=== PATIENT | female | born 1955 | race Caucasian/White ===

== ENCOUNTER 2023-01-17 09:22 | Outpatient (OUT) | payer MEDICARE, SELFPAY ==
[2023-01-17 10:07] LABS: Estimated Average Glucose 111 mg/dL; Glycohemoglobin A1C 5.5 % (4.5-6.2)
[2023-01-17 10:32] LABS: Free T3 2.73 pg/mL (2.18-3.98); Thyroid Stimulating Hormone 2.312 uIU/mL (0.358-3.740)
== END 2023-01-17 09:23 ==
PROVIDERS: PCP Family Medicine; Visit Provider Family Medicine
DX: R53.83 Other fatigue (principal); R63.5 Abnormal weight gain
CPT/HCPCS: 36415; 83036; 84436; 84443; 84481

== ENCOUNTER 2023-04-03 08:40 | Outpatient (OUT) | payer MEDICARE, SELFPAY ==
[2023-04-03 09:24] LABS: Basophils Absolute Auto 0.1 10^3/uL (0.0-0.1); Basophils Percent Auto 1.1 % (0.2-2.0); Eosinophils Absolute Auto 0.3 10^3/uL (0.0-0.7); Eosinophils Percent Auto 4.5 % (0.9-7.0); Hematocrit 38.1 % (36.0-48.0); Hemoglobin 12.5 g/dL (12.0-16.0); Immature Granulocytes Abs Auto 0.02 10^3/uL (0.00-0.03); Immature Granulocytes Pct Auto 0.4 % (0.0-0.5); Lymphocytes Absolute Auto 1.8 10^3/uL (1.2-3.8); Lymphocytes Percent Auto 31.3 % (20.5-60.0); Mean Corpuscular HGB Conc 32.8 g/dL (29.9-35.2); Mean Corpuscular Hemoglobin 29.3 pg (26.7-34.0); Mean Corpuscular Volume 89.4 fL (81.0-99.0); Mean Platelet Volume 8.8 fL (9.5-13.5); Monocytes Absolute Auto 0.6 10^3/uL (0.3-0.8); Monocytes Percent Auto 10.4 % (1.7-12.0); Neutrophils Absolute Auto 2.9 10^3/uL (1.4-6.5); Neutrophils Percent Auto 52.3 % (43.0-75.0); Platelet Count 418 10^3/uL (150-450); Red Blood Count 4.26 10^6/uL (4.20-5.40); Red Cell Distribution Width 13.5 % (11.0-15.0); White Blood Count 5.6 10^3/uL (4.0-11.0)
[2023-04-03 09:43] LABS: Alanine Aminotransferase 27 U/L (14-59); Anion Gap 10.1; Aspartate Amino Transferase 17 U/L (15-37); BUN Creatinine Ratio 22.7; Carbon Dioxide 31.1 mmol/L (21.0-32.0); Chloride 103 mmol/L (98-107); Chol HDL Ratio 1.8; Cholesterol 104 mg/dL (<=200); Estimated GFR (African America >60 (>=60); Estimated GFR (Non-African Ame 57 (>=60); Glucose 105 mg/dL (74-106); HDL Cholesterol 58 mg/dL (40-60); Potassium 4.2 mmol/L (3.5-5.1); Sodium 140 mmol/L (136-145); Triglycerides 105 mg/dL (<=150)
== END 2023-04-03 08:41 | disposition home or self-care (01) ==
PROVIDERS: PCP Family Medicine; Visit Provider Internal Medicine Cardiovascular Disease
DX: E78.5 Hyperlipidemia, unspecified (principal); I25.10 Atherosclerotic heart disease of native coronary artery without angina pectoris; Z98.61 Coronary angioplasty status; I10 Essential (primary) hypertension
CPT/HCPCS: 36415; 80048; 80061; 84450; 84460; 85025

== ENCOUNTER 2023-06-27 09:12 | Outpatient (OUT) | payer MEDICARE, SELFPAY ==
[2023-06-27 09:56] LABS: Basophils Absolute Auto 0.1 10^3/uL (0.0-0.1); Basophils Percent Auto 1.2 % (0.2-2.0); Eosinophils Absolute Auto 0.3 10^3/uL (0.0-0.7); Eosinophils Percent Auto 4.7 % (0.9-7.0); Hematocrit 40.9 % (36.0-48.0); Immature Granulocytes Abs Auto 0.02 10^3/uL (0.00-0.03); Immature Granulocytes Pct Auto 0.3 % (0.0-0.5); Lymphocytes Absolute Auto 1.5 10^3/uL (1.2-3.8); Lymphocytes Percent Auto 22.9 % (20.5-60.0); Mean Corpuscular HGB Conc 31.8 g/dL (29.9-35.2); Mean Corpuscular Hemoglobin 29.1 pg (26.7-34.0); Mean Corpuscular Volume 91.7 fL (81.0-99.0); Mean Platelet Volume 8.8 fL (9.5-13.5); Monocytes Absolute Auto 0.6 10^3/uL (0.3-0.8); Monocytes Percent Auto 9.5 % (1.7-12.0); Neutrophils Absolute Auto 3.9 10^3/uL (1.4-6.5); Neutrophils Percent Auto 61.4 % (43.0-75.0); Platelet Count 464 10^3/uL (150-450); Red Blood Count 4.46 10^6/uL (4.20-5.40); Red Cell Distribution Width 13.2 % (11.0-15.0); White Blood Count 6.4 10^3/uL (4.0-11.0)
[2023-06-27 10:41] LABS: Estimated Average Glucose 126 mg/dL
[2023-06-27 10:54] LABS: Alanine Aminotransferase 40 U/L (14-59); Albumin Globulin Ratio 0.8; Albumin Level 3.6 g/dL (3.4-5.0); Alkaline Phosphatase 114 U/L (46-116); Anion Gap 12.6; Aspartate Amino Transferase 22 U/L (15-37); BUN Creatinine Ratio 19.3; Bilirubin Total 0.4 mg/dL (0.2-1.0); Calcium 9.2 mg/dL (8.5-10.1); Carbon Dioxide 31.5 mmol/L (21.0-32.0); Chloride 101 mmol/L (98-107); Chol HDL Ratio 1.8; Cholesterol 107 mg/dL (<=200); Estimated GFR (African America 55 (>=60); Estimated GFR (Non-African Ame 45 (>=60); Free T3 2.84 pg/mL (2.18-3.98); Globulin 4.4 g/dL; Glucose 101 mg/dL (74-106); HDL Cholesterol 61 mg/dL (40-60); Potassium 4.1 mmol/L (3.5-5.1); Sodium 141 mmol/L (136-145); Triglycerides 120 mg/dL (<=150)
[2023-06-28 11:09] LABS: Insulin 15.9 uIU/mL (2.6-24.9)
== END 2023-06-27 09:13 | disposition home or self-care (01) ==
PROVIDERS: PCP Family Medicine; Visit Provider Family Medicine
DX: Z00.00 Encounter for general adult medical examination without abnormal findings (principal); I25.10 Atherosclerotic heart disease of native coronary artery without angina pectoris; E78.00 Pure hypercholesterolemia, unspecified; E78.5 Hyperlipidemia, unspecified; R73.09 Other abnormal glucose; Z12.12 Encounter for screening for malignant neoplasm of rectum; D64.9 Anemia, unspecified; E55.9 Vitamin D deficiency, unspecified
CPT/HCPCS: 36415; 80053; 80061; 82306; 83036; 83525; 83540; 84436; 84443; 84481; 85025

== ENCOUNTER 2023-07-17 15:04 | Outpatient (REF) | payer MEDICARE, SELFPAY ==
[2023-07-17 15:38] LABS: Occult Blood Positive
== END 2023-07-17 15:05 | disposition home or self-care (01) ==
LOC: LAB 15:04
PROVIDERS: PCP Family Medicine; Visit Provider Family Medicine
DX: Z00.00 Encounter for general adult medical examination without abnormal findings (principal); I25.10 Atherosclerotic heart disease of native coronary artery without angina pectoris; E78.00 Pure hypercholesterolemia, unspecified; R73.09 Other abnormal glucose; Z12.12 Encounter for screening for malignant neoplasm of rectum; D64.9 Anemia, unspecified; E55.9 Vitamin D deficiency, unspecified
CPT/HCPCS: G0328

== ENCOUNTER 2023-08-11 14:18 | Outpatient (OUT) | payer MEDICARE, SELFPAY ==
--- OUTSIDE RECORDS SUMMARY | 2023-08-11 14:23 | XMS_ITS | CCD ---
Author Name Unknown Address [address] [place] [address] Organization [facility] Care Team Providers Care Pit Clerk Name Role Phone ROSEANNE HALL Unavailable Unavailable RON HERNANDEZ Unavailable Unavailable Ron Hernandez Unavailable Unavailable Unavailable MD Ron Hernandez Primary Care Provider [phone] BASILIA White Attending Provider MD Ron Hernandez Referring Provider Self, Referral Attending Provider Unavailable MARY, DR VELASQUEZ Primary Care Unavailable HALL, DR ROSEANNE Casey Admitting Unavailable HALL, DR ROSEANNE Casey Attending Unavailable HALL, DR ROSEANNE Casey Consulting Unavailable MARY, DR VELASQUEZ Admitting Unavailable MARY, DR VELASQUEZ Attending Unavailable MARY, DR VELASQUEZ Consulting Unavailable MARY, DR VELASQUEZ Primary Care Unavailable CELESTE, DR JO Palma Consulting Unavailable HALL, DR ROSEANNE Casey Consulting Unavailable HALL, DR ROSEANNE Casey Consulting Unavailable HALL, DR ROSEANNE Casey Admitting Unavailable HALL, DR ROSEANNE Casey Attending Unavailable MARY, DR VELASQUEZ Primary Care Unavailable CELINA COATES Admitting Unavailable CELESTE, DR JO Palma Consulting Unavailable MARY, DR VELASQUEZ Primary Care Unavailable CELINA COATES Attending Unavailable AMINATA, CELINA Consulting Unavailable Hall, Dr. Roseanne Rodriguez Referring Megan vailable Mary, Dr. Ron Harden Primary Care Unavail able Hall, Dr. Roseanne Rodriguez Attending Megan vailable Hall, Dr. Roseanne Rodriguez Referring Megan vailable Mary, Dr. Ron Harden Primary Care Unavail able Hall, Dr. Roseanne Rodriguez Attending Megan vailable MD Ron Hernandez Primary Care Provider [phone] Self, Referral Attending Provider Unavailable Ron Hernandez Primary Care Unavailable Self, Referral Attending Unavailable Self, Referral Admitting Unavailable WOLFGANG MALLORY Attending Unavailable WOLFGANG MALLORY Referring Unavailable Ron Hernandez Primary Care Physician [phone] Dereck URENA Attending Unavailable Allergies Allergy Classification Reported Allergen(s) Allergy Type Date of Onset Reaction(s) Facility (1 source) No Known Medication Allergies; Translations: [No Known Medication Allergies] Propensity to adverse reactions (disorder) [facility] Repository Medications Current Medications Medication Drug Class(es) Dates Sig (Normalized) Sig (Original) 0.25 MG, 0.5 MG Dose 3 ML semaglutide 0.68 MG/ML Pen Injector [Ozempic] (1 source) Start: 08-02-2023 Ozempic 2 mg/3 mL (0.25 mg or 0.5 mg dose) subcutaneous solution 0.25 mg, SubCutaneous, qWeek, Refills(s) 0 Start Date: 08/02/23 Status: Ordered aspirin 81 mg delayed release oral tablet (15 sources) Platelet Aggregation Inhibitor, Nonsteroidal Anti-inflammatory Drug Start: 08-02-2023 take 1 tablet by mouth once daily aspirin 81 mg Oral EC Tab 81 mg = 1 tab(s), Oral, Daily, Refills(s) 0 Start Date: 08/02/23 Status: Ordered Start: 10-25-2021 take 1 tablet by sukumar th once daily Aspirin 81 MG Oral Tablet Delayed Release TAKE 1 TABLET DAILY. Quantity: 90 Refills: 3 Ordered: 26-Oct-2022 Roseanne Hall MD Start : 25-Oct-2021 Active Fill at patients request 1 ml evolocumab 140 mg/ml prefilled syringe (19 sources) PCSK9 Inhibitor Start: 07-24-2023 Repatha 140 mg /mL subcutaneous solution Refills(s) 0 Start Date: 07/24/23 Status: Ordered inject 1 mL by subcu taneous injection every other week Repatha SureClick 140 MG/ML Subcutaneous Solution Auto-injector Inject one ml every two weeks Quantity: 3 Refills: 3 Ordered: 23-Sep-2022 Roseanne Hall MD Active omeprazole 40 mg delayed release oral capsule (17 sources) Proton Pump Inhibitor Start: 07-24-2023 take 1 capsule by mouth once daily omeprazole 40 mg Cap-DR 40 mg = 1 cap(s), Oral, Daily, Refills(s) 0 Start Date: 07/24/23 Status: Ordered Start: 01-13-2021 take 1 capsule by [facility] once daily Omeprazole 40 MG Oral Capsule Delayed Release TAKE 1 CAPSULE BY MOUTH EVERY DAY Quantity: 90 Refills: 0 Ordered: 13-Jan-2021 DO Start : 13-Jan-2021 Active venlafaxine 37.5 mg oral tablet (17 sources) Serotonin and Norepinephrine Reuptake Inhibitor Start: 07-24-2023 take 1 tablet by mouth once daily venlafaxine 37.5 mg Tab 37.5 mg = 1 tab(s), Oral, Daily, Refills(s) 0 Start Date: 07/24/23 Status: Ordered Start: 12-29-2021 take 1 capsule by [facility] every twenty-four hours Venlafaxine HCl ER 37.5 MG Oral Capsule Extended Release 24 Hour Quantity: 90 Refills: 0 Ordered: 29-Dec-2021 DO Start : 29-Dec-2021 Active take 1 tablet by mouth once jose alejandro y Venlafaxine HCl - 37.5 MG Oral Tablet TAKE 1 TABLET DAILY. Quantity: 0 Refills: 0 Ordered: 15-Sep-2021 DO Active Completed/Discontinued Medications Medication Drug Class(es) Dates Sig (Normalized) Sig (Original) cholecalciferol 0.05 mg oral tablet (7 sources) Vitamin D take 1 tablet by mouth once daily Vitamin D3 50 MCG (1999) Oral Tablet Take 1 tablet daily Quantity: 0 Refills: 0 Ordered: 22-Sep-2022 DO Active clopidogrel 75 mg oral tablet (16 sources) P2Y12 Platelet Inhibitor Start: 07-24-2023 take 1 tablet by mouth once daily Start: 03-24-2023 take 1 tablet by sukumar th once daily Clopidogrel Bisulfate 75 MG Oral Tablet TAKE 1 TABLET BY MOUTH DAILY Quantity: 100 Refills: 2 Ordered: 26-Mar-2023 Roseanne Hall MD Start : 24-Mar-2023 Active take 1 tablet by sukumar th once daily Clopidogrel Bisulfate 75 MG Oral Tablet TAKE 1 TABLET DAILY. Quantity: 90 Refills: 2 Ordered: 24-Oct-2022 Roseanne Hall MD Active etodolac 500 mg oral tablet (10 sources) Nonsteroidal Anti-inflammatory Drug Lodine 500 MG TABS T SILVANO 1 TABLET DAILY. Quantity: 0 Refills: 0 Ordered: 22-Sep-2022 DO Active take 1 tablet by mouth twice felix ly Etodolac 500 MG Oral Tablet TAKE 1 TABLET TWICE DAILY. Quantity: 0 Refills: 0 Ordered: 15-Sep-2021 DO Active ezetimibe 10 mg oral tablet (17 sources) Dietary Cholesterol Absorption Inhibitor Start: 05-30-2022 take 1 tablet by mouth at bedtime Ezetimibe 10 MG Oral Tablet TAKE 1 TABLET BY MOUTH AT BEDTIME Quantity: 90 Refills: 3 Ordered: 13-Mar-2023 Roseanne Hall MD Start : 30-May-2022 Active take 1 tablet by mouth once jose alejandro y Ezetimibe 10 MG Oral Tablet Take 1 tablet daily Quantity: 90 Refills: 3 Ordered: 27-Jul-2021 Roseanne Hall MD Active hydroCHLOROthiazide 12.5 mg oral capsule (15 sources) Thiazide Diuretic Start: 09-15-2021 take 1 capsule by mouth once daily hydroCHLOROthiazide 12.5 MG Oral Capsule TAKE 1 CAPSULE BY MOUTH DAILY Quantity: 100 Refills: 2 Ordered: 26-Mar-2023 Roseanne Hall MD Start : 15-Sep-2021 Active lisinopril 10 mg oral tablet (19 sources) Angiotensin Converting Enzyme Inhibitor Start: 07-24-2023 take 1 tablet by mouth once daily Start: 07-19-2021 take 1 tablet by sukumar th once daily Lisinopril 10 MG Oral Tablet TAKE 1 TABLET BY MOUTH DAILY Quantity: 100 Refills: 2 Ordered: 26-Mar-2023 Roseanne Hall MD Start : 19-Jul-2021 Active meloxicam 7.5 mg oral tablet (5 sources) Nonsteroidal Anti-inflammatory Drug Start: 02-17-2022 Meloxicam 7.5 MG Oral Tablet TAKE TABLET PRN Quantity: 0 Refills: 0 Ordered: 17-Feb-2022 DO Start : 17-Feb-2022 Active 24 hr metoprolol succinate 50 mg extended release oral tablet (18 sources) beta-Adrenergic Hebert Start: 07-24-2023 take 1 tablet by mouth once daily Start: 05-30-2022 take 1 tablet by sukumar th once daily Metoprolol Succinate ER 50 MG Oral Tablet Extended Release 24 Hour TAKE 1 TABLET BY MOUTH DAILY Quantity: 100 Refills: 2 Ordered: 26-Mar-2023 Roseanne aHll MD Start : 30-May-2022 Active take 1 tablet by sukumar th once daily Metoprolol Succinate ER 50 MG Oral Tablet Extended Release 24 Hour take 1 tablet by mouth once daily Quantity: 90 Refills: 3 Ordered: 22-Jul-2021 Roseanne Hall MD Active Move Free Joint Health Advance Oral Tablet (6 sources) take 1 tablet by mouth once daily Move Free Joint Health Advance Oral Tablet Take 1 tablet daily Quantity: 0 Refills: 0 Ordered: 22-Sep-2022 DO Active 24 hr niacin 500 mg extended release oral tablet (4 sources) Nicotinic Acid take 1 tablet by mouth once daily Niaspan 500 MG Oral Tablet Extended Release TAKE 1 TABLET DAILY. Quantity: 0 Refills: 0 Ordered: 15-Sep-2021 DO Active pravastatin sodium 20 mg oral tablet (16 sources) HMG-CoA Reductase Inhibitor Start: 07-24-2023 Start: 03-24-2023 take 1 tablet by sukumar th every week Pravastatin Sodium 20 MG Oral Tablet TAKE 1 TABLET BY MOUTH WEEKLY Quantity: 15 Refills: 2 Ordered: 26-Mar-2023 Roseanne Hall MD Start : 24-Mar-2023 Active take 1 tablet by sukumar th every week Pravastatin Sodium 20 MG Oral Tablet TAKE 1 TABLET Weekly Quantity: 13 Refills: 2 Ordered: 24-Oct-2022 Roseanne Hall MD Active ubidecarenone 10 mg oral cap jaylin (16 sources) CoQ-10 10 MG CAP S TAKE 1 CAPSULE Daily Quantity: 0 Refills: 0 Ordered: 15-Sep-2021 DO Active vitamin b12 1 mg oral tablet (4 sources) Vitamin B12 Cyanocobalamin 1 000 MCG TABS TAKE 1 TABLET DAILY DIRECTED. Quantity: 0 Refills: 0 Ordered: 15-Sep-2021 DO Active Problems Active Problems Problem Classification Problem Date Documented Da te Episodic/Chronic Acute cerebrovascular disease (17 sources) Cerebrovascular accident; Translations: [Stroke syndrome] 07-24-2023 Chronic Coronary atherosclerosis and other heart disease (20 sources) Atherosclerotic heart disease of [place] coronary artery without angina pectoris; Translations: [Coronary atherosclerosis] Onset: 05-18-2017 Chronic Coronary atherosclerosis and other heart disease (16 sources) Patient post percutaneous transluminal coronary angioplasty; Translations: [Percutaneous transluminal coronary angioplasty status] Episodic Comment on above: RCA/left circumflex 2017; Coronary atherosclerosis and other heart disease (1 source) Coronary atherosclerosis and other heart disease Onset: 05-18-2017 Disorders of lipid metabolism (20 sources) Hyperlipidemia; Translations: [Other and unspecified hyperlipidemia] Onset: 09-13-2022 Chronic Essential hypertension (20 sources) Hypertensive disorder; Translations: [Unspecified essential hypertension] Onset: 10-07-2021 07-24-2023 Chronic Essential hypertension (1 source) Essential hypertension Onset: 05-18-2017 Mood disorders (1 source) Depressive disorder 07-24-2023 Chronic Nonmalignant breast conditions (1 source) Fibrocystic disease of breast 07-24-2023 Chronic Occlusion or stenosis of precerebral arteries (5 sources) Occlusion and stenosis of bilateral carotid arteries; Translations: [Bilateral stenosis of carotid arteries] Onset: 05-25-2020 Chronic Other gastrointestinal disorders (1 source) Abnormal feces; Translations: [Other fecal abnormalities] Onset: 08-02-2023 Episodic Other gastrointestinal disorders (1 source) Occult blood in stools 08-02-2023 Episodic Other nutritional; endocrine; and metabolic disorders (17 sources) Obesity; Translations: [Obesity, unspecified] 07-24-2023 Chronic Other nutritional; endocrine; and metabolic disorders (1 source) Body mass index 30+ - obesity 08-02-2023 Chronic Transient cerebral ischemia (1 source) Transient cerebral ischemia Onset: 05-25-2020 07-24-2023 Chronic Unclassified (2 sources) Athscl heart disease of [place] coronary artery w/o ang pctrs / I25.10(ICD-9) Onset: 05-18-2017 Unclassified (1 source) Encounter for screening mammogram for malignant neoplasm of breast; Translations: [Encounter for screening mammogram for malignant neoplasm of breast] Onset: 04-18-2023 Past or Other Problems Problem Classification Problem Date Documented Da te Episodic/Chronic Other circulatory disease (16 sources) H/O: hypertension; Translations: [Personal history of other diseases of circulatory system] Resolved: 09-15-2021 Episodic Unclassified (16 sources) Never smoked tobacco; Translations: [Never a smoker] Results Test Name Value Interpretation Reference Range Facility Consent for Procedure/Surger yon 08-03-2023 Consent for Procedure/Surgery [id number] IFF [facility] Facesheeton 08-03-2023 Facesheet [id number] TIFF Normal [facility] Ambulatory Visit Summaryon 1 10-03-2022 Ambulatory Visit Summary ASHLEY VALENCIA :1955 Visit Date:08/02/2023 Ambulatory Visit Instructions Your Care Team Attending Physician - ROMEL MOORE, Dereck Streeter Primary Care Physician - Mary MOORE, Ron This Is Your Medications List Contact prescribing physician if questions or concerns aspirin (aspirin 81 mg Oral EC Tab) clopidogrel (clopidogrel 75 mg Tab) evolocumab (Repatha 140 mg/mL subcutaneous solution) lisinopril (lisinopril 10 mg Tab) metoprolol (metoprolol 50 mg ER Tab) omeprazole (omeprazole 40 mg Cap-DR) pravastatin (pravastatin 20 mg Tab) semaglutide (Ozempic 2 mg/3 mL (0.25 mg or 0.5 mg dose) subcutaneous solution) venlafaxine (venlafaxine 37.5 mg Tab) Procedures Performed Placement of stent in coronary artery (2018), Angioplasty, section, Colonoscopy, Repair of tendon. Discharge Vitals Heart Rate (Peripheral) 72 Respiratory Rate 16 Blood Pressure 122/80 Height 162.5 cm Height 64 in Weight 89.8 kg Weight 197.56 lb BMI 34.01 Medications What How Much When Instructions Unchanged aspirin (aspirin 81 mg Oral EC Tab) 1 Tablets By Mouth Every day Contact prescribing physician if questions or concerns Unchanged clopidogrel (clopidogrel 75 mg Tab) 1 Tablets By Mouth Every day 1 Unknown, 0 Refill(s) Contact prescribing physician if questions or concerns Unchanged evolocumab (Repatha 140 mg/ mL subcutaneous solution) Contact prescribing physician if questions or concerns Unchanged lisinopril (lisinopril 10 mg Tab) 1 Tablets By Mouth Every day 1 Unknown, 0 Refill(s) Contact prescribing physician if questions or concerns Unchanged metoprolol (metoprolol 50 mg ER Tab) 1 Tablets By Mouth Every day 1 Unknown, 0 Refill(s) Contact prescribing physician if questions or concerns Unchanged omeprazole (omeprazole 40 mg Cap-DR) 1 Capsules By Mouth Every day Contact prescribing physician if questions or concerns Unchanged pravastatin (pravastatin 20 mg Tab) 1 Tablets By Mouth Monday 1 Unknown, 0 Refill(s) Contact prescribing physician if questions or concerns Unchanged semaglutide (Ozempic 2 mg/ 3 mL (0.25 mg or 0.5 mg dose) subcutaneous solution) 0.25 Milligram Subcutaneous Every week Contact prescribing physician if questions or concerns Unchanged venlafaxine (venlafaxine 37.5 mg Tab) 1 Tablets By Mouth Every day Contact prescribing physician if questions or concerns Allergies No Known Allergies No Known Medication Allergies Problems Ongoing - Any problem that you are currently receiving treatment for. Bilateral stenosis of carotid arteries BMI 34.0-34.9,adult Cerebral infarction Coronary atherosclerosis Depression Dyslipidemia Fibrocystic disease of breast Hyperlipidemia Hypertensive disorder Obesity Pure hypercholesterolemia Transient cerebral ischemia Patient Survey You may receive a survey via text or e-mail asking about your office visit. Please share your experience with us by completing your survey. We appreciate your feedback and thank you for choosing us for your care. [facility] Physician Referralon 023 Physician Referral [id number] IFF [facility] MM screening mammo BI w/CADo n 04-18-2023 MM screening mammo BI w/CAD [facility] [place] [address] Mammography Report Signed Patient: Ashley Valencia MR#: [id number] : 1955 Acct:[id number] Age/Sex: 68 / F ADM Date: 04/18/23 Loc: [place] Room: Type: [facility] Attending Dr: Referral Self Copies to: Ron Hernandez MD SELF,REFERRAL Ordering Provider: SELF,REFERRAL Date of Service: 04/18/23 MM/MM screening mammo BI w/CAD: SCREENING BILATERAL Screening Full Field digital mammogram with 3-D imaging. Full field digital CC and MLO imaging performed. CAD utilized. COMPARISON: 04/15/2022 HISTORY: Annual screening BREAST COMPOSITION: Scattered fibroglandular densities of the breast parenchyma identified BENIGN BREAST CALCIFICATIONS: Present VASCULAR CALCIFICATIONS: None DEVELOPING ARCHITECTURAL DISTORTION: None DEVELOPING BREAST NODULE: No developing breast nodule. Stable breast nodularity. DEVELOPING MALIGNANT CALCIFICATIONS: None AXILLARY LYMPH NODES: Normal POSTSURGICAL CHANGES: None MM/MM screening mammo BI w/CAD IMPRESSION: No mammographic evidence of malignancy. Routine follow-up recommended in one year. RESULT CODE: 2 Benign Findings(s) DENSITY CODE: 2 (approximately 25-50% glandular) FOLLOW UP: 1YR THE FALSE-NEGATIVE RATE OF MAMMOGRAPHY IS APPROXIMATELY 10%. IMAGING OF A PALPABLE ABNORMALITY MUST BE BASED ON CLINICAL GROUNDS. PATIENT WAS ENTERED INTO A REMINDER SYSTEM WITH A TARGET DUE DATE FOR THE NEXT MAMMOGRAM. Impression dictated by: Juarez Parish M.D.04/18/2023 11:10 AM Dictation Location: [facility] Transcribed By: [facility] 04/18/23 1110 Dictated By: Juarez Parish DO 04/18/23 1050 Signed By: 04/18/23 1110 [facility] Office Visit (Cardiology)on 04-04-2023 Follow-up visit Diagnoses/Problems Assessed Atherosclerosis of [place] coronary artery of [place] heart without angina pectoris (414.01) (I25.10) Essential hypertension (401.9) (I10) Hyperlipidemia (272.4) (E78.5) S/P PTCA (percutaneous transluminal coronary angioplasty) (V45.82) (Z98.61) RCA/left circumflex 2017 Never a smoker Class 1 obesity with body mass index (BMI) of 34.0 to 34.9 in adult (278.00,V85.34) (E66.9,Z68.34) Stroke syndrome Orders SocHx: Never a smoker Tobacco Use Screening; Status:Complete; Done: [id number] Patient Instructions Please bring all medicines, vitamins, and herbal supplements with you when you come to the office. Prescriptions will not be filled unless you are compliant with your follow up appointments or have a follow up appointment scheduled as per instruction of your physician. Refills should be requested at the time of your visit. Labs requested from [facility] Follow up in [6 ] months Chief Complaint ASHLEY VALENCIA is being seen for a 6 month follow-up of. Patient is in the office for follow-up for the problems noted below. She has had no events since her last visit 6 months ago. Her weight remains above target. She is trying to lose weight. She had blood work yesterday at [facility] which we requested. She is tolerating medication without any problem denies any symptoms suggestive of recurrent angina pectoris, cardiac arrhythmias or any dyspnea on exertion. Apart from class I obesity physical examination was normal. ASSESSMENT AND PLAN: 1. Coronary artery disease, status post angioplasty in 2017. This involved the left circumflex and the right coronary artery. Presently stable with no changes needed and no cardiac investigations are necessary. 2. Hypertension, currently under control. Renal function is normal 3. Class I obesity. Patient is making the effort to lose weight. 4. Hyperlipidemia, currently on a combination of Repatha, Zetia and pravastatin [once weekly]. All of which have been well-tolerated. Lipid profile was done yesterday and we requested the results from the hospital 5. History of stroke back in August 2019 mostly in the form of slurred speech which resolved. Continue dual antiplatelet therapy which has been well-tolerated. Roseanne Hall MD, [facility] Surgical History Problems History of Achilles tendon surgery History of Blepharoplasty History of section History of Complete colonoscopy History of Percutaneous transluminal coronary angioplasty Past Medical History Problems History of hypertension (V12.59) (Z86.79) Resolved Date: 15 Sep 2021 Current Meds Medication NameInstruction Aspirin 81 MG Oral Tablet Delayed ReleaseTAKE 1 TABLET DAILY. Clopidogrel Bisulfate 75 MG Oral TabletTAKE 1 TABLET BY MOUTH DAILY CoQ-10 10 MG CAPSTAKE 1 CAPSULE Daily Ezetimibe 10 MG Oral TabletTAKE 1 TABLET BY MOUTH AT BEDTIME hydroCHLOROthiazide 12.5 MG Oral CapsuleTAKE 1 CAPSULE BY MOUTH DAILY Lisinopril 10 MG Oral TabletTAKE 1 TABLET BY MOUTH DAILY Metoprolol Succinate ER 50 MG Oral Tablet Extended Release 24 HourTAKE 1 TABLET BY MOUTH DAILY Omeprazole 40 MG Oral Capsule Delayed ReleaseTAKE 1 CAPSULE BY MOUTH EVERY DAY Pravastatin Sodium 20 MG Oral TabletTAKE 1 TABLET BY MOUTH WEEKLY Repatha SureClick 140 MG/ML Subcutaneous Solution Auto-injectorInject one ml every two weeks Venlafaxine HCl ER 37.5 MG Oral Capsule Extended Release 24 Hour Vitamin D3 50 MCG (1999 [place]) Oral TabletTake 1 tablet daily Allergies Medication No Known Drug Allergies Recorded By: Gema Ren; 07/22/2021 11:33:05 AM Social History Problems Alcohol use (V49.89) (Z78.9) Caffeine use (V49.89) (Z78.9) Never a smoker No illicit drug use Review of Systems Constitutional: not feeling tired. Cardiovascular: no intermittent leg claudication and as noted in HPI. Respiratory: no cough and no shortness of breath. Gastrointestinal: no change in bowel habits and no blood in stools. Integumentary: no skin rashes. Neurological: no seizures and no frequent falls. All other systems have been reviewed and are negative for complaint. Vitals Vital Signs Recorded: [id number] 09:35AM Heart Rate66, R Radial [id number], LLE, Sitting [id number], LLE, Sitting Height5 ft 4 in [id number] lb 12.8 oz BMI Onkrvubixz01.12 kg/m2 BSA Calculated1.95 Tobacco Useb) No Falls Screening (Age 18+)a) No falls within the last year Physical Exam Constitutional: alert and in no acute distress. Neck: neck is supple, symmetric, trachea midline, no masses and no thyromegaly . Pulmonary: no increased work of breathing or signs of respiratory distress and lungs clear to auscultation. Cardiovascular: carotid pulses 2+ bilaterally with no bruit , JVP was normal, no thrills , regular rhythm, normal S1 and S2, no murmurs , pedal pulses 2+ bilaterally and no edema . Abdomen: abdomen non-tender, no masses and no hepatomegaly . Skin: skin warm and dry, normal skin (more content not included)... Normal [facility] Tobacco Screening.on 023 Fall risk assessment a) No falls within the last year [facility] [employer] [address] [place] [address] DO Work Phone: Tobacco use status [facility] b) No M [facility] [employer] [place] [address] DO Work Phone: MRI Ankle w/o Lefton 023 MRI Ankle w/o Left CLINICAL HISTORY: Le ft ankle pain. Achilles pain. History of surgery. COMPARISON: MRI of the ankle 03/16/2022 TECHNIQUE: MRI of the ankle was performed without contrast. FINDINGS: 4 mm focus of hyperintense T2 signal of the central distal Achilles tendon at the attachment to the calcaneus. There is now severe thickening and low-level hyperintense intrasubstance signal of the distal Achilles tendon. No retrocalcaneal bursitis. Postsurgical changes along the posterior margin of the distal Achilles tendon. Minimal bone marrow edema of the posterior calcaneus. Mild thickening of the medial cord plantar fascia thickness measuring up to 6 mm. No adjacent soft tissue edema. Small posterior and moderate plantar calcaneal enthesophytes. Musculature appears normal. Tibialis posterior, flexor digitorum longus, and flexor hallucis longus tendons are intact. Peroneus longus and brevis tendons are intact. Extensor tendons are intact. The anterior and posterior tibiofibular ligaments are intact. The anterior talofibular ligament, calcaneofibular ligament, and posterior talofibular ligament are intact. Superficial and deep fibers of the deltoid ligament are intact. Spring ligament is intact. Sinus tarsi fat is preserved. Lisfranc ligament appears intact. No acute fracture or evidence of stress reaction. Mild degenerative changes of the midfoot. IMPRESSION: 4 mm focus of hyperintense T2 signal of the central distal Achilles tendon at the attachment to the calcaneus is nonspecific and may represent postsurgical changes or tiny tear, superimposed on severe tendinosis. Report reported and signed by Shaq Bills on 10/04/2022 1018 Normal [facility] Office Visit (Cardiology)on 09-22-2022 Follow-up visit Diagnoses/Problems Assessed Atherosclerosis of [place] coronary artery of [place] heart without angina pectoris (414.01) (I25.10) S/P PTCA (percutaneous transluminal coronary angioplasty) (V45.82) (Z98.61) RCA/left circumflex 2017 Essential hypertension (401.9) (I10) Hyperlipidemia (272.4) (E78.5) Never a smoker Class 1 obesity with body mass index (BMI) of 33.0 to 33.9 in adult (278.00,V85.33) (E66.9,Z68.33) Stroke syndrome Orders Class 1 obesity with body mass index (BMI) of 33.0 to 33.9 in adult Healthy Weight Tips; Status:Complete - Retrospective Authorization; Done: 22Sep2022 Some eating tips that can help you lose weight.; Status:Complete - Retrospective Authorization; Done: 22Sep2022 SocHx: Never a smoker Tobacco Use Screening; Status:Complete; Done: 22Sep2022 Patient Instructions Please bring all medicines, vitamins, and herbal supplements with you when you come to the office. Prescriptions will not be filled unless you are compliant with your follow up appointments or have a follow up appointment scheduled as per instruction of your physician. Refills should be requested at the time of your visit. Follow up in [6 ] months Chief Complaint ASHLEY VALENCIA is being seen for a 6 month follow-up of. Patient is in the office for follow-up for the problems noted below. Her cardiac status has been stable since her angioplasty. Recent lab data including lipid profile were excellent. She has no angina orthopnea PND or lower extremity edema. She has injured her ankle and because of this she has not been able to exercise as much. Weight remains a target to kasia and education in that regard was provided. Her cardiovascular pulmonary examinations were normal. Recent lab data were reviewed with the patient her medical therapy was reviewed with her as well. ASSESSMENT AND PLAN: 1. Coronary artery disease, status post angioplasty in 2016. This involved the left circumflex and the right coronary artery. Presently stable with no changes needed and no cardiac investigations are necessary. 2. Hypertension, currently under control. Renal function is normal 3. Obesity. The patient's weight has come down several pounds and encouragement provided for more weight loss. 4. Hyperlipidemia, currently on a combination of Repatha, Zetia and pravastatin [once weekly]. All of which have been well-tolerated. Lipid profile recently was excellent. 5. History of stroke back in August 2019 mostly in the form of slurred speech which resolved. Continue dual antiplatelet therapy which has been well-tolerated. Roseanne Hall MD, [facility] Surgical History Problems History of Blepharoplasty History of section History of Complete colonoscopy History of Percutaneous transluminal coronary angioplasty Past Medical History Problems History of hypertension (V12.59) (Z86.79) Resolved Date: 15 Sep 2021 Current Meds Medication NameInstruction Aspirin 81 MG Oral Tablet Delayed ReleaseTAKE 1 TABLET DAILY. Clopidogrel Bisulfate 75 MG Oral TabletTAKE 1 TABLET DAILY. CoQ-10 10 MG CAPSTAKE 1 CAPSULE Daily Ezetimibe 10 MG Oral TabletTAKE 1 TABLET EVERY DAY hydroCHLOROthiazide 12.5 MG Oral CapsuleTAKE 1 CAPSULE EVERY DAY Lisinopril 10 MG Oral TabletTAKE 1 TABLET EVERY DAY Lodine 500 MG TABSTAKE 1 TABLET DAILY. Metoprolol Succinate ER 50 MG Oral Tablet Extended Release 24 HourTAKE 1 TABLET EVERY DAY [facility] Oral TabletTake 1 tablet daily Omeprazole 40 MG Oral Capsule Delayed ReleaseTAKE 1 CAPSULE BY MOUTH EVERY DAY Pravastatin Sodium 20 MG Oral TabletTAKE 1 TABLET Weekly Repatha SureClick 140 MG/ML Subcutaneous Solution Auto-injectorInject one ml every two weeks Venlafaxine HCl ER 37.5 MG Oral Capsule Extended Release 24 Hour Vitamin D3 50 MCG (1999 [place]) Oral TabletTake 1 tablet daily Allergies Medication No Known Drug Allergies Recorded By: Gema Ren; 07/22/2021 11:33:05 AM Social History Problems Alcohol use (V49.89) (Z78.9) Caffeine use (V49.89) (Z78.9) Never a smoker No illicit drug use Review of Systems Constitutional: not feeling tired. Cardiovascular: no intermittent leg claudication and as noted in HPI. Respiratory: no cough and no shortness of breath. Gastrointestinal: no change in bowel habits and no blood in stools. Integumentary: no skin rashes. Neurological: no seizures and no frequent falls. All other systems have been reviewed and are negative for complaint. Vitals Vital Signs Recorded: 22Sep2022 10:18AM Heart Rate76, L Radial Puqemtbp384, LUE, Sitting Qabjbzgee35, LUE, Sitting Height5 ft 4 in Rdzlvk300 lb BMI Uerlbksprm43.82 kg/m2 BSA Calculated1.94 Tobacco Useb) No PHQ-2 #1. Over the last 2 weeks have you felt down, depressed or hopeless? (If yes, answer PHQ-9 below)No PHQ-2 #2. Over the last 2 weeks have you felt little interest or pleasure in doing things? (If yes, answer PHQ-9 below)No Falls Screening (Age 18+)a) No fa (more content not included)... Normal Twyxt Tobacco Screening.on 023 Adult depression screening assessment No [facility] [employer] 250 DO Work Phone: Fall risk assessment a) No falls within the last year [facility] [employer] 250 DO Work Phone: Tobacco use status [facility] b) No M [facility] [employer] 250 DO Work Phone: CBC AUTO DIFFon 09-13-2022 BASO # 0.1 103/ul Normal 0.0-0.1 [facility] Comment on above: Performed By: #### C BC #### [facility] [address] [place] [address] Dr. Daniel Dave Basophils/100 WBC (Bld) 1.0 % Normal 0.2-2.0 [facility] Comment on above: Performed By: #### C BC #### [facility] [address] [place] [address] Dr. Daniel Dave EO # 0.2 103/ul Normal 0.0-0.7 [facility] Comment on above: Performed By: #### C BC #### [facility] [address] [place] [address] Dr. Daniel Dave Eosinophils/100 WBC (Bld) 3.9 % Normal 0.9-7.0 [facility] Comment on above: Performed By: #### C BC #### [facility] [address] [place] [address] Dr. Daniel Dave Erythrocyte distribution width (RBC) [Ratio] 13.6 % Normal 11.0-15.0 [facility] Comment on above: Performed By: #### C BC #### [facility] [address] [place] [address] Dr. Daniel Dave Hematocrit (Bld) [Volume fraction] 40.8 % Normal 36.0-48.0 [facility] Comment on above: Performed By: #### C BC #### [facility] [address] [place] [address] Dr. Daniel Dave Hemoglobin (Bld) [Mass/Vol] 13.1 g/dL Normal 12.0-16.0 [facility] Comment on above: Performed By: #### C BC #### [facility] [address] [place] [address] Dr. Daniel Dave IG # 0.02 10e3/ul Normal 0.00-0.03 [facility] Comment on above: Performed By: #### C BC #### [facility] [address] [place] [address] Dr. Daniel Dave IG % 0.3 % Normal 0.0-0.5 [facility] Comment on above: Performed By: #### C BC #### [facility] [address] [place] [address] Dr. Daniel Dave LYMPH # 1.7 103/ul Normal 1.2-3.8 [facility] Comment on above: Performed By: #### C BC #### [facility] [address] [place] [address] Dr. Daniel Dave Lymphocytes/100 WBC (Bld) 27.6 % Normal 20.5-60.0 [facility] Comment on above: Performed By: #### C BC #### [facility] [address] [place] [address] Dr. Daniel Dave MANUAL DIFF REQ NO Normal [facility] Comment on above: Performed By: #### C BC #### [facility] [address] [place] [address] Dr. Daniel Dave MCH (RBC) [Entitic mass] 28.8 pg Normal 26.7-34.0 [facility] Comment on above: Performed By: #### C BC #### [facility] [address] [place] [address] Dr. Daniel Dave MCHC (RBC) [Mass/Vol] 32.1 g/dL Normal 29.9-35.2 [facility] Comment on above: Performed By: #### C BC #### [facility] [address] [place] [address] Dr. Daniel Dave MCV (RBC) [Entitic vol] 89.7 fL Normal 81.0-99.0 [facility] Comment on above: Performed By: #### C BC #### [facility] [address] [place] [address] Dr. Daniel Dave MONO # 0.6 103/ul Normal 0.3-0.8 [facility] Comment on above: Performed By: #### C BC #### [facility] [address] [place] [address] Dr. Daniel Dave Monocytes/100 WBC (Bld) 9.4 % Normal 1.7-12.0 [facility] Comment on above: Performed By: #### C BC #### [facility] [address] [address] [address] Daniel Dave NEUT # 3.5 103/ul Normal 1.4-6.5 [facility] Comment on above: Performed By: #### C BC #### [facility] [address] [address] [address] Daniel Dave Neutrophils/100 WBC (Bld) 57.8 % Normal 43.0-75.0 [facility] Comment on above: Performed By: #### C BC #### [facility] [address] [address] [address] Daniel Dave Platelet mean volume (Bld) [Entitic vol] 8.7 fL Critically low 9.5-13.5 [facility] Comment on above: Performed By: #### C BC #### [facility] [address] [address] [address] Daniel Dave PLT 412 103/ul Normal 150-450 [facility] Comment on above: Performed By: #### C BC #### [facility] [address] [address] [address] Daniel Dave RBC 4.55 106/ul Normal 4.20-5.40 [facility] Comment on above: Performed By: #### C BC #### [facility] [address] [address] [address] Daniel Dave WBC 6.1 103/ul Normal 4.0-11.0 [facility] Comment on above: Performed By: #### C BC #### [facility] [address] [address] [address] Daniel Dave LIPID PROFILEon 09-13-2022 CHOL-HDL RATIO NORM SEE BELOW Normal [facility] Comment on above: Result Comment: 3.3 - 4.4 LOW RISK 4.4 - 7.1 AVERAGE RISK 7.1 - 11.0 MODERATE RISK >11.0 HIGH RISK Performed By: #### B MP, ALT, AST, LIPID ####[facility] [address] [address]Dr. Daniel Dave Cholesterol [Mass/Vol] 114 mg/dL Normal <=200 Th [facility] Comment on above: Performed By: #### B MP, ALT, AST, LIPID ####[facility] [id number]. Daniel Dave Cholesterol in HDL [Mass/Vol] 62 mg/dL Critically high 40-60 [facility] Comment on above: Performed By: #### B MP, ALT, AST, LIPID ####[facility] [address] [id number]. Daniel Dave Cholesterol in LDL [Mass/Vol] 28.4 mg/dL Normal [facility] Comment on above: Performed By: #### B MP, ALT, AST, LIPID ####[facility] [address] [id number]. Daniel Dave Cholesterol.total/Марина sterol in HDL [Mass ratio] 1.8 {ratio} Normal [facility] Comment on above: Performed By: #### B MP, ALT, AST, LIPID ####[facility] [address] [id number]. Daniel Dave HDL NORMAL > or = 60 mg/dl - LO W CARDIOVASCULAR RISK <40 mg/dl - HIGH CARDIOVASCULAR RISK Normal [facility] Comment on above: Performed By: #### B MP, ALT, AST, LIPID ####[facility] [address] [id number]. Daniel Dave LDL CALC NORMAL SEE BELOW Normal [facility] Comment on above: Result Comment: <100 mg/dl OPTIMAL 100 - 129 mg/dl NEAR OR ABOVE OPTIMAL 130 - 159 mg/dl BORDERLINE HIGH 160 - 189 mg/dl HIGH >190 mg/dl VERY HIGH Performed By: #### B MP, ALT, AST, LIPID ####[facility] [address] [id number]. Daniel Dave Triglyceride [Mass/Vol] 118 mg/dL Normal <=150 T [facility] Comment on above: Performed By: #### B MP, ALT, AST, LIPID ####[facility] [address] [id number]. Daniel Dave VLDL CALC 23.6 mg/dL Normal [facility] Comment on above: Performed By: #### B MP, ALT, AST, LIPID ####[facility] [address] [id number]. Daniel Dave PROF CHEM 8 (BAS METB)on Anion gap [Moles/Vol] 11.7 mmol/L Normal [facility] Comment on above: Performed By: #### B MP, ALT, AST, LIPID #### [facility] [address] [address] [address] Daniel Dave Calcium [Mass/Vol] 9.2 mg/dL Normal 8.5-10.1 [facility] Comment on above: Performed By: #### B MP, ALT, AST, LIPID #### [facility] [address] [address] [address] Daniel Dave Chloride [Moles/Vol] 104 mmol/L Normal 98-107 [facility] Comment on above: Performed By: #### B MP, ALT, AST, LIPID #### [facility] [address] [address] [address] Daniel Dave CO2 [Moles/Vol] 30.9 mmol/L Normal 21.0-32.0 [facility] Comment on above: Performed By: #### B MP, ALT, AST, LIPID #### [facility] [address] [address] [address] Daniel Dave Creatinine [Mass/Vol] 1.04 mg/dL Critically high 0.55-1.02 [facility] Comment on above: Performed By: #### B MP, ALT, AST, LIPID #### [facility] [address] [address] [address] Daniel Dave EGFR-AF UZBEK >60 Normal >=60 [facility] Comment on above: Performed By: #### B MP, ALT, AST, LIPID #### [facility] [address] [address] [address] Daniel Dave EGFR-NON AF UZBEK 53 mL/min/1.73m2 Critically low >=60 [facility] Comment on above: Performed By: #### B MP, ALT, AST, LIPID #### [facility] [address] [place] [address] Dr. Daniel Dave Glucose [Mass/Vol] 106 mg/dL Normal 74-106 [facility] Comment on above: Performed By: #### B MP, ALT, AST, LIPID #### [facility] [address] [place] [address] Dr. Daniel Dave Potassium [Moles/Vol] 4.6 mmol/L Normal 3.5-5.1 [facility] Comment on above: Performed By: #### B MP, ALT, AST, LIPID #### [facility] [address] [place] [address] Dr. Daniel Dave Sodium [Moles/Vol] 142 mmol/L Normal 136-145 [facility] Comment on above: Performed By: #### B MP, ALT, AST, LIPID #### [facility] [address] [place] [address] Dr. Daniel Dave Urea nitrogen [Mass/Vol] 22.0 mg/dL Critically high 7.0-18.0 [facility] Comment on above: Performed By: #### B MP, ALT, AST, LIPID #### [facility] [address] [place] [address] Dr. Daniel Dave Urea nitrogen/Creatinine [Mass ratio] 21.2 mg/mg Normal [facility] Comment on above: Performed By: #### B MP, ALT, AST, LIPID #### [facility] [address] [place] [address] Dr. Daniel Dave SGOTon 09-13-2022 AST [Catalytic activity/Vol] 19 U/L Normal 15-37 [facility] Comment on above: Performed By: #### B MP, ALT, AST, LIPID #### [facility] [address] [place] [address] Dr. Daniel Dave SGPTon 09-13-2022 ALT [Catalytic activity/Vol] 27 U/L Normal 14-59 [facility] Comment on above: Performed By: #### B MP, ALT, AST, LIPID ####[facility] [address] [place], [place] [address]Ve. Daniel Dave US CAROTID ART BILon 11-17-2 022 US CAROTID ART RUBI EXAMINATION: US MAN TID ART RUBI HISTORY: Bilateral carotid artery occlusion COMPARISON: No relevant comparison available. TECHNIQUE: Duplex Doppler ultrasound analysis of carotid and vertebral arteries. . Bilateral carotid arterial duplex examination was performed using B-mode, color flow and spectral analysis. Carotid stenosis is reported according to validated velocity parameters, similar to NASCET criteria. FINDINGS: RIGHT CAROTID ARTERY Mild atherosclerotic plaque Subclavian: PSV: 199.6 cm/s cm/s EDV: 4.5 cm/s cm/s CCA: Prox: PSV: 115.9 cm/s cm/s EDV: 32.3 cm/s cm/s Mid: PSV: 99.5 cm/s cm/s EDV: 26.8 cm/s cm/s Distal: PSV: 80.1 cm/s cm/s EDV: 22.0 cm/s cm/s BULB: PSV: 80.1 cm/s cm/s EDV: 22.0 cm/s cm/s ICA: Prox: PSV: 86.6 cm/s cm/s EDV: 25.2 cm/s cm/s Mid: PSV: 89.8 cm/s cm/s EDV: 28.4 cm/s cm/s Distal: PSV: 83.3 cm/s cm/s EDV: 25.2 cm/s cm/s ECA: PSV: 139.2 cm/s cm/s EDV: 17.0 cm/s cm/s VERTEBRAL: PSV: 72.1 cm/s cm/s EDV: 18.9 cm/s cm/s ICA/CCA ratio: PSV: 0.8 EDV: 0.9 LEFT CAROTID ARTERY Mild atherosclerotic plaque Subclavian: PSV: 203.2 cm/s cm/s EDV: 0.0 cm/s CCA: Prox: PSV: 136.3 cm/s cm/s EDV: 36.0 cm/s Mid: PSV: 127.9 cm/s cm/s EDV: 35.9 cm/s Distal: PSV: 100.0 cm/s cm/s EDV: 30.4 cm/s BULB: PSV: 111.2 cm/s cm/s EDV: 27.6 cm/s ICA: Prox: PSV: 63.3 cm/s cm/s EDV: 18.0 cm/s Mid: PSV: 98.4 cm/s cm/s EDV: 37.3 cm/s Distal: PSV: 118.0 cm/s cm/s EDV: 37.2 cm/s ECA: PSV: 114.1 cm/s cm/s EDV: 17.5 cm/s VERTEBRAL: PSV: 72.7 cm/s cm/s EDV: 25.4 cm/s ICA/CCA ratio: PSV: 0.9 EDV: 1.0 IMPRESSION: 0-49% flow stenosis bilateral carotid arteries Spectral Doppler US Thresholds (Reference: Sae EG, et al. Radiology 2000; 214:247-252) Stenosis (%) PSV (cm/sec) VICA/VCCA 0-49 <150 <2.5 50-69 150-225 2.5-4.0 >70 >225 >4.0 Electronically authenticated by: JO ALONSO Date: 2022-06-30 12:12 Normal [facility] STRESS/REST MULTIon 05-18 MS STRESS/REST MULTI Patient: ASHLEY VALENCIA Exam Date: 05/18/2022 : 1955 Gender:F Ordering : DR RON HERNANDEZ . Admission #: [id number] Family : Order #: [id number] CLICK HERE TO VIEW EXAM RADIOLOGY REPORT PROCEDURE: RADIONUCLIDE IMAGING STRESS/REST MULTI COMPARISON: NM STRESS/REST MULTI, 07/15/2016. INDICATIONS: Atherosclerosis of coronary artery without angina pectoris TECHNIQUE: Exam Description: Stress/Rest one day protocol gated SPECT Rest Imagin.2 mCi Tc-99m Cardiolite IV on 05/18/2022 Stress Imaging 31.7 mCi Tc-99m Cardiolite IV on 05/18/2022 Exercise Protocol: 0.4 mg Lexiscan given IV Heart Rate (bpm): Rest: 60 Max: 102 PMHR: 66 Blood Pressure: Rest: 142/80 Max: 150/78 Symptoms: Rest and peak stress ECG findings were normal and the exercise portion of the study was normal per attending physician Dr. Doherty . For more details please see separate cardiac stress test report. FINDINGS: QUALITY OF STUDY: Good. PERFUSION DEFECT: None. LOCATION: N/A SIZE: N/A. SEVERITY: N/A. TYPE: N/A. WALL MOTION: Normal. LV SIZE: Normal. 59 mL. TID / TCD: None; 0.7 LVEF: Normal. Calculated EF 86%. SUMMARY: Myocardial perfusion imaging study is NORMAL. CONCLUSION: 1. Normal myocardial profusion scan 2. Normal exercise test Dictated by: Jo Alonso MD on 05/18/2022 at 12:50 Approved by: Jo Alonso MD on 05/18/2022 at 12:51 Normal [facility] Basophils Auto (Bld) [#/Vol] Ordered By: Jimmie White on 04-12-2022 Basophils (Bld) [#/Vol] 0.1 10*3/uL 0.0-0.2 [facility] Basophils/100 WBC Auto (Bld) Ordered By: Jimmie White on 04-12-2022 Basophils/100 WBC (Bld) 1.3 % . F [facility] Blood hemoglobin measurement (mass/volume)Ordered By: Jimmie White on 04-12-2022 Hemoglobin (Bld) [Mass/Vol] 13.4 g/dL 11.8-15.4 [facility] Blood leukocytes automated c ount (number/volume)Ordered By: [facility] Flash White on 04-12-2022 WBC (Bld) [#/Vol] 6.6 10*3/uL 4.5-11.0 [facility] Creatinine and Glomerular fi ltration rate.predicted panel (S/P/Bld)Ordered By: Jimmie White on 04-12-2022 Creatinine [Mass/Vol] 1.01 mg/dL 0.44-1.03 [facility] Eosinophils Auto (Bld) [#/Vo l]Ordered By: Jimmie White on 04-12-2022 Eosinophils (Bld) [#/Vol] 0.2 10*3/uL 0.0-0.45 [facility] Eosinophils/100 WBC Auto (Bl d)Ordered By: Jimmie White on 04-12-2022 Eosinophils/100 WBC (Bld) 3.3 % . [facility] Erythrocyte distribution wid th Auto (RBC) [Ratio]Ordered By: Jimmie White on 04-12-2022 Erythrocyte distribution width (RBC) [Ratio] 14.1 % 11.9-15.3 [facility] Estimated glomerular filtrat ion rate (GFR) non- AmericanOrdered By: Jimmie White on 04-12-2022 GFR/1.73 sq M.predicted among non-blacks MDRD (S/P/Bld) [Vol rate/Area] 55 mL/Min [facility] Hematocrit Auto (Bld) [Volum e fraction]Ordered By: Jimmie White on 04-12-2022 Hematocrit (Bld) [Volume fraction] 40.9 % 34.0-46.4 [facility] Laboratory - CoagulationOrde red By: Jimmie White on 04-12-2022 PT Coag (PPP) [Time] 11.6 s 9.0-12.9 [facility] - Hematology and Cell countsOrdered By: [facility] Flash White on 04-12-2022 Nucleated RBC/100 WBC (Bld) [Ratio] 0.1 % 0-0.5 [facility] Lymphocytes Auto (Bld) [#/Vo l]Ordered By: [facility] Flash White on 04-12-2022 Lymphocytes (Bld) [#/Vol] 1.8 10*3/uL 1.00-4.8 [facility] Lymphocytes/100 WBC Auto (Bl d)Ordered By: [facility] Flash White on 04-12-2022 Lymphocytes/100 WBC (Bld) 27.6 % . [facility] MCH Auto (RBC) [Entitic mass ]Ordered By: Jimmie White on 04-12-2022 MCH (RBC) [Entitic mass] 28.7 pg 24.7-34.3 [facility] MCHC Auto (RBC) [Mass/Vol]Or dered By: Jimmie White on 04-12-2022 MCHC (RBC) [Mass/Vol] 32.7 g/dL 32.0-35.0 [facility] MCV Auto (RBC) [Entitic vol] Ordered By: OZ White on 04-12-2022 MCV (RBC) [Entitic vol] 87.7 fL 80-100 F [facility] Monocytes Auto (Bld) [#/Vol] Ordered By: OZ White on 04-12-2022 Monocytes (Bld) [#/Vol] 0.6 10*3/uL 0.0-0.8 [facility] Monocytes/100 WBC Auto (Bld) Ordered By: OZ White on 04-12-2022 Monocytes/100 WBC (Bld) 9.5 % . F [facility] Neutrophils Auto (Bld) [#/Vo l]Ordered By: OZ White on 04-12-2022 Neutrophils (Bld) [#/Vol] 3.8 10*3/uL 1.8-7.7 [facility] Neutrophils/100 WBC Auto (Bl d)Ordered By: OZ White on 04-12-2022 Neutrophils/100 WBC (Bld) 58.3 % . [facility] No Panel InformationOrdered By: OZ White on 04-12-2022 Estimated GFR () > 60 mL/Min [facility] Comment on above: GFR estimated refere nce range: According to KDOQI guidelines, <60 ml/min/1.73m2 is sufficient to diagnose a patient with chronic kidney disease. Pharmacy Creatinine Clearance (Chem N/A [facility] Platelet mean volume Auto (B ld) [Entitic vol]Ordered By: OZ White on 04-12-2022 Platelet mean volume (Bld) [Entitic vol] 7.2 fL 6.3-10.7 [facility] Platelet poor plasma interna tional normalized ratio (INR) by coagulation assay (relatOrdered By: OZ White on 04-12-2022 INR Coag (PPP) [Relative time] 1.0 {INR} [facility] Comment on above: INR Therapeutic Rang e A) Pre- and Peroperative OAT started two weeks before surgery. NOT HIP SURGERY: 1.5 - 2.5 HIP SURGERY: 2 - 3 B) Primary and secondary prevention of venous THROMBOSIS: 2 - 3 C) Active venous thrombosis, pulmonary embolism and prevention of recurrent venous thrombosis: 2 - 3 D) Prevention of arterial thromboembolism including patients with mechanical heart valves: 3 - 4.5 Platelets Auto (Bld) [#/Vol] Ordered By: Jimmie White on 04-12-2022 Platelets (Bld) [#/Vol] 482 10*3/uL 150-450 [facility] RBC Auto (Bld) [#/Vol]Ordere d By: [facility] Flash White on 04-12-2022 RBC (Bld) [#/Vol] 4.66 10*6/uL 3.60-5.00 [facility] Serum or plasma anion gap de terminationOrdered By: Jimmie White on 04-12-2022 Anion gap [Moles/Vol] 13.5 mmol/L 6.0-15.0 [facility] Serum or plasma calcium idalia urement (mass/volume)Ordered By: [facility] Flash White on 04-12-2022 Calcium [Mass/Vol] 9.6 mg/dL 8.2-10.2 [facility] Serum or plasma chloride julieth surement (moles/volume)Ordered By: [facility] Flash White on 04-12-2022 Chloride [Moles/Vol] 100 mmol/L 95-114 [facility] Serum or plasma glucose idalia urement (mass/volume)Ordered By: [facility] Flash White on 04-12-2022 Glucose [Mass/Vol] 86 mg/dL 70-100 [facility] Comment on above: ADA recommended refe rence range Random Glucose Reference Range is dependent on time and content of last meal. Glucose of more than 200 mg/dL in a nonstressed, ambulatory subject supports the diagnosis of Diabetes Mellitus. Serum or plasma potassium me asurement (moles/volume)Ordered By: Jimmie White on 04-12-2022 Potassium [Moles/Vol] 4.3 mmol/L 3.5-5.1 [facility] Serum or plasma sodium measu rement (moles/volume)Ordered By: [facility] Flash Streeter Cindy on 04-12-2022 Sodium [Moles/Vol] 138 mmol/L 136-146 [facility] Serum or plasma total carbon dioxide measurement (moles/volume)Ordered By: [facility] Flash Streeter Cindy on 04-12-2022 CO2 [Moles/Vol] 28.8 mmol/L 22.0-30.0 [facility] Serum or plasma urea nitroge n measurement (mass/volume)Ordered By: [facility] Flash Streeter Cindy on 04-12-2022 Urea nitrogen [Mass/Vol] 21 mg/dL 9- [facility] MRI Ankle w/o + w/ Lefton MRI Ankle w/o + w/ Left HISTORY: Painful mass of the left posterior heel. Difficulty walking. Calcaneal bursitis. TECHNIQUE: Multisequence multiplanar MRI of the ankle was performed without contrast COMPARISON: FINDINGS: Low-grade intrasubstance tearing of the distal mid and lateral aspect of the Achilles tendon superimposed on moderate tendinosis. Mild adjacent soft tissue edema. Small retrocalcaneal bursal effusion. A marker was placed on the skin of the posterior medial humeral. No enhancing soft tissue mass or bone lesion deep to this marker small posterior calcaneal enthesophyte. Mild thickening of the medial cord plantar fascia with thickness measuring up to 6 mm. Moderate plantar calcaneal enthesophyte. The tibialis posterior, flexor hallucis longus, and flexor digitorum longus tendons are intact. No space-occupying lesion within the tarsal tunnel. Peroneus longus and peroneus brevis tendons are intact. Extensor tendons are intact. The anterior and posterior tibiofibular ligaments, anterior and posterior talofibular ligaments, and calcaneofibular ligament are intact. Superficial and deep fibers of the deltoid ligament are intact. Spring ligament is intact. Sinus tarsi fat is preserved. No well defined or measurable cartilage defect of the tibial plafond, talar dome, or subtalar joint. No ankle joint effusion. No evidence of fracture or stress reaction of the visualized bones. IMPRESSION: Low-grade intrasubstance tearing of the distal Achilles tendon superimposed on moderate tendinosis. Mild retrocalcaneal bursitis. Report reported and signed by Shaq Bills on 03/18/2022 0919 Normal [facility] [place] Tobacco Screening.on 022 Adult depression screening assessment No [facility] 250 DO Work Phone: Fall risk assessment a) No falls within the last year [facility] [address] DO Work Phone: Tobacco use status [facility]PHS b) No [facility] [facility] DO Work Phone: CBC AUTO DIFFon 10-06-2021 BASO # 0.1 103/ul Normal 0.0-0.1 [facility] Comment on above: Performed By: #### C BC #### [facility] [address] [place] [address] Dr. Daniel Dave Basophils/100 WBC (Bld) 0.8 % Normal 0.2-2.0 [facility] Comment on above: Performed By: #### C BC #### [facility] [address] [place] [address] Dr. Daniel Dave EO # 0.3 103/ul Normal 0.0-0.7 [facility] Comment on above: Performed By: #### C BC #### [facility] [address] [place] [address] Dr. Daniel Dave Eosinophils/100 WBC (Bld) 3.8 % Normal 0.9-7.0 [facility] Comment on above: Performed By: #### C BC #### [facility] [address] [place] [address] Dr. Daniel Dave Erythrocyte distribution width (RBC) [Ratio] 13.8 % Normal 11.0-15.0 [facility] Comment on above: Performed By: #### C BC #### [facility] [address] [place] [address] Dr. Daniel Dave Hematocrit (Bld) [Volume fraction] 40.1 % Normal 36.0-48.0 [facility] Comment on above: Performed By: #### C BC #### [facility] [address] [place] [address] Dr. Daniel Dave Hemoglobin (Bld) [Mass/Vol] 13.1 g/dL Normal 12.0-16.0 [facility] Comment on above: Performed By: #### C BC #### [facility] [address] [place] [address] Dr. Daniel Dave IG # 0.03 10e3/ul Normal 0.00-0.03 [facility] Comment on above: Performed By: #### C BC #### [facility] [address] [place] [address] Dr. Daniel Dave IG % 0.4 % Normal 0.0-0.5 [facility] Comment on above: Performed By: #### C BC #### [facility] [address] [place] [address] Dr. Daniel Dave LYMPH # 1.7 103/ul Normal 1.2-3.8 [facility] Comment on above: Performed By: #### C BC #### [facility] [address] [place] [address] Dr. Daniel Dave Lymphocytes/100 WBC (Bld) 24.4 % Normal 20.5-60.0 [facility] Comment on above: Performed By: #### C BC #### [facility] [address] [place] [address] Dr. Daniel Dave MANUAL DIFF REQ NO Normal [facility] Comment on above: Performed By: #### C BC #### [facility] [address] [place] [address] Dr. Daniel Dave MCH (RBC) [Entitic mass] 29.2 pg Normal 26.7-34.0 [facility] Comment on above: Performed By: #### C BC #### [facility] [address] [place] [address] Dr. Daniel Dave MCHC (RBC) [Mass/Vol] 32.7 g/dL Normal 29.9-35.2 [facility] Comment on above: Performed By: #### C BC #### [facility] [address] [place] [address] Dr. Daniel Dave MCV (RBC) [Entitic vol] 89.5 fL Normal 81.0-99.0 [facility] Comment on above: Performed By: #### C BC #### [facility] [address] [place] [address] Dr. Daniel Dave MONO # 0.7 103/ul Normal 0.3-0.8 [facility] Comment on above: Performed By: #### C BC #### [facility] [address] [place] [address] Dr. Daniel Dave Monocytes/100 WBC (Bld) 9.7 % Normal 1.7-12.0 [facility] Comment on above: Performed By: #### C BC #### [facility] [address] [place] [address] Dr. Daniel Dave NEUT # 4.3 103/ul Normal 1.4-6.5 [facility] Comment on above: Performed By: #### C BC #### [facility] [address] [place] [address] Dr. Daniel Dave Neutrophils/100 WBC (Bld) 60.9 % Normal 43.0-75.0 [facility] Comment on above: Performed By: #### C BC #### [facility] [address] [place] [address] Dr. Daniel Dave Platelet mean volume (Bld) [Entitic vol] 8.4 fL Critically low 9.5-13.5 [facility] Comment on above: Performed By: #### C BC #### [facility] [address] [place] [address] Dr. Daniel Dave PLT 440 103/ul Normal 150-450 [facility] Comment on above: Performed By: #### C BC #### [facility] [address] [place] [address] Dr. Daniel Dave RBC 4.48 106/ul Normal 4.20-5.40 [facility] Comment on above: Performed By: #### C BC #### [facility] [address] [place] [address] Dr. Daniel Dave WBC 7.1 103/ul Normal 4.0-11.0 [facility] Comment on above: Performed By: #### C BC #### [facility] [address] [address] [address] Daniel Dave LIPID PROFILEon 10-06-2021 CHOL-HDL RATIO NORM SEE BELOW Normal [facility] Comment on above: Result Comment: 3.3 - 4.4 LOW RISK 4.4 - 7.1 AVERAGE RISK 7.1 - 11.0 MODERATE RISK >11.0 HIGH RISK Performed By: #### A LT, LIPID, AST, BMP #### [facility] [address] [address] [address] Daniel Dave Cholesterol [Mass/Vol] 115 mg/dL Normal <=200 [facility] Comment on above: Performed By: #### A LT, LIPID, AST, BMP #### [facility] [address] [address] [address] Daniel Dave Cholesterol in HDL [Mass/Vol] 61 mg/dL Normal [facility] Comment on above: Performed By: #### A LT, LIPID, AST, BMP #### [facility] [address] [address] [address] Daniel Dave Cholesterol in LDL [Mass/Vol] 33.4 mg/dL Normal [facility] Comment on above: Performed By: #### A LT, LIPID, AST, BMP #### [facility] [address] [address] [address] Daniel Dave Cholesterol.total/Марина sterol in HDL [Mass ratio] 1.9 {ratio} Normal [facility] Comment on above: Performed By: #### A LT, LIPID, AST, BMP #### [facility] [address] [address] [address] Daniel Dave HDL NORMAL > or = 60 mg/dl - LO W CARDIOVASCULAR RISK <40 mg/dl - HIGH CARDIOVASCULAR RISK Normal [facility] Comment on above: Performed By: #### A LT, LIPID, AST, BMP #### [facility] [address] [address] [address] Daniel Dave LDL CALC NORMAL SEE BELOW Normal [facility] Comment on above: Result Comment: <100 mg/dl OPTIMAL 100 - 129 mg/dl NEAR OR ABOVE OPTIMAL 130 - 159 mg/dl BORDERLINE HIGH 160 - 189 mg/dl HIGH >190 mg/dl VERY HIGH Performed By: #### A LT, LIPID, AST, BMP #### [facility] [address] [place] [address] Dr. Daniel Dave Triglyceride [Mass/Vol] 103 mg/dL Normal <=150 [facility] Comment on above: Performed By: #### A LT, LIPID, AST, BMP #### [facility] [address] [place] [address] Dr. Daniel Dave VLDL CALC 20.6 mg/dL Normal [facility] Comment on above: Performed By: #### A LT, LIPID, AST, BMP #### [facility] [address] [place] [address] Dr. Daniel Dave PROF CHEM 8 (BAS METB)on Anion gap [Moles/Vol] 12.8 mmol/L Normal [facility] Comment on above: Performed By: #### A LT, LIPID, AST, BMP #### [facility] [address] [place] [address] Dr. Daniel Dave Calcium [Mass/Vol] 9.2 mg/dL Normal 8.4-10.2 [facility] Comment on above: Performed By: #### A LT, LIPID, AST, BMP #### [facility] [address] [place] [address] Dr. Daniel Dave Chloride [Moles/Vol] 103 mmol/L Normal 98-107 [facility] Comment on above: Performed By: #### A LT, LIPID, AST, BMP #### [facility] [address] [place] [address] Dr. Daniel Dave CO2 [Moles/Vol] 30.5 mmol/L Critically high 22.0-30.0 [facility] Comment on above: Performed By: #### A LT, LIPID, AST, BMP #### [facility] [address] [place] [address] Dr. Daniel Dave Creatinine [Mass/Vol] 0.93 mg/dL Normal 0.52-1.04 [facility] Comment on above: Performed By: #### A LT, LIPID, AST, BMP #### [facility] [address] [address] [address] Daniel Dave EGFR-AF UZBEK >60 Normal >=60 [facility] Comment on above: Performed By: #### A LT, LIPID, AST, BMP #### [facility] [address] [address] [address] Daniel Dave EGFR-NON AF UZBEK >60 Normal >=60 [facility] Comment on above: Performed By: #### A LT, LIPID, AST, BMP #### [facility] [address] [address] [address] Daniel aDve Glucose [Mass/Vol] 118 mg/dL Critically high 74-106 [facility] Comment on above: Performed By: #### A LT, LIPID, AST, BMP #### [facility] [address] [place] [address] Dr. Daniel Dave Potassium [Moles/Vol] 4.3 mmol/L Normal 3.4-5.0 [facility] Comment on above: Performed By: #### A LT, LIPID, AST, BMP #### [facility] [address] [place] [address] Dr. Daniel Dave Sodium [Moles/Vol] 142 mmol/L Normal 137-145 [facility] Comment on above: Performed By: #### A LT, LIPID, AST, BMP #### [facility] [address] [place] [address] Dr. Daniel Dave Urea nitrogen [Mass/Vol] 22.0 mg/dL Critically high 7.0-17.0 [facility] Comment on above: Performed By: #### A LT, LIPID, AST, BMP #### [facility] [address] [place] [address] Dr. Daniel Dave Urea nitrogen/Creatinine [Mass ratio] 23.7 mg/mg Normal [facility] Comment on above: Performed By: #### A LT, LIPID, AST, BMP #### [facility] [address] [place] [address] Dr. Daniel Dave SGOTon 10-06-2021 AST [Catalytic activity/Vol] 15 U/L Normal 14-36 [facility] Comment on above: Performed By: #### A LT, LIPID, AST, BMP #### [facility] [address] [address] [address] Daniel Dave SGPTon 10-06-2021 ALT [Catalytic activity/Vol] 36 U/L Normal 9-52 [facility] Comment on above: Performed By: #### A LT, LIPID, AST, BMP #### [facility] [address] [address] [address] Daniel Dave Tobacco Screening.on 022 Fall risk assessment a) No falls within the last year [facility] [place] [employer] [place] [address] [place] Work Phone: Tobacco use status CPHS b) No [facility] [employer] [address] DO Work Phone: ALT (SGPT)on 05-18-2017 Alanine aminotransferase (ALT) 24 U/L Normal 7-45 [facility] Comment on above: Performed By: #### 1 [id number] ####[facility] [address] [place] [address] AST (SGOT)on 05-18-2017 Aspartate aminotransferase (AST) 18 U/L Normal 13-39 [facility] Comment on above: Performed By: #### 1 [id number] ####[facility] [address] [place] [address] Creatinineon 05-18-2017 Creatinine 0.75 mg/dL Normal 0.50-1.05 [facility] Comment on above: Performed By: #### 1 [id number] ####[facility] [address] [place] [address] eGFR (MDRD) mL/min/{1.73_m2} Normal [facility] Comment on above: Result Comment: Inte rpretation for Chronic Kidney Disease:Stages 1&2 >60 Healthy or potential kidney damage.Mild decrease of GFR.Stage 3 30-59 Moderate decrease of GFR.Stage 4 15-29 Severe decrease of GFR.Stage 5 <15 Kidney failure or on dialysis. Performed By: #### 1 [id number] ####[facility] [id number] [place] [address] Electrolyte Panelon 05-18-20 17 Anion gap 9 mmol/L Low 10-20 [facility] Comment on above: Performed By: #### 1 [id number] ####[facility] [address] [place] [address] Bicarbonate (HCO3) 30 mmol/L Normal 21-32 [facility] Comment on above: Performed By: #### 1 [id number] ####[facility] [address] [place] [address] Chloride 105 mmol/L Normal 98-107 [facility] Comment on above: Performed By: #### 1 [id number] ####[facility] [address] [place] [address] Potassium molar conc 4.2 mmol/L Normal 3.5-5.1 [facility] Comment on above: Performed By: #### 1 [id number] ####[facility] [address] [place] [address] Sodium 140 mmol/L Normal 136-145 [facility] Comment on above: Performed By: #### 1 [id number] ####[facility] [address] [place] [address] Lipid Panelon 05-18-2017 Cholesterol 207 mg/dL Abnormal <200 [facility] Comment on above: Performed By: #### 1 [id number] ####[facility] [address] [place] [address] Cholesterol in VLDL mass conc 37 mg/dL Abnormal <30 [facility] Comment on above: Performed By: #### 1 [id number] ####[facility] [address] [place] [address] Cholesterol to HDL Ratio 3.9 {ratio} Normal [facility] Comment on above: Performed By: #### 1 [id number] ####[facility] [address] [place] [address] HDL Cholesterol 53 mg/dL Normal [facility] Comment on above: Result Comment: Age Normal Mod Risk High Risk5-9 >46 38-46 <3810-14 >44 40-44 <4015-19 >42 38-42 <38Adult >49 Performed By: #### 1 [id number] ####[facility] [address] [place] [address] LDL Cholesterol 117 mg/dL Normal <130 [facility] Comment on above: Performed By: #### 1 [id number] ####[facility] [address] [place] [address] Triglyceride 184 mg/dL Abnormal <150 [facility] Comment on above: Result Comment: 150- 199 Borderline [id number] High>500 Very High Performed By: #### 1 [id number] ####[facility] [address] [place] [address] Urea Nitrogenon 05-18-2017 Urea nitrogen 16 mg/dL Normal 6-23 [facility] Comment on above: Performed By: #### 1 [id number] ####[facility] [address] [place] [address] Vital Signs Date Time Vital Sign Value Performing Clinician Facility 08-02-2023 13:56-0500 Blood Pressure Location Dereck URENA [facility] [place] 08-02-2023 13:56-0500 Diastolic blood pressure 80 mm[Hg] Dereck TIDWELLL [facility] [place] 08-02-2023 13:56-0500 Heart rate 72 /min Dereck URENA [facility] [place] 08-02-2023 13:56-0500 Respiratory rate 16 /min Dereck TIDWELLL [facility] [place] 08-02-2023 13:56-0500 Systolic blood pressure 122 mm[Hg] Dereck URENA [facility] [place] 04-04-2023 09:35-0400 Body height 162.56 cm Ron M Jaysonrolanda Work Phone: [facility] 250 DO Work Phone: 04-04-2023 09:35-0400 Body mass index (BMI) [Ratio] 34.12 kg/m2 Ron M Hoy Work Phone: [facility] 250 DO Work Phone: 04-04-2023 09:35-0400 Body surface area Derived from formula 1.95 m2 Ron M Hoy Work Phone: [facility] 250 DO Work Phone: 04-04-2023 09:35-0400 Body weight 90.18 kg Ron M Hoy Work Phone: [facility] 250 DO Work Phone: 04-04-2023 09:35-0400 Diastolic blood pressure 80 mm[Hg] Ron M Hoy Work Phone: [facility] 250 DO Work Phone: 04-04-2023 09:35-0400 Heart rate 66 /min Ron M Hoy Work Phone: [facility] 250 DO Work Phone: 04-04-2023 09:35-0400 Systolic blood pressure 106 mm[Hg] Orn M Hoy Work Phone: [facility] 250 DO Work Phone: 09-22-2022 10:18-0500 Body height 162.56 cm Ron M Hoy Work Phone: [facility] 250 DO Work Phone: 09-22-2022 10:18-0500 Body mass index (BMI) [Ratio] 33.82 kg/m2 Ron M Hoy Work Phone: [facility] 250 DO Work Phone: 09-22-2022 10:18-0500 Body surface area Derived from formula 1.94 m2 Ron M Hoy Work Phone: [facility] 250 DO Work Phone: 09-22-2022 10:18-0500 Body weight 89.36 kg Ron M Hoy Work Phone: [facility] 250 DO Work Phone: 09-22-2022 10:18-0500 Diastolic blood pressure 60 mm[Hg] Ron M Hoy Work Phone: [facility] DO Work Phone: 09-22-2022 10:18-0500 Heart rate 76 /min Ron M Hoy Work Phone: [facility] 250 DO Work Phone: 09-22-2022 10:18-0500 Systolic blood pressure 116 mm[Hg] Ron M Hoy Work Phone: [facility] [facility] DO Work Phone: 09-13-2022 09:15-0500 28.4 1 Ron M Hoy Work Phone: [facility] 250 DO Work Phone: Comment on above: [facility] 03-16-2022 11:29-0400 Body height 162.56 cm Ron M Hoy Work Phone: [facility] 250 DO Work Phone: 03-16-2022 11:29-0400 Body mass index (BMI) [Ratio] 33.64 kg/m2 Ron M Hoy Work Phone: [facility] 250 DO Work Phone: 03-16-2022 11:29-0400 Body surface area Derived from formula 1.94 m2 Ron M Hoy Work Phone: [facility] [facility] DO Work Phone: 03-16-2022 11:29-0400 Body weight 88.91 kg Ron M Hoy Work Phone: [facility] 250 DO Work Phone: 03-16-2022 11:29-0400 Diastolic blood pressure 74 mm[Hg] Ron M Hoy Work Phone: [facility] [facility] DO Work Phone: 03-16-2022 11:29-0400 Heart rate 84 /min Ron M Hoy Work Phone: [facility] DO Work Phone: 03-16-2022 11:29-0400 Systolic blood pressure 129 mm[Hg] Ron M Hoy Work Phone: [facility] DO Work Phone: 10-14-2021 08:50-0500 Diastolic blood pressure 71 mm[Hg] Ron M Hoy Work Phone: [facility] 250 DO Work Phone: 10-14-2021 08:50-0500 Systolic blood pressure 121 mm[Hg] Ron M Hoy Work Phone: [facility] 250 DO Work Phone: 10-14-2021 08:49-0500 Body height 162.56 cm Ron M Hoy Work Phone: [facility] DO Work Phone: 10-14-2021 08:49-0500 Diastolic blood pressure 62 mm[Hg] Ron M Hoy Work Phone: [facility] DO Work Phone: 10-14-2021 08:49-0500 Heart rate 81 /min Ron M Hoy Work Phone: [facility] 250 DO Work Phone: 10-14-2021 08:49-0500 Systolic blood pressure 122 mm[Hg] Ron Jacinto Hoy Work Phone: [facility] 250 DO Work Phone: 09-15-2021 10:40-0500 Diastolic blood pressure 90 mm[Hg] Ron Jacinto Hoy Work Phone: [facility] 250 DO Work Phone: 09-15-2021 10:40-0500 Systolic blood pressure 160 mm[Hg] Ron Jacinto Hoy Work Phone: [facility] 250 DO Work Phone: 09-15-2021 10:12-0500 Body height 162.56 cm Ron Jacinto Hoy Work Phone: [facility] 250 DO Work Phone: 09-15-2021 10:12-0500 Body mass index (BMI) [Ratio] 34.33 kg/m2 Ron Casey Hoy Work Phone: [facility] [facility] DO Work Phone: 09-15-2021 10:12-0500 Body surface area Derived from formula 1.96 m2 Ron Jacinto Hoy Work Phone: [facility] [facility] DO Work Phone: 09-15-2021 10:12-0500 Body weight 90.72 kg Ron Casey Hoy Work Phone: [facility] [facility] DO Work Phone: 09-15-2021 10:12-0500 Diastolic blood pressure 71 mm[Hg] Ron Jacinto Hoy Work Phone: [facility] [facility] DO Work Phone: 09-15-2021 10:12-0500 Heart rate 64 /min Ron Jacinto Hoy Work Phone: [facility] [facility] DO Work Phone: 09-15-2021 10:12-0500 Systolic blood pressure 152 mm[Hg] Ron Hernandez Work Phone: [facility] [facility] DO Work Phone: Encounters Encounter Date Encounter Type Care Provider Facility Start: 08-02-2023 End: 08-03-2023 ambulatory Dereck URENA Facility:[facility] Start: 08-02-2023 End: 08-02-2023 Patient encounter procedure Dereck URENA General Surgery [facility] [place] Start: 07-24-2023 End: 07-25-2023 ambulatory WOLFGANG Maria Esther MALLORY Not Available Start: 07-18-2023 ambulatory Dereck URENA Facility: [facility] Start: 04-18-2023 End: 04-18-2023 ambulatory Ron Hernandez Facility:[facility] Start: 04-18-2023 End: 04-18-2023 ambulatory MD Ron eHrnandez Work Phone: [facility] Work Phone: Start: 04-18-2023 End: 04-18-2023 Patient encounter procedure MD Ron Hernandez Work Phone: [facility] Work Phone: Start: 04-04-2023 Office outpatient vi sit 25 minutes Ron Hernandez Work Phone: [facility] [facility] DO Work Phone: Start: 04-04-[address] Roseanne Hall Facility: Start: 03-24-2023 Rx Renewal Ron Hernandez Work Phone: [facility] [facility] DO Work Phone: Start: 03-11-2023 Rx Renewal Ron Hernandez Work Phone: [facility] 250 DO Work Phone: Start: 10-25-2022 Rx Renewal Ron M Hoy Work Phone: [facility] [facility] DO Work Phone: Start: 09-22-2022 Office outpatient vi sit 25 minutes Ron Casey Hoy Work Phone: [facility] [facility] DO Work Phone: Start: 09-22-[address] Roseanne Hall Facility:[id number] Start: 09-13-2022 End: 09-14-[address] ROSEANNE HALL Facility:[facility] Start: 09-07-2022 Rx Renewal Ron Jacinto Hoy Work Phone: [facility] 600 DO Work Phone: Start: 06-30-2022 End: 07-01-2022 ambulatory CELINA COATES Facility:[facility] Start: 06-29-2022 Rx Renewal Ron Casey Hoy Work Phone: [facility] [facility] DO Work Phone: Start: 06-01-2022 Telephone encounter Ron Casey Hoy Work Phone: [facility] [facility] DO Work Phone: Start: 05-30-2022 Rx Renewal Ron Casey Hoy Work Phone: [facility] [facility] DO Work Phone: Start: 05-18-2022 End: 05-19-[address] RON HERNANDEZ Facility:[facility] Start: 04-25-2022 End: 04-25-2022 Departed Referred MD Ron Hernandez Work Phone: [facility] Start: 04-15-2022 End: 04-15-2022 Patient encounter procedure MD Ron Hernandez Work Phone: [facility] Start: 04-12-2022 End: 04-12-2022 Patient encounter procedure MD Ron Hernandez Work Phone: [facility] Start: 03-16-2022 Office outpatient vi sit 25 minutes Ron Hernandez Work Phone: [facility] DO Work Phone: Start: 12-06-2021 Rx Renewal Ron Jacinto Horolanda Work Phone: [facility] DO Work Phone: Start: 10-25-2021 Rx Renewal Ron Casey Horolanda Work Phone: [facility] [facility] DO Work Phone: Start: 10-14-2021 Office outpatient vi sit 10 minutes Ron Jacinto Horolanda Work Phone: [facility] [facility] DO Work Phone: Start: 10-06-2021 End: 10-07-[address] RON HERNANDEZ Facility:[facility] Start: 09-15-2021 Office outpatient vi sit 25 minutes Ron Casey Horolanda Work Phone: [facility] DO Work Phone: Start: 07-22-2021 Rx Renewal Roseanne Hall MD Work Phone: [facility] [facility] [place] Work Phone: Start: 07-19-2021 Rx Renewal Roseanne Hall MD Work Phone: [facility] DO Work Phone: Start: 05-18-2017 Ambulatory ROSEANNE HALL Facility :[id number] Patient encounter status Ron Hernandez Work Phone: [facility] [facility] DO Work Phone: Procedures Date Procedure Procedure Detail Performing Clinician Start: 04-18-2023 Screening mammograph y of bilateral breasts MD Ron Hernandez Work Phone: Start: 04-15-2022 Screening mammograph y of bilateral breasts MD Ron Hernandez Work Phone: Start: 08-14-2017 Placement of stent i n coronary artery Dereck URENA Angioplasty of blood vessel Dereck URENA Blepharoplasty Ron Hernandez Work Phone: section Ron Casey H oy Work Phone: section Dereck TIDWELL L Colonoscopy Dereck URENA Percutaneous translu erinn coronary angioplasty Ron Hernandez Work Phone: Repair of tendo achilles Mark gene Casey Hoy Work Phone: Repair of tendon Dereck TIDWELL L Comment on above: left ankle Total colonoscopy Ron Hernandez Work Phone: Plan of Treatment Date Care Activity Detail Author Start: 09-28-2023 FUV, Provider: Roseanne Hall, Status: Pen, Time: 10:10 AM FUV, Provider: Roseanne Hall, Status: Pen, Time: 10:10 AM [facility] [facility] DO Work Phone: Start: 04-04-2023 FUV, Provider: Roseanne Hall, Status: Pen, Time: 9:30 AM FUV, Provider: Roseanne Hall, Status: Pen, Time: 9:30 AM [facility] 250 DO Work Phone: Start: 09-22-2022 FUV, Provider: Roseanne Hall, Status: Pen, Time: 10:10 AM FUV, Provider: Roseanne Hall, Status: Pen, Time: 10:10 AM [facility] 250 DO Work Phone: Start: 04-15-2022 Screening mammograph y of bilateral breasts MM screening mammo BI w/CAD [facility] Start: 04-15-2022 End: 04-15-2022 Patient encounter procedure Departed Clinical [facility] Start: 03-15-2022 FUV, Provider: Roseanne Hall, Status: Pen, Time: 10:50 AM FUV, Provider: Roseanne Hall, Status: Pen, Time: 10:50 AM [facility] 250 DO Work Phone: Start: 10-14-2021 NURSEVST, Provider: MALCOLM DEL CID COPRA PROCESSOR 1,[id number], Status: Pen, Time: 8:30 AM NURSEVST, Provider: MALCOLM DEL CID COPRA PROCESSOR 1,[id number], Status: Pen, Time: 8:30 AM [facility] 250 DO Work Phone: Start: 09-15-2021 FUV, Provider: Roseanne Hall, Status: Pen, Time: 10:00 AM FUV, Provider: Roseanne Hall, Status: Pen, Time: 10:00 AM [facility] 250 DO Work Phone: Immunizations Immunization Date Immunization Notes Care Provider [facility] 05-20-2023 influenza virus vacc ine, unspecified formulation Dereck ROMEL [facility] 06-21-2022 Pfizer COVID-19 Vac Bivalent 30 MCG/0.3ML Intramuscular Suspension Ron Hernandez Work Phone: [facility] Comment on above: Result Comment: 2022: [id number] 06-13-2022 influenza, seasonal, injectable, preservative free Ron Hernandez Work Phone: [facility] 250 DO Work Phone: 03-08-2022 Comirnaty 30 MCG/0.3 ML Intramuscular Suspension Ron Hernandez Work Phone: [facility] 250 DO Work Phone: 03-08-2022 SARS-CoV-2 mRNA (orkyssrjykv-ukjk-zkvaii e) vaccine Dereck ROMEL [facility] Comment on above: Result Comment: 2022: [id number] 05-21-2021 influenza virus vacc ine, unspecified formulation Ron M Hoy Work Phone: [facility] 250 DO Work Phone: 05-21-2021 Pfizer-BioNTech COVI D-19 Vacc 30 MCG/0.3ML Intramuscular Suspension Ron M Hoy Work Phone: [facility] Comment on above: Result Comment: 2022: [id number] 11-06-2020 Pfizer-BioNTech COVI D-19 Vacc 30 MCG/0.3ML Intramuscular Suspension Ron M Hoy Work Phone: [facility] 10-16-2020 Pfizer-BioNTech COVI D-19 Vacc 30 MCG/0.3ML Intramuscular Suspension Ron M Hoy Work Phone: [facility] 05-13-2020 influenza, injectabl e, quadrivalent, preservative free Ron M Hoy Work Phone: [facility] 250 DO Work Phone: 04-30-2020 influenza, injectabl e, quadrivalent, preservative free Ron M Hoy Work Phone: [facility] 250 DO Work Phone: 04-14-2020 influenza virus vacc ine, unspecified formulation Ron M Hoy Work Phone: [facility] 250 DO Work Phone: 05-30-2019 influenza, injectabl e, quadrivalent, preservative free Ron M Hoy Work Phone: [facility] 250 DO Work Phone: 05-14-2019 influenza virus vacc ine, unspecified formulation Ron M Hoy Work Phone: [facility] 250 DO Work Phone: 12-14-2018 tetanus toxoid, redu jed diphtheria toxoid, and acellular pertussis vaccine, adsorbed Ron M Hoy Work Phone: [facility] 250 DO Work Phone: 04-14-2018 influenza virus vacc ine, unspecified formulation Ron M Hoy Work Phone: [facility] 250 DO Work Phone: 06-14-2017 influenza virus vacc ine, unspecified formulation Ron M Hoy Work Phone: [facility] 250 DO Work Phone: 06-06-2017 Influenza, injectabl e, Madin [place] Canine Kidney, preservative free, quadrivalent Ron M Hoy Work Phone: [facility] 250 DO Work Phone: 04-18-2017 influenza, seasonal, injectable, preservative free Ron M Hoy Work Phone: [facility] 250 DO Work Phone: 06-10-2016 influenza, injectabl e, quadrivalent, preservative free Ron M Hoy Work Phone: [facility] 250 DO Work Phone: 05-14-2016 influenza virus vacc ine, unspecified formulation Ron M Hoy Work Phone: [facility] 250 DO Work Phone: 06-05-2015 influenza, seasonal, injectable, preservative free Ron M Hoy Work Phone: [facility] 250 DO Work Phone: Payers Date Payer Category Payer Private Health Insurance [id number] 2023 Self-pay [id number] 2022 Private Health Insurance [id number] 1958 Medicare [id number] 1958 Private Health Insurance [id number] 1955 Unknown [id number] 1955 Unknown [id number] 1955 Unknown [id number] 1956 Unknown [id number] 1956 Unknown [id number] 1956 Unknown [id number] 1956 Unknown [id number] 1956 Unknown [id number] 1955 Unknown [id number] Medicare [id number] Unknown [id number] Unknown Unknown [place] [id number] Unknown [id number] Social History Date Type Detail Facility Alcohol use Alcohol use -[facility] 250 DO Work Phone: Start: 1955 Sex Assigned At Female F [facility] Start: 08-02-2023 Tobacco smoking status Never s moked tobacco (finding) [facility] [place] Tobacco smoking status Never [facility] [place] Sex Assigned At Female [facility] Functional Status Date Assessment Result Facility 08-02-2023 Functional Status N/A [facility] Clinical Note 08-02-2023 Note Date & Type Note Facility 08-02-2023 Note Chief Complaint consultation for positive occult stool HPI Staff 68 year old female presents on consultation from Dr. Hernandez for positive occult stool. Denies abdominal or rectal pain. No rectal bleeding. Reports recent constipation for which she contributes to use of Ozempic. Denies nausea, vomiting or unexplained weight loss. Last colonoscopy completed 04/2012- normal. Grandfather with history of colon cancer, diagnosed later in life. Patient on Plavix; she has held this in the past without incident. Plavix managed by Dr. Hall. History of Present Illness 68 yo female with h/o htn, hypercholesterolemia, CAD, bilateral carotid stenosis, TIA, referred for positive fecal occult blood; denies change in bms or gross blood in stools, no abd complaints; only abd operation ; last colonoscopy 2011, wnl; on Plavix and baby asa daily, no NSAID use; no SBE prophylaxis; no fmhx of GI maligancy or IBD; no tobacco use. Review of Systems PHQ Score Initial Depression Screen Score: 0 SCORE ROS - Provider Constitutional: no fever, no sweats, no weight loss. Eyes: no glasses, no blurred vision, no visual loss. ENMT: no dentures, no hoarseness, no swallowing difficulties, no hearing loss, no ear infection(s), no nose bleeds. Cardiovascular: normal blood pressure, no chest pain, regular heartbeat, no heart murmur. Respiratory: no shortness of breath, no cough, no asthma, no wheezing. Gastrointestinal: no nausea, no vomiting, no diarrhea, no constipation, no blood in stool, no change in bowel habits, no abdominal pain, no hepatitis. Genitourinary: no kidney stones, no urine infection, no dysuria. Musculoskeletal: no pain, no weakness. Skin: no changing moles, no rash, no skin lumps. Neurologic: no seizures, no epilepsy, no headache. Psychiatric: no emotional or psychiatric problem. Heme/Lymph: no bleeding problems, no anemia, no blood clots, no transfusions. Allergy/Immunologic: no swollen lymph nodes/glands, no IV drug abuse. Other: Additional ROS info: Except as noted in the above Review of Systems and in the History of Present Illness, all other systems have been reviewed and are negative or noncontributory. Physical Exam Vitals & Measurements HR: 72(Peripheral) RR: 16 BP: 122/80 HT: 64 in HT: 162.5 cm WT: 89.8 kg WT: 197.56 lb BMI: 34.01 HEENT: normal conjunctiva, sclera clear, no scleral icterus, EOM intact, PERRLA, oral mucosa moist without lesions. Neck: trachea midline, no mass, symmetric, no thyromegaly or nodules, no adenopathy Respiratory: lungs CTA, respirations non labored. Cardiovascular: regular rate and rhythm, no murmur, no pedal edema or varicosities. Gastrointestinal: soft, non distended, no tenderness, no masses, no palpable hernias, diastasis recti no, no hepatosplenomegaly; normal bs Lymphatic: no cervical adenopathy, no supraclavicular adenopathy. Musculoskeletal: normal gait, digits and nails without infection, nodes, cyanosis, clubbing. Skin: no rashes, no lesions, no ulcers, no subcutaneous nodules, induration. Psychiatric/Neuro: oriented to time, place, person, judgement normal, affect appropriate for age, insight intact, no focal deficits. Tests: , review of old records completed , Discussed surgical options, risks, and possible complications with patient. Assessment/Plan 1. Positive fecal occult blood test (R19.5: Other fecal abnormalities) plan colonoscopy under anesthesia, informed consent obtained. hold Plavix 5 days prior to OR. Follow-up No qualifying data available Problem List/Past Medical History Ongoing Bilateral stenosis of carotid arteries BMI 34.0-34.9,adult Cerebral infarction Coronary atherosclerosis Depression Dyslipidemia Fibrocystic disease of breast Hyperlipidemia Hypertensive disorder Obesity Positive fecal occult blood test Pure hypercholesterolemia Transient cerebral ischemia Historical No qualifying data Procedure/Surgical History Placement of stent in coronary artery (2018), Angioplasty, section, Colonoscopy, Repair of tendon. Medications aspirin 81 mg Oral EC Tab, 81 mg= 1 tab(s), Oral, Daily clopidogrel 75 mg Tab, 75 mg= 1 tab(s), Oral, Daily lisinopril 10 mg Tab, 10 mg= 1 tab(s), Oral, Daily metoprolol 50 mg ER Tab, 50 mg= 1 tab(s), Oral, Daily omeprazole 40 mg Cap-DR, 40 mg= 1 cap(s), Oral, Daily Ozempic 2 mg/3 mL (0.25 mg or 0.5 mg dose) subcutaneous solution, 0.25 mg, SubCutaneous, qWeek pravastatin 20 mg Tab, 20 mg= 1 tab(s), Oral, Monday Repatha 140 mg/mL subcutaneous solution venlafaxine 37.5 mg Tab, 37.5 mg= 1 tab(s), Oral, Daily Allergies No Known Allergies No Known Medication Allergies Social History Alcohol - Denies Alcohol Use, 08/02/2023 Substance Abuse - Denies Substance Abuse, 08/02/2023 Tobacco Never (less than 100 in lifetime) Tobacco Use:. Never Smokeless Tobacco Use:., 08/02/2023 Family History ALS - Amyotrophic lateral sclerosis: Father. Hypertension: Mother. Primary mal (more content not included)... [facility] Comment on above: Result Comment: Elec tronically Signed By: ROMEL MOORE, Dereck Quintanilla\Date and Time Signed: 08/02/23 14:32 EST Evaluation + Plan note Note Date & Type Note Facility Evaluation + Plan note No data available for this section [facility] [place] Evaluation note Note Date & Type Note Facility Evaluation note No assessment information availa [facility] Work Phone: Hospital Discharge instructions Note Date & Type Note Facility Hospital Discharge instructions No data available for this section [facility] [place] Progress note Note Date & Type Note Facility Progress note No data available for this section [facility] [place] Summary Purpose Family History No Family History Records FoundUnknown Family Member Name Dates Details Essential hypertension, oswaldo gn: Mother, Sister Status:Active Unknown Family Member Name Dates Details Essential hypertension, oswaldo gn: Mother, Sister Status:Active Unknown Family Member Name Dates Details Essential hypertension, oswaldo gn: Mother, Sister Status:Active Unknown Family Member Name Dates Details Essential hypertension, oswaldo gn: Mother, Sister Status:Active Unknown Family Member Name Dates Details Essential hypertension, oswaldo gn: Mother, Sister Status:Active Unknown Family Member Name Dates Details Essential hypertension, oswaldo gn: Mother, Sister Status:Active Unknown Family Member Name Dates Details Essential hypertension, oswaldo gn: Mother, Sister Status:Active Unknown Family Member Name Dates Details Essential hypertension, oswaldo gn: Mother, Sister Status:Active Unknown Family Member Name Dates Details Essential hypertension, oswaldo gn: Mother, Sister Status:Active Unknown Family Member Name Dates Details Essential hypertension, oswaldo gn: Mother, Sister Status:Active Unknown Family Member Name Dates Details Essential hypertension, oswaldo gn: Mother, Sister Status:Active Unknown Family Member Name Dates Details Essential hypertension, oswaldo gn: Mother, Sister Status:Active Unknown Family Member Name Dates Details Essential hypertension, oswaldo gn: Mother, Sister Status:Active Unknown Family Member Name Dates Details Essential hypertension, oswaldo gn: Mother, Sister Status:Active Unknown Family Member Name Dates Details Essential hypertension, oswaldo gn: Mother, Sister Status:Active Advance Directives No Advanced Directives Records Found Advance Directive Response Recorded Date/ Time Advance Directives Yes February 20 2:29pm Chief Complaint * ASHLEY VALENCIA is being seen for a 6 month follow-up of. * Patient is in the office for follow-up for coronary artery disease and has had no trouble since herlast visit, she denies any angina or need for nitroglycerin. She maintains reasonable adequate level of exercise on regular basis. She has been taking multiple medication for hyperlipidemia including Repatha, small dose of statin and ezetimibe and her blood work is scheduled. She seem to tolerate this combination fairly well. She remains obese and hypertensive in the office today. The rest of examination was unremarkable. * ASSESSMENT AND PLAN: * 1. Coronary artery disease, status post angioplasty in 2017. This involved the left circumflex and the right coronary artery. Presently stable with no changes needed and no cardiac investigations arenecessary. The patient is contemplating surgery on her knee and if is scheduled for that in the near future she will have a Lexiscan perfusion study before her intervention. * 2. Hypertension, currently not under control. We will add hydrochlorothiazide 12.5 mg daily and follow labs and blood pressure in few weeks. * 3. Obesity. Discussed with Ashley the need to cut back calorie intake and exercise on regular basis. * 4. Hyperlipidemia, currently on a combination of Repatha, Zetia and pravastatin [once weekly]. All of which have been well-tolerated. Lipid profile is due and was ordered * 5. stroke back in August 2019 mostly in the form of slurred speech which resolved. * 6. Patient will likely need cardiac clearance prior to knee surgery. The patient will likely need aLexiscan perfusion study for surgery * Roseanne Hall MD, FACC * ASHLEY VALENCIA is being seen for hypertension. * Patient is in the office for hypertension management. Since we added hydrochlorothiazide her blood pressure is now under control. She had no side effect of medications. I reviewed with the patient recent lab including lipid profile which demonstrated a drop of the LDL down to 33 mg/dL on Repatha. * ASHLEY VALENCIA is being seen for a 6 month follow-up of. * Patient is in the office for follow-up for the problems noted below. Since her last visit she remains angina free and her lipids have been under excellent control on combination therapy. She has no side effect of medications, her weight has come down. She is highly motivated for preventing recurrent CAD. Examination apart from obesity were essentially normal. * ASSESSMENT AND PLAN: * 1. Coronary artery disease, status post angioplasty in 2017. This involved the left circumflex and the right coronary artery. Presently stable with no changes needed and no cardiac investigations arenecessary. * 2. Hypertension, currently under control. Renal function is normal * 3. Obesity. The patient's weight has come down several pounds and encouragement provided for more weight loss. * 4. Hyperlipidemia, currently on a combination of Repatha, Zetia and pravastatin [once weekly]. All of which have been well-tolerated. Lipid profile from September 2021 was excellent LDL 33 mg/dL. Niacin will be discontinued * 5. stroke back in August 2019 mostly in the form of slurred speech which resolved. Continue dual antiplatelet therapy which has been well-tolerated. * Roseanne Hall MD, FACC * ASHLEY VALENCIA is being seen for a 6 month follow-up of. * Patient is in the office for follow-up for the problems noted below. Her cardiac status has been stable since her angioplasty. Recent lab data including lipid profile were excellent. She has no angina orthopnea PND or lower extremity edema. She has injured her ankle and because of this she has not been able to exercise as much. Weight remains a target to kasia and education in that regard was provided. Her cardiovascular pulmonary examinations were normal. Recent lab data were reviewed with thepatient her medical therapy was reviewed with her as well. * ASSESSMENT AND PLAN: * 1. Coronary artery disease, status post angioplasty in 2017. This involved the left circumflex and the right coronary artery. Presently stable with no changes needed and no cardiac investigations arenecessary. * 2. Hypertension, currently under control. Renal function is normal * 3. Obesity. The patient's weight has come down several pounds and encouragement provided for more weight loss. * 4. Hyperlipidemia, currently on a combination of Repatha, Zetia and pravastatin [once weekly]. All of which have been well-tolerated. Lipid profile recently was excellent. * 5. History of stroke back in August 2019 mostly in the form of slurred speech which resolved. Continue dual antiplatelet therapy which has been well-tolerated. * Roseanne Hall MD, FACC * ASHLEY VALENCIA is being seen for a 6 month follow-up of. * Patient is in the office for follow-up for the problems noted below. Her cardiac status has been stable since her angioplasty. Recent lab data including lipid profile were excellent. She has no angina orthopnea PND or lower extremity edema. She has injured her ankle and because of this she has not been able to exercise as much. Weight remains a target to kasia and education in that regard was provided. Her cardiovascular pulmonary examinations were normal. Recent lab data were reviewed with thepatient her medical therapy was reviewed with her as well. * ASSESSMENT AND PLAN: * 1. Coronary artery disease, status post angioplasty in 2017. This involved the left circumflex and the right coronary artery. Presently stable with no changes needed and no cardiac investigations arenecessary. * 2. Hypertension, currently under control. Renal function is normal * 3. Obesity. The patient's weight has come down several pounds and encouragement provided for more weight loss. * 4. Hyperlipidemia, currently on a combination of Repatha, Zetia and pravastatin [once weekly]. All of which have been well-tolerated. Lipid profile recently was excellent. * 5. History of stroke back in August 2019 mostly in the form of slurred speech which resolved. Continue dual antiplatelet therapy which has been well-tolerated. * Roseanne Hall MD, FACC * ASHLEY VALENCIA is being seen for a 6 month follow-up of. * Patient is in the office for follow-up for the problems noted below. She has had no events since her last visit 6 months ago. Her weight remains above target. She is trying to lose weight. She had blood work yesterday at [facility] which we requested. She is tolerating medication without anyproblem denies any symptoms suggestive of recurrent angina pectoris, cardiac arrhythmias or any dyspnea on exertion. Apart from class I obesity physical examination was normal. * ASSESSMENT AND PLAN: * 1. Coronary artery disease, status post angioplasty in 2017. This involved the left circumflex and the right coronary artery. Presently stable with no changes needed and no cardiac investigations arenecessary. * 2. Hypertension, currently under control. Renal function is normal * 3. Class I obesity. Patient is making the effort to lose weight. * 4. Hyperlipidemia, currently on a combination of Repatha, Zetia and pravastatin [once weekly]. All of which have been well-tolerated. Lipid profile was done yesterday and we requested the results from the hospital * 5. History of stroke back in August 2019 mostly in the form of slurred speech which resolved. Continue dual antiplatelet therapy which has been well-tolerated. * Roseanne Hall MD, FACC Chief Complaint and Reason for Visit Chief Complaint LABS AND EKG Screening Chief Complaint Screening Additional Source Comments INFORMATION SOURCE (unrecogn ized section and content) DATE CREATED AUTHOR 02/06/2018 [facility] DATE CREATED AUTHOR AUTHOR'S ORGANIZ ATION 09/14/2022 [facility] DATE CREATED AUTHOR AUTHOR'S ORGANIZ ATION 10/05/2022 [facility] DATE CREATED AUTHOR AUTHOR'S ORGANIZ ATION 04/05/2023 [facility] DATE CREATED AUTHOR AUTHOR'S ORGANIZ ATION 04/05/2023 [employer] DATE CREATED AUTHOR AUTHOR'S ORGANIZ ATION 04/28/2023 [facility] DATE CREATED AUTHOR AUTHOR'S ORGANIZ ATION 07/30/2023 [facility] DATE CREATED AUTHOR AUTHOR'S ORGANIZ ATION 08/04/2023 [facility] Care Teams (unrecognized sec tion and content) Team Status: Inactive Member Role Status Dates Ron Hernandez MD Primary Care Provider, Referring Pr ovider Active Referral Self Attending Provider Active Team Status: Inactive Member Role Status Dates Ron Hernandez MD Primary Care Provider Active Flash White DPM Attending Provider Active Team Status: Active Member Role Status Daniel Hernandez MD Primary Care Provider Active Team Status: Inactive Member Role Status Daniel Hrenandez MD Primary Care Provider Active Referral Self Attending Provider Active Goals (unrecognized section and content) Goals may be documented in a n alternate sectionGoals may be documented in an alternate sectionGoals may be documented in an alternate sectionGoals may be documented in an alternate section No data available for this section FOR RECORDS PERTAINING TO PATIENTS WHO ARE OR HAVE BEEN ENROLLED IN A CHEMICAL DEPENDENCY/SUBSTANCEABUSE PROGRAM, SOME INFORMATION MAY BE OMITTED. This clinical summary was aggregated from multiple sources. Caution should be exercised in using it in the provision of clinical care. This summary normalizes information from multiple sources, and as a consequence, information in this document may materially change the coding, format and clinical context of patient data. In addition, data may be omitted in some cases. CLINICAL DECISIONS SHOULD BE BASED ON THE PRIMARY CLINICAL RECORDS. [facility] [employer] [facility]. provides no warranty or guarantee of the accuracy or completeness of information in this document.
== END 2023-08-11 14:19 | disposition home or self-care (01) ==
LOC: PST 14:19
PROVIDERS: PCP Family Medicine; Visit Provider Surgery
DX: Z01.818 Encounter for other preprocedural examination (principal); R19.5 Other fecal abnormalities

== ENCOUNTER 2023-08-23 07:10 | Day surgery (SDC) | payer MEDICARE, SELFPAY ==
--- NOTE | 2023-08-11 12:46 | PC.NURSE ---
Went over what to expect the day of her procedure. Made aware of nothing by mouth after midnight. Made aware that she will need a bottom hoop driver and to leave valuables at home. Made aware to stop her Ozempic one week prior to case. She states that she was not sure about her Plavix and that the office is supposed to let her know. I directed her to followup with them for further direction on that. Health history reviewed. Patient had no further questions or concerns.
--- NOTE | 2023-08-23 | OP_ITS ---
OPERATION DATE: 08/23/2023 PREOPERATIVE DIAGNOSIS: Hemoccult positive stools. POSTOPERATIVE DIAGNOSIS: Sigmoid diverticulosis. PROCEDURE: Colonoscopy to cecum. SURGEON: Dereck Rodrigez M.D. ANESTHESIA: Monitored anesthesia care. ESTIMATED BLOOD LOSS: Zero. INDICATIONS AND CONSENT: Patient is a 68-year-old female recently with positive fecal occult blood. Indications, risks, benefits, alternatives of proceeding with colonoscopy were explained extensively to the patient, including the risks of bleeding, colon perforation or anesthetic complications. All of her questions were answered. Informed consent was obtained. PROCEDURE: Patient brought to the operating room, placed in the left lateral decubitus position. Monitored anesthesia care was provided. Rectal exam was performed which showed no masses or blood. The scope was inserted into the anal canal. Under direct visualization was advanced. With the aid of abdominal compression, it was advanced to the cecum where cecal markings were clearly identified. Upon withdrawal of the scope, mucosal surfaces were carefully examined. There were no mass lesions or polyps. No inflammatory changes or ulcerations. There was moderate sigmoid diverticulosis without inflammatory changes or scarring. The scope was retroflexed in the anal canal. There were some prominent rectal veins, no significant hemorrhoidal disease. The scope was then withdrawn. Patient tolerated procedure well, was sent to recovery room in good condition.f/u screening colonoscopy should be in 10 years. CC: Elie Hernandez M.D. [facility]
--- OUTSIDE RECORDS SUMMARY | 2023-08-23 07:16 | XMS_ITS | CCD ---
Author Name Unknown Address [address] [place] [address] Organization [facility] Care Team Providers Care Plasterer Stucco Name Role Phone ROSEANNE HALL Unavailable Unavailable RON HERNANDEZ Unavailable Unavailable Ron Hernandez Unavailable Unavailable Unavailable MD Ron Hernandez Primary Care Provider [phone] BASILIA White Attending Provider [phone] MD Ron Hernandez Referring Provider Self, Referral Attending Provider Unavailable MARY, DR VELASQUEZ Primary Care Unavailable HALL, DR ROSEANNE Casey Admitting Unavailable HALL, DR ROSEANNE Casey Attending Unavailable HALL, DR ROSEANNE Casey Consulting Unavailable MARY, DR VELASQUEZ Admitting Unavailable MARY, DR VELASQUEZ Attending Unavailable HOY, DR VELASQUEZ Consulting Unavailable MARY, DR VELASQUEZ [...] Primary Care Unavailable CELINA COATES Attending Unavailable AMINATA CELINA Consulting Unavailable Hall, Dr. Roseanne Rodriguez Referring Mgean vailasimona Hernandez, Dr. Ron Harden Primary Care Unavail able Hall, Dr. Roseanne Rodriguez Attending Megan vailable Hall, Dr. Roseanne Rodriguez Referring Megan michael Hernandez, Dr. Ron Harden Primary Care Unavail able Hall, Dr. Roseanne Rodriguez Attending Megan vailaMD Ron Gastelum Primary Care Provider [phone] Self, Referral Attending Provider Unavailable Ron Hernandez Primary Care Unavailable Self, Referral Attending Unavailable Self, Referral Admitting Unavailable Ron Hernandez Primary Care Physician Dereck URENA Attending Unavailable JR. CARVALHO GEORGE C Attending UnavailWOLFGANG Zhou Attending Unavailable WOLFGANG MALLORY Referring Unavailable Allergies Allergy Classification Reported Allergen(s) Allergy Type Date of Onset Reaction(s) Facility (1 source) No Known Medication Allergies; Translations: [No Known Medication Allergies] Propensity to adverse reactions (disorder) [facility] Repository Medications Current Medications Medication [...] Ordered Start: 01-13-2021 take 1 capsule by [facility] once daily Omeprazole 40 MG Oral [...] Ordered Start: 12-29-2021 take 1 capsule by [facility] every twenty-four hours Venlafaxine HCl ER [...] Ordered: 26-Mar-2023 Roseanne Hall MD Start : 30-May-2022 Active [...] disease (20 sources) Atherosclerotic heart disease of [place] coronary artery without angina pectoris; Translations: [Coronary [...] Unclassified (2 sources) Athscl heart disease of [place] coronary artery w/o ang pctrs / I25.10(ICD-9) [...] Test Name Value Interpretation Reference Range Facility Consultation Noteon 01-03-20 24 Consultation Note [id number]#1.00T IFF Normal [facility] Consultation Note [id number]#1.00T IFF Normal [facility] Insurance Correspondenceon 0 08-16-2023 Insurance Correspondence [id number]#1.00 TIFF Normal [facility] Consent for Procedure/Surger yon 08-03-2023 Consent for Procedure/Surgery [id number]#1.00T IFF Normal [facility] Facesheeton 08-03-2023 Facesheet [id number]#1.00 TIFF Normal [facility] Ambulatory Visit Summaryon 1 10-03-2022 Ambulatory Visit Summary YANDELJimmieTIMBOASHLEY Homa :1955 Visit Date:08/02/2023 Ambulatory Visit Instructions Your Care Team Attending Physician - ROMEL MOORE, Dereck Streeter Primary Care Physician - Ron Hernandez MD This Is Your Medications List Contact prescribing [...] for choosing us for your care. Normal [facility] Physician Referralon 023 Physician Referral [id number]#1.00T IFF Normal [facility] MM screening mammo BI w/CADo n 04-18-2023 MM screening mammo BI w/CAD [facility] [address] [place] [id number] Mammography Report Signed Patient: Ashley Valencia MR#: [id number] : 1955 Acct:[id number] Age/Sex: 68 / F ADM Date: 04/18/23 Loc: [place] Room: Type: [facility] Attending Dr: Referral Self Copies to: Ron [...] Juarez Parish M.D.04/18/2023 11:10 AM Dictation Location: [facility] Transcribed By: [facility] 04/18/23 1110 Dictated By: Juarez Parish DO 04/18/23 1050 Signed By: 04/18/23 1110 [facility] Office Visit (Cardiology)on 04-04-2023 Follow-up visit Diagnoses/Problems Assessed 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 Prescriptions will not be filled unless you are compliant with your follow up appointments or have a follow up appointment scheduled as per instruction of your physician. Refills should be requested at the time of your visit. Labs requested from [facility] Follow up in [6 ] months Chief Complaint ASHLEY VALENCIA is being seen for a 6 month follow-up of. Patient is in the office for follow-up for the problems noted below. She has had no events since her last visit 6 months ago. Her weight remains above target. She is trying to lose weight. She had blood work yesterday at [facility] which we requested. She is [...] which has been well-tolerated. Roseanne Hall MD, [facility] Surgical History Problems History of Achilles tendon [...] negative for complaint. Vitals Vital Signs Recorded: [id number] 09:35AM Heart Rate66, R Radial Surqhwzl639, LLE, Sitting Rwzuhunlj50, LLE, Sitting Height5 ft 4 in Ybphwa935 lb 12.8 oz BMI Rxdefbsjwu00.12 kg/m2 BSA Calculated1.95 Tobacco Useb) No Falls [...] normal skin (more content not included)... Normal [employer] Tobacco Screening.on 023 Fall risk assessment a) No falls within the last year [facility] [address] DO Work Phone: Tobacco use status CPHS b) No [facility] [address] DO Work Phone: MRI Ankle [...] by Shaq Bills on 10/04/2022 1018 Normal [facility] Office Visit (Cardiology)on 09-22-2022 Follow-up visit Diagnoses/Problems Assessed Atherosclerosis of [place] coronary artery of [place] heart without angina pectoris (414.01) (I25.10) S/P [...] Weight Tips; Status:Complete - Retrospective Authorization; Done: [id number] Some eating tips that can help you lose weight.; Status:Complete - Retrospective Authorization; Done: [id number] SocHx: Never a smoker Tobacco Use Screening; Status:Complete; Done: [id number] Patient Instructions Please bring all medicines, vitamins, [...] which has been well-tolerated. Roseanne Hall MD, [facility] Surgical History Problems History of Blepharoplasty History [...] HourTAKE 1 TABLET EVERY DAY Move Free Joint Health Advance Oral TabletTake 1 tablet daily Omeprazole 40 MG Oral Capsule Delayed ReleaseTAKE 1 CAPSULE BY MOUTH EVERY DAY Pravastatin Sodium 20 MG Oral TabletTAKE 1 TABLET Weekly Repatha SureClick 140 MG/ML Subcutaneous Solution Auto-injectorInject one ml every two weeks Venlafaxine HCl ER 37.5 MG Oral Capsule Extended Release 24 Hour Vitamin D3 50 MCG (2000 UT) Oral TabletTake 1 tablet daily Allergies [...] Recorded: 22Sep2022 10:18AM Heart Rate76, L Radial Pyaxpkzj669, LUE, Sitting Mlctbreob21, LUE, Sitting Height5 ft 4 in Zefejy081 lb BMI Vyozubapzn27.82 kg/m2 BSA Calculated1.94 Tobacco Useb) No PHQ-2 #1. Over the last 2 weeks have you felt down, depressed or hopeless? (If yes, answer PHQ-9 below)No PHQ-2 #2. Over the last 2 weeks have you felt little interest or pleasure in doing things? (If yes, answer PHQ-9 below)No Falls Screening (Age 18+)a) No fa (more content not included)... Normal [employer] Tobacco Screening.on 023 Adult depression screening assessment No [facility] [place] [address] DO Work Phone: Fall risk assessment a) No falls within the last year [facility] [place] [address] DO Work Phone: Tobacco use status CPHS b) No M [facility] [place] [address] DO Work Phone: CBC AUTO DIFFon 09-13-2022 BASO # 0.1 103/ul Normal 0.0-0.1 [facility] Comment on above: Performed By: #### C BC #### [facility] [address] [place] [address] Dr. Daniel Dave Basophils/100 WBC (Bld) 1.0 % Normal 0.2-2.0 [facility] Comment on above: Performed By: #### C BC #### [facility] [address] [place] [address] Dr. Daniel Dave EO # 0.2 103/ul Normal 0.0-0.7 [facility] Comment on above: Performed By: #### C BC #### [facility] [address] [place] [address] Dr. Daniel Dave Eosinophils/100 WBC (Bld) 3.9 % Normal 0.9-7.0 [facility] Comment on above: Performed By: #### C BC #### [facility] [address] [place] [address] Dr. Daniel Dave Erythrocyte distribution width (RBC) [Ratio] 13.6 % Normal 11.0-15.0 [facility] Comment on above: Performed By: #### C BC #### [facility] [address] [place] [address] Dr. Daniel Dave Hematocrit (Bld) [Volume fraction] 40.8 % Normal 36.0-48.0 [facility] Comment on above: Performed By: #### C BC #### [facility] [address] [place] [address] Dr. Daniel Dave Hemoglobin (Bld) [Mass/Vol] 13.1 g/dL Normal 12.0-16.0 [facility] Comment on above: Performed By: #### C BC #### [facility] [address] [place] [address] Dr. Daniel Dave IG # 0.02 10e3/ul Normal 0.00-0.03 [facility] Comment on above: Performed By: #### C BC #### [facility] [address] [place] [address] Dr. Daniel Dave IG % 0.3 % Normal 0.0-0.5 [facility] Comment on above: Performed By: #### C BC #### [facility] [address] [place] [address] Dr. Daniel Dave LYMPH # 1.7 103/ul Normal 1.2-3.8 [facility] Comment on above: Performed By: #### C BC #### [facility] [address] [place] [address] Dr. Daniel Dave Lymphocytes/100 WBC (Bld) 27.6 % Normal 20.5-60.0 [facility] Comment on above: Performed By: #### C BC #### [facility] [address] [place] [address] Dr. Daniel Dave MANUAL DIFF REQ NO Normal [facility] Comment on above: Performed By: #### C BC #### [facility] [address] [place] [address] Dr. Daniel Dave MCH (RBC) [Entitic mass] 28.8 pg Normal 26.7-34.0 [facility] Comment on above: Performed By: #### C BC #### [facility] [address] [place] [address] Dr. Daniel Dave MCHC (RBC) [Mass/Vol] 32.1 g/dL Normal 29.9-35.2 [facility] Comment on above: Performed By: #### C BC #### [facility] [address] [place] [address] Dr. Daniel Dave MCV (RBC) [Entitic vol] 89.7 fL Normal 81.0-99.0 [facility] Comment on above: Performed By: #### C BC #### [facility] [address] [place] [address] Dr. Daniel Dave MONO # 0.6 103/ul Normal 0.3-0.8 [facility] Comment on above: Performed By: #### C BC #### [facility] [address] [place] [address] Dr. Daniel Dave Monocytes/100 WBC (Bld) 9.4 % Normal 1.7-12.0 [facility] Comment on above: Performed By: #### C BC #### [facility] [address] [place] [address] Dr. Daniel Dave NEUT # 3.5 103/ul Normal 1.4-6.5 [facility] Comment on above: Performed By: #### C BC #### [facility] [address] [place] [address] Dr. Daniel Dave Neutrophils/100 WBC (Bld) 57.8 % Normal 43.0-75.0 [facility] Comment on above: Performed By: #### C BC #### [facility] [address] [place] [address] Dr. Daniel Dave Platelet mean volume (Bld) [Entitic vol] 8.7 fL Critically low 9.5-13.5 [facility] Comment on above: Performed By: #### C BC #### [facility] [address] [place] [address] Dr. Daniel Dave PLT 412 103/ul Normal 150-450 [facility] Comment on above: Performed By: #### C BC #### [facility] [address] [place] [address] Dr. Daniel Dave RBC 4.55 106/ul Normal 4.20-5.40 [facility] Comment on above: Performed By: #### C BC #### [facility] [address] [place] [address] Dr. Daniel Dave WBC 6.1 103/ul Normal 4.0-11.0 [facility] Comment on above: Performed By: #### C BC #### [facility] [address] [place], [place] [address] Dr. Daniel Dave LIPID PROFILEon 09-13-2022 CHOL-HDL RATIO NORM SEE BELOW Normal [facility] Comment on above: Result Comment: 3.3 - 4.4 LOW RISK 4.4 - 7.1 AVERAGE RISK 7.1 - 11.0 MODERATE RISK >11.0 HIGH RISK Performed By: #### B MP, ALT, AST, LIPID ####[facility] [address] [place], [place] [address]We. Daniel Dave Cholesterol [Mass/Vol] 114 mg/dL Normal <=200 [facility] Comment on above: Performed By: #### B MP, ALT, AST, LIPID ####[facility] [address] [place] [address]Dr. Daniel Dave Cholesterol in HDL [Mass/Vol] 62 mg/dL Critically high 40-60 [facility] Comment on above: Performed By: #### B MP, ALT, AST, LIPID ####[facility] [address] [place] [address]Dr. Daniel Dave Cholesterol in LDL [Mass/Vol] 28.4 mg/dL Normal [facility] Comment on above: Performed By: #### B MP, ALT, AST, LIPID ####[facility] [address] [place] [address]Dr. Daniel Dave Cholesterol.total/Марина sterol in HDL [Mass ratio] 1.8 {ratio} Normal [facility] Comment on above: Performed By: #### B MP, ALT, AST, LIPID ####[facility] [address] [place] [address]Dr. Daniel Dave HDL NORMAL > or = 60 mg/dl - LO W CARDIOVASCULAR RISK <40 mg/dl - HIGH CARDIOVASCULAR RISK Normal [facility] Comment on above: Performed By: #### B MP, ALT, AST, LIPID ####[facility] [address] [place] [address]Dr. Daniel Dave LDL CALC NORMAL SEE BELOW Normal [facility] Comment on above: Result Comment: <100 mg/dl OPTIMAL 100 - 129 mg/dl NEAR OR ABOVE OPTIMAL 130 - 159 mg/dl BORDERLINE HIGH 160 - 189 mg/dl HIGH >190 mg/dl VERY HIGH Performed By: #### B MP, ALT, AST, LIPID ####[facility] [address] [place], [place] [address]SgDr. Daniel Dave Triglyceride [Mass/Vol] 118 mg/dL Normal <=150 [facility] Comment on above: Performed By: #### B MP, ALT, AST, LIPID ####[facility] [address] [place], [place] [address]EiDr. Daniel Dave VLDL CALC 23.6 mg/dL Normal [facility] Comment on above: Performed By: #### B MP, ALT, AST, LIPID ####[facility] [address] [place], [place] [address]YbDr. Daniel Dave PROF CHEM 8 (BAS METB)on Anion gap [Moles/Vol] 11.7 mmol/L Normal [facility] Comment on above: Performed By: #### B MP, ALT, AST, LIPID #### [facility] [address] [place] [address] [address] Daniel Dave Calcium [Mass/Vol] 9.2 mg/dL Normal 8.5-10.1 [facility] Comment on above: Performed By: #### B MP, ALT, AST, LIPID #### [facility] [address] [place] [address] [address] Daniel Dave Chloride [Moles/Vol] 104 mmol/L Normal 98-107 [facility] Comment on above: Performed By: #### B MP, ALT, AST, LIPID #### [facility] [address] [place] [address] [address] Daniel Dave CO2 [Moles/Vol] 30.9 mmol/L Normal 21.0-32.0 [facility] Comment on above: Performed By: #### B MP, ALT, AST, LIPID #### [facility] [address] [place] [address] [address] Daniel Dave Creatinine [Mass/Vol] 1.04 mg/dL Critically high 0.55-1.02 [facility] Comment on above: Performed By: #### B MP, ALT, AST, LIPID #### [facility] [address] [place] [address] Dr. Daniel Dave EGFR-AF ICELANDIC >60 Normal >=60 [facility] Comment on above: Performed By: #### B MP, ALT, AST, LIPID #### [facility] [address] [place] [address] Dr. Daniel Dave EGFR-NON AF ICELANDIC 53 mL/min/1.73m2 Critically low >=60 [facility] Comment on above: Performed By: #### B MP, ALT, AST, LIPID #### [facility] [address] [place] [address] Dr. Daniel Dave Glucose [Mass/Vol] 106 mg/dL Normal 74-106 [facility] Comment on above: Performed By: #### B MP, ALT, AST, LIPID #### [facility] [address] [place] [address] Dr. Daniel Dave Potassium [Moles/Vol] 4.6 mmol/L Normal 3.5-5.1 [facility] Comment on above: Performed By: #### B MP, ALT, AST, LIPID #### [facility] [address] [place] [address] Dr. Daniel Dave Sodium [Moles/Vol] 142 mmol/L Normal 136-145 [facility] Comment on above: Performed By: #### B MP, ALT, AST, LIPID #### [facility] [address] [place] [address] Dr. Daniel Dave Urea nitrogen [Mass/Vol] 22.0 mg/dL Critically high 7.0-18.0 [facility] Comment on above: Performed By: #### B MP, ALT, AST, LIPID #### [facility] [address] [place] [address] Dr. Daniel Dave Urea nitrogen/Creatinine [Mass ratio] 21.2 mg/mg Normal [facility] Comment on above: Performed By: #### B MP, ALT, AST, LIPID #### [facility] [address] [place], [place] [address] Dr. Daniel Dave SGOTon 09-13-2022 AST [Catalytic activity/Vol] 19 U/L Normal 15-37 [facility] Comment on above: Performed By: #### B MP, ALT, AST, LIPID #### [facility] [address] [place], [place] [address] Dr. Daniel Dave SGPTon 09-13-2022 ALT [Catalytic activity/Vol] 27 U/L Normal 14-59 [facility] Comment on above: Performed By: #### B MP, ALT, AST, LIPID ####[facility] [address] [place], [place] [address]ScDr. Daniel Dave US CAROTID ART BILon 022 US CAROTID ART RUBI EXAMINATION: US [...] by: JO ALONSO Date: 2022-06-30 12:12 Normal [facility] STRESS/REST MULTIon 05-18 NM STRESS/REST MULTI Patient: ASHLEY VALENCIA Exam Date: 05/18/2022 : 1955 Gender:F Ordering : DR RON HERNANDEZ . Admission #: [id number] Family : Order #: [id number] CLICK HERE TO VIEW EXAM RADIOLOGY REPORT [...] MD on 05/18/2022 at 12:51 Normal [facility] Basophils Auto (Bld) [#/Vol] Ordered By: Jimmie White on 04-12-2022 Basophils (Bld) [#/Vol] 0.1 10*3/uL 0.0-0.2 [facility] Basophils/100 WBC Auto (Bld) Ordered By: OZ White on 04-12-2022 Basophils/100 WBC (Bld) 1.3 % . F [facility] Blood hemoglobin measurement (mass/volume)Ordered By: OZ White on 04-12-2022 Hemoglobin (Bld) [Mass/Vol] 13.4 g/dL 11.8-15.4 [facility] Blood leukocytes automated c ount (number/volume)Ordered By: OZ White on 04-12-2022 WBC (Bld) [#/Vol] 6.6 10*3/uL 4.5-11.0 [facility] Creatinine and Glomerular fi ltration rate.predicted panel (S/P/Bld)Ordered By: Jimmie White on 04-12-2022 Creatinine [Mass/Vol] 1.01 mg/dL 0.44-1.03 [facility] Eosinophils Auto (Bld) [#/Vo l]Ordered By: [facility] Flash White on 04-12-2022 Eosinophils (Bld) [#/Vol] 0.2 10*3/uL 0.0-0.45 [facility] Eosinophils/100 WBC Auto (Bl d)Ordered By: [facility] Flash White on 04-12-2022 Eosinophils/100 WBC (Bld) 3.3 % . [facility] Erythrocyte distribution wid th Auto (RBC) [Ratio]Ordered By: Jimmie White on 04-12-2022 Erythrocyte distribution width (RBC) [Ratio] 14.1 % 11.9-15.3 [facility] Estimated glomerular filtrat ion rate (GFR) non- AmericanOrdered By: Jimmie White on 04-12-2022 GFR/1.73 sq M.predicted among non-blacks MDRD (S/P/Bld) [Vol rate/Area] 55 mL/Min [facility] Hematocrit Auto (Bld) [Volum e fraction]Ordered By: Jimmie White on 04-12-2022 Hematocrit (Bld) [Volume fraction] 40.9 % 34.0-46.4 [facility] Laboratory - CoagulationOrde red By: Jimmie White on 04-12-2022 PT Coag (PPP) [Time] 11.6 s 9.0-12.9 [facility] - Hematology and Cell countsOrdered By: Jimmie White on 04-12-2022 Nucleated RBC/100 WBC (Bld) [Ratio] 0.1 % 0-0.5 [facility] Lymphocytes Auto (Bld) [#/Vo l]Ordered By: Jimmie White on 04-12-2022 Lymphocytes (Bld) [#/Vol] 1.8 10*3/uL 1.00-4.8 [facility] Lymphocytes/100 WBC Auto (Bl d)Ordered By: Jimmie White on 04-12-2022 Lymphocytes/100 WBC (Bld) 27.6 % . [facility] MCH Auto (RBC) [Entitic mass ]Ordered By: Jimmie White on 04-12-2022 MCH (RBC) [Entitic mass] 28.7 pg 24.7-34.3 [facility] MCHC Auto (RBC) [Mass/Vol]Or dered By: Jimmie White on 04-12-2022 MCHC (RBC) [Mass/Vol] 32.7 g/dL 32.0-35.[address] [facility] MCV Auto (RBC) [Entitic vol] Ordered By: Jimmie White on 04-12-2022 MCV (RBC) [Entitic vol] 87.7 fL 80-100 F [facility] Monocytes Auto (Bld) [#/Vol] Ordered By: Jimmie White on 04-12-2022 Monocytes (Bld) [#/Vol] 0.6 10*3/uL 0.0-0.8 [facility] Monocytes/100 WBC Auto (Bld) Ordered By: Jimmie White on 04-12-2022 Monocytes/100 WBC (Bld) 9.5 % . F [facility] Neutrophils Auto (Bld) [#/Vo l]Ordered By: Jimmie White on 04-12-2022 Neutrophils (Bld) [#/Vol] 3.8 10*3/uL 1.8-7.7 [facility] Neutrophils/100 WBC Auto (Bl d)Ordered By: Jimmie White on 04-12-2022 Neutrophils/100 WBC (Bld) 58.3 % . [facility] No Panel InformationOrdered By: OZ White on 04-12-2022 Estimated GFR () > 60 mL/Min [facility] Comment on above: GFR estimated refere nce range: According to KDOQI guidelines, <60 ml/min/1.73m2 is sufficient to diagnose a patient with chronic kidney disease. Pharmacy Creatinine Clearance (Chem N/A [facility] Platelet mean volume Auto (B ld) [Entitic vol]Ordered By: Jimmie White on 04-12-2022 Platelet mean volume (Bld) [Entitic vol] 7.2 fL 6.3-10.7 [facility] Platelet poor plasma interna tional normalized ratio (INR) by coagulation assay (relatOrdered By: OZ White on 04-12-2022 INR Coag (PPP) [Relative time] 1.0 {INR} [facility] Comment on above: INR Therapeutic Rang e [...] 4.5 Platelets Auto (Bld) [#/Vol] Ordered By: OZ White on 04-12-2022 Platelets (Bld) [#/Vol] 482 10*3/uL 150-450 [facility] RBC Auto (Bld) [#/Vol]Ordere d By: Jimmie White on 04-12-2022 RBC (Bld) [#/Vol] 4.66 10*6/uL 3.60-5.00 [facility] Serum or plasma anion gap de terminationOrdered By: Jimmie White on 04-12-2022 Anion gap [Moles/Vol] 13.5 mmol/L 6.0-15.0 [facility] Serum or plasma calcium idalia urement (mass/volume)Ordered By: Jimmie White on 04-12-2022 Calcium [Mass/Vol] 9.6 mg/dL 8.2-10.2 [facility] Serum or plasma chloride julieth surement (moles/volume)Ordered By: Jimmie White on 04-12-2022 Chloride [Moles/Vol] 100 mmol/L 95-114 [facility] Serum or plasma glucose idalia urement (mass/volume)Ordered By: Jimmie White on 04-12-2022 Glucose [Mass/Vol] 86 mg/dL 70-100 [facility] Comment on above: ADA recommended refe rence range Random Glucose Reference Range is dependent on time and content of last meal. Glucose of more than 200 mg/dL in a nonstressed, ambulatory subject supports the diagnosis of Diabetes Mellitus. Serum or plasma potassium me asurement (moles/volume)Ordered By: [facility] Flash White on 04-12-2022 Potassium [Moles/Vol] 4.3 mmol/L 3.5-5.1 [facility] Serum or plasma sodium measu rement (moles/volume)Ordered By: [facility] Flash White on 04-12-2022 Sodium [Moles/Vol] 138 mmol/L 136-146 [facility] Serum or plasma total carbon dioxide measurement (moles/volume)Ordered By: [facility] Flash White on 04-12-2022 CO2 [Moles/Vol] 28.8 mmol/L 22.0-30.0 [facility] Serum or plasma urea nitroge n measurement (mass/volume)Ordered By: [facility] Flash White on 04-12-2022 Urea nitrogen [Mass/Vol] 21 mg/dL 9-23 [facility] MRI Ankle w/o + w/ Lefton MRI [...] by Shaq Bills on 03/18/2022 0919 Normal [facility] [employer] Tobacco Screening.on 022 Adult depression screening assessment No [facility] [employer] [address] DO Work Phone: Fall risk assessment a) No falls within the last year [facility] [employer] [address] DO Work Phone: Tobacco use status [facility] b) No M [facility] [employer] 250 DO Work Phone: CBC AUTO DIFFon 10-06-2021 BASO # 0.1 103/ul Normal 0.0-0.1 [facility] Comment on above: Performed By: #### C BC #### [facility] [address] [place] [address] Dr. Daniel Dave Basophils/100 WBC (Bld) 0.8 % Normal 0.2-2.0 [facility] Comment on above: Performed By: #### C BC #### [facility] [address] [place] [address] Dr. Daniel Dave EO # 0.3 103/ul Normal 0.0-0.7 [facility] Comment on above: Performed By: #### C BC #### [facility] [address] [address] [address] Daniel Dave Eosinophils/100 WBC (Bld) 3.8 % Normal 0.9-7.0 [facility] Comment on above: Performed By: #### C BC #### [facility] [address] [place] [address] Dr. Daniel Dave Erythrocyte distribution width (RBC) [Ratio] 13.8 % Normal 11.0-15.0 [facility] Comment on above: Performed By: #### C BC #### [facility] [address] [place] [address] Dr. Daniel Dave Hematocrit (Bld) [Volume fraction] 40.1 % Normal 36.0-48.0 [facility] Comment on above: Performed By: #### C BC #### [facility] [address] [place] [address] Dr. Daniel Dave Hemoglobin (Bld) [Mass/Vol] 13.1 g/dL Normal 12.0-16.0 [facility] Comment on above: Performed By: #### C BC #### [facility] [address] [place] [address] Dr. Daniel Dave IG # 0.03 10e3/ul Normal 0.00-0.03 [facility] Comment on above: Performed By: #### C BC #### [facility] [address] [place] [address] Dr. Daniel Dave IG % 0.4 % Normal 0.0-0.5 [facility] Comment on above: Performed By: #### C BC #### [facility] [address] [place] [address] Dr. Daniel Dave LYMPH # 1.7 103/ul Normal 1.2-3.8 [facility] Comment on above: Performed By: #### C BC #### [facility] [address] [place] [address] Dr. Daniel Dave Lymphocytes/100 WBC (Bld) 24.4 % Normal 20.5-60.0 [facility] Comment on above: Performed By: #### C BC #### [facility] [address] [place] [address] Dr. Daniel Dave MANUAL DIFF REQ NO Normal [facility] Comment on above: Performed By: #### C BC #### [facility] [address] [place] [address] Dr. Daniel Dave MCH (RBC) [Entitic mass] 29.2 pg Normal 26.7-34.0 [facility] Comment on above: Performed By: #### C BC #### [facility] [address] [place] [address] Dr. Daniel Dave MCHC (RBC) [Mass/Vol] 32.7 g/dL Normal 29.9-35.2 [facility] Comment on above: Performed By: #### C BC #### [facility] [address] [place] [address] Dr. Daniel Dave MCV (RBC) [Entitic vol] 89.5 fL Normal 81.0-99.0 [facility] Comment on above: Performed By: #### C BC #### [facility] [address] [place] [address] Dr. Daniel Dave MONO # 0.7 103/ul Normal 0.3-0.8 [facility] Comment on above: Performed By: #### C BC #### [facility] [address] [place] [address] Dr. Daniel Dave Monocytes/100 WBC (Bld) 9.7 % Normal 1.7-12.0 [facility] Comment on above: Performed By: #### C BC #### [facility] [address] [place] [address] Dr. Daniel Dave NEUT # 4.3 103/ul Normal 1.4-6.5 [facility] Comment on above: Performed By: #### C BC #### [facility] [address] [place] [address] Dr. Daniel Dave Neutrophils/100 WBC (Bld) 60.9 % Normal 43.0-75.0 [facility] Comment on above: Performed By: #### C BC #### [facility] [address] [place] [address] Dr. Daniel Dave Platelet mean volume (Bld) [Entitic vol] 8.4 fL Critically low 9.5-13.5 [facility] Comment on above: Performed By: #### C BC #### [facility] [address] [place] [address] Dr. Daniel Dave PLT 440 103/ul Normal 150-450 [facility] Comment on above: Performed By: #### C BC #### [facility] [address] [address] [address] Daniel Dave RBC 4.48 106/ul Normal 4.20-5.40 [facility] Comment on above: Performed By: #### C BC #### [facility] [address] [address] [address] Daniel Dave WBC 7.1 103/ul Normal 4.0-11.0 [facility] Comment on above: Performed By: #### C BC #### [facility] [address] [place] [address] Dr. Daniel Dave LIPID PROFILEon 10-06-2021 CHOL-HDL RATIO NORM SEE BELOW Normal [facility] Comment on above: Result Comment: 3.3 - 4.4 LOW RISK 4.4 - 7.1 AVERAGE RISK 7.1 - 11.0 MODERATE RISK >11.0 HIGH RISK Performed By: #### A LT, LIPID, AST, BMP #### [facility] [address] [place] [address] Dr. Daniel Dave Cholesterol [Mass/Vol] 115 mg/dL Normal <=200 [facility] Comment on above: Performed By: #### A LT, LIPID, AST, BMP #### [facility] [address] [place] [address] Dr. Daniel Dave Cholesterol in HDL [Mass/Vol] 61 mg/dL Normal [facility] Comment on above: Performed By: #### A LT, LIPID, AST, BMP #### [facility] [address] [place] [address] Dr. Daniel Dave Cholesterol in LDL [Mass/Vol] 33.4 mg/dL Normal [facility] Comment on above: Performed By: #### A LT, LIPID, AST, BMP #### [facility] [address] [place] [address] Dr. Daniel Dave Cholesterol.total/Марина sterol in HDL [Mass ratio] 1.9 {ratio} Normal [facility] Comment on above: Performed By: #### A LT, LIPID, AST, BMP #### [facility] [address] [address] [address] Daniel Dave HDL NORMAL > or = 60 mg/dl - LO W CARDIOVASCULAR RISK <40 mg/dl - HIGH CARDIOVASCULAR RISK Normal [facility] Comment on above: Performed By: #### A LT, LIPID, AST, BMP #### [facility] [address] [address] [address] Daniel Dave LDL CALC NORMAL SEE BELOW Normal [facility] Comment on above: Result Comment: <100 mg/dl OPTIMAL 100 - 129 mg/dl NEAR OR ABOVE OPTIMAL 130 - 159 mg/dl BORDERLINE HIGH 160 - 189 mg/dl HIGH >190 mg/dl VERY HIGH Performed By: #### A LT, LIPID, AST, BMP #### [facility] [address] [place] [address] Dr. Daniel Dave Triglyceride [Mass/Vol] 103 mg/dL Normal <=150 [facility] Comment on above: Performed By: #### A LT, LIPID, AST, BMP #### [facility] [address] [place] [address] Dr. Daniel Dave VLDL CALC 20.6 mg/dL Normal [facility] Comment on above: Performed By: #### A LT, LIPID, AST, BMP #### [facility] [address] [place] [address] Dr. Daniel Dave PROF CHEM 8 (BAS METB)on Anion gap [Moles/Vol] 12.8 mmol/L Normal [facility] Comment on above: Performed By: #### A LT, LIPID, AST, BMP #### [facility] [address] [place] [address] Dr. Daniel Dave Calcium [Mass/Vol] 9.2 mg/dL Normal 8.4-10.2 [facility] Comment on above: Performed By: #### A LT, LIPID, AST, BMP #### [facility] [address] [place] [address] Dr. Daniel Dave Chloride [Moles/Vol] 103 mmol/L Normal 98-107 [facility] Comment on above: Performed By: #### A LT, LIPID, AST, BMP #### [facility] [address] [address] [address] Daniel Dave CO2 [Moles/Vol] 30.5 mmol/L Critically high 22.0-30.0 [facility] Comment on above: Performed By: #### A LT, LIPID, AST, BMP #### [facility] [address] [address] [address] Daniel Dave Creatinine [Mass/Vol] 0.93 mg/dL Normal 0.52-1.04 [facility] Comment on above: Performed By: #### A LT, LIPID, AST, BMP #### [facility] [address] [place] [address] Dr. Daniel Dave EGFR-AF ICELANDIC >60 Normal >=60 [facility] Comment on above: Performed By: #### A LT, LIPID, AST, BMP #### [facility] [address] [place] [address] Dr. Daniel Dave EGFR-NON AF ICELANDIC >60 Normal >=60 [facility] Comment on above: Performed By: #### A LT, LIPID, AST, BMP #### [facility] [address] [place] [address] Dr. Daniel Dave Glucose [Mass/Vol] 118 mg/dL Critically high 74-106 [facility] Comment on above: Performed By: #### A LT, LIPID, AST, BMP #### [facility] [address] [address] [address] Daniel Dave Potassium [Moles/Vol] 4.3 mmol/L Normal 3.4-5.0 [facility] Comment on above: Performed By: #### A LT, LIPID, AST, BMP #### [facility] [address] [place] [address] Dr. Daniel Dave Sodium [Moles/Vol] 142 mmol/L Normal 137-145 [facility] Comment on above: Performed By: #### A LT, LIPID, AST, BMP #### [facility] [address] [place] [address] Dr. Daniel Dave Urea nitrogen [Mass/Vol] 22.0 mg/dL Critically high 7.0-17.0 [facility] Comment on above: Performed By: #### A LT, LIPID, AST, BMP #### [facility] [address] [address] [address] Daniel Dave Urea nitrogen/Creatinine [Mass ratio] 23.7 mg/mg Normal [facility] Comment on above: Performed By: #### A LT, LIPID, AST, BMP #### [facility] [address] [address] [address] Daniel Dave SGOTon 10-06-2021 AST [Catalytic activity/Vol] 15 U/L Normal 14-36 [facility] Comment on above: Performed By: #### A LT, LIPID, AST, BMP #### [facility] [address] [place] [address] Dr. Daniel Dave SGPTon 10-06-2021 ALT [Catalytic activity/Vol] 36 U/L Normal 9-52 [facility] Comment on above: Performed By: #### A LT, LIPID, AST, BMP #### [facility] [address] [place] [address] Dr. Daniel Dave Tobacco Screening.on 022 Fall risk assessment a) No falls within the last year [facility] [employer] [place] 250 DO Work Phone: Tobacco use status [facility] b) No M [facility] [employer] [place] [address] DO Work Phone: ALT (SGPT)on 05-18-2017 Alanine aminotransferase (ALT) 24 U/L Normal 7-45 [facility] Comment on above: Performed By: #### 1 [id number] ####[facility] [address] [place] [address] AST (SGOT)on 05-18-2017 Aspartate aminotransferase (AST) 18 U/L Normal 13-39 [facility] Comment on above: Performed By: #### 1 [id number] ####[facility] [address] [place] [address] Creatinineon 05-18-2017 Creatinine 0.75 mg/dL Normal 0.50-1.05 [facility] Comment on above: Performed By: #### 1 [id number] ####[facility] [address] [place] [address] eGFR (MDRD) mL/min/{1.73_m2} Normal [facility] Comment on above: Result Comment: Inte rpretation for Chronic Kidney Disease:Stages 1&2 >60 Healthy or potential kidney damage.Mild decrease of GFR.Stage 3 30-59 Moderate decrease of GFR.Stage 4 15-29 Severe decrease of GFR.Stage 5 <15 Kidney failure or on dialysis. Performed By: #### 1 [id number] ####[facility] [address] [place] [address] Electrolyte Panelon 05-18-20 17 Anion gap 9 mmol/L Low 10- [facility] Comment on above: Performed By: #### 1 [id number] ####[facility] [address] [place] [address] Bicarbonate (HCO3) 30 mmol/L Normal 21-32 [facility] Comment on above: Performed By: #### 1 [id number] ####[facility] [address] [place] [address] Chloride 105 mmol/L Normal 98-107 [facility] Comment on above: Performed By: #### 1 [id number] ####[facility] [address] [place] [address] Potassium molar conc 4.2 mmol/L Normal 3.5-5.1 [facility] Comment on above: Performed By: #### 1 [id number] ####[facility] [address] [place] [address] Sodium 140 mmol/L Normal 136-145 [facility] Comment on above: Performed By: #### 1 [id number] ####[facility] [address] [facility] [place] [address] Lipid Panelon 05-18-2017 Cholesterol 207 mg/dL Abnormal <200 [facility] Comment on above: Performed By: #### 1 [id number] ####[facility] [address] [place] [address] Cholesterol in VLDL mass conc 37 mg/dL Abnormal <30 [facility] Comment on above: Performed By: #### 1 [id number] ####[facility] [address] [place] [address] Cholesterol to HDL Ratio 3.9 {ratio} Normal [facility] Comment on above: Performed By: #### 1 [id number] ####[facility] [address] [place] [address] HDL Cholesterol 53 mg/dL Normal [facility] Comment on above: Result Comment: Age Normal Mod Risk High Risk5-9 >46 38-46 <3810-14 >44 40-44 <4015-19 >42 38-42 <38Adult >49 Performed By: #### 1 [id number] ####[facility] [address] [place] [address] LDL Cholesterol 117 mg/dL Normal <130 [facility] Comment on above: Performed By: #### 1 [id number] ####[facility] [address] [place] [address] Triglyceride 184 mg/dL Abnormal <150 [facility] Comment on above: Result Comment: 150- 199 Borderline [id number] High>500 Very High Performed By: #### 1 [id number] ####[facility] [address] [place] [address] Urea Nitrogenon 05-18-2017 Urea nitrogen 16 mg/dL Normal 6-23 [facility] Comment on above: Performed By: #### 1 [id number] ####[facility] [address] [place] [address] Vital Signs Date Time Vital Sign Value Performing Clinician Facility 08-02-2023 13:56-0500 Blood Pressure Location [facility] [place] 08-02-2023 13:56-0500 Diastolic blood pressure 80 mm[Hg] Dereck URE[facility] 08-02-2023 13:56-0500 Heart rate 72 /min Dereck URENA [facility] 08-02-2023 13:56-0500 Respiratory rate 16 /min Dereck [facility] [place] 08-02-2023 13:56-0500 Systolic blood pressure 122 mm[Hg] Dereck URENA [facility] [place] 04-04-2023 09:35-0400 Body height 162.56 cm Ron M Hoy Work Phone: [facility] 250 DO Work Phone: 04-04-2023 09:35-0400 Body mass index (BMI) [Ratio] 34.12 kg/m2 Ron M Hoy Work Phone: [facility] DO Work Phone: 04-04-2023 09:35-0400 Body surface area Derived from formula 1.95 m2 Ron M Hoy Work Phone: [facility] 250 DO Work Phone: 04-04-2023 09:35-0400 Body weight 90.18 kg Ron M Hoy Work Phone: [facility] DO Work Phone: 04-04-2023 09:35-0400 Diastolic blood pressure 80 mm[Hg] Ron M Hoy Work Phone: [facility] DO Work Phone: 04-04-2023 09:35-0400 Heart rate 66 /min Ron M Hoy Work Phone: [facility] DO Work Phone: 04-04-2023 09:35-0400 Systolic blood pressure 106 mm[Hg] Ron M Hoy Work Phone: [facility] 250 DO Work Phone: 09-22-2022 10:18-0500 Body height 162.56 cm Ron M Hoy Work Phone: [facility] DO Work Phone: 09-22-2022 10:18-0500 Body mass index (BMI) [Ratio] 33.82 kg/m2 Ron Jacinto Hoy Work Phone: [facility] DO Work Phone: 09-22-2022 10:18-0500 Body surface area Derived from formula 1.94 m2 Ron Jacinto Hoy Work Phone: [facility] 250 DO Work Phone: 09-22-2022 10:18-0500 Body weight 89.36 kg Ron Casey Hoy Work Phone: [facility] DO Work Phone: 09-22-2022 10:18-0500 Diastolic blood pressure 60 mm[Hg] Ron Casey Hoy Work Phone: [facility] DO Work Phone: 09-22-2022 10:18-0500 Heart rate 76 /min Ron Casey Hoy Work Phone: [facility] 250 DO Work Phone: 09-22-2022 10:18-0500 Systolic blood pressure 116 mm[Hg] Ron Casey Hoy Work Phone: [facility] 250 DO Work Phone: 09-13-2022 09:15-0500 28.4 1 Ron Jacinto Hoy Work Phone: [facility] 250 DO Work Phone: Comment on above: [facility] 03-16-2022 11:29-0400 Body height 162.56 cm Ron Casey Hoy Work Phone: [facility] 250 DO Work Phone: 03-16-2022 11:29-0400 Body mass index (BMI) [Ratio] 33.64 kg/m2 Ron M Hoy Work Phone: [facility] DO Work Phone: 03-16-2022 11:29-0400 Body surface area Derived from formula 1.94 m2 Ron M Hoy Work Phone: [facility] DO Work Phone: 03-16-2022 11:29-0400 Body weight 88.91 kg Ron Jacinto Hoy Work Phone: [facility] 250 DO Work Phone: 03-16-2022 11:29-0400 Diastolic blood pressure 74 mm[Hg] Ron M Hoy Work Phone: [facility] 250 DO Work Phone: 03-16-2022 11:29-0400 Heart rate 84 /min Ron Jacinto Hoy Work Phone: [facility] DO Work Phone: 03-16-2022 11:29-0400 Systolic blood pressure 129 mm[Hg] Ron M Hoy Work Phone: [facility] DO Work Phone: 10-14-2021 08:50-0500 Diastolic blood pressure 71 mm[Hg] Ron M Hoy Work Phone: [facility] 250 DO Work Phone: 10-14-2021 08:50-0500 Systolic blood pressure 121 mm[Hg] Ron M Hoy Work Phone: [facility] 250 DO Work Phone: 10-14-2021 08:49-0500 Body height 162.56 cm Ron M Hoy Work Phone: [facility] 250 DO Work Phone: 10-14-2021 08:49-0500 Diastolic blood pressure 62 mm[Hg] Ron M Hoy Work Phone: [facility] DO Work Phone: 10-14-2021 08:49-0500 Heart rate 81 /min Ron M Hoy Work Phone: [facility] DO Work Phone: 10-14-2021 08:49-0500 Systolic blood pressure 122 mm[Hg] Ron M Hoy Work Phone: [facility] DO Work Phone: 09-15-2021 10:40-0500 Diastolic blood pressure 90 mm[Hg] Ron M Hoy Work Phone: [facility] DO Work Phone: 09-15-2021 10:40-0500 Systolic blood pressure 160 mm[Hg] Ron M Hoy Work Phone: [facility] DO Work Phone: 09-15-2021 10:12-0500 Body height 162.56 cm Ron M Hoy Work Phone: [facility] 250 DO Work Phone: 09-15-2021 10:12-0500 Body mass index (BMI) [Ratio] 34.33 kg/m2 Ron M Hoy Work Phone: [facility] 250 DO Work Phone: 09-15-2021 10:12-0500 Body surface area Derived from formula 1.96 m2 Ron M Hoy Work Phone: [facility] DO Work Phone: 09-15-2021 10:12-0500 Body weight 90.72 kg Ron M Hoy Work Phone: [facility] 250 DO Work Phone: 09-15-2021 10:12-0500 Diastolic blood pressure 71 mm[Hg] Ron Casey Hoy Work Phone: [facility] 250 DO Work Phone: 09-15-2021 10:12-0500 Heart rate 64 /min Ron Jacinto Hoy Work Phone: [facility] DO Work Phone: 09-15-2021 10:12-0500 Systolic blood pressure 152 mm[Hg] Ron Casey Hoy Work Phone: [facility] DO Work Phone: Encounters Encounter Date Encounter Type Care Provider Facility Start: 08-21-2023 End: 08-21-2023 ambulatory OBED RODRIGUEZ Not Available Start: 08-02-2023 End: 08-03-2023 ambulatory Dereck URENA Facility:[facility] Start: 08-02-2023 End: 08-02-2023 Patient encounter procedure Dereck URENA [facility] Start: 07-24-2023 End: 07-25-2023 ambulatory WOLFGANG MALLORY Not Available Start: 07-18-2023 ambulatory Dereck URENA Facility:[facility] Start: 04-18-2023 End: 04-18-2023 ambulatory Ron Hernandez Facility:[facility] Start: 04-18-2023 End: 04-18-2023 ambulatory MD Ron Hernandez Work Phone: [facility] Work Phone: Start: 04-18-2023 End: 04-18-2023 Patient encounter procedure MD Ron Hernandez Work Phone: [facility] Work Phone: Start: 04-04-2023 Office outpatient vi sit 25 minutes Ron M Hoy Work Phone: [facility] 250 DO Work Phone: Start: 04-04-[address] Roseanne Hall Facility: Start: 03-24-2023 Rx Renewal Ron M Hoy Work Phone: [facility] DO Work Phone: Start: 03-11-2023 Rx Renewal Ron M Hoy Work Phone: [facility] DO Work Phone: Start: 10-25-2022 Rx Renewal Ron M Hoy Work Phone: [facility] DO Work Phone: Start: 09-22-2022 Office outpatient vi sit 25 minutes Ron M Hoy Work Phone: [facility] DO Work Phone: Start: 09-22-[address] Roseanne Hall Facility: Start: 09-13-2022 End: 09-14-[address] ROSEANNE HALL Facility:[facility] Start: 09-07-2022 Rx Renewal Ron M Hoy Work Phone: [facility] [address] DO Work Phone: Start: 06-30-2022 End: 07-01-2022 ambulatory CELINA COATES Facility:[facility] Start: 06-29-2022 Rx Renewal Ron M Hoy Work Phone: [facility] 250 DO Work Phone: Start: 06-01-2022 Telephone encounter Ron M Hoy Work Phone: [facility] DO Work Phone: Start: 05-30-2022 Rx Renewal Ron M Hoy Work Phone: [facility] DO Work Phone: Start: 05-18-2022 End: 05-19-[address] RON HERNANDEZ Facility:[facility] Start: 04-25-2022 End: 04-25-2022 Departed Referred MD Ron Hernandez Work Phone: [facility] [place] Start: 04-15-2022 End: 04-15-2022 Patient encounter procedure MD Ron Hernandez Work Phone: [facility] Start: 04-12-2022 End: 04-12-2022 Patient encounter procedure MD Ron Hernandez Work Phone: [facility] Start: 03-16-2022 Office outpatient vi sit 25 minutes Ron M Hoy Work Phone: [facility] DO Work Phone: Start: 12-06-2021 Rx Renewal Ron M Hoy Work Phone: [facility] DO Work Phone: Start: 10-25-2021 Rx Renewal Ron M Hoy Work Phone: [facility] DO Work Phone: Start: 10-14-2021 Office outpatient vi sit 10 minutes Ron M Hoy Work Phone: [facility] DO Work Phone: Start: 10-06-2021 End: 10-07-[address] RON HERNANDEZ Facility:[facility] Start: 09-15-2021 Office outpatient vi sit 25 minutes Ron M Hoy Work Phone: [facility] DO Work Phone: Start: 07-22-2021 Rx Renewal Roseanne Hall MD Work Phone: [facility] [place] Work Phone: Start: 12-06-2021 Rx Renewal Roseanne Hall MD Work Phone: [facility] [facility] DO Work Phone: Start: 05-18-2017 Ambulatory ROSEANNE HALL Facility :[id number] Patient encounter status Ron Hernandez Work Phone: [facility] DO Work Phone: Procedures Date Procedure Procedure Detail Performing Clinician Start: 04-18-2023 Screening mammograph y of bilateral breasts MD Ron Hernandez Work Phone: Start: 04-15-2022 Screening mammograph y of bilateral breasts MD Ron Hernandez Work Phone: Start: 08-14-2017 Placement of stent i n coronary artery Dereck URENA Angioplasty of blood vessel Dereck TIDWELLL Blepharoplasty Ron Hernandez Work Phone: section Ron M H oy Work Phone: section Dereck NIL L Colonoscopy Dereck NILL Percutaneous translu erinn coronary angioplasty Ron Hernandez Work Phone: Repair of tendo achilles Mark gene Hernandez Work Phone: Repair of tendon Dereck NIL L Comment on above: left ankle Total colonoscopy Ron Hernandez Work Phone: Plan of Treatment Date Care Activity Detail Author Start: 09-28-2023 FUV, Provider: Roseanne Hall, Status: Pen, Time: 10:10 AM FUV, Provider: Roseanne Hall, Status: Pen, Time: 10:10 AM [facility] [facility] DO Work Phone: Start: 04-04-2023 FUV, Provider: Roseanne Hall, Status: Pen, Time: 9:30 AM FUV, Provider: Roseanne Hall, Status: Pen, [facility]: [facility] [facility] Work [facility]: Start: 09-22-2022 FUV, Provider: Roseanne Hall, Status: Pen, Time: 10:10 AM FUV, Provider: Roseanne Hall, Status: Pen, Time: 10:10 AM [facility] Work Phone: Start: 04-15-2022 Screening mammograph y of bilateral breasts MM screening mammo BI w/CAD [facility] Start: 04-15-2022 End: 04-15-2022 Patient encounter procedure Departed [facility] Start: 03-15-2022 FUV, Provider: Roseanne Hall, Status: Pen, Time: 10:50 AM FUV, Provider: Roseanne Hall, Status: Pen, Time: 10:50 AM [facility] 250 DO Work Phone: Start: 10-14-2021 NURSEVST, Provider: MALCOLM DEL [employer]ER 1,[id number], Status: Pen, Time: 8:30 AM NURSEVST, Provider: MALCOLM [employer]ER 1,[id number], Status: Pen, Time: 8:30 AM [facility] Work Phone: Start: 09-15-2021 FUV, Provider: Roseanne Hall, Status: Pen, Time: 10:00 AM FUV, Provider: Roseanne Hall, Status: Pen, Time: 10:00 AM [facility] 250 DO Work Phone: Immunizations Immunization Date Immunization Notes Care Provider Fa cilijean 05-20-2023 influenza virus vacc ine, unspecified formulation Dereck URENA [facility] [place] 06-21-2022 Pfizer COVID-19 Vac Bivalent 30 MCG/0.3ML Intramuscular Suspension Ron M Mary Work Phone: [facility] [place] Comment on above: Result Comment: 2022: [id number] 06-13-2022 influenza, seasonal, injectable, preservative free Ron Hernandez Work Phone: [facility] 250 DO Work Phone: 03-08-2022 Comirnaty 30 MCG/0.3 ML Intramuscular Suspension Ron Hernandez Work Phone: [facility] 250 DO Work Phone: 03-08-2022 SARS-CoV-2 mRNA (dxexqnfkcki-sedc-rhwibz e) vaccine Dereck NILL [facility] Comment on above: Result Comment: 2022: [id number] 05-21-2021 influenza virus vacc ine, unspecified formulation Ron Hernandez Work Phone: [facility] 250 DO Work Phone: 05-21-2021 Pfizer-BioNTech COVI D-19 Vacc 30 MCG/0.3ML Intramuscular Suspension Ron Hernandez Work Phone: [facility] Comment on above: Result Comment: 2022: [id number] 11-06-2020 Pfizer-BioNTech COVI D-19 Vacc 30 MCG/0.3ML Intramuscular Suspension Ron Hernandez Work Phone: [facility] 10-16-2020 Pfizer-BioNTech COVI D-19 Vacc 30 MCG/0.3ML Intramuscular Suspension Ron Hernandez Work Phone: [facility] 05-13-2020 influenza, injectabl e, quadrivalent, preservative free Ron Casey Hoy Work Phone: [facility] 250 DO Work Phone: 04-30-2020 influenza, injectabl e, quadrivalent, preservative free Ron Casey Hoy Work Phone: [facility] 250 DO Work Phone: 04-14-2020 influenza virus vacc ine, unspecified formulation Ron M Hoy Work Phone: [facility] 250 DO Work Phone: 05-30-2019 influenza, injectabl e, quadrivalent, preservative free Ron M Hoy Work Phone: [facility] 250 DO Work Phone: 05-14-2019 influenza virus vacc ine, unspecified formulation Ron M Hoy Work Phone: [facility] 250 DO Work Phone: 12-14-2018 tetanus toxoid, redu jed diphtheria toxoid, and acellular pertussis vaccine, adsorbed Ron M Hoy Work Phone: [facility] 250 DO Work Phone: 04-14-2018 influenza virus vacc ine, unspecified formulation Ron M Hoy Work Phone: [facility] 250 DO Work Phone: 06-14-2017 influenza virus vacc ine, unspecified formulation Ron M Hoy Work Phone: [place] [address] DO Work Phone: 06-06-2017 Influenza, injectabl e, [facility] [place] [facility], preservative free, quadrivalent Ron M Hoy Work Phone: [place] [address] DO Work Phone: 04-18-2017 influenza, seasonal, injectable, preservative free Ron M Hoy Work Phone: [facility] 250 DO Work Phone: 06-10-2016 influenza, injectabl e, quadrivalent, preservative free Ron M Hoy Work Phone: [facility] 250 DO Work Phone: 05-14-2016 influenza virus vacc ine, unspecified formulation Ron M Hoy Work Phone: [facility] 250 DO Work Phone: 06-05-2015 influenza, seasonal, injectable, preservative free [facility] Work Phone: Payers Date Payer Category Payer Private Health Insurance [id number] 2023 Self-pay [id number] 2022 Private Health Insurance [id number] 1958 Medicare [id number] 1959 Private Health Insurance [id number] 1955 Unknown [id number] 1956 Unknown [id number] 1956 Unknown [id number] 1956 Unknown [id number] 1956 Unknown [id number] 1956 Unknown [id number] 1956 Unknown [id number] 1956 Unknown [id number] 1956 Unknown [id number] 1956 Unknown [id number] [id number] Medicare [id number] Unknown [id number] Unknown Unknown [employer] BC/BS [id number] Unknown [id number] Social History Date Type Detail Facility Alcohol use Alcohol use -[facility] [facility] DO Work Phone: Start: 1955 Sex Assigned At Female F [facility] Start: 08-02-2023 Tobacco smoking status Never s moked tobacco (finding) [facility] [place] Tobacco smoking status Never [facility] [place] Sex Assigned At Female [facility] Functional Status Date Assessment Result Facility 08-02-2023 Functional Status N/A [facility] [place] Clinical Note 08-02-2023 Note Date & Type [...] Mother. Primary mal (more content not included)... [facility] Comment on above: Result Comment: Elec tronically Signed By: ROMEL MOORE, Dereck Quintanilla\Date and Time Signed: 08/02/23 14:32 EST Evaluation + Plan note Note Date & Type Note Facility Evaluation + Plan note No data available for this section [facility] [place] Evaluation note Note Date & Type Note Facility Evaluation note No assessment information availa [facility] Work Phone: Hospital Discharge instructions Note Date & Type Note Facility Hospital Discharge instructions No data available for this section [facility] [place] Progress note Note Date & Type Note Facility Progress note No data available for this section [facility] [place] Summary Purpose Family History No Family History [...] surgery * Roseanne Hall MD, FACC * ASHLYE VALENCIA is being seen for hypertension. * [...] weight. She had blood work yesterday at [facility] which we requested. She is [...] section and content) DATE CREATED AUTHOR 02/06/2018 [facility] Healthcare DATE CREATED AUTHOR AUTHOR'S ORGANIZ ATION 09/14/2022 [facility] DATE CREATED AUTHOR AUTHOR'S ORGANIZ ATION 10/05/2022 [facility] DATE CREATED AUTHOR AUTHOR'S ORGANIZ ATION 04/05/2023 [facility] DATE CREATED AUTHOR AUTHOR'S ORGANIZ ATION 04/05/2023 [employer] DATE CREATED AUTHOR AUTHOR'S ORGANIZ ATION 04/28/2023 [facility] DATE CREATED AUTHOR AUTHOR'S ORGANIZ ATION 08/17/2023 [facility] DATE CREATED AUTHOR AUTHOR'S ORGANIZ ATION 08/22/2023 [facility] d[facility] Specialists EPIC Care Teams (unrecognized sec tion and content) Team Status: Inactive Member Role Status Dates Ron Hernandez MD Primary Care Provider, Referring Pr ovider Active Referral Self Attending Provider Active Team Status: Inactive Member Role Status Dates Ron Hernandez MD Primary Care Provider Active Flash White DPM Attending Provider Active Team Status: Active Member Role Status Dates Ron Hernandez MD Primary Care Provider Active Team Status: Inactive Member Role Status Dates Ron Hernandez MD Primary Care Provider Active Referral Self [...] BE BASED ON THE PRIMARY CLINICAL RECORDS. [facility]. provides no warranty or guarantee of the accuracy or completeness of information in this document.
[2023-08-23 07:20] VITALS: BP 129/66; PULSE 87; RESP 18; TEMP 35.8; O2SAT 96; BMI 32.8
[2023-08-23] MEDS: LACTATED RINGER'S SOLUTION 1,000 ML 50 ML IV (07:40)
[2023-08-23 08:59] VITALS: BP 99/42; PULSE 73; RESP 16; TEMP 36.1; O2SAT 99
[2023-08-23 09:14] VITALS: BP 97/63; PULSE 82; RESP 16; O2SAT 96
[2023-08-23 09:30] VITALS: BP 118/74; PULSE 81; RESP 16; O2SAT 96
== END 2023-08-23 09:33 | disposition home or self-care (01) ==
PROVIDERS: PCP Family Medicine; Visit Provider Surgery
PROC: (CPT 45378; principal; 2023-08-23 08:30)
DX: R19.5 Other fecal abnormalities (principal); K57.30 Diverticulosis of large intestine without perforation or abscess without bleeding; I65.23 Occlusion and stenosis of bilateral carotid arteries; I25.10 Atherosclerotic heart disease of native coronary artery without angina pectoris; Z86.73 Personal history of transient ischemic attack (TIA), and cerebral infarction without residual deficits; F32.A Depression, unspecified; I10 Essential (primary) hypertension; E66.9 Obesity, unspecified; E78.00 Pure hypercholesterolemia, unspecified; Z80.0 Family history of malignant neoplasm of digestive organs; Z79.02 Long term (current) use of antithrombotics/antiplatelets; Z79.82 Long term (current) use of aspirin; Z95.5 Presence of coronary angioplasty implant and graft; Z79.85 Long-term (current) use of injectable non-insulin antidiabetic drugs; Z68.34 Body mass index [BMI] 34.0-34.9, adult
CPT/HCPCS: 45378; J2250; J2704

== ENCOUNTER 2023-12-11 20:50 | Outpatient (OUT) | payer MEDICARE, SELFPAY ==
--- OUTSIDE RECORDS SUMMARY | 2023-12-11 20:54 | XMS_ITS | CCD ---
Author Organization [facility] Care Team Providers Care Play Therapist Name Role Phone WILLIE HALL Unavailable Unavailable RON HERNANDEZ Unavailable Unavailable Ron Hernandez Unavailable Unavailable Unavailable MD Ron Hernandez Primary Care Provider [phone] BASILIA White Attending Provider MD Ron Hernandez Referring Provider [phone] Self, Referral Attending Provider Unavailable JASKARAN, DR VELASQUEZ Primary Care Unavailable HALL, DR WILLIE Casey Admitting Unavailable HALL, DR WILLIE Casey Attending Unavailable HALL, DR WILLIE Casey Consulting Unavailable JASKARAN, DR VELASQUEZ Admitting Unavailable JASKARAN, DR VELASQUEZ Attending Unavailable JASKARAN, DR VELASQUEZ Consulting Unavailable JASKARAN, DR VELASQUEZ Primary Care Unavailable CELESTE, DR JO Palma Consulting Unavailable HALL, DR WILLIE Casey Consulting Unavailable HALL, DR WILLIE Casey Consulting Unavailable HALL, DR WILLIE Casey Admitting Unavailable HALL, DR WILLIE Casey Attending Unavailable JASKARAN, DR VELASQUEZ Primary Care Unavailable CELINA COATES Admitting Unavailable CELESTE, DR JO Palma Consulting Unavailable JASKARAN, DR VELASQUEZ Primary Care Unavailable AMINATA, CELINA Attending Unavailable AMINATA CELINA Consulting Unavailable Hall, Dr. Willie Rodriguez Referring Megan vailable Jaskaran, Dr. Ron Harden Primary Care Unavail able Hall, Dr. Willie Rodriguez Attending Megan vailable Hall, Dr. Willie Rodriguez Referring Megan vailable Jaskaran, Dr. Ron Harden Primary Care Unavail able Isabel, Dr. Wlilie Rodriguez Attending Megan vailable MD Ron Hernandez Primary Care Provider [phone] Self, Referral Attending Provider Unavailable Ron Hernandez Primary Care Unavailable Self, Referral Attending Unavailable Self, Referral Admitting Unavailable Ron Hernandez Primary Care Physician Dereck URENA Attending Unavailable Dereck URENA Referring Unavailable Dereck URENA Attending Unavailable Dereck URENA Attending Unavailable Ron Hernandez MD Primary Care Provider [phone] WILLIE HALL Attending Unavailable RON HERNANDEZ Primary Care Unavailable Ron Hernandez MD Primary Care Provider RON HERNANDEZ Referring Unavailable RON HERNANDEZ Primary Care Unavailable WOLFGANG MALLORY Referring Unavailable RON HERNANDEZ Primary Care Unavailable RON HERNANDEZ Referring Unavailable RON HERNANDEZ Primary Care Unavailable JR. DEVEN, OBED Wren Attending Unavaila ble WOLFGANG MALLORY Attending Unavailable ANNE LOVELACE Attending Unavailable WOLFGANG MALLORY Referring Unavailable WOLFGANG MALLORY Attending Unavailable ANNE LOVELACE Attending Unavailable WOLFGANG MALLORY Referring Unavailable ELIZ LUIS Attending Unavailable JR. CARVALHO GEORGE C Referring Unavaila ble WOLFGANG MALLORY Attending Unavailable WOLFGANG MALLORY Referring Unavailable ANNE LOVELACE Attending Unavailable JR. CARVALHO GEORGE C Referring Unavaila LAYNE Nelson Attending Unavailable JR. DEVEN, OBED Wren Referring Unavaila ble Allergies Allergy Classification Reported Allergen(s) Allergy Type Date of Onset Reaction(s) Facility (1 source) No Known Medication Allergies; Translations: [No Known Medication Allergies] Propensity to adverse reactions (disorder) [facility] Repository Medications Current Medications Medication Drug Class(es) Dates Sig (Normalized) Sig (Original) 0.25 MG, 0.5 MG Dose 3 ML semaglutide 0.68 MG/ML Pen Injector [Ozempic] (1 source) Start: 08-02-2023 Ozempic 2 mg/3 mL (0.25 mg or 0.5 mg dose) subcutaneous solution 0.25 mg, SubCutaneous, qWeek, Refills(s) 0 Start Date: 08/02/23 Status: Ordered aspirin 81 mg delayed release oral tablet (16 sources) Platelet Aggregation Inhibitor, Nonsteroidal Anti-inflammatory Drug Start: 10-25-2021 take 1 tablet by mouth once daily aspirin 81 mg Oral EC Tab 81 mg = 1 tab(s), Oral, Daily, Refills(s) 0 Start Date: 08/02/23 Status: Ordered etodolac 500 mg oral tablet (17 sources) Nonsteroidal Anti-inflammatory Drug take 1 tablet by mouth twice daily etodolac (LODINE) 500 mg tablet Take 500 mg by mouth 2 (two) times a day. 0 Active Lodine 500 MG TA BS TAKE 1 TABLET DAILY. 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 6 each 3 06/01/2023 Active inject 1 mL by subcu taneous injection every other week Repatha SureClick 140 MG/ML Subcutaneous Solution Auto-injector Inject one ml every two weeks Quantity: 3 Refills: 3 Ordered: 23-Sep-2022 Willie Hall MD Active ezetimibe 10 mg oral tablet (18 sources) Dietary Cholesterol Absorption Inhibitor Start: 05-30-2022 take 1 tablet by mouth once daily ezetimibe (Zetia) 10 mg tablet Take 1 tablet (10 mg) by mouth once daily. 0 05/30/2022 Active take 1 tablet by mouth once jose alejandro y Ezetimibe 10 MG Oral Tablet Take 1 tablet daily Quantity: 90 Refills: 3 Ordered: 27-Jul-2021 Willie Hall MD Active ezetimibe 10 mg / simvastatin 10 mg oral tablet (7 sources) HMG-CoA Reductase Inhibitor, Dietary Cholesterol Absorption Inhibitor take 1 tablet by mouth once daily ezetimibe-simvastatin (VYTORIN) 10-10 mg per tablet Take 1 tablet by mouth nightly. 0 Active niacin 500 mg oral tablet (11 sources) Nicotinic Acid take 1 tablet by mouth once daily at breakfast niacin (VITAMIN B3) 500 mg tablet Take 500 mg by mouth daily with breakfast. 0 Active take 1 tablet by mouth once jose alejandro y Niaspan 500 MG Oral Tablet Extended Release TAKE 1 TABLET DAILY. 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 May repeat dose every 5 minutes for up to 3 doses total. 25 tablet 11 09/28/2023 10/28/2023 Active omeprazole 40 mg delayed release oral capsule (20 sources) Proton Pump Inhibitor Start: 01-13-2021 take 1 capsule by mouth once daily omeprazole 40 mg Cap-DR 40 mg = 1 cap(s), Oral, Daily, Refills(s) 0 Start Date: 07/24/23 Status: Ordered semaglutide (Ozempic) 0.25 mg or 0.5 mg (2 mg/3 mL) pen injector (1 source) semaglutide (Ozempic) 0.25 mg or 0.5 mg (2 mg/3 mL) pen injector Inject 0.25 mg under the skin 1 (one) time per week. 0 Active ubidecarenone 10 mg oral capsule (20 sources) coenzyme Q10 10 mg capsule Take 10 mg by mouth daily. 0 Active venlafaxine 37.5 mg oral tablet (20 sources) Serotonin and Norepinephrine Reuptake Inhibitor Start: 07-24-2023 take 1 tablet by mouth once daily venlafaxine 37.5 mg Tab 37.5 mg = 1 tab(s), Oral, Daily, Refills(s) 0 Start Date: 07/24/23 Status: Ordered Start: 12-29-2021 take 1 capsule by mo ut once daily venlafaxine XR (Effexor-XR) 37.5 mg 24 hr capsule Take 1 capsule (37.5 mg) by mouth once daily. 0 12/29/2021 Active Start: 12-29-2021 take 1 capsule by [facility] every twenty-four hours Venlafaxine HCl ER 37.5 MG Oral Capsule Extended Release 24 Hour Quantity: 90 Refills: 0 Ordered: 29-Dec-2021 DO Start : 29-Dec-2021 Active vit A/vit C/biotin/zinc/copper (UBCO-XJBQ-EADW,VIT A,C-BIOTIN, ORAL) (7 sources) take 1 tablet by mouth once daily vit A/vit C/biotin/zinc/copper (ZCVO-MKCM-PYDN,VIT A,C-BIOTIN, ORAL) Take 1 tablet by mouth daily. 0 Active vitamin b12 1 mg oral tablet (11 sources) Vitamin B12 take 1 tablet by mouth once daily cyanocobalamin 1000 MCG tablet Take 1,000 mcg by mouth daily. 0 Active Completed/Discontinued Medications Medication Drug Class(es) Dates Sig (Normalized) Sig (Original) calcitriol 0.0005 mg oral capsule (1 source) Vitamin D3 Analog End: 4 take 1 capsule by mouth once daily calcitriol (Rocaltrol) 0.5 mcg capsule Take 1 capsule (0.5 mcg) by mouth once daily. 0 09/28/2023 Discontinued (Therapy completed) cholecalciferol 0.05 mg oral tablet (7 sources) Vitamin D take 1 tablet by mouth once daily Vitamin D3 50 MCG (1999 UT) Oral Tablet Take 1 tablet daily Quantity: 0 Refills: 0 Ordered: 22-Sep-2022 DO Active clopidogrel 75 mg oral tablet (20 sources) P2Y12 Platelet Inhibitor Start: 3 take 1 tablet by mouth once daily hydroCHLOROthiazide 12.5 mg oral capsule (16 sources) Thiazide Diuretic Start: 2 End: 4 take 1 capsule by mouth once daily hydroCHLOROthiazide (Microzide) 12.5 mg capsule Take 1 capsule (12.5 mg) by mouth once daily. 0 09/15/2021 09/28/2023 Discontinued (Therapy completed) lisinopril 10 mg oral tablet (20 sources) Angiotensin Converting Enzyme Inhibitor Start: 1 take 1 tablet by mouth once daily meloxicam 7.5 mg oral tablet (5 sources) Nonsteroidal Anti-inflammator y Drug Start: 2 Meloxicam 7.5 MG Oral Tablet TAKE TABLET PRN Quantity: 0 Refills: 0 Ordered: 17-Feb-2022 DO Start : 17-Feb-2022 Active 24 hr metoprolol succinate 50 mg extended release oral tablet (20 sources) beta-Adrenergic Hector Start: 2 take 1 tablet by mouth once daily Move Free Hospicelink Advance Oral Tablet (6 sources) take 1 tablet by mouth once daily Move Free Hospicelink Advance Oral Tablet Take 1 tablet daily Quantity: 0 Refills: 0 Ordered: 22-Sep-2022 DO Active pravastatin sodium 20 mg oral tablet (20 sources) HMG-CoA Reductase Inhibitor Start: 3 take 1 tablet by mouth once jose alejandro y pravastatin (PRAVACHOL) 20 mg tablet Take 20 mg by mouth daily. 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; Translations: [Coronary atherosclerosis] Onset: 05-18-2017 Chronic Coronary atherosclerosis and other heart disease (20 sources) Patient post percutaneous transluminal coronary angioplasty; Translations: [Percutaneous transluminal coronary angioplasty status] Onset: 05-24-2023 09-28-2023 Episodic Comment on above: RCA/left circumflex 2017; [...] Chronic Occlusion or stenosis of precerebral arteries (12 sources) Occlusion and stenosis of bilateral carotid [...] mass index 30+ - obesity 08-02-2023 Chronic Other nutritional; endocrine; and metabolic disorders (1 source) Obese class I; Translations: [Obesity, unspecified] 09-28-2023 Chronic Transient cerebral ischemia (8 sources) Transient cerebral ischemia; Translations: [Transient cerebral ischemic attack, unspecified] Onset: 05-25-2020 07-24-2023 Chronic Unclassified (2 sources) Athscl heart disease of squaxin coronary artery w/o ang pctrs / I25.10(ICD-9) [...] Never smoked tobacco; Translations: [Never a smoker] Unclassified (1 source) Onset: 09-28-2023 09-28-2023 Results Test Name Value Interpretation Reference Range Facility XR BONE LENGTH STUDYon 10-29 XR BONE LENGTH STUDY XR BONE LENGTH STUD Y History: Right knee replacement Exam/Technique: Frontal views of the lower extremity were obtained for the purposes of a leg length study. Comparison: None Findings: measurements obtained from the superior aspect of the femoral heads the inferior aspect of tibia show the right lower extremity measure 85.4 L and the left measure 85.1 cm. There is bilateral lateral joint space narrowing in the knees resulting in a genu valgus. There is no evidence for an acute osseous adenopathy. IMPRESSION: As above Finalized by Jo Sandoval MD on 10/30/2023 1:44 PM Normal [facility] CBC AND AUTO DIFFon 10-26-19 24 ABSOLUTE BASOPHIL 0.1 X10E9/L Normal 0.0-0.2 [facility] Comment on above: Performed By: #### P INR, 45096-4 #### [facility] ([id number]) [address] [place] [address] 88802 #### CBCA, CMP #### [facility] ([id number]) [address] [place] [address] ABSOLUTE NEUTROPHIL 4.5 X10E9/L Normal 1.5-6.6 [facility] Comment on above: Performed By: #### P INR, 67525-9 #### [facility] ([id number]) [address] [place] [address] 35762 #### CBCA, CMP #### [facility] ([id number]) [address], [address] [place] [address] Basophils/100 WBC (Bld) 0.7 % Normal [facility] Comment on above: Performed By: #### P INR, 30409-6 #### [facility] ([id number]) [address] [place] [address] 42227 #### CBCA, CMP #### [facility] ([id number]) [address] [place] [address] Eosinophils (Bld) [#/Vol] 0.2 10*3/uL Normal 0.0-0.4 [facility] Comment on above: Performed By: #### P INR, 93826-2 #### [facility] ([id number]) [address] [place] [address] 59460 #### CBCA, CMP #### [facility] ([id number]) [address], [address] [place] [address] Eosinophils/100 WBC (Bld) 2.9 % Normal [facility] Comment on above: Performed By: #### P INR, 19189-0 #### [facility] ([id number]) [address] [place] [address] 07574 #### CBCA, CMP #### [facility] ([id number]) [address] [place] [address] Erythrocyte distribution width (RBC) [Ratio] 14.3 % Normal 11.5-15.0 [facility] Comment on above: Performed By: #### P INR, 72634-1 #### [facility] ([id number]) [address] [place] [address] 28238 #### CBCA, CMP #### [facility] ([id number]) [address], [address] [place] [address] Hematocrit (Bld) [Volume fraction] 38.1 % Normal 35-47 [facility] Comment on above: Performed By: #### P INR, 57207-3 #### [facility] ([id number]) [address] [place] [address] 79245 #### CBCA, CMP #### [facility] ([id number]) [address], [address] [place] [address] Hemoglobin (Bld) [Mass/Vol] 12.8 g/dL Normal 11.7-15.5 [facility] Comment on above: Performed By: #### P INR, 48667-6 #### [facility] ([id number]) [address] [place] [address] 82318 #### CBCA, CMP #### [facility] ([id number]) [address] [facility], [address] [place] [address] Lymphocytes (Bld) [#/Vol] 1.7 10*3/uL Normal 1.0-3.5 [facility] Comment on above: Performed By: #### P INR, 37508-4 #### [facility] ([id number]) [address] [place] [address] 14087 #### CBCA, CMP #### [facility] ([id number]) [address] [facility], [address] [place] [address] Lymphocytes/100 WBC (Bld) 24.6 % Normal [facility] Comment on above: Performed By: #### P INR, 25916-5 #### [facility] ([id number]) [address] [place] [address] 96431 #### CBCA, CMP #### [facility] ([id number]) [address], [address] [place] [address] MCH (RBC) [Entitic mass] 29.1 pg Normal 27-34 [facility] Comment on above: Performed By: #### P INR, 15878-6 #### [facility] ([id number]) [address] [place] [address] 61455 #### CBCA, CMP #### [facility] ([id number]) [address], [address] [place] [address] MCHC (RBC) [Mass/Vol] 33.7 g/dL Normal 32-36 [facility] Comment on above: Performed By: #### P INR, 81417-9 #### [facility] ([id number]) [address] [place] [address] 98933 #### CBCA, CMP #### [facility] ([id number]) [address], [address] [place] [address] MCV (RBC) [Entitic vol] 86 fL Normal 80-[address] [facility] Comment on above: Performed By: #### P INR, 17384-8 #### [facility] ([id number]) [address] [place] [address] 08071 #### CBCA, CMP #### [facility] ([id number]) [address], [address] [place] [address] Monocytes (Bld) [#/Vol] 0.6 10*3/uL Normal 0-0.9 [facility] Comment on above: Performed By: #### P INR, 60299-4 #### [facility] ([id number]) [address] [place] [address] 63421 #### CBCA, CMP #### [facility] ([id number]) [address], [address] [place] [address] Monocytes/100 WBC (Bld) 8.2 % Normal P [facility] Comment on above: Performed By: #### P INR, 69425-1 #### [facility] ([id number]) [address] [place] [address] 46569 #### CBCA, CMP #### [facility] ([id number]) [address], [address] [place] [address] Neutrophils/100 WBC (Bld) 63.6 % Normal [facility] Comment on above: Performed By: #### P INR, 48914-6 #### [facility] ([id number]) [address] [place] [address] 76941 #### CBCA, CMP #### [facility] ([id number]) [address], [address] [place] [address] Platelet mean volume (Bld) [Entitic vol] 7.3 fL Normal 7-12 [facility] Comment on above: Performed By: #### P INR, 24359-2 #### [facility] ([id number]) [address] [place] [address] 25387 #### CBCA, CMP #### [facility] ([id number]) [address], [address] [place] [address] Platelets (Bld) [#/Vol] 437 10*3/uL Normal 150-450 [facility] Comment on above: Performed By: #### P INR, 91396-7 #### [facility] ([id number]) [address] [place] [address] 80139 #### CBCA, CMP #### [facility] ([id number]) [address] [facility], [address] [place] [address] RBC COUNT 4.41 X10E12/L Normal 3.80-5.20 [facility] Comment on above: Performed By: #### P INR, 68479-4 #### [facility] ([id number]) [address] [place] [address] 48441 #### CBCA, CMP #### [facility] ([id number]) [address] [place] [address], [address] [place] [address] WBC (Bld) [#/Vol] 7.1 10*3/uL Normal 4.0-11.0 [facility] Comment on above: Performed By: #### P INR, 02090-7 #### [facility] ([id number]) [address] [place] [address] 66273 #### CBCA, CMP #### [facility] ([id number]) [address] [place] [address], [address] [place] [address] COMPREHENSIVE METABOLIC PANE Edgar 10-26-2023 Albumin [Mass/Vol] 4.2 g/dL Normal 3.2-5.3 [facility] Comment on above: Performed By: #### P INR, 97109-9 #### [facility] ([id number]) [address] [place] [address] 99593 #### CBCA, CMP #### [facility] ([id number]) [address] [place] [address], [address] [place] [address] ALP [Catalytic activity/Vol] 83 U/L Normal 39-130 [facility] Comment on above: Performed By: #### P INR, 63291-3 #### [facility] ([id number]) [address] [place] [address] 45741 #### CBCA, CMP #### [facility] ([id number]) [address] [place] [address] ALT [Catalytic activity/Vol] 20 U/L Normal 0-31 [facility] Comment on above: Performed By: #### P INR, 33238-3 #### [facility] ([id number]) [address] [place] [address] 29903 #### CBCA, CMP #### [facility] ([id number]) [address] [place] [address] Anion gap [Moles/Vol] 8 mmol/L Normal 5-15 [facility] Comment on above: Performed By: #### P INR, 49177-6 #### [facility] ([id number]) [address] [place] [address] 39561 #### CBCA, CMP #### [facility] ([id number]) [address] [place] [address] AST [Catalytic activity/Vol] 16 U/L Normal 0-41 [facility] Comment on above: Performed By: #### P INR, 15265-8 #### [facility] ([id number]) [address] [place] [address] 73773 #### CBCA, CMP #### [facility] ([id number]) [address], [address] [place] [address] Bilirubin [Mass/Vol] 0.4 mg/dL Normal 0.3-1.2 [facility] Comment on above: Performed By: #### P INR, 31211-9 #### [facility] ([id number]) [address] [place] [address] 00199 #### CBCA, CMP #### [facility] ([id number]) [address] [place] [address] Calcium [Mass/Vol] 9.6 mg/dL Normal 8.5-10.5 [facility] Comment on above: Performed By: #### P INR, 63824-1 #### [facility] ([id number]) [address] [place] [address] 49695 #### CBCA, CMP #### [facility] ([id number]) [address], [address] [place] [address] Chloride [Moles/Vol] 104 mmol/L Normal 98-109 [facility] Comment on above: Performed By: #### P INR, 87742-7 #### [facility] ([id number]) [address] [place] [address] 80298 #### CBCA, CMP #### [facility] ([id number]) [address] [place] [address] CO2 [Moles/Vol] 28 mmol/L Normal 22-32 [facility] Comment on above: Performed By: #### P INR, 39027-2 #### [facility] ([id number]) [address] [place] [address] 06991 #### CBCA, CMP #### [facility] ([id number]) [address] [place] [address] Creatinine [Mass/Vol] 1.27 mg/dL High 0.40-1.00 [facility] Comment on above: Result Comment: METH OD TRACEABLE TO IDMS STANDARD Performed By: #### P INR, 28491-7 #### [facility] ([id number]) [address] [place] [address] 03535 #### CBCA, CMP #### [facility] ([id number]) [address], [address] [place] [address] GFR/1.73 sq M.predicted among non-blacks MDRD (S/P/Bld) [Vol rate/Area] 46 mL/min/{1.73_m2} Low >59 [facility] Comment on above: Result Comment: Reported eGFR is based on the CKD-EPI 2020 equation that does not use a race coefficient. Performed By: #### P INR, 37242-0 #### [facility] ([id number]) [address] [place] [address] 31290 #### CBCA, CMP #### [facility] ([id number]) [address] [place] [address] Glucose [Mass/Vol] 75 mg/dL Normal 65-99 [facility] Comment on above: Performed By: #### P INR, 08256-8 #### [facility] ([id number]) [address] [place] [address] 36113 #### CBCA, CMP #### [facility] ([id number]) [address] [facility] [address] [place] [address] Potassium [Moles/Vol] 4.7 mmol/L Normal 3.5-5.0 [facility] Comment on above: Performed By: #### P INR, 57301-5 #### [facility] ([id number]) [address] [place] [address] 58819 #### CBCA, CMP #### [facility] ([id number]) [address] [facility] [address] [place] [address] Protein [Mass/Vol] 7.1 g/dL Normal 6.0-8.0 [facility] Comment on above: Performed By: #### P INR, 25554-9 #### [facility] ([id number]) [address] [place] [address] 93101 #### CBCA, CMP #### [facility] ([id number]) [address], [address] [place] [address] Sodium [Moles/Vol] 140 mmol/L Normal 134-146 [facility] Comment on above: Performed By: #### P INR, 05712-5 #### [facility] ([id number]) [address] [place] [address] 27946 #### CBCA, CMP #### [facility] ([id number]) [address], [address] [place] [address] Urea nitrogen [Mass/Vol] 24 mg/dL Normal 5-27 [facility] Comment on above: Performed By: #### P INR, 15826-9 #### [facility] ([id number]) [address] [place] [address] #### CBCA, CMP #### [facility] ([id number]) [address], [address] [place] [address] PROTIME AND INRon 10-26-2023 INR Coag (PPP) [Relative time] 1.1 {INR} Normal 0.8-1.1 [facility] Comment on above: Performed By: #### P INR, 24389-3 #### [facility] ([id number]) [address] [place] [address] #### CBCA, CMP #### [facility] ([id number]) [address], [address] [place] [address] PT Coag (PPP) [Time] 12.4 s Normal 9.8-13.2 [facility] Comment on above: Result Comment: NEW REFERENCE RANGE Performed By: #### P INR, 29196-8 #### [facility] ([id number]) [address] [place] [address] #### CBCA, CMP #### [facility] ([id number]) [address], [address] [place] [address] URINALYSISon 10-26-2023 Bilirubin Ql (U) Negative Normal NEG [facility] BLOOD/HGB Negative Normal NEG [facility] Color (U) YELLOW Normal YELLOW [facility] Glucose Ql (U) Negative Normal NEG [facility] Ketones Ql (U) Negative Normal NEG [facility] Leukocyte esterase Test strip Ql (U) Negative Normal NEG [facility] Nitrite Ql (U) Negative Normal NEG [facility] pH (U) 6.0 [pH] Normal 5.0-8.5 [facility] Protein Ql (U) Negative Normal NEG [facility] Specific gravity (U) [Rel density] 1.005 Normal 1.003-1.035 [facility] TURBIDITY CLEAR Normal CLEAR [facility] Urobilinogen (U) [Mass/Vol] mg/dL Normal <1.1 [facility] URINE CULTUREon 10-26-2023 Bacteria identified Cx Nom (U) CULTURE RESULTS <10,000 ORGANISMS/ML NORMAL URO GENITAL JANNETTE Normal [facility] Comment on above: Performed By: #### 6 30-4 #### [facility] ([id number]) [address] [place] [address], [address] [place] [address] aPTT Coag (PPP) [Time]on aPTT Coag (Bld) [Time] 30 s Normal 26-37 [facility] Comment on above: Result Comment: NEW REFERENCE RANGE Performed By: #### P INR, 63680-0 #### [facility] ([id number]) [address] [place] [address], [place] [address] #### CBCA, CMP #### [facility] ([id number]) [address] [place] [address], [address] [place] [address] Outside Colonoscopyon 2023 Outside Colonoscopy [id number]#1.00T IFF [facility] Reminderson 08-24-2023 Reminders - From: Rosemarie August LPN To: N - Clinical; Sent: 08/24/2023 10:14:17 EST Show up: 07/23/2033 07:00:00 EST Subject: colonoscopy recall Due Date/Time: 08/23/2033 07:00:00 EST Reminder/Recall Patient due for screening colonoscopy 08/23/2033. [facility] Consultation Noteon 08-16-19 24 Consultation Note [id number]#1.00T IFF [facility] Consultation Note [id number]#1.00T IFF [facility] Insurance Correspondenceon 0 08-16-2023 Insurance Correspondence [id number]#1.00 TIFF [facility] Consent for Procedure/Surger yon 08-03-2023 Consent for Procedure/Surgery [id number]#1.00T IFF [facility] Facesheeton 08-03-2023 Facesheet [id number]#1.00 TIFF [facility] Ambulatory Visit Summaryon 1 10-03-2022 Ambulatory Visit Summary YANDELFORESTWILLIAMPRANAVDANICA E :1955 Visit Date:08/02/2023 Ambulatory Visit Instructions Your [...] for choosing us for your care. Normal [facility] Physician Referralon 023 Physician Referral [id number]#1.00T IFF Normal [facility] MM screening mammo BI w/CADo n 04-18-2023 MM screening mammo BI w/CAD [facility] [address] Mammography Report Signed Patient: Danica Valencia MR#: [id number] : 1955 Acct:[id number] Age/Sex: 68 / F ADM Date: 04/18/23 Loc: [place] Room: Type: [facility] Attending Dr: Referral Self Copies to: [...] Juarez Parish M.D.04/18/2023 11:10 AM Dictation Location: DWS01 Transcribed By: [facility] 04/18/23 1110 Dictated By: Juarez Parish DO 04/18/23 1050 Signed By: 04/18/23 1110 [facility] Office Visit (Cardiology)on 04-04-2023 Follow-up visit Diagnoses/Problems Assessed Atherosclerosis of squaxin coronary artery of squaxin heart without angina pectoris (414.01) (I25.10) Essential hypertension (401.9) (I10) Hyperlipidemia (272.4) (E78.5) S/P PTCA (percutaneous transluminal coronary angioplasty) (V45.82) (Z98.61) RCA/left circumflex 2016 Never a smoker Class 1 obesity with body mass index (BMI) of 34.0 to 34.9 in adult (278.00,V85.34) (E66.9,Z68.34) Stroke syndrome Orders SocHx: Never a smoker Tobacco Use Screening; Status:Complete; Done: 04Apr2023 Patient Instructions Please bring all medicines, vitamins, and herbal supplements with you when you come to the office. Prescriptions will not be filled unless you are compliant with your follow up appointments or have a follow up appointment scheduled as per instruction of your physician. Refills should be requested at the time of your visit. Labs requested from [facility] Follow up in [6 ] months Chief Complaint DANICA VALENCIA is being seen for a 6 month follow-up of. Patient is in the office for follow-up for the problems noted below. She has had no events since her last visit 6 months ago. Her weight remains above target. She is trying to lose weight. She had blood work yesterday at [facility] which we requested. She is [...] dual antiplatelet therapy which has been well-tolerated. Willie Hall MD, [facility] Surgical History Problems History of Achilles tendon [...] negative for complaint. Vitals Vital Signs Recorded: [id number] 09:35AM Heart Rate66, R Radial Hqnfrfxq058, LLE, Sitting Yqroftrqk07, LLE, Sitting Height5 ft 4 in Ucuwqb219 lb 12.8 oz BMI Oijyduplan52.12 kg/m2 BSA Calculated1.95 Tobacco Useb) No Falls [...] normal skin (more content not included)... Normal [employer] Tobacco Screening.on Fall risk assessment a) No falls within the last year -[facility] [employer] [place] 250 DO Work Phone: Tobacco use status CPHS b) No M -[facility] [employer] [place] 250 DO Work Phone: MRI Ankle [...] by Shaq Bills on 10/04/2022 1018 Normal [facility] [employer] Office Visit (Cardiology)on 09-22-2022 Follow-up visit Diagnoses/Problems Assessed Atherosclerosis of squaxin coronary artery of squaxin heart without angina pectoris (414.01) (I25.10) S/P PTCA (percutaneous transluminal coronary angioplasty) (V45.82) (Z98.61) RCA/left circumflex 2016 Essential hypertension (401.9) (I10) Hyperlipidemia (272.4) (E78.5) Never a smoker Class 1 obesity with body mass index (BMI) of 33.0 to 33.9 in adult (278.00,V85.33) (E66.9,Z68.33) Stroke syndrome Orders Class 1 obesity with body mass index (BMI) of 33.0 to 33.9 in adult Healthy Weight Tips; Status:Complete - Retrospective Authorization; Done: [id number] Some eating tips that can help you lose weight.; Status:Complete - Retrospective Authorization; Done: [id number] SocHx: Never a smoker Tobacco Use Screening; Status:Complete; Done: [id number] Patient Instructions Please bring all medicines, vitamins, and herbal supplements with you when you come to the office. Prescriptions will not be filled unless you are compliant with your follow up appointments or have a follow up appointment scheduled as per instruction of your physician. Refills should be requested at the time of your visit. Follow up in [6 ] months Chief Complaint DANICA VALENCIA is being seen for a 6 [...] dual antiplatelet therapy which has been well-tolerated. Willie Hall MD, [facility] Surgical History Problems History of Blepharoplasty History [...] HourTAKE 1 TABLET EVERY DAY [facility] Advance Oral TabletTake 1 tablet daily Omeprazole [...] Recorded: 22Sep2022 10:18AM Heart Rate76, L Radial Xlscyzza615, LUE, Sitting Ifuzikoll65, LUE, Sitting Height5 ft 4 in Glondt203 lb BMI Yrqbhppguw93.82 kg/m2 BSA Calculated1.94 Tobacco Useb) No PHQ-2 #1. Over the last 2 weeks have you felt down, depressed or hopeless? (If yes, answer PHQ-9 below)No PHQ-2 #2. Over the last 2 weeks have you felt little interest or pleasure in doing things? (If yes, answer PHQ-9 below)No Falls Screening (Age 18+)a) No fa (more content not included)... Normal [employer] Tobacco Screening.on 023 Adult depression screening assessment No [facility] [employer] 250 DO Work Phone: Fall risk assessment a) No falls within the last year [facility] [employer] 250 DO Work Phone: Tobacco use status CPHS b) No M [facility] [employer] 250 DO Work Phone: CBC AUTO DIFFon 09-13-2022 BASO # 0.1 103/ul Normal 0.0-0.1 [facility] Comment on above: Performed By: #### C BC #### [facility] [address] [place] [address] Dr. Daniel Dave Basophils/100 WBC (Bld) 1.0 % Normal 0.2-2.0 [facility] Comment on above: Performed By: #### C BC #### [facility] [address] [place] [address] Dr. Daniel Dave EO # 0.2 103/ul Normal 0.0-0.7 [facility] Comment on above: Performed By: #### C BC #### [facility] [address] [place] [address] Dr. Daniel Dave Eosinophils/100 WBC (Bld) 3.9 % Normal 0.9-7.0 [facility] Comment on above: Performed By: #### C BC #### [facility] [address] [place] [address] Dr. Daniel Dave Erythrocyte distribution width (RBC) [Ratio] 13.6 % Normal 11.0-15.0 [facility] Comment on above: Performed By: #### C BC #### [facility] [address] [place] [address] Dr. Daniel Dave Hematocrit (Bld) [Volume fraction] 40.8 % Normal 36.0-48.0 [facility] Comment on above: Performed By: #### C BC #### [facility] [address] [place] [address] Dr. Daniel Dave Hemoglobin (Bld) [Mass/Vol] 13.1 g/dL Normal 12.0-16.0 [facility] Comment on above: Performed By: #### C BC #### [facility] [address] [place] [address] Dr. Daniel Dave IG # 0.02 10e3/ul Normal 0.00-0.03 [facility] Comment on above: Performed By: #### C BC #### [facility] [address] [place] [address] Dr. Daniel Dave IG % 0.3 % Normal 0.0-0.5 [facility] Comment on above: Performed By: #### C BC #### [facility] [address] [place] [address] Dr. Daniel Dave LYMPH # 1.7 103/ul Normal 1.2-3.8 [facility] Comment on above: Performed By: #### C BC #### [facility] [address] [place] [address] Dr. Daniel Dave Lymphocytes/100 WBC (Bld) 27.6 % Normal 20.5-60.0 [facility] Comment on above: Performed By: #### C BC #### [facility] [address] [place] [address] Dr. Daniel Dave MANUAL DIFF REQ NO Normal [facility] Comment on above: Performed By: #### C BC #### [facility] [address] [place] [address] Dr. Daniel Dave MCH (RBC) [Entitic mass] 28.8 pg Normal 26.7-34.0 [facility] Comment on above: Performed By: #### C BC #### [facility] [address] [place] [address] Dr. Daniel Dave MCHC (RBC) [Mass/Vol] 32.1 g/dL Normal 29.9-35.2 [facility] Comment on above: Performed By: #### C BC #### [facility] [address] [place] [address] Dr. Daniel Dave MCV (RBC) [Entitic vol] 89.7 fL Normal 81.0-99.0 [facility] Comment on above: Performed By: #### C BC #### [facility] [address] [place] [address] Dr. Daniel Dave MONO # 0.6 103/ul Normal 0.3-0.8 [facility] Comment on above: Performed By: #### C BC #### [facility] [address] [place] [address] Dr. Daniel Dave Monocytes/100 WBC (Bld) 9.4 % Normal 1.7-12.0 [facility] Comment on above: Performed By: #### C BC #### [facility] [address] [place] [address] Dr. Daniel Dave NEUT # 3.5 103/ul Normal 1.4-6.5 [facility] Comment on above: Performed By: #### C BC #### [facility] [address] [place] [address] Dr. Daniel Dave Neutrophils/100 WBC (Bld) 57.8 % Normal 43.0-75.0 [facility] Comment on above: Performed By: #### C BC #### [facility] [address] [place] [address] Dr. Daniel Dave Platelet mean volume (Bld) [Entitic vol] 8.7 fL Critically low 9.5-13.5 [facility] Comment on above: Performed By: #### C BC #### [facility] [address] [address] [address] Daniel Dave PLT 412 103/ul Normal 150-450 [facility] Comment on above: Performed By: #### C BC #### [facility] [id number] Daniel Dave RBC 4.55 106/ul Normal 4.20-5.40 [facility] Comment on above: Performed By: #### C BC #### [facility] [address] [address] [address] Daniel Dave WBC 6.1 103/ul Normal 4.0-11.0 [facility] Comment on above: Performed By: #### C BC #### [facility] [address] [address] [address] Daniel Dave LIPID PROFILEon 09-13-2022 CHOL-HDL RATIO NORM SEE BELOW [facility] Comment on above: Result Comment: 3.3 - 4.4 LOW RISK 4.4 - 7.1 AVERAGE RISK 7.1 - 11.0 MODERATE RISK >11.0 HIGH RISK Performed By: #### B MP, ALT, AST, LIPID ####[facility] [address] [place], [place] [address]GcSkylar Dave Cholesterol [Mass/Vol] 114 mg/dL Normal <=200 [facility] Comment on above: Performed By: #### B MP, ALT, AST, LIPID ####[facility] [address] [place], [place] [address]JqSkylar Dave Cholesterol in HDL [Mass/Vol] 62 mg/dL Critically high 40-60 [facility] Comment on above: Performed By: #### B MP, ALT, AST, LIPID ####[facility] [address] [place], [place] [address]QxSkylar Dave Cholesterol in LDL [Mass/Vol] 28.4 mg/dL Normal [facility] Comment on above: Performed By: #### B MP, ALT, AST, LIPID ####[facility] [address] [place], [place] [address]IeSkylar Dave Cholesterol.total/Марина sterol in HDL [Mass ratio] 1.8 {ratio} Normal [facility] Comment on above: Performed By: #### B MP, ALT, AST, LIPID ####[facility] [address] [address]DrSkylar Dave HDL NORMAL > or = 60 mg/dl - LO W CARDIOVASCULAR RISK <40 mg/dl - HIGH CARDIOVASCULAR RISK Normal [facility] Comment on above: Performed By: #### B MP, ALT, AST, LIPID ####[facility] [address] [place] [id number] Dave LDL CALC NORMAL SEE BELOW Normal [facility] Comment on above: Result Comment: <100 mg/dl OPTIMAL 100 - 129 mg/dl NEAR OR ABOVE OPTIMAL 130 - 159 mg/dl BORDERLINE HIGH 160 - 189 mg/dl HIGH >190 mg/dl VERY HIGH Performed By: #### B MP, ALT, AST, LIPID ####[facility] [address] [place] [address]DrSkylar Dave Triglyceride [Mass/Vol] 118 mg/dL Normal <=150 [facility] Comment on above: Performed By: #### B MP, ALT, AST, LIPID ####[facility] [address] [place] [address]Dr[address] Daniel Dave VLDL CALC 23.6 mg/dL Normal [facility] Comment on above: Performed By: #### B MP, ALT, AST, LIPID ####[facility] [address] [place] [id number]. Daniel Dave PROF CHEM 8 (BAS METB)on Anion gap [Moles/Vol] 11.7 mmol/L Normal [facility] Comment on above: Performed By: #### B MP, ALT, AST, LIPID #### [facility] [address] [address] [address] Daniel Dave Calcium [Mass/Vol] 9.2 mg/dL Normal 8.5-10.1 [facility] Comment on above: Performed By: #### B MP, ALT, AST, LIPID #### [facility] [address] [address] [address] Daniel Dave Chloride [Moles/Vol] 104 mmol/L Normal 98-107 [facility] Comment on above: Performed By: #### B MP, ALT, AST, LIPID #### [facility] [address] [address] [address] Daniel Dave CO2 [Moles/Vol] 30.9 mmol/L Normal 21.0-32.0 [facility] Comment on above: Performed By: #### B MP, ALT, AST, LIPID #### [facility] [address] [address] [address] Daniel Dave Creatinine [Mass/Vol] 1.04 mg/dL Critically high 0.55-1.02 [facility] Comment on above: Performed By: #### B MP, ALT, AST, LIPID #### [facility] [address] [address] [address] Daniel Dave EGFR-AF MARTINIQUAIS >60 Normal >=60 [facility] Comment on above: Performed By: #### B MP, ALT, AST, LIPID #### [facility] [address] [address] [address] Daniel Dave EGFR-NON AF MARTINIQUAIS 53 mL/min/1.73m2 Critically low >=60 [facility] Comment on above: Performed By: #### B MP, ALT, AST, LIPID #### [facility] [address] [address] [address] Daniel Dave Glucose [Mass/Vol] 106 mg/dL Normal 74-106 [facility] Comment on above: Performed By: #### B MP, ALT, AST, LIPID #### [facility] [address] [address] [address] Daniel Dave Potassium [Moles/Vol] 4.6 mmol/L Normal 3.5-5.1 [facility] Comment on above: Performed By: #### B MP, ALT, AST, LIPID #### [facility] [address] [address] [address] Daniel Dave Sodium [Moles/Vol] 142 mmol/L Normal 136-145 [facility] Comment on above: Performed By: #### B MP, ALT, AST, LIPID #### [facility] [address] [place], [place] [address] Dr. Daniel Dave Urea nitrogen [Mass/Vol] 22.0 mg/dL Critically high 7.0-18.0 [facility] Comment on above: Performed By: #### B MP, ALT, AST, LIPID #### [facility] [address] [place], [place] [address] Dr. Daniel Dave Urea nitrogen/Creatinine [Mass ratio] 21.2 mg/mg Normal [facility] Comment on above: Performed By: #### B MP, ALT, AST, LIPID #### [facility] [address] [address] [address] Daniel Dave SGOTon 09-13-2022 AST [Catalytic activity/Vol] 19 U/L Normal 15-37 [facility] Comment on above: Performed By: #### B MP, ALT, AST, LIPID #### [facility] [address] [address] [address] Daniel Dave SGPTon 09-13-2022 ALT [Catalytic activity/Vol] 27 U/L Normal 14-59 [facility] Comment on above: Performed By: #### B MP, ALT, AST, LIPID ####[facility] [address] [place], [place] [address]AmDr. Daniel Dave US CAROTID ART BILon 06-30-2 022 US CAROTID ART RUBI EXAMINATION: US [...] by: JO ALONSO Date: 2022-06-30 12:12 Normal [facility] NM STRESS/REST MULTIon 05-18 NM STRESS/REST MULTI Patient: DANICA VALENCIA Exam Date: 05/18/2022 : 1955 Gender:F Ordering : DR RON HERNANDEZ . Admission #: [id number] Family : Order #: [id number] CLICK HERE TO VIEW EXAM RADIOLOGY REPORT PROCEDURE: RADIONUCLIDE IMAGING STRESS/REST MULTI COMPARISON: OR STRESS/REST MULTI, 07/15/2016. INDICATIONS: Atherosclerosis of coronary [...] Alonso MD on 05/18/2022 at 12:51 Normal [facility] Basophils Auto (Bld) [#/Vol] Ordered By: OZ White on 04-12-2022 Basophils (Bld) [#/Vol] 0.1 10*3/uL 0.0-0.2 [facility] Basophils/100 WBC Auto (Bld) Ordered By: [facility] Flash White on 04-12-2022 Basophils/100 WBC (Bld) 1.3 % . [facility] Blood hemoglobin measurement (mass/volume)Ordered By: [facility] Flash White on 04-12-2022 Hemoglobin (Bld) [Mass/Vol] 13.4 g/dL 11.8-15.4 [facility] Blood leukocytes automated c ount (number/volume)Ordered By: [facility] Flash White on 04-12-2022 WBC (Bld) [#/Vol] 6.6 10*3/uL 4.5-11.0 [facility] Creatinine and Glomerular fi ltration rate.predicted panel (S/P/Bld)Ordered By: [facility] Flash White on 04-12-2022 Creatinine [Mass/Vol] 1.01 mg/dL 0.44-1.03 [facility] Eosinophils Auto (Bld) [#/Vo l]Ordered By: [facility] Flash White on 04-12-2022 Eosinophils (Bld) [#/Vol] 0.2 10*3/uL 0.0-0.45 [facility] Eosinophils/100 WBC Auto (Bl d)Ordered By: [facility] Flash White on 04-12-2022 Eosinophils/100 WBC (Bld) 3.3 % . [facility] Erythrocyte distribution wid th Auto (RBC) [Ratio]Ordered By: [facility] Flash White on 04-12-2022 Erythrocyte distribution width (RBC) [Ratio] 14.1 % 11.9-15.3 [facility] Estimated glomerular filtrat ion rate (GFR) non- AmericanOrdered By: [facility] Flash White on 04-12-2022 GFR/1.73 sq M.predicted among non-blacks MDRD (S/P/Bld) [Vol rate/Area] 55 mL/Min [facility] Hematocrit Auto (Bld) [Volum e fraction]Ordered By: [facility] Flash White on 04-12-2022 Hematocrit (Bld) [Volume fraction] 40.9 % 34.0-46.4 [facility] Laboratory - CoagulationOrde red By: CWJimmie White on 04-12-2022 PT Coag (PPP) [Time] 11.6 s 9.0-12.9 [facility] - Hematology and Cell countsOrdered By: Jimmie White on 04-12-2022 Nucleated RBC/100 WBC (Bld) [Ratio] 0.1 % 0-0.5 [facility] Lymphocytes Auto (Bld) [#/Vo l]Ordered By: [facility] Flash White on 04-12-2022 Lymphocytes (Bld) [#/Vol] 1.8 10*3/uL 1.00-4.8 [facility] Lymphocytes/100 WBC Auto (Bl d)Ordered By: [facility] [place] Flash White on 04-12-2022 Lymphocytes/100 WBC (Bld) 27.6 % . [facility] MCH Auto (RBC) [Entitic mass ]Ordered By: [facility] [place] Flash White on 04-12-2022 MCH (RBC) [Entitic mass] 28.7 pg 24.7-34.3 [facility] MCHC Auto (RBC) [Mass/Vol]Or dered By: [facility] [place] Flash White on 04-12-2022 MCHC (RBC) [Mass/Vol] 32.7 g/dL 32.0-35.0 [facility] MCV Auto (RBC) [Entitic vol] Ordered By: Jimmie White on 04-12-2022 MCV (RBC) [Entitic vol] 87.7 fL 80-100 [facility] Monocytes Auto (Bld) [#/Vol] Ordered By: [facility] [place] Flash White on 04-12-2022 Monocytes (Bld) [#/Vol] 0.6 10*3/uL 0.0-0.8 [facility] Monocytes/100 WBC Auto (Bld) Ordered By: [facility] [place] Flash White on 04-12-2022 Monocytes/100 WBC (Bld) 9.5 % . [facility] Neutrophils Auto (Bld) [#/Vo l]Ordered By: [facility] [place] Flash White on 04-12-2022 Neutrophils (Bld) [#/Vol] 3.8 10*3/uL 1.8-7.7 [facility] Neutrophils/100 WBC Auto (Bl d)Ordered By: OZ White on 04-12-2022 Neutrophils/100 WBC (Bld) 58.3 % . [facility] No Panel InformationOrdered By: OZ White on 04-12-2022 Estimated GFR () > 60 mL/Min [facility] Comment on above: GFR estimated refere nce range: According to KDOQI guidelines, <60 ml/min/1.73m2 is sufficient to diagnose a patient with chronic kidney disease. Pharmacy Creatinine Clearance (Chem N/A [facility] Platelet mean volume Auto (B ld) [Entitic vol]Ordered By: OZ White on 04-12-2022 Platelet mean volume (Bld) [Entitic vol] 7.2 fL 6.3-10.7 [facility] Platelet poor plasma interna tional normalized ratio (INR) by coagulation assay (relatOrdered By: OZ White on 04-12-2022 INR Coag (PPP) [Relative time] 1.0 {INR} [facility] Comment on above: INR Therapeutic Rang e [...] 04-12-2022 Platelets (Bld) [#/Vol] 482 10*3/uL 150-450 [facility] RBC Auto (Bld) [#/Vol]Ordere d By: OZ White on 04-12-2022 RBC (Bld) [#/Vol] 4.66 10*6/uL 3.60-5.00 [facility] Serum or plasma anion gap de terminationOrdered By: OZ White on 04-12-2022 Anion gap [Moles/Vol] 13.5 mmol/L 6.0-15.0 [facility] Serum or plasma calcium idalia urement (mass/volume)Ordered By: Jimmie White on 04-12-2022 Calcium [Mass/Vol] 9.6 mg/dL 8.2-10.2 [facility] Serum or plasma chloride julieth surement (moles/volume)Ordered By: [facility] [place] Flash White on 04-12-2022 Chloride [Moles/Vol] 100 mmol/L 95-114 [facility] Serum or plasma glucose idalia urement (mass/volume)Ordered By: [facility] [place] Flash White on 04-12-2022 Glucose [Mass/Vol] 86 mg/dL 70-100 [facility] Comment on above: ADA recommended refe rence range Random Glucose Reference Range is dependent on time and content of last meal. Glucose of more than 200 mg/dL in a nonstressed, ambulatory subject supports the diagnosis of Diabetes Mellitus. Serum or plasma potassium me asurement (moles/volume)Ordered By: [facility] [place] Flash White on 04-12-2022 Potassium [Moles/Vol] 4.3 mmol/L 3.5-5.1 [facility] Serum or plasma sodium measu rement (moles/volume)Ordered By: [facility] [place] [place] Flash White on 04-12-2022 Sodium [Moles/Vol] 138 mmol/L 136-146 [facility] Serum or plasma total carbon dioxide measurement (moles/volume)Ordered By: [facility] [place] Flash White on 04-12-2022 CO2 [Moles/Vol] 28.8 mmol/L 22.0-30.0 [facility] Serum or plasma urea nitroge n measurement (mass/volume)Ordered By: [facility] [place] Flash White on 04-12-2022 Urea nitrogen [Mass/Vol] 21 mg/dL 9-23 [facility] MRI Ankle w/o + w/ Lefton MRI [...] by Shaq Bills on 03/18/2022 0919 Normal [facility] [employer] Tobacco Screening.on 022 Adult depression screening assessment No [facility] [employer] 250 DO Work Phone: Fall risk assessment a) No falls within the last year [facility] [employer] 250 DO Work Phone: Tobacco use status CPHS b) No M [facility] [place] [facility] Work Phone: CBC AUTO DIFFon 10-06-2021 BASO # 0.1 103/ul Normal 0.0-0.1 [facility] Comment on above: Performed By: #### C BC #### [facility] [address] [address] [address] Daniel Dave Basophils/100 WBC (Bld) 0.8 % Normal 0.2-2.0 [facility] Comment on above: Performed By: #### C BC #### [facility] [address] [place] [address] Dr. Daniel Dave EO # 0.3 103/ul Normal 0.0-0.7 [facility] Comment on above: Performed By: #### C BC #### [facility] [address] [place] [address] Dr. Daniel Dave Eosinophils/100 WBC (Bld) 3.8 % Normal 0.9-7.0 [facility] Comment on above: Performed By: #### C BC #### [facility] [address] [place] [address] Dr. Daniel Dave Erythrocyte distribution width (RBC) [Ratio] 13.8 % Normal 11.0-15.0 [facility] Comment on above: Performed By: #### C BC #### [facility] [address] [place] [address] Dr. Daniel Dave Hematocrit (Bld) [Volume fraction] 40.1 % Normal 36.0-48.0 [facility] Comment on above: Performed By: #### C BC #### [facility] [address] [place] [address] Dr. Daniel Dave Hemoglobin (Bld) [Mass/Vol] 13.1 g/dL Normal 12.0-16.0 [facility] Comment on above: Performed By: #### C BC #### [facility] [address] [place] [address] Dr. Daniel Dave IG # 0.03 10e3/ul Normal 0.00-0.03 [facility] Comment on above: Performed By: #### C BC #### [facility] [address] [place] [address] Dr. Daniel Dave IG % 0.4 % Normal 0.0-0.5 [facility] Comment on above: Performed By: #### C BC #### [facility] [address] [place] [address] Dr. Daniel Dave LYMPH # 1.7 103/ul Normal 1.2-3.8 [facility] Comment on above: Performed By: #### C BC #### [facility] [address] [address] [address] Daniel Dave Lymphocytes/100 WBC (Bld) 24.4 % Normal 20.5-60.0 [facility] Comment on above: Performed By: #### C BC #### [facility] [address] [address] [address] Daniel Dave MANUAL DIFF REQ NO Normal [facility] Comment on above: Performed By: #### C BC #### [facility] [address] [place] [address] Dr. Daniel Dave MCH (RBC) [Entitic mass] 29.2 pg Normal 26.7-34.0 [facility] Comment on above: Performed By: #### C BC #### [facility] [address] [place] [address] Dr. Daniel Dave MCHC (RBC) [Mass/Vol] 32.7 g/dL Normal 29.9-35.2 [facility] Comment on above: Performed By: #### C BC #### [facility] [address] [place] [address] Dr. Daniel Dave MCV (RBC) [Entitic vol] 89.5 fL Normal 81.0-99.0 [facility] Comment on above: Performed By: #### C BC #### [facility] [address] [place] [address] Dr. Daniel Dave MONO # 0.7 103/ul Normal 0.3-0.8 [facility] Comment on above: Performed By: #### C BC #### [facility] [address] [place] [address] Dr. Daniel Dave Monocytes/100 WBC (Bld) 9.7 % Normal 1.7-12.0 [facility] Comment on above: Performed By: #### C BC #### [facility] [address] [place] [address] Dr. Daniel Dave NEUT # 4.3 103/ul Normal 1.4-6.5 [facility] Comment on above: Performed By: #### C BC #### [facility] [address] [address] [address] Daniel Dave Neutrophils/100 WBC (Bld) 60.9 % Normal 43.0-75.0 [facility] Comment on above: Performed By: #### C BC #### [facility] [address] [address] [address] Daniel Dave Platelet mean volume (Bld) [Entitic vol] 8.4 fL Critically low 9.5-13.5 [facility] Comment on above: Performed By: #### C BC #### [facility] [address] [address] [address] Daniel Dave PLT 440 103/ul Normal 150-450 [facility] Comment on above: Performed By: #### C BC #### [facility] [address] [place] [address] Dr. Daniel Dave RBC 4.48 106/ul Normal 4.20-5.40 [facility] Comment on above: Performed By: #### C BC #### [facility] [address] [address] [address] Daniel Dave WBC 7.1 103/ul Normal 4.0-11.0 [facility] Comment on above: Performed By: #### C BC #### [facility] [address] [place] [address] Dr. Daniel Dave LIPID PROFILEon 10-06-2021 CHOL-HDL RATIO NORM SEE BELOW Normal [facility] Comment on above: Result Comment: 3.3 - 4.4 LOW RISK 4.4 - 7.1 AVERAGE RISK 7.1 - 11.0 MODERATE RISK >11.0 HIGH RISK Performed By: #### A LT, LIPID, AST, BMP #### [facility] [address] [address] [address] Daniel Dave Cholesterol [Mass/Vol] 115 mg/dL Normal <=200 Th [facility] Comment on above: Performed By: #### A LT, LIPID, AST, BMP #### [facility] [address] [address] [address] Daniel Dave Cholesterol in HDL [Mass/Vol] 61 mg/dL Normal [facility] Comment on above: Performed By: #### A LT, LIPID, AST, BMP #### [facility] [address] [address] [address] Daniel Dave Cholesterol in LDL [Mass/Vol] 33.4 mg/dL Normal [facility] Comment on above: Performed By: #### A LT, LIPID, AST, BMP #### [facility] [address] [address] [address] Daniel Dave Cholesterol.total/Марина sterol in HDL [Mass ratio] 1.9 {ratio} Normal [facility] Comment on above: Performed By: #### A LT, LIPID, AST, BMP #### [facility] [address] [address] [address] Daniel Dave HDL NORMAL > or = 60 mg/dl - LO W CARDIOVASCULAR RISK <40 mg/dl - HIGH CARDIOVASCULAR RISK Normal [facility] Comment on above: Performed By: #### A LT, LIPID, AST, BMP #### [facility] [address] [address] [address] Daniel Dave LDL CALC NORMAL SEE BELOW Normal [facility] Comment on above: Result Comment: <100 mg/dl OPTIMAL 100 - 129 mg/dl NEAR OR ABOVE OPTIMAL 130 - 159 mg/dl BORDERLINE HIGH 160 - 189 mg/dl HIGH >190 mg/dl VERY HIGH Performed By: #### A LT, LIPID, AST, BMP #### [facility] [address] [address] [address] Daniel Dave Triglyceride [Mass/Vol] 103 mg/dL Normal <=150 T [facility] Comment on above: Performed By: #### A LT, LIPID, AST, BMP #### [facility] [address] [address] [address] Daniel Dave VLDL CALC 20.6 mg/dL Normal [facility] Comment on above: Performed By: #### A LT, LIPID, AST, BMP #### [facility] [address] [address] [address] Daniel Dave PROF CHEM 8 (BAS METB)on Anion gap [Moles/Vol] 12.8 mmol/L Normal Th e [facility] Comment on above: Performed By: #### A LT, LIPID, AST, BMP #### [facility] [address] [place] [address] Dr. Daniel Dave Calcium [Mass/Vol] 9.2 mg/dL Normal 8.4-10.2 [facility] Comment on above: Performed By: #### A LT, LIPID, AST, BMP #### [facility] [address] [place] [address] Dr. Daniel Dave Chloride [Moles/Vol] 103 mmol/L Normal 98-107 [facility] Comment on above: Performed By: #### A LT, LIPID, AST, BMP #### [facility] [address] [place] [address] Dr. Daniel Dave CO2 [Moles/Vol] 30.5 mmol/L Critically high 22.0-30.0 [facility] Comment on above: Performed By: #### A LT, LIPID, AST, BMP #### [facility] [address] [place] [address] Dr. Daniel Dave Creatinine [Mass/Vol] 0.93 mg/dL Normal 0.52-1.04 [facility] Comment on above: Performed By: #### A LT, LIPID, AST, BMP #### [facility] [address] [place] [address] Dr. Daniel Dave EGFR-AF MARTINIQUAIS >60 Normal >=[address] [facility] Comment on above: Performed By: #### A LT, LIPID, AST, BMP #### [facility] [address] [place] [address] Dr. Daniel Dave EGFR-NON AF MARTINIQUAIS >60 Normal >=60 [facility] Comment on above: Performed By: #### A LT, LIPID, AST, BMP #### [facility] [address] [place] [address] Dr. Daniel Dave Glucose [Mass/Vol] 118 mg/dL Critically high 74-106 T [facility] Comment on above: Performed By: #### A LT, LIPID, AST, BMP #### [facility] [address] [place], [place] [address] Dr. Daniel Dave Potassium [Moles/Vol] 4.3 mmol/L Normal 3.4-5.0 [facility] Comment on above: Performed By: #### A LT, LIPID, AST, BMP #### [facility] [address] [place] [address] Dr. Daniel Dave Sodium [Moles/Vol] 142 mmol/L Normal 137-145 [facility] Comment on above: Performed By: #### A LT, LIPID, AST, BMP #### [facility] [address] [place] [address] Dr. Daniel Dave Urea nitrogen [Mass/Vol] 22.0 mg/dL Critically high 7.0-17.0 [facility] Comment on above: Performed By: #### A LT, LIPID, AST, BMP #### [facility] [address] [place] [address] Dr. Daniel Dave Urea nitrogen/Creatinine [Mass ratio] 23.7 mg/mg Normal [facility] Comment on above: Performed By: #### A LT, LIPID, AST, BMP #### [facility] [address] [place] [address] Dr. Daniel Dave SGOTon 10-06-2021 AST [Catalytic activity/Vol] 15 U/L Normal 14-36 [facility] Comment on above: Performed By: #### A LT, LIPID, AST, BMP #### [facility] [address] [place] [address] Dr. Daniel Dave SGPTon 10-06-2021 ALT [Catalytic activity/Vol] 36 U/L Normal 9-52 [facility] Comment on above: Performed By: #### A LT, LIPID, AST, BMP #### [facility] [address] [place] [address] Dr. Daniel Dave Tobacco Screening.on 022 Fall risk assessment a) No falls within the last year [facility] [employer] [place] 250 DO Work Phone: Tobacco use status CPHS b) No M [facility] [place] [address] DO Work Phone: ALT (SGPT)on 05-18-2017 Alanine aminotransferase (ALT) 24 U/L Normal 7-45 [facility] Comment on above: Performed By: #### 1 [id number] ####[facility] [address] [place] [address] AST (SGOT)on 05-18-2017 Aspartate aminotransferase (AST) 18 U/L Normal 13-39 [facility] Comment on above: Performed By: #### 1 [id number] ####[facility] [address] [place] [address] Creatinineon 05-18-2017 Creatinine 0.75 mg/dL Normal 0.50-1.05 [facility] Comment on above: Performed By: #### 1 [id number] ####[facility] [address] [place] [address] eGFR (MDRD) mL/min/{1.73_m2} Normal [facility] Comment on above: Result Comment: Inte rpretation for Chronic Kidney Disease:Stages 1&2 >60 Healthy or potential kidney damage.Mild decrease of GFR.Stage 3 30-59 Moderate decrease of GFR.Stage 4 15-29 Severe decrease of GFR.Stage 5 <15 Kidney failure or on dialysis. Performed By: #### 1 [id number] ####[facility] [address] [place] [address] Electrolyte Panelon 05-18-20 17 Anion gap 9 mmol/L Low 10-20 [facility] Comment on above: Performed By: #### 1 [id number] ####[facility] [address] [place] [address] Bicarbonate (HCO3) 30 mmol/L Normal 21-32 [facility] Comment on above: Performed By: #### 1 [id number] ####[facility] [address] [place] [address] Chloride 105 mmol/L Normal 98-107 [facility] Comment on above: Performed By: #### 1 [id number] ####[facility] [address] [place] [address] Potassium molar conc 4.2 mmol/L Normal 3.5-5.1 [facility] Comment on above: Performed By: #### 1 [id number] ####[facility] [address] [place] [address] Sodium 140 mmol/L Normal 136-145 [facility] Comment on above: Performed By: #### 1 [id number] ####[facility] [address] [place] [address] Lipid Panelon 05-18-2017 Cholesterol 207 mg/dL Abnormal <200 [facility] Comment on above: Performed By: #### 1 [id number] ####[facility] [address] [place] [address] Cholesterol in VLDL mass conc 37 mg/dL Abnormal <30 [facility] Comment on above: Performed By: #### 1 [id number] ####[facility] [address] [place] [address] Cholesterol to HDL Ratio 3.9 {ratio} Normal [facility] Comment on above: Performed By: #### 1 [id number] ####[facility] [address] [place] [address] HDL Cholesterol 53 mg/dL Normal [facility] Comment on above: Result Comment: Age Normal Mod Risk High Risk5-9 >46 38-46 <3810-14 >44 40-44 <4015-19 >42 38-42 <38Adult >49 Performed By: #### 1 [id number] ####[facility] [address] [place] [address] LDL Cholesterol 117 mg/dL Normal <130 [facility] Comment on above: Performed By: #### 1 [id number] ####[facility] [address] [place] [address] Triglyceride 184 mg/dL Abnormal <150 [facility] Comment on above: Result Comment: 150- 199 Borderline [place]315-150 High>500 Very High Performed By: #### 1 [id number] ####[facility] [address] [place] [address] Urea Nitrogenon 05-18-2017 Urea nitrogen 16 mg/dL Normal 6-23 [facility] Comment on above: Performed By: #### 1 [id number] ####[facility] [address] [place] [address] Vital Signs Date Time Vital Sign Value Performing Clinician Facility 09-28-2023 14:48-0500 Diastolic blood pressure 82 mm[Hg] Willie Hall MD Work Phone: [facility] 09-28-2023 14:48-0500 Systolic blood pressure 136 mm[Hg] Willie Hall MD Work Phone: [facility] 09-28-2023 14:31-0500 Body height 162.6 cm Willie Hall MD Work Phone: [facility] 09-28-2023 14:31-0500 Body mass index (BMI) [Ratio] 32.79 kg/m2 Willie Hall MD Work Phone: [facility] 09-28-2023 14:31-0500 Body weight 86.64 kg Willie Hall MD Work Phone: [facility] 09-28-2023 14:31-0500 Heart rate 88 /min Willie Hall MD Work Phone: [facility] 08-02-2023 13:56-0500 Blood Pressure Location Dereck URE[facility] 08-02-2023 13:56-0500 Diastolic blood pressure 80 mm[Hg] Dereck URENA [facility] 08-02-2023 13:56-0500 Heart rate 72 /min Dereck URENA [facility] 08-02-2023 13:56-0500 Respiratory rate 16 /min Dereck URENA [facility] 08-02-2023 13:56-0500 Systolic blood pressure 122 mm[Hg] Dereck URENA [facility] 04-04-2023 09:35-0400 Body height 162.56 cm Ron Hernandez Work Phone: [facility] DO Work Phone: 04-04-2023 09:35-0400 Body mass index (BMI) [Ratio] 34.12 kg/m2 Ron M Hoy Work Phone: [facility] DO Work Phone: 04-04-2023 09:35-0400 Body surface area Derived from formula 1.95 m2 Ron M Hoy Work Phone: [facility] 250 DO Work Phone: 04-04-2023 09:35-0400 Body weight 90.18 kg Ron M Hoy Work Phone: [facility] DO Work Phone: 04-04-2023 09:35-0400 Diastolic blood pressure 80 mm[Hg] Ron M Hoy Work Phone: [facility] DO Work Phone: 04-04-2023 09:35-0400 Heart rate 66 /min Ron M Hoy Work Phone: [facility] DO Work Phone: 04-04-2023 09:35-0400 Systolic blood pressure 106 mm[Hg] Orn M Hoy Work Phone: [facility] 250 DO Work Phone: 09-22-2022 10:18-0500 Body height 162.56 cm Ron M Hoy Work Phone: [facility] 250 DO Work Phone: 09-22-2022 10:18-0500 Body mass index (BMI) [Ratio] 33.82 kg/m2 Ron M Hoy Work Phone: [facility] DO Work Phone: 02-09-2023 10:18-0500 Body surface area Derived from formula 1.94 m2 Ron Jacinto Hoy Work Phone: [facility] DO Work Phone: 09-22-2022 10:18-0500 Body weight 89.36 kg Ron M Hoy Work Phone: [facility] DO Work Phone: 09-22-2022 10:18-0500 Diastolic blood pressure 60 mm[Hg] Ron Jacinto Hoy Work Phone: [facility] 250 DO Work Phone: 09-22-2022 10:18-0500 Heart rate 76 /min Ron Jacinto Hoy Work Phone: [facility] 250 DO Work Phone: 09-22-2022 10:18-0500 Systolic blood pressure 116 mm[Hg] Ron Jacinto Hoy Work Phone: [facility] DO Work Phone: 09-13-2022 09:15-0500 28.4 1 Ron Jacinto Hoy Work Phone: [facility] 250 DO Work Phone: Comment on above: [facility] 03-16-2022 11:29-0400 Body height 162.56 cm Ron Casey Hoy Work Phone: [facility] 250 DO Work Phone: 03-16-2022 11:29-0400 Body mass index (BMI) [Ratio] 33.64 kg/m2 Ron M Hoy Work Phone: [facility] 250 DO Work Phone: 03-16-2022 11:29-0400 Body surface area Derived from formula 1.94 m2 Ron Jacinto Hoy Work Phone: [facility] 250 DO Work Phone: 03-16-2022 11:29-0400 Body weight 88.91 kg Ron M Hoy Work Phone: [facility] 250 DO Work Phone: 03-16-2022 11:29-0400 Diastolic blood pressure 74 mm[Hg] Ron M Hoy Work Phone: [facility] 250 DO Work Phone: 03-16-2022 11:29-0400 Heart rate 84 /min Ron M Hoy Work Phone: [facility] 250 DO Work Phone: 03-16-2022 11:29-0400 Systolic blood pressure 129 mm[Hg] Ron M Hoy Work Phone: [facility] 250 DO Work Phone: 10-14-2021 08:50-0500 Diastolic blood pressure 71 mm[Hg] Ron M Hoy Work Phone: [facility] 250 DO Work Phone: 10-14-2021 08:50-0500 Systolic blood pressure 121 mm[Hg] Ron M Hoy Work Phone: [facility] 250 DO Work Phone: 10-14-2021 08:49-0500 Body height 162.56 cm Ron M Hoy Work Phone: [facility] 250 DO Work Phone: 10-14-2021 08:49-0500 Diastolic blood pressure 62 mm[Hg] Ron M Hoy Work Phone: [facility] 250 DO Work Phone: 10-14-2021 08:49-0500 Heart rate 81 /min Ron M Hoy Work Phone: [facility] 250 DO Work Phone: 10-14-2021 08:49-0500 Systolic blood pressure 122 mm[Hg] Ron M Hoy Work Phone: [facility] 250 DO Work Phone: 09-15-2021 10:40-0500 Diastolic blood pressure 90 mm[Hg] Ron M Hoy Work Phone: [facility] 250 DO Work Phone: 09-15-2021 10:40-0500 Systolic blood pressure 160 mm[Hg] Ron M Hoy Work Phone: [facility] 250 DO Work Phone: 09-15-2021 10:12-0500 Body height 162.56 cm Ron M Hoy Work Phone: [facility] 250 DO Work Phone: 09-15-2021 10:12-0500 Body mass index (BMI) [Ratio] 34.33 kg/m2 Ron M Hoy Work Phone: [facility] 250 DO Work Phone: 09-15-2021 10:12-0500 Body surface area Derived from formula 1.96 m2 Ron M Hoy Work Phone: [facility] 250 DO Work Phone: 09-15-2021 10:12-0500 Body weight 90.72 kg Ron M Hoy Work Phone: [facility] 250 DO Work Phone: 09-15-2021 10:12-0500 Diastolic blood pressure 71 mm[Hg] Ron M Hoy Work Phone: [facility] 250 DO Work Phone: 09-15-2021 10:12-0500 Heart rate 64 /min Ron M Hoy Work Phone: [facility] 250 DO Work Phone: 09-15-2021 10:12-0500 Systolic blood pressure 152 mm[Hg] Ron Hernandez Work Phone: [facility] 250 DO Work Phone: Encounters Encounter Date Encounter Type Care Provider Facility Start: 12-08-2023 End: 12-08-2023 ambulatory LAYNE PEREZ Not Available Start: 12-04-2023 End: 12-04-2023 ambulatory ANNE LOVELACE Not Available Start: 12-01-2023 End: 12-01-2023 ambulatory ELIZ TOBY Not Available Start: 11-28-2023 End: 11-28-2023 ambulatory ANNE LOVELACE Not Available Start: 11-24-2023 End: 11-24-2023 ambulatory WOLFGANG MALLORY Not Available Start: 10-30-2023 End: 10-30-2023 ambulatory ANNE LOVELACE Not Available Start: 10-26-2023 Encounter for other preprocedural examination [facility] Start: 10-26-2023 End: 10-27-2023 ambulatory [place] Jacinto [facility] Start: 10-24-2023 Orders Only Wolfgang VIZCAINO Work Phone: [facility] Comment on above: Encounter for other preprocedural examination Start: 10-24-2023 Patient encounter status Roger VIZCAINO Work Phone: [facility] Start: 10-23-2023 End: 10-23-2023 ambulatory WOLFGANG MALLORY Not Available Start: 10-23-2023 Orders Only Wolfgang VIZCAINO Work Phone: [facility] Comment on above: Encounter for other preprocedural examination Start: 10-23-2023 Patient encounter status Roger VIZCAINO Work Phone: [facility] Start: 09-28-2023 End: 09-28-2023 ambulatory [facility] Start: 09-28-2023 End: 09-28-2023 Office outpatient visit 25 minutes Willie Hall MD Work Phone: 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 (Primary Dx); Essential hypertension; Hyperlipidemia, unspecified hyperlipidemia type; S/P PTCA (percutaneous transluminal coronary angioplasty); Cerebrovascular accident (CVA), unspecified mechanism (CMS/HCC); Obesity, Class I, BMI 30-34.9 Start: 08-23-2023 End: 08-24-2023 ambulatory Dereck URENA Facility:[id number] Start: 08-21-2023 End: 08-21-2023 ambulatory OBED RODRIGUEZ Not Available Start: 08-02-2023 End: 08-03-2023 ambulatory Dereck URENA Facility:[facility] Start: 08-02-2023 End: 08-02-2023 Patient encounter procedure Dereck URENA General Surgery [facility] Start: 07-24-2023 End: 07-25-2023 ambulatory WOLFGANG MALLORY Not Available Start: 07-18-2023 ambulatory Dereck URENA Facility:[facility] Start: 04-18-2023 End: 04-18-2023 ambulatory Ron Hernandez Facility:[facility] Start: 04-18-2023 End: 04-18-2023 ambulatory MD Ron Hernandez Work Phone: [facility] Work Phone: Start: 04-18-2023 End: 04-18-2023 Patient encounter procedure MD Ron Hernandez Work Phone: [facility] Work Phone: Start: 04-04-2023 Office outpatient vi sit 25 minutes Ron Hernandez Work Phone: [facility] 250 DO Work Phone: Start: 04-04-[address] Willie Hall Facility: Start: 03-24-2023 Rx Renewal Ron M Hoy Work Phone: [facility] 250 DO Work Phone: Start: 03-11-2023 Rx Renewal Ron M Hoy Work Phone: [facility] DO Work Phone: Start: 10-25-2022 Rx Renewal Ron M Hoy Work Phone: [facility] 250 DO Work Phone: Start: 09-22-2022 Office outpatient vi sit 25 minutes Ron M Hoy Work Phone: [facility] 250 DO Work Phone: Start: 09-22-[address] Willie Hall Facility: Start: 09-13-2022 End: 09-14-[address] WILLIE HALL Facility:[facility]1 Start: 09-07-2022 Rx Renewal Ron Jacinto Hoy Work Phone: [facility] 600 DO Work Phone: Start: 06-30-2022 End: 07-01-2022 ambulatory CELINA COATES Facility:H1 Start: 06-29-2022 Rx Renewal Ron Casey Hoy Work Phone: [facility] 250 DO Work Phone: Start: 06-01-2022 Telephone encounter Ron Jacinto Hoy Work Phone: [facility] 250 DO Work Phone: Start: 05-30-2022 Rx Renewal Ron M Hoy Work Phone: [facility] 250 DO Work Phone: Start: 05-18-2022 End: 05-19-[address] RON HERNANDEZ Facility:[facility]1 Start: 04-25-2022 End: 09-12-2022 Departed Referred MD Ron Hernandez Work Phone: [facility] [place] Start: 04-15-2022 End: 04-15-2022 Patient encounter procedure MD Ron Hernandez Work Phone: [facility] Start: 04-12-2022 End: 04-12-2022 Patient encounter procedure MD Ron Hernandez Work Phone: [facility] Start: 03-16-2022 Office outpatient vi sit 25 minutes Ron Hernandez Work Phone: [facility] 250 DO Work Phone: Start: 12-06-2021 Rx Renewal Ron Hernandez Work Phone: [facility] 250 DO Work Phone: Start: 10-25-2021 Rx Renewal Ron Hernandez Work Phone: [facility] 250 DO Work Phone: Start: 10-14-2021 Office outpatient vi sit 10 minutes Ron Hernandez Work Phone: [facility] 250 DO Work Phone: Start: 10-06-2021 End: 10-07-[address] RON HERNANDEZ Facility:H1 Start: 09-15-2021 Office outpatient vi sit 25 minutes Ron Hernandez Work Phone: [facility] 250 DO Work Phone: Start: 07-22-2021 Rx Renewal Willie Hall MD Work Phone: [facility] [address] [place] Work Phone: Start: 07-19-2021 Rx Renewal Willie Hall MD Work Phone: [facility] 250 DO Work Phone: Start: 05-18-2017 Ambulatory WILLIE HALL Facility :[id number] Patient encounter status Ron Hernandez Work Phone: -[facility] 250 DO Work Phone: Procedures Date Procedure Procedure Detail Performing Clinician Start: 09-28-2023 Alanine aminotransfe rase [Enzymatic activity/volume] in Serum or Plasma WILLIE HALL Start: 09-28-2023 Aspartate aminotrans ferase [Enzymatic activity/volume] in Serum or Plasma WILLIE HALL Start: 09-28-2023 Basic metabolic 2000 panel - Serum or Plasma WILLIE HALL Start: 09-28-2023 CBC panel - Blood by Automated count WILLIE HALL Start: 09-28-2023 Lipid panel WILLIE IVY Start: 04-18-2023 Screening mammograph y of bilateral breasts MD Ron Hernandez Work Phone: Start: 04-15-2022 Screening mammograph y of bilateral breasts MD Ron Hernandez Work Phone: Start: 04-13-2021 Mammography Willie ivy MD Work Phone: Start: 08-14-2017 Placement of stent i n coronary artery Dereck URENA Angioplasty of blood vessel Dereck URENA Blepharoplasty Ron Hernandez Work Phone: section Ron M H orolanda Work Phone: section Dereck Hodges Colonoscopy Dereck URENA Percutaneous translu erinn coronary angioplasty Ron Hernandez Work Phone: Repair of tendo achilles Mark gene Casey Jaskaran Work Phone: Repair of tendon Dereck Hodges Comment on above: left ankle Total colonoscopy Ronstephenie Tylerrolanda Work Phone: Plan of Treatment Date Care Activity Detail Author Start: 12-14-2028 DTaP,Tdap and Td Vaccines (2 - Td or Tdap) DTaP,Tdap and Td Vaccines (2 - Td or Tdap) [facility] Start: 12-14-2028 DTaP/Tdap/Td Vaccines (2 - Td or Tdap) DTaP/Tdap/Td Vaccines (2 - Td or Tdap) [facility] Start: 05-23-2024 ambulatory Ambulatory Facility:[id number] Start: 04-11-2024 End: 04-11-2024 Patient encounter procedure 04/11/2024 10:20 AM EDT Office Visit [facility] [address] [place] [id number] Willie Hall MD [address] [place] [address] [facility] Start: 03-28-2024 End: 09-28-2024 Alanine aminotransferase [Enzymatic activity/volume] in Serum or Plasma by With P-5'-P Alanine Aminotransferase Lab Routine Atherosclerosis of squaxin coronary artery of squaxin heart without angina pectoris Hyperlipidemia, unspecified hyperlipidemia type Expected: 03/28/2024 (Approximate), Expires: 09/28/2024 [facility] Work Phone: Comment on above: Expected: 03/28/2024 (Approximate), Expi res: 09/28/2024 Start: 03-28-2024 End: 09-28-2024 Aspartate aminotransferase [Enzymatic activity/volume] in Serum or Plasma by With P-5'-P Aspartate Aminotransferase Lab Routine Atherosclerosis of squaxin coronary artery of squaxin heart without angina pectoris Hyperlipidemia, unspecified hyperlipidemia type Expected: 03/28/2024 (Approximate), Expires: 09/28/2024 [facility] Work Phone: Comment on above: Expected: 03/28/2024 (Approximate), Expi res: 09/28/2024 Start: 03-28-2024 End: 09-28-2024 Basic metabolic 2000 panel - Serum or Plasma Basic Metabolic Panel Lab Routine Atherosclerosis of squaxin coronary artery of squaxin heart without angina pectoris Essential hypertension Expected: 03/28/2024 (Approximate), Expires: 09/28/2024 [facility] Work Phone: Comment on above: Expected: 03/28/2024 (Approximate), Expi res: 09/28/2024 Start: 03-28-2024 End: 09-28-2024 CBC panel - Blood by Automated count CBC Lab Routine Atherosclerosis of squaxin coronary artery of squaxin heart without angina pectoris Expected: 03/28/2024 (Approximate), Expires: 09/28/2024 [facility] Work Phone: Comment on above: Expected: 03/28/2024 (Approximate), Expi res: 09/28/2024 Start: 03-28-2024 End: 09-28-2024 Lipid 1996 panel - Serum or Plasma Lipid Panel Lab Routine Atherosclerosis of squaxin coronary artery of squaxin heart without angina pectoris Hyperlipidemia, unspecified hyperlipidemia type Expected: 03/28/2024 (Approximate), Expires: 09/28/2024 [facility] Service Area Work Phone: Comment on above: Expected: 03/28/2024 (Approximate), Expi res: 09/28/2024 Start: 10-23-2023 End: 10-22-2024 aPTT in Blood by Coagulation assay APTT Lab Routine Encounter for other preprocedural examination Expected: 10/23/2023, Expires: 10/22/2024 [facility] Work Phone: Comment on above: Expected: 10/23/2023, Expires: Start: 10-23-2023 End: 10-23-2024 Bacteria identified in Urine by Culture [facility] Work Phone: Comment on above: Expected: 10/23/2023, Expires: Expected: 10/23/2023 , Expires: 10/23/2024 Start: 10-23-2023 End: 10-22-2024 CBC W Auto Differential panel - Blood CBC auto differential Lab Routine Encounter for other preprocedural examination Expected: 10/23/2023, Expires: 10/22/2024 [facility] Work Phone: Comment on above: Expected: 10/23/2023, Expires: Start: 10-23-2023 End: 10-22-2024 Comprehensive metabolic 2000 panel - Serum or Plasma Comprehensive metabolic panel Lab Routine Encounter for other preprocedural examination Expected: 10/23/2023, Expires: 10/22/2024 [facility] Work Phone: Comment on above: Expected: 10/23/2023, Expires: Start: 10-23-2023 End: 10-22-2024 Protime & INR Protime & INR Lab Routine Encounter for other preprocedural examination Expected: 10/23/2023, Expires: 10/22/2024 [facility] Work Phone: Comment on above: Expected: 10/23/2023, Expires: Start: 09-28-2023 FUV, Provider: Willie Hall, Status: Pen, Time: 10:10 AM FUV, Provider: Willie Hall, Status: Pen, Time: 10:[address] [facility] [place] 250 DO Work Phone: Start: 06-16-2023 Administration of varicella zoster vaccine Zoster (Shingles) Vaccine (2 of 3) [facility] Start: 04-14-2023 COVID-19 Vaccine ( season) COVID-19 Vaccine ( season) [facility] Start: 04-14-2023 Influenza vaccination Influenza Vaccine [facility] Start: 04-04-2023 FUV, Provider: Willie Hall, Status: Pen, Time: 9:30 AM FUV, Provider: Willie Hall, Status: Pen, Time: 9:[address] [facility] [place] 250 DO Work Phone: Start: 09-22-2022 FUV, Provider: Willie Hall, Status: Pen, Time: 10:10 AM FUV, Provider: Willie Hall, Status: Pen, Time: 10:10 [facility] Work Phone: Start: 04-15-2022 Screening mammography of bilateral breasts MM screening mammo BI w/CAD [facility] Start: 04-15-2022 End: 04-15-2022 Patient encounter procedure Departed Clinical [facility] Start: 04-13-2022 Screening for malignant neoplasm of breast Mammogram [facility] Start: 03-15-2022 FUV, Provider: Willie Hall, Status: Pen, Time: 10:50 AM FUV, Provider: Willie Hall, Status: Pen, Time: 10:[address] [facility] 250 DO Work Phone: Start: 10-14-2021 NURSEVST, Provider: MALCOLM DEL CID TUNNEL MINER 1,[id number], Status: Pen, Time: 8:30 AM NURSEVST, Provider: MALCOLM DEL CID TUNNEL MINER 1,[id number], Status: Pen, Time: 8:30 AM -[facility] 250 DO Work Phone: Start: 09-15-2021 FUV, Provider: Willie Hall, Status: Pen, Time: 10:00 AM FUV, Provider: Willie Hall, Status: Pen, Time: 10:00 AM -[facility] 250 DO Work Phone: Start: 02-02-2021 Fall Risk Screening Fall Risk Screening [facility] Start: 02-02-1974 Adult BMI Screening Adult BMI Screening [facility] Start: 02-02-1974 Diabetes mellitus screening Diabetes Screening [facility] Start: 02-02-1974 Hepatitis C screening Hepatitis C Screening [facility] Start: 1968 Depression Screening Depression Screening [facility] Start: 1968 Tobacco Screening Tobacco Screening [facility] Start: 02-02-1962 Pneumococcal Vaccine: 65+ Years (1 - PCV) Pneumococcal Vaccine: 65+ Years (1 - PCV) [facility] Start: 1955 Lipid panel Lipid Panel [facility] Start: 1955 Medicare Annual Wellness Visit [facility] Start: 1955 Screening for malignant neoplasm of colon [facility] Start: 1955 Screening for osteoporosis Bone Density Scan [facility] Immunizations Immunization Date Immunization Notes Care Provider Fa berto 05-20-2023 influenza virus vaccine, unspecified formulation Dereck URENA [facility] 04-21-2023 zoster vaccine, unspecified formulation Wolfgang VIZCAINO Work Phone: [facility] 06-23-2022 influenza virus vaccine, unspecified formulation Wolfgang VIZCAINO Work Phone: [facility] 06-21-2022 Pfizer COVID-19 Vac Bivalent 30 MCG/0.3ML Intramuscular Suspension Ron Hernandez Work Phone: [facility] Comment on above: Result Comment: 2022: [id number] 06-21-2022 Pfizer Purple Cap SARS-CoV-2 Willie Hall MD Work Phone: [facility] Work Phone: 06-13-2022 influenza virus vaccine, unspecified formulation Willie Hall MD Work Phone: [facility] Work Phone: 06-13-2022 influenza, seasonal, injectable, preservative free [facility] Work Phone: 03-08-2022 Comirnaty 30 MCG/0.3 ML Intramuscular Suspension Ron Hernandez Work Phone: [facility] 250 DO Work Phone: 03-08-2022 SARS-CoV-2 mRNA (vkqlezljprs-fvlr-clszv se) vaccine Dereck TIDWELLTracie [facility] Comment on above: Result Comment: 2022: [id number] 03-08-2022 SARS-CoV-2, Unspecified Hamlet Hall MD Work Phone: [facility] Work Phone: 05-21-2021 influenza virus vaccine, unspecified formulation Ron M Hoy Work Phone: [facility] 250 DO Work Phone: 05-21-2021 Pfizer-BioNTech COVID-19 Vacc 30 MCG/0.3ML Intramuscular Suspension Ron M Hoy Work Phone: [facility] Comment on above: Result Comment: 2022: [id number] 11-06-2020 Pfizer-BioNTech COVID-19 Vacc 30 MCG/0.3ML Intramuscular Suspension Ron M Hoy Work Phone: [facility] [place] 10-16-2020 Pfizer-BioNTech COVID-19 Vacc 30 MCG/0.3ML Intramuscular Suspension Ron M Hoy Work Phone: [facility] 05-13-2020 influenza, injectabl e, quadrivalent, preservative free Ron M Hoy Work Phone: [facility] 250 DO Work Phone: 04-30-2020 influenza, injectabl e, quadrivalent, preservative free Ron M Hoy Work Phone: [facility] 250 DO Work Phone: 04-14-2020 influenza virus vaccine, unspecified formulation Ron M Hoy Work Phone: [facility] 250 DO Work Phone: 05-30-2019 influenza, injectabl e, quadrivalent, preservative free Ron M Hoy Work Phone: [facility] 250 DO Work Phone: 05-14-2019 influenza virus vaccine, unspecified formulation Ron M Hoy Work Phone: [facility] 250 DO Work Phone: 12-14-2018 tetanus toxoid, redu jed diphtheria toxoid, and acellular pertussis vaccine, adsorbed Ron M Hoy Work Phone: [facility] 04-14-2018 influenza virus vaccine, unspecified formulation Ron M Hoy Work Phone: [facility] 250 DO Work Phone: 06-14-2017 influenza virus vaccine, unspecified formulation Ron M Hoy Work Phone: [facility] 250 DO Work Phone: 06-06-2017 Influenza, injectabl e, Madin Adrianne Canine Kidney, preservative free, quadrivalent Ron M Hoy Work Phone: [facility] 250 DO Work Phone: 04-18-2017 influenza, seasonal, injectable, preservative free Ron M Hoy Work Phone: [facility] 250 DO Work Phone: 06-10-2016 influenza, injectabl e, quadrivalent, preservative free Ron M Hoy Work Phone: [facility] 250 DO Work Phone: 05-14-2016 influenza virus vaccine, unspecified formulation Ron M Hoy Work Phone: [facility] 250 DO Work Phone: 06-05-2015 influenza, seasonal, injectable, preservative free Ron M Hoy Work Phone: [facility] 250 DO Work Phone: Payers Date Payer Category Payer Private Health Insurance [id number] 2023 Self-pay [id number] 2022 Private Health Insurance [id number] 2021 Medicare MEDICARE MEDICAR E PART A & B [id number] 2021-[facility] [phone] [address] [place] [address] [id number] 2021 Unknown 1959 Medicare [id number] 1959 Private Health Insurance [id number] 1956 Unknown [id number] 2.16.840.1.248300.3.579.2.5 93 1956 Unknown [id number] 2.16.840.1.790781.3.579.2.5 93 1956 Unknown [id number] 2.16.840.1.877532.3.579.2.5 93 1956 Unknown [id number] 2.16.840.1.995837.3.579.2.5 93 1956 Unknown [id number] 2.16.840.1.671745.3.579.2.3 56 1956 Unknown [id number] 2.16.840.1.662252.3.579.2.3 56 1956 Unknown [id number] 2.16.840.1.579493.3.579.2.7 27 1956 Unknown [id number] 2.16.840.1.201166.3.579.2.7 27 1956 Unknown [id number] 2.16.840.1.754881.3.579.2.7 27 1956 Unknown [id number] 2.16.840.1.690789.3.579.2.1 244 1956 Unknown [id number] 2.16.840.1.596075.3.579.2.1 286 1956 Unknown [id number] 2.16.840.1.515746.3.579.2.1 286 1956 Unknown [id number] 2.16.840.1.551316.3.579.2.1 286 1956 Unknown [id number] 2.16.840.1.431260.3.579.2.1 259 1956 Unknown [id number] 2.16.840.1.178244.3.579.2.1 259 1956 Unknown [id number] 2.16.840.1.534669.3.579.2.1 259 1956 Unknown [id number] 2.16.840.1.061416.3.579.2.1 259 1956 Unknown [id number] 2.16.840.1.990883.3.579.2.1 259 1956 Unknown [id number] 2.16.840.1.558113.3.579.2.1 259 1956 Unknown [id number] 2.16.840.1.683163.3.579.2.1 259 1956 Unknown [id number] 2.16.840.1.884963.3.579.2.1 259 1956 Unknown [id number] 2.16.840.1.803500.3.579.2.1 259 1956 Unknown [id number] 2.16.840.1.953543.3.579.2.1 259 Medicare [id number] Unknown [id number] Unknown [place] BC/BS [id number] Unknown [id number] 2.16.840.1.040798.3.579.2.5 31 Social History Date Type Detail Facility Start: 09-24-2020 End: 09-28-2023 Alcohol use Alcohol use -[facility] [address] DO Work Phone: Start: 1955 Sex Assigned At Female [facility] Start: 05-25-2020 End: 08-02-2023 Tobacco smoking status Never smoked tobacco (finding) [facility] Tobacco smoking status Never [facility] [place] Start: 09-24-2020 End: 09-28-2023 Sex Assigned At Female [facility] Start: 05-25-2020 End: 05-24-2023 Tobacco use and exposure Smokeless tobacco non-user [facility] Work Phone: Start: 09-28-2023 Alcohol intake Lifetime non-drinker (finding) [facility] Work Phone: Start: 11-18-2019 Gender identity Identifies as female gender (finding) [facility] Work Phone: Start: 11-18-2019 Sexual orientation Heterosexual (finding) [facility] Work Phone: Start: 09-18-2023 End: 09-28-2023 Exposure to SARS-CoV-2 (event) Not sure [facility] Start: 06-24-2021 Alcohol intake Not Asked [facility] How often to you hav e a drink containing alcohol? 2-4 times a month [facility] Functional Status Date Assessment Result Facility 08-02-2023 Functional Status N/A [facility] Clinical Notes 08-02-2023 to 09-28-2023 Willie Hall MD - 09/28/2023 2:30 PM ESTPatient Instructions Note Date & Type Note Facility 09-28-2023 History of Present illness Narrative Subjective Danica Valencia is a 68 y.o. female Chief Complaint Follow-up HPI Patient is in the office for follow-up for the problems noted below. She has had no cardiac events since her last visit. Last blood work from last summer revealed LDL cholesterol around 25 mg/dL which is excellent. She had no angina orthopnea PND or lower extremity edema. She confesses to me today that she was taking lisinopril on as-needed basis when her pressure goes up which was discouraged and emphasized the need for daily use of the medicine. ASSESSMENT AND PLAN: 1. Coronary artery disease, status post angioplasty in 2017. This involved the left circumflex and the right coronary artery. Presently stable with no changes needed and no cardiac investigations are necessary. 2. Hypertension, currently under control. Renal function is normal, the patient was advised to take her beta-hector and lisinopril on daily basis regardless of the blood pressure reading and discouraged from taking blood pressure readings every day. 3. Class I obesity. Patient is making the effort to lose weight. 4. Hyperlipidemia, currently on a combination of Repatha, Zetia and pravastatin [once weekly]. All of which have been well-tolerated. Lipid profile from last summer was excellent 5. History of stroke back in August 2019 mostly in the form of slurred speech which resolved. Continue dual antiplatelet therapy which has been well-tolerated. Willie Hall MD, [facility] Review of Systems All other systems reviewed and are negative. Vitals: 09/28/23 1431 09/28/23 1435 09/28/23 1448 BP: 148/90 (!) 142/92 136/82 BP Location: Left arm Right arm Patient Position: Sitting Sitting Pulse: 88 Weight: 86.6 kg (191 lb) Height: 1.626 m (5' 4 ) Objective Physical Exam Constitutional: Appearance: Normal appearance. She is normal weight. HENT: Nose: Nose normal. Neck: Vascular: No carotid bruit. Cardiovascular: Rate and Rhythm: Normal rate. Pulses: Normal pulses. Heart sounds: Normal heart sounds. Pulmonary: Effort: Pulmonary effort is normal. Abdominal: General: Bowel sounds are normal. Palpations: Abdomen is soft. Genitourinary: Rectum: Normal. Musculoskeletal: General: Normal range of motion. Cervical back: Normal range of motion. Right lower leg: No edema. Left lower leg: No edema. Skin: General: Skin is warm and dry. Neurological: General: No focal deficit present. Mental Status: She is alert. Psychiatric: Mood and Affect: Mood normal. Behavior: Behavior normal. Thought Content: Thought content normal. Judgment: Judgment normal. Allergies Patient has no known allergies. Current Medications Current Outpatient Medications: aspirin 81 mg EC tablet, Take 1 tablet (81 mg) by mouth once daily., Disp: , Rfl: clopidogrel (Plavix) 75 mg tablet, Take 1 tablet (75 mg) by mouth once daily., Disp: , Rfl: coenzyme Q-10 10 mg capsule, Take 1 capsule (10 mg) by mouth once daily., Disp: , Rfl: evolocumab (Repatha SureClick) 140 mg/mL injection, Inject 1 mL (140 mg) under the skin every 14 (fourteen) days., Disp: 6 each, Rfl: 3 ezetimibe (Zetia) 10 mg tablet, Take 1 tablet (10 mg) by mouth once daily., Disp: , Rfl: lisinopril 10 mg tablet, Take 1 tablet (10 mg) by mouth once daily., Disp: , Rfl: metoprolol succinate XL (Toprol-XL) 50 mg 24 hr tablet, Take 1 tablet (50 mg) by mouth once daily., Disp: , Rfl: omeprazole (PriLOSEC) [address] capsule, Take 1 capsule (40 mg) by mouth once daily., Disp: , Rfl: pravastatin (Pravachol) 20 mg tablet, Take 1 tablet (20 mg) by mouth 1 (one) time per week., Disp: , Rfl: semaglutide (Ozempic) 0.25 mg or 0.5 mg (2 mg/3 mL) pen injector, Inject 0.25 mg under the skin 1 (one) time per week., Disp: , Rfl: venlafaxine XR (Effexor-XR) 37.5 mg 24 hr capsule, Take 1 capsule (37.5 mg) by mouth once daily., Disp: , Rfl: nitroglycerin (Nitrostat) 0.4 mg SL tablet, Place 1 tablet (0.4 mg) under the tongue every 5 minutes if needed for chest pain. May repeat dose every 5 minutes for up to 3 doses total., Disp: 25 tablet, Rfl: 11 Assessment/Plan 1. Atherosclerosis of squaxin coronary artery of squaxin heart without angina pectoris Follow Up In Cardiology nitroglycerin (Nitrostat) 0.4 mg SL tablet Lipid Panel Alanine Aminotransferase Aspartate Aminotransferase Basic Metabolic Panel CBC Lipid Panel Alanine Aminotransferase Aspartate Aminotransferase Basic Metabolic Panel CBC 2. Essential hypertension Follow Up In Cardiology Basic Metabolic Panel Basic Metabolic Panel 3. Hyperlipidemia, unspecified hyperlipidemia type Follow Up In Cardiology Lipid Panel Alanine Aminotransferase Aspartate Aminotransferase Lipid Panel Alanine Aminotransferase Aspartate Aminotransferase 4. S/P PTCA (percutaneous transluminal coronary angioplasty) 5. Cerebrovascular accident (CVA), unspecified mechanism (CMS/HCC) 6. Obesity, Class I, BMI 30-34.9 Scribe Attestation By signing my name below, I, gary , Scribe attest that this documentation has been prepared under the direction and in the presence of Willie Hall MD. documented in this encounter [facility] Work Phone: 09-28-2023 Instructions Violetta Villareal LPN - 09/28/2023 2:30 PM EST Please bring all medicines, vitamins, and herbal supplements with you when you come to the office. Prescriptions will not be filled unless you are compliant with your follow up appointments or have a follow up appointment scheduled as per instruction of your physician. Refills should be requested at the time of your visit. documented in this encounter [facility] Work Phone: 08-02-2023 Note Chief Complaint consultation for positive [...] Mother. Primary mal (more content not included)... [facility] Comment on above: Result Comment: Elec tronically Signed By: ROMEL MOORE, Dereck Quintanilla\Date and Time Signed: 08/02/23 14:32 EST Evaluation + Plan note No data available for this section [facility] [place] Evaluation note No assessment inform ation available [facility] Work Phone: Evaluation note Diagnosis Atherosclerosis of squaxin coronary artery of squaxin heart without angina pectoris- Primary Essential hypertension Unspecified essential hypertension Hyperlipidemia, unspecified hyperlipidemia type S/P PTCA (percutaneous transluminal coronary angioplasty) Postsurgical percutaneous transluminal coronary angioplasty status Cerebrovascular accident (CVA), unspecified mechanism (CMS/HCC) Obesity, Class I, BMI 30-34.9 documented in this encounter [facility] Work Phone: Evaluation note* Diagnosis Encounter for other preprocedural examination documented [facility] this encounter [facility] No data available for this section [facility] [place] InstructionsNot on filedocumented in this encounter [employer] note No data available for this section General Surgery [place] Reason for referral (narrative)* Consultation (Routine) - Authorized Specialty Diagnoses / Procedures Referred By Contac t Referred To Contact Cardiology Diagnoses Atherosclerosis of squaxin coronary artery of squaxin heart without angina pectoris Essential hypertension Hyperlipidemia, unspecified hyperlipidemia type Procedures Follow Up In Cardiology Willie Hall MD [address] [place] [address], [address] [address] Willie Hall MD [address] [place] [address] 2, [address] [address] Referral ID Status Reason Start Date Expiration Date V isits Requested Visits Authorized [id number] Authorized 09/28/2023 09/27/2024 1 1 [facility] Work Phone: Summary Purpose Family History No Family History [...] Yes February 20 2:29pm Chief Complaint * DANICA VALENCIA is being seen for a 6 [...] few weeks. * 3. Obesity. Discussed with Danica the need to cut back calorie intake [...] need aLexiscan perfusion study for surgery * Willie Hall MD, FACC * DANICA VALENCIA is being seen for hypertension. * Patient is in the office for hypertension management. Since we added hydrochlorothiazide her blood pressure is now under control. She had no side effect of medications. I reviewed with the patient recent lab including lipid profile which demonstrated a drop of the LDL down to 33 mg/dL on Repatha. * DANICA VALENCIA is being seen for a 6 [...] antiplatelet therapy which has been well-tolerated. * Willie Hall MD, FACC * DANICA VALENCIA is being seen for a 6 [...] antiplatelet therapy which has been well-tolerated. * Willie Hall MD, FACC * DANICA VALENCIA is being seen for a 6 [...] antiplatelet therapy which has been well-tolerated. * Willie Hall MD, FACC * DANICA VALENCIA is being seen for a 6 month follow-up of. * Patient is in the office for follow-up for the problems noted below. She has had no events since her last visit 6 months ago. Her weight remains above target. She is trying to lose weight. She had blood work yesterday at [facility] which we requested. She is [...] antiplatelet therapy which has been well-tolerated. * Willie Hall MD, FACC Chief Complaint and Reason for Visit Chief Complaint LABS AND EKG Screening Chief Complaint Screening Additional Source Comments INFORMATION SOURCE (unrecogn ized section and content) DATE CREATED AUTHOR 02/06/2018 [facility] DATE CREATED AUTHOR AUTHOR'S ORGANIZ ATION 09/14/2022 [facility] DATE CREATED AUTHOR AUTHOR'S ORGANIZ ATION 10/05/2022 [facility] Specialist DATE CREATED AUTHOR AUTHOR'S ORGANIZ ATION 04/05/2023 [facility] DATE CREATED AUTHOR AUTHOR'S ORGANIZ ATION 04/05/2023 [employer] DATE CREATED AUTHOR AUTHOR'S ORGANIZ ATION 04/28/2023 [facility] DATE CREATED AUTHOR AUTHOR'S ORGANIZ ATION 09/13/2023 [facility] DATE CREATED AUTHOR AUTHOR'S ORGANIZ ATION 09/30/2023 [facility] DATE CREATED AUTHOR AUTHOR'S ORGANIZ ATION 10/31/2023 [facility] DATE CREATED AUTHOR AUTHOR'S ORGANIZ ATION 12/10/2023 [facility] dical Specialists EPIC Care Teams (unrecognized sec [...] Provider Active Referral Self Attending Provider Active Play Therapist Relationship Specialty Start Date End Date Ron Hernandez MD [address] [place] [address] PCP - General 08/14/99 Play Therapist Relationship Specialty Start Date End Date Ron Hernandez MD [address] [place] [id number] PCP - General Family Medicine 09/24/19 Goals (unrecognized section and content) Goals may be documented in a n alternate sectionGoals may be documented in an alternate sectionGoals may be documented in an alternate sectionGoals may be documented in an alternate section No data available for this sectionNot on filedocumented as of this encounterNot on filedocumented as of this encounterNot on filedocumented as of this encounterNot on filedocumented as of this encounterNot on filedocumented as of this encounterNot on filedocumented as of this encounterNot on filedocumented as of this encounter Reason for Visit (unrecogniz ed section and content) Reason Comments Follow-up 6m FOR RECORDS PERTAINING TO PATIENTS WHO ARE [...] BE BASED ON THE PRIMARY CLINICAL RECORDS. [facility] Hospital[facility]. provides no warranty or guarantee of the accuracy or completeness of information in this document.
== END 2023-12-11 20:51 | disposition home or self-care (01) ==
LOC: SLEEP 20:51
PROVIDERS: PCP Family Medicine; Visit Provider Family Medicine
DX: G47.33 Obstructive sleep apnea (adult) (pediatric) (principal)
CPT/HCPCS: 95810

== ENCOUNTER 2023-12-20 20:54 | Outpatient (OUT) | payer MEDICARE, SELFPAY ==
--- OUTSIDE RECORDS SUMMARY | 2023-12-20 21:05 | XMS_ITS | CCD ---
Author Organization [facility] Care Team Providers Care Endoscopic Technician Name Role Phone ROSEANNE HALL Unavailable Unavailable RON HERNANDEZ Unavailable Unavailable Ron Hernandez Unavailable Unavailable Unavailable MD Ron Hernandez Primary Care Provider [phone] [place]IL[place] White Attending Provider MD Ron Hernandez Referring Provider [phone] Self, Referral Attending Provider Unavailable MARY, DR [...] Unavailable MARY, DR VELASQUEZ Primary Care Unavailable AMINATA, CELINA Attending Unavailable AMINATA CELINA Consulting Unavailable Hall, Dr. Roseanne Rodriguez Referring Megan vailable Mary, Dr. Ron Harden Primary Care Unavail able Hall, Dr. Roseanne Rodriguez Attending Megan vailable Hall, Dr. Roseanne Rodriguez Referring Megan vailable Mary, Dr. Ron Harden Primary Care Unavail able Isabel, Dr. Roseanne Rodriguez Attending Megan vailable MD Ron Hernandez Primary Care Provider [phone] Self, Referral Attending Provider Unavailable Ron Hernandez Primary Care Unavailable Self, Referral Attending Unavailable Self, Referral Admitting Unavailable Ron Hernandez Primary Care Physician [phone] Dereck URENA Attending Unavailable Dereck URENA Referring Unavailable Dereck URENA Attending Unavailable Dereck URENA Attending Unavailable Ron Hernandez MD Primary Care Provider [phone] ROSEANNE HALL Attending Unavailable RON HERNANDEZ Primary Care Unavailable Ron Hernandez MD Primary Care Provider ORN HERNANDEZ Referring Unavailable RON HERNANDEZ Primary Care Unavailable WOLFGANG MALLORY Referring Unavailable RON HERNANDEZ Primary Care Unavailable RON HERNANDEZ Referring Unavailable RON HERNANDEZ Primary Care Unavailable JR. DEVEN, OBED Wren Attending Unavaila ble WOLFGANG MALLORY Attending Unavailable ANNE LOVELACE Attending Unavailable WOLFGANG MALLORY Referring Unavailable WOLFGANG MALLORY Attending Unavailable ANNE LOVELACE Attending Unavailable WOLFGANG MALLORY Referring Unavailable ELIZ LUIS Attending Unavailable JR. DEVEN, OBED Wren Referring Unavaila ble WOLFGANG MALLORY Attending Unavailable WOLFGANG MALLORY Referring Unavailable ANNE LOVELACE Attending Unavailable JR. DEVEN, OBED Wren Referring Unavaila LAYNE Nelson Attending Unavailable JR. DEVEN, OBED Wren Referring Unavaila LAYNE Nelson Attending Unavailable JR. DEVEN, OBED Wren Referring Unavaila LAYNE Nelson Attending Unavailable JR. DEVEN, OBED Wren Referring Unavaila LAYNE Nelson Attending Unavailable JR. DEVEN, OBED Wren Referring Unavaila ble Allergies Allergy Classification Reported Allergen(s) Allergy Type Date of Onset Reaction(s) Facility (1 source) No Known Medication Allergies; Translations: [No Known Medication Allergies] Propensity to adverse reactions (disorder) [facility] Repository Medications Current Medications Medication [...] Hyperlipidemia, unspecified hyperlipidemia type , Atherosclerosis of [place] coronary artery of [place] heart without angina pectoris Inject 1 mL (140 mg) under the skin every 14 (fourteen) days. 6 each 3 06/01/2023 Active inject 1 mL by subcu taneous injection every other week Repatha SureClick 140 MG/ML Subcutaneous Solution Auto-injector Inject one ml every two weeks Quantity: 3 Refills: 3 Ordered: 23-Sep-2022 Roseanne Hall MD Active ezetimibe 10 mg oral [...] 3 Ordered: 27-Jul-2021 Roseanne Hall MD Active ezetimibe 10 mg / [...] 0.4 mg SL tablet Indications: Atherosclerosis of [place] coronary artery of [place] heart without angina pectoris Place 1 tablet (0.4 mg) under the tongue every 5 minutes if needed for chest pain. May repeat dose every 5 minutes for up to 3 doses total. 25 tablet 09/28/2023 10/28/2023 Active omeprazole 40 mg delayed [...] Ordered Start: 12-29-2021 take 1 capsule by [facility] once daily venlafaxine XR (Effexor-XR) 37.5 mg 24 hr capsule Take 1 capsule (37.5 mg) by mouth once daily. 0 12/29/2021 Active Start: 12-29-2021 take 1 capsule by [facility] every twenty-four hours Venlafaxine HCl ER 37.5 MG Oral Capsule Extended Release 24 Hour Quantity: 90 Refills: 0 Ordered: 29-Dec-2021 DO Start : 29-Dec-2021 Active vit A/vit C/biotin/zinc/copper (EZND-HLTB-CQIA,VIT A,C-BIOTIN, ORAL) (7 sources) take 1 tablet by mouth once daily vit A/vit C/biotin/zinc/copper (LGET-TXMF-MSON,VIT A,C-BIOTIN, ORAL) Take 1 tablet by mouth [...] extended release oral tablet (20 sources) beta-Adrenergic Hebert Start: 2 take 1 tablet by mouth [...] disease (20 sources) Atherosclerotic heart disease of [place] coronary artery without angina pectoris; Translations: [Coronary atherosclerosis] Onset: 05-18-2017 Chronic Coronary atherosclerosis and other heart disease (20 sources) Patient post percutaneous transluminal coronary angioplasty; Translations: [Percutaneous transluminal coronary angioplasty status] Onset: 05-24-2023 09-28-2023 Episodic Comment on above: RCA/left circumflex 2016; Coronary atherosclerosis and other heart disease (1 [...] Unclassified (2 sources) Athscl heart disease of [place] coronary artery w/o ang pctrs / I25.10(ICD-9) [...] Sandoval MD on 10/30/2023 1:44 PM Normal [facility] CBC AND AUTO DIFFon 10-26-19 24 ABSOLUTE BASOPHIL 0.1 X10E9/L Normal 0.0-0.2 [facility] Comment on above: Performed By: #### P INR, 03561-6 #### [facility] ([id number]) [address] [place] [address] 40804 #### CBCA, CMP #### [facility] ([id number]) [address], [address] [place] [address] ABSOLUTE NEUTROPHIL 4.5 X10E9/L Normal 1.5-6.6 [facility] Comment on above: Performed By: #### P INR, 07037-4 #### [facility] ([id number]) [address] [place] [address] 31868 #### CBCA, CMP #### [facility] ([id number]) [address], [address] [place] [address] Basophils/100 WBC (Bld) 0.7 % Normal [facility] Comment on above: Performed By: #### P INR, 67639-0 #### [facility] ([id number]) [address] [place] [address] 45788 #### CBCA, CMP #### [facility] ([id number]) [address], [address] [place] [address] Eosinophils (Bld) [#/Vol] 0.2 10*3/uL Normal 0.0-0.4 [facility] Comment on above: Performed By: #### P INR, 98493-9 #### [facility] ([id number]) [address] [place] [address] 54228 #### CBCA, CMP #### [facility] ([id number]) [address], [address] [place] [address] Eosinophils/100 WBC (Bld) 2.9 % Normal [facility] Comment on above: Performed By: #### P INR, 16770-1 #### [facility] ([id number]) [address] [place] [address] 21915 #### CBCA, CMP #### [facility] ([id number]) [address], [address] [place] [address] Erythrocyte distribution width (RBC) [Ratio] 14.3 % Normal 11.5-15.0 [facility] Comment on above: Performed By: #### P INR, 35208-4 #### [facility] ([id number]) [address] [place] [address] 18860 #### CBCA, CMP #### [facility] ([id number]) [address] [facility], [address] [place] [address] Hematocrit (Bld) [Volume fraction] 38.1 % Normal 35-47 [facility] Comment on above: Performed By: #### P INR, 69585-8 #### [facility] ([id number]) [address] [place] [address] 28394 #### CBCA, CMP #### [facility] ([id number]) [address], [address] [place] [address] Hemoglobin (Bld) [Mass/Vol] 12.8 g/dL Normal 11.7-15.5 [facility] Comment on above: Performed By: #### P INR, 41322-5 #### [facility] ([id number]) [address] [place] [address] 71119 #### CBCA, CMP #### [facility] ([id number]) [address], [address] [place] [address] Lymphocytes (Bld) [#/Vol] 1.7 10*3/uL Normal 1.0-3.5 [facility] Comment on above: Performed By: #### P INR, 45130-1 #### [facility] ([id number]) [address] [place] [address] 83149 #### CBCA, CMP #### [facility] ([id number]) [address] [facility], [address] [place] [address] Lymphocytes/100 WBC (Bld) 24.6 % Normal [facility] Comment on above: Performed By: #### P INR, 80138-8 #### [facility] ([id number]) [address] [place] [address] 47532 #### CBCA, CMP #### [facility] ([id number]) [address] [facility], [address] [place] [address] MCH (RBC) [Entitic mass] 29.1 pg Normal 27-34 [facility] Comment on above: Performed By: #### P INR, 53608-2 #### [facility] ([id number]) [address] [place] [address] 46341 #### CBCA, CMP #### [facility] ([id number]) [address] [facility], [address] [place] [address] MCHC (RBC) [Mass/Vol] 33.7 g/dL Normal 32-36 [facility] Comment on above: Performed By: #### P INR, 70908-0 #### [facility] ([id number]) [address] [place] [address] 48096 #### CBCA, CMP #### [facility] ([id number]) [address] [facility] [address], [address] [place] [address] MCV (RBC) [Entitic vol] 86 fL Normal 80-100 P [facility] Comment on above: Performed By: #### P INR, 07522-8 #### [facility] ([id number]) [address] [place] [address] 02732 #### CBCA, CMP #### [facility] ([id number]) [address], [address] [place] [address] Monocytes (Bld) [#/Vol] 0.6 10*3/uL Normal 0-0.9 [facility] Comment on above: Performed By: #### P INR, 36936-2 #### [facility] ([id number]) [address] [place] [address] 74871 #### CBCA, CMP #### [facility] ([id number]) [address], [address] [place] [address] Monocytes/100 WBC (Bld) 8.2 % Normal [facility] Comment on above: Performed By: #### P INR, 63798-8 #### [facility] ([id number]) [address] [place] [address] 32053 #### CBCA, CMP #### [facility] ([id number]) [address], [address] [place] [address] Neutrophils/100 WBC (Bld) 63.6 % Normal [facility] Comment on above: Performed By: #### P INR, 00374-2 #### [facility] ([id number]) [address] [place] [address] 18496 #### CBCA, CMP #### [facility] ([id number]) [address], [address] [place] [address] Platelet mean volume (Bld) [Entitic vol] 7.3 fL Normal 7-12 [facility] Comment on above: Performed By: #### P INR, 52636-9 #### [facility] ([id number]) [address] [place] [address] 49314 #### CBCA, CMP #### [facility] ([id number]) [address], [address] [place] [address] Platelets (Bld) [#/Vol] 437 10*3/uL Normal 150-450 [facility] Comment on above: Performed By: #### P INR, 96017-2 #### [facility] ([id number]) [address] [place] [address] 93033 #### CBCA, CMP #### [facility] ([id number]) [address] [facility], [address] [place] [address] RBC COUNT 4.41 X10E12/L Normal 3.80-5.20 [facility] Comment on above: Performed By: #### P INR, 93704-6 #### [facility] ([id number]) [address] [place] [address] 43584 #### CBCA, CMP #### [facility] ([id number]) [address] [facility], [address] [place] [address] WBC (Bld) [#/Vol] 7.1 10*3/uL Normal 4.0-11.0 [facility] Comment on above: Performed By: #### P INR, 15037-1 #### [facility] ([id number]) [address] [place] [address] 29699 #### CBCA, CMP #### [facility] ([id number]) [address] [facility], [address] [place] [address] COMPREHENSIVE METABOLIC PANE Edgar 10-26-2023 Albumin [Mass/Vol] 4.2 g/dL Normal 3.2-5.3 [facility] Comment on above: Performed By: #### P INR, 82838-0 #### [facility] ([id number]) [address] [place] [address] 11649 #### CBCA, CMP #### [facility] ([id number]) [address] [facility], [address] [place] [address] ALP [Catalytic activity/Vol] 83 U/L Normal 39-130 [facility] Comment on above: Performed By: #### P INR, 70949-3 #### [facility] ([id number]) [address] [place] [address] 33554 #### CBCA, CMP #### [facility] ([id number]) [address], [address] [place] [address] ALT [Catalytic activity/Vol] 20 U/L Normal 0-31 [facility] Comment on above: Performed By: #### P INR, 38706-2 #### [facility] ([id number]) [address] [place] [address] 77690 #### CBCA, CMP #### [facility] ([id number]) [address], [address] [place] [address] Anion gap [Moles/Vol] 8 mmol/L Normal 5-15 [facility] Comment on above: Performed By: #### P INR, 30317-1 #### [facility] ([id number]) [address] [place] [address] 77776 #### CBCA, CMP #### [facility] ([id number]) [address], [address] [place] [address] AST [Catalytic activity/Vol] 16 U/L Normal 0-41 [facility] Comment on above: Performed By: #### P INR, 13676-1 #### [facility] ([id number]) [address] [place] [address] 36040 #### CBCA, CMP #### [facility] ([id number]) [address], [address] [place] [address] Bilirubin [Mass/Vol] 0.4 mg/dL Normal 0.3-1.2 [facility] Comment on above: Performed By: #### P INR, 77941-0 #### [facility] ([id number]) [address] [place] [address] 23995 #### CBCA, CMP #### [facility] ([id number]) [address], [address] [place] [address] Calcium [Mass/Vol] 9.6 mg/dL Normal 8.5-10.5 [facility] Comment on above: Performed By: #### P INR, 77404-5 #### [facility] ([id number]) [address] [place] [address] 45194 #### CBCA, CMP #### [facility] ([id number]) [address], [address] [place] [address] Chloride [Moles/Vol] 104 mmol/L Normal 98-109 [facility] Comment on above: Performed By: #### P INR, 14531-6 #### [facility] ([id number]) [address] [place] [address] 14054 #### CBCA, CMP #### [facility] ([id number]) [address] [place] [address] CO2 [Moles/Vol] 28 mmol/L Normal 22-32 [facility] Comment on above: Performed By: #### P INR, 39954-3 #### [facility] ([id number]) [address] [place] [address] 22734 #### CBCA, CMP #### [facility] ([id number]) [address], [address] [place] [address] Creatinine [Mass/Vol] 1.27 mg/dL High 0.40-1.00 [facility] Comment on above: Result Comment: METH OD TRACEABLE TO IDMS STANDARD Performed By: #### P INR, 07928-8 #### [facility] ([id number]) [address] [place] [address] 05088 #### CBCA, CMP #### [facility] ([id number]) [address], [address] [place] [address] GFR/1.73 sq M.predicted among non-blacks MDRD (S/P/Bld) [Vol rate/Area] 46 mL/min/{1.73_m2} Low >59 [facility] Comment on above: Result Comment: Reported eGFR is based on the CKD-EPI 2020 equation that does not use a race coefficient. Performed By: #### P INR, 55901-8 #### [facility] ([id number]) [address] [place] [address] 65319 #### CBCA, CMP #### [facility] ([id number]) [address], [address] [place] [address] Glucose [Mass/Vol] 75 mg/dL Normal 65-99 [facility] Comment on above: Performed By: #### P INR, 42331-8 #### [facility] ([id number]) [address] [place] [address] 10764 #### CBCA, CMP #### [facility] ([id number]) [address], [address] [place] [address] Potassium [Moles/Vol] 4.7 mmol/L Normal 3.5-5.0 [facility] Comment on above: Performed By: #### P INR, 46636-7 #### [facility] ([id number]) [address] [place] [address] 98963 #### CBCA, CMP #### [facility] ([id number]) [address], [address] [place] [address] Protein [Mass/Vol] 7.1 g/dL Normal 6.0-8.0 [facility] Comment on above: Performed By: #### P INR, 21801-9 #### [facility] ([id number]) [address] [place] [address] 17870 #### CBCA, CMP #### [facility] ([id number]) [address], [address] [place] [address] Sodium [Moles/Vol] 140 mmol/L Normal 134-146 [facility] Comment on above: Performed By: #### P INR, 63349-5 #### [facility] ([id number]) [address] [place] [address] 82387 #### CBCA, CMP #### [facility] ([id number]) [address] [facility], [address] [place] [address] Urea nitrogen [Mass/Vol] 24 mg/dL Normal 5-27 [facility] Comment on above: Performed By: #### P INR, 01933-0 #### [facility] ([id number]) [address] [place] [address] 35508 #### CBCA, CMP #### [facility] ([id number]) [address], [address] [place] [address] PROTIME AND INRon 10-26-2023 INR Coag (PPP) [Relative time] 1.1 {INR} Normal 0.8-1.1 [facility] Comment on above: Performed By: #### P INR, 32712-0 #### [facility] ([id number]) [address] [place] [address] 19934 #### CBCA, CMP #### [facility] ([id number]) [address], [address] [place] [address] PT Coag (PPP) [Time] 12.4 s Normal 9.8-13.2 [facility] Comment on above: Result Comment: NEW REFERENCE RANGE Performed By: #### P INR, 26063-4 #### [facility] ([id number]) [address] [place] [address] 84589 #### CBCA, CMP #### [facility] ([id number]) [facility], [address] [place] [address] URINALYSISon 10-26-2023 Bilirubin Ql (U) Negative Normal NEG [facility] BLOOD/HGB Negative Normal NEG [facility] Color (U) YELLOW Normal YELLOW [facility] Glucose Ql (U) Negative Normal NEG [facility] Ketones Ql (U) Negative Normal NEG [facility] Leukocyte esterase Test strip Ql (U) Negative Normal NEG [facility] Nitrite Ql (U) Negative Normal NEG [facility] pH (U) 6.0 [pH] Normal 5.0-8.5 [facility] Protein Ql (U) Negative Normal NEG [facility] Specific gravity (U) [Rel density] 1.005 Normal 1.003-1.035 [facility] TURBIDITY CLEAR Normal CLEAR [facility] Urobilinogen (U) [Mass/Vol] mg/dL Normal <1.1 [facility] URINE CULTUREon 10-26-2023 Bacteria identified Cx Nom (U) CULTURE RESULTS <10,000 ORGANISMS/ML NORMAL URO GENITAL JANNETTE Normal [facility] Comment on above: Performed By: #### 6 30-4 #### [facility] ([id number]) [address] [place] [address], [address] [place] [address] aPTT Coag (PPP) [Time]on aPTT Coag (Bld) [Time] 30 s Normal 26-37 [facility] Comment on above: Result Comment: NEW REFERENCE RANGE Performed By: #### P INR, 82445-0 #### [facility] ([id number]) [address] [place] [address] 50318 #### CBCA, CMP #### [facility] ([id number]) [address] [facility], [address] [place] [address] Outside Colonoscopyon 2023 Outside Colonoscopy [id number]#1.00T IFF [facility] Reminderson 08-24-2023 Reminders - From: Rosemarie August LPN To: GSN - Clinical; Sent: 08/24/2023 10:14:17 EST Show up: 07/23/2033 07:00:00 EST Subject: colonoscopy recall Due Date/Time: 08/23/2033 07:00:00 EST Reminder/Recall Patient due for screening colonoscopy 08/23/2033. [facility] Consultation Noteon 08-16-19 24 Consultation Note [id number]#1.00T IFF [facility] Consultation Note [id number]#1.00T IFF [facility] Insurance Correspondenceon 0 08-16-2023 Insurance Correspondence [id number]#1.00 TIFF [facility] Consent for Procedure/Surger yon 08-03-2023 Consent for Procedure/Surgery [id number]#1.00T IFF [facility] Facesheeton 08-03-2023 Facesheet [id number]#1.00 TIFF [facility] Ambulatory Visit Summaryon 1 10-03-2022 Ambulatory Visit [...] for choosing us for your care. Normal [facility] Physician Referralon 023 Physician Referral [id number]#1.00T IFF Normal [facility] MM screening mammo BI w/CADo n 04-18-2023 MM screening mammo BI w/CAD [facility] [place] [address] [place] [address] Mammography Report Signed Patient: Ashley Valencia MR#: [id number] : 1955 Acct:[id number] Age/Sex: 68 / F ADM Date: 04/18/23 Loc: [place] Room: Type: [facility] Attending Dr: Referral Self Copies to: Ron [...] Juarez Parish M.D.04/18/2023 11:10 AM Dictation Location: [facility] Transcribed By: XUAN 04/18/23 1110 Dictated By: Juarez Parish DO 04/18/23 1050 Signed By: 04/18/23 1110 [facility] Office Visit (Cardiology)on 04-04-2023 Follow-up visit Diagnoses/Problems Assessed Atherosclerosis of [place] coronary artery of [place] heart without angina pectoris (414.01) (I25.10) Essential [...] time of your visit. Labs requested from [facility] Follow up in [6 ] months Chief Complaint ASHLEY VALENCIA is being seen for a 6 month follow-up of. Patient is in the office for follow-up for the problems noted below. She has had no events since her last visit 6 months ago. Her weight remains above target. She is trying to lose weight. She had blood work yesterday at [facility] which we requested. She is tolerating medication [...] which has been well-tolerated. Roseanne Hall MD, [facility] Surgical History Problems History of Achilles [...] negative for complaint. Vitals Vital Signs Recorded: [id number] 09:35AM Heart Rate66, R Radial Cflvbghb179, LLE, Sitting Invdqrvkf45, LLE, Sitting Height5 ft 4 in Fcwhow685 lb 12.8 oz BMI Okznjcdsup30.12 kg/m2 BSA Calculated1.95 Tobacco Useb) No Falls [...] normal skin (more content not included)... Normal [facility] Tobacco Screening.on 023 Fall risk assessment a) No falls within the last year [facility] [employer] 250 DO Work Phone: Tobacco use status CP b) No M [facility] [employer] 250 DO Work Phone: MRI Ankle w/o [...] by Shaq Bills on 10/04/2022 1018 Normal [facility] Support Specialist Office Visit (Cardiology)on 09-22-2022 Follow-up visit Diagnoses/Problems Assessed Atherosclerosis of [place] coronary artery of [place] heart without angina pectoris (414.01) (I25.10) S/P [...] Weight Tips; Status:Complete - Retrospective Authorization; Done: [id number] Some eating tips that can help you lose weight.; Status:Complete - Retrospective Authorization; Done: [id number] SocHx: Never a smoker Tobacco Use Screening; Status:Complete; Done: [id number] Patient Instructions Please bring all medicines, vitamins, [...] which has been well-tolerated. Roseanne Hall MD, [facility] Surgical History Problems History of Blepharoplasty [...] HourTAKE 1 TABLET EVERY DAY Move Free [facility] Advance Oral TabletTake 1 tablet daily [...] Recorded: 22Sep2022 10:18AM Heart Rate76, L Radial Ejecutdm790, LUE, Sitting Yawqhxlkm84, LUE, Sitting Height5 ft 4 in Dxpjmi138 lb BMI Tikevgkclo58.82 kg/m2 BSA Calculated1.94 Tobacco Useb) No PHQ-2 #1. Over the last 2 weeks have you felt down, depressed or hopeless? (If yes, answer PHQ-9 below)No PHQ-2 #2. Over the last 2 weeks have you felt little interest or pleasure in doing things? (If yes, answer PHQ-9 below)No Falls Screening (Age 18+)a) No fa (more content not included)... Normal [employer] Tobacco Screening.on 023 Adult depression screening assessment No [facility] [employer] DO Work Phone: Fall risk assessment a) No falls within the last year [facility] [employer] 250 DO Work Phone: Tobacco use status CPHS b) No M [facility] [employer] 250 DO Work Phone: CBC AUTO DIFFon 09-13-2022 BASO # 0.1 103/ul Normal 0.0-0.1 [facility] Comment on above: Performed By: #### C BC #### [facility] [address] [place] [address] Dr. Daniel Dave Basophils/100 WBC (Bld) 1.0 % Normal 0.2-2.0 [facility] Comment on above: Performed By: #### C BC #### [facility] [address] [place] [address] Dr. Daniel Dave EO # 0.2 103/ul Normal 0.0-0.7 [facility] Comment on above: Performed By: #### C BC #### [facility] [address] [place] [address] Dr. Daniel Dave Eosinophils/100 WBC (Bld) 3.9 % Normal 0.9-7.0 [facility] Comment on above: Performed By: #### C BC #### [facility] [address] [place] [address] Dr. Daniel Dave Erythrocyte distribution width (RBC) [Ratio] 13.6 % Normal 11.0-15.0 [facility] Comment on above: Performed By: #### C BC #### [facility] [address] [place] [address] Dr. Daniel Dave Hematocrit (Bld) [Volume fraction] 40.8 % Normal 36.0-48.0 [facility] Comment on above: Performed By: #### C BC #### [facility] [address] [place] [address] Dr. Daniel Dave Hemoglobin (Bld) [Mass/Vol] 13.1 g/dL Normal 12.0-16.0 [facility] Comment on above: Performed By: #### C BC #### [facility] [address] [place] [address] Dr. Daniel Dave IG # 0.02 10e3/ul Normal 0.00-0.03 [facility] Comment on above: Performed By: #### C BC #### [facility] [address] [place] [address] Dr. Daniel Dave IG % 0.3 % Normal 0.0-0.5 [facility] Comment on above: Performed By: #### C BC #### [facility] [address] [place] [address] Dr. Daniel Dave LYMPH # 1.7 103/ul Normal 1.2-3.8 [facility] Comment on above: Performed By: #### C BC #### [facility] [address] [place] [address] Dr. Daniel Dave Lymphocytes/100 WBC (Bld) 27.6 % Normal 20.5-60.0 [facility] Comment on above: Performed By: #### C BC #### [facility] [address] [place] [address] Dr. Daniel Dave MANUAL DIFF REQ NO Normal [facility] Comment on above: Performed By: #### C BC #### [facility] [address] [place] [address] Dr. Daniel Dave MCH (RBC) [Entitic mass] 28.8 pg Normal 26.7-34.0 [facility] Comment on above: Performed By: #### C BC #### [facility] [address] [place] [address] Dr. Daniel Dave MCHC (RBC) [Mass/Vol] 32.1 g/dL Normal 29.9-35.2 [facility] Comment on above: Performed By: #### C BC #### [facility] [address] [place] [address] Dr. Daniel Dave MCV (RBC) [Entitic vol] 89.7 fL Normal 81.0-99.0 [facility] Comment on above: Performed By: #### C BC #### [facility] [address] [place] [address] Dr. Daniel Dave MONO # 0.6 103/ul Normal 0.3-0.8 [facility] Comment on above: Performed By: #### C BC #### [facility] [address] [place] [address] Dr. Daniel Dave Monocytes/100 WBC (Bld) 9.4 % Normal 1.7-12.0 [facility] Comment on above: Performed By: #### C BC #### [facility] [address] [place] [address] Dr. Daniel Dave NEUT # 3.5 103/ul Normal 1.4-6.5 [facility] Comment on above: Performed By: #### C BC #### [facility] [address] [place] [address] Dr. Daniel Dave Neutrophils/100 WBC (Bld) 57.8 % Normal 43.0-75.0 [facility] Comment on above: Performed By: #### C BC #### [facility] [address] [place] [address] Dr. Daniel Dave Platelet mean volume (Bld) [Entitic vol] 8.7 fL Critically low 9.5-13.5 [facility] Comment on above: Performed By: #### C BC #### [facility] [address] [address] [address] Daniel Dave PLT 412 103/ul Normal 150-450 [facility] Comment on above: Performed By: #### C BC #### [facility] [address] [address] [address] Daniel Dave RBC 4.55 106/ul Normal 4.20-5.40 [facility] Comment on above: Performed By: #### C BC #### [facility] [address] [place] [address] Dr. Daniel Dave WBC 6.1 103/ul Normal 4.0-11.0 [facility] Comment on above: Performed By: #### C BC #### [facility] [address] [place] [address] Dr. Daniel Dave LIPID PROFILEon 09-13-2022 CHOL-HDL RATIO NORM SEE BELOW Normal [facility] Comment on above: Result Comment: 3.3 - 4.4 LOW RISK 4.4 - 7.1 AVERAGE RISK 7.1 - 11.0 MODERATE RISK >11.0 HIGH RISK Performed By: #### B MP, ALT, AST, LIPID ####[facility] [id number] [id number] Dave Cholesterol [Mass/Vol] 114 mg/dL Normal <=200 [facility] Comment on above: Performed By: #### B MP, ALT, AST, LIPID ####[facility] [id number] [phone] Dave Cholesterol in HDL [Mass/Vol] 62 mg/dL Critically high 40-60 [facility] Comment on above: Performed By: #### B MP, ALT, AST, LIPID ####[facility] [id number] [phone]. Daniel Dave Cholesterol in LDL [Mass/Vol] 28.4 mg/dL Normal [facility] Comment on above: Performed By: #### B MP, ALT, AST, LIPID ####[facility] [id number] [phone]. Daniel Dave Cholesterol.total/Марина sterol in HDL [Mass ratio] 1.8 {ratio} Normal [facility] Comment on above: Performed By: #### B MP, ALT, AST, LIPID ####[facility] [id number] [address]Dr. Daniel Dave HDL NORMAL > or = 60 mg/dl - LO W CARDIOVASCULAR RISK <40 mg/dl - HIGH CARDIOVASCULAR RISK Normal [facility] Comment on above: Performed By: #### B MP, ALT, AST, LIPID ####[facility] [id number] [address]DrSkylar Dave LDL CALC NORMAL SEE BELOW Normal [facility] Comment on above: Result Comment: <100 mg/dl OPTIMAL 100 - 129 mg/dl NEAR OR ABOVE OPTIMAL 130 - 159 mg/dl BORDERLINE HIGH 160 - 189 mg/dl HIGH >190 mg/dl VERY HIGH Performed By: #### B MP, ALT, AST, LIPID ####[facility] [id number] [phone]. Daniel Dave Triglyceride [Mass/Vol] 118 mg/dL Normal <=150 [facility] Comment on above: Performed By: #### B MP, ALT, AST, LIPID ####[facility] [id number] [phone] Dave VLDL CALC 23.6 mg/dL Normal [facility] Comment on above: Performed By: #### B MP, ALT, AST, LIPID ####[facility] [id number] [phone] Dave PROF CHEM 8 (BAS METB)on Anion gap [Moles/Vol] 11.7 mmol/L Normal [facility] Comment on above: Performed By: #### B MP, ALT, AST, LIPID #### [facility] [address] [address] [address] Daniel Dave Calcium [Mass/Vol] 9.2 mg/dL Normal 8.5-10.1 [facility] Comment on above: Performed By: #### B MP, ALT, AST, LIPID #### [facility] [address] [address] [address] Daniel Dave Chloride [Moles/Vol] 104 mmol/L Normal 98-107 [facility] Comment on above: Performed By: #### B MP, ALT, AST, LIPID #### [facility] [address] [address] [address] Daniel Dave CO2 [Moles/Vol] 30.9 mmol/L Normal 21.0-32.0 [facility] Comment on above: Performed By: #### B MP, ALT, AST, LIPID #### [facility] [address] [address] [address] Daniel Dave Creatinine [Mass/Vol] 1.04 mg/dL Critically high 0.55-1.02 [facility] Comment on above: Performed By: #### B MP, ALT, AST, LIPID #### [facility] [address] [place] [address] Dr. Daniel Dave EGFR-AF GAMBIAN >60 Normal >=60 [facility] Comment on above: Performed By: #### B MP, ALT, AST, LIPID #### [facility] [address] [place] [address] Dr. Daniel Dave EGFR-NON AF GAMBIAN 53 mL/min/1.73m2 Critically low >=60 [facility] Comment on above: Performed By: #### B MP, ALT, AST, LIPID #### [facility] [address] [place] [address] Dr. Daniel Dave Glucose [Mass/Vol] 106 mg/dL Normal 74-106 [facility] Comment on above: Performed By: #### B MP, ALT, AST, LIPID #### [facility] [address] [place] [address] Dr. Daniel Dave Potassium [Moles/Vol] 4.6 mmol/L Normal 3.5-5.1 [facility] Comment on above: Performed By: #### B MP, ALT, AST, LIPID #### [facility] [address] [address] [address] Daniel Dave Sodium [Moles/Vol] 142 mmol/L Normal 136-145 [facility] Comment on above: Performed By: #### B MP, ALT, AST, LIPID #### [facility] [address] [address] [address] Daniel Dave Urea nitrogen [Mass/Vol] 22.0 mg/dL Critically high 7.0-18.0 [facility] Comment on above: Performed By: #### B MP, ALT, AST, LIPID #### [facility] [address] [address] [address] Daniel Dave Urea nitrogen/Creatinine [Mass ratio] 21.2 mg/mg Normal [facility] Comment on above: Performed By: #### B MP, ALT, AST, LIPID #### [facility] [address] [address] [address] Daniel ALMARAZOTon 09-13-2022 AST [Catalytic activity/Vol] 19 U/L Normal 15-37 [facility] Comment on above: Performed By: #### B MP, ALT, AST, LIPID #### [facility] [address] [address] [address] Daniel Dave SGPTon 09-13-2022 ALT [Catalytic activity/Vol] 27 U/L Normal 14-59 [facility] Comment on above: Performed By: #### B MP, ALT, AST, LIPID ####[facility] [id number] [address]Dr. Daniel Dave US CAROTID ART BILon 022 [...] by: JO ALONSO Date: 2022-06-30 12:12 Normal [facility] NM STRESS/REST MULTIon 05-18 [place] STRESS/REST MULTI Patient: ASHLEY VALENCIA Exam Date: 05/18/2022 : 1955 Gender:F Ordering : DR RON HERNANDEZ . Admission #: [id number] Family : Order #: [id number] CLICK HERE TO VIEW EXAM RADIOLOGY REPORT PROCEDURE: RADIONUCLIDE IMAGING STRESS/REST MULTI COMPARISON: [place] STRESS/REST MULTI, 07/15/2016. INDICATIONS: Atherosclerosis of coronary [...] Alonso MD on 05/18/2022 at 12:51 Normal [facility] Basophils Auto (Bld) [#/Vol] Ordered By: [facility] Flash White on 04-12-2022 Basophils (Bld) [#/Vol] 0.1 10*3/uL 0.0-0.2 [facility] Basophils/100 WBC Auto (Bld) Ordered By: [facility] Flash White on 04-12-2022 Basophils/100 WBC (Bld) 1.3 % . [facility] Blood hemoglobin measurement (mass/volume)Ordered By: [facility] Flash White on 04-12-2022 Hemoglobin (Bld) [Mass/Vol] 13.4 g/dL 11.8-15.4 [facility] Blood leukocytes automated c ount (number/volume)Ordered By: [facility] Flash White on 04-12-2022 WBC (Bld) [#/Vol] 6.6 10*3/uL 4.5-11.0 [facility] Creatinine and Glomerular fi ltration rate.predicted panel (S/P/Bld)Ordered By: [facility] Flash White on 04-12-2022 Creatinine [Mass/Vol] 1.01 mg/dL 0.44-1.03 [facility] Eosinophils Auto (Bld) [#/Vo l]Ordered By: [facility] Flash White on 04-12-2022 Eosinophils (Bld) [#/Vol] 0.2 10*3/uL 0.0-0.45 [facility] Eosinophils/100 WBC Auto (Bl d)Ordered By: [facility] Flash White on 04-12-2022 Eosinophils/100 WBC (Bld) 3.3 % . [facility] Erythrocyte distribution wid th Auto (RBC) [Ratio]Ordered By: [facility] Flash White on 04-12-2022 Erythrocyte distribution width (RBC) [Ratio] 14.1 % 11.9-15.3 [facility] Estimated glomerular filtrat ion rate (GFR) non- AmericanOrdered By: [facility] Flash White on 04-12-2022 GFR/1.73 sq M.predicted among non-blacks MDRD (S/P/Bld) [Vol rate/Area] 55 mL/Min [facility] Hematocrit Auto (Bld) [Volum e fraction]Ordered By: [facility] Flash White on 04-12-2022 Hematocrit (Bld) [Volume fraction] 40.9 % 34.0-46.4 [facility] - CoagulationOrde red By: Jimmie White on 04-12-2022 PT Coag (PPP) [Time] 11.6 s 9.0-12.9 [facility] - Hematology and Cell countsOrdered By: [facility] Flash White on 04-12-2022 Nucleated RBC/100 WBC (Bld) [Ratio] 0.1 % 0-0.5 [facility] Lymphocytes Auto (Bld) [#/Vo l]Ordered By: [facility] Flash White on 04-12-2022 Lymphocytes (Bld) [#/Vol] 1.8 10*3/uL 1.00-4.8 [facility] Lymphocytes/100 WBC Auto (Bl d)Ordered By: [facility] Flash White on 04-12-2022 Lymphocytes/100 WBC (Bld) 27.6 % . [facility] MCH Auto (RBC) [Entitic mass ]Ordered By: [facility] Flash White on 04-12-2022 MCH (RBC) [Entitic mass] 28.7 pg 24.7-34.3 [facility] MCHC Auto (RBC) [Mass/Vol]Or dered By: [facility] Flash White on 04-12-2022 MCHC (RBC) [Mass/Vol] 32.7 g/dL 32.0-35.0 [facility] MCV Auto (RBC) [Entitic vol] Ordered By: [facility] Flash White on 04-12-2022 MCV (RBC) [Entitic vol] 87.7 fL 80-100 [facility] Monocytes Auto (Bld) [#/Vol] Ordered By: Jimmie White on 04-12-2022 Monocytes (Bld) [#/Vol] 0.6 10*3/uL 0.0-0.8 [facility] Monocytes/100 WBC Auto (Bld) Ordered By: Jimmie White on 04-12-2022 Monocytes/100 WBC (Bld) 9.5 % . [facility] Neutrophils Auto (Bld) [#/Vo l]Ordered By: OZ White on 04-12-2022 Neutrophils (Bld) [#/Vol] 3.8 10*3/uL 1.8-7.7 [facility] Neutrophils/100 WBC Auto (Bl d)Ordered By: Jimmie White on 04-12-2022 Neutrophils/100 WBC (Bld) 58.3 % . [facility] No Panel InformationOrdered By: OZ White on 04-12-2022 Estimated GFR () > 60 mL/Min [facility] Comment on above: GFR estimated refere nce range: According to KDOQI guidelines, <60 ml/min/1.73m2 is sufficient to diagnose a patient with chronic kidney disease. Pharmacy Creatinine Clearance (Chem N/A [facility] Platelet mean volume Auto (B ld) [Entitic vol]Ordered By: Jimmie White on 04-12-2022 Platelet mean volume (Bld) [Entitic vol] 7.2 fL 6.3-10.7 [facility] Platelet poor plasma interna tional normalized ratio (INR) by coagulation assay (relatOrdered By: OZ White on 04-12-2022 INR Coag (PPP) [Relative time] 1.0 {INR} [facility] Comment on above: INR Therapeutic Rang e [...] (Bld) [#/Vol] 482 10*3/uL 150-450 [facility] RBC Auto (Bld) [#/Vol]Ordere d By: OZ White on 04-12-2022 RBC (Bld) [#/Vol] 4.66 10*6/uL 3.60-5.00 [facility] Serum or plasma anion gap de terminationOrdered By: OZ White on 04-12-2022 Anion gap [Moles/Vol] 13.5 mmol/L 6.0-15.0 [facility] Serum or plasma calcium idalia urement (mass/volume)Ordered By: OZ White on 04-12-2022 Calcium [Mass/Vol] 9.6 mg/dL 8.2-10.2 [facility] Serum or plasma chloride julieth surement (moles/volume)Ordered By: Jimmie White on 04-12-2022 Chloride [Moles/Vol] 100 mmol/L 95-114 [facility] Serum or plasma glucose idalia urement (mass/volume)Ordered By: Jimmie White on 04-12-2022 Glucose [Mass/Vol] 86 mg/dL 70-100 [facility] Comment on above: ADA recommended refe rence range Random Glucose Reference Range is dependent on time and content of last meal. Glucose of more than 200 mg/dL in a nonstressed, ambulatory subject supports the diagnosis of Diabetes Mellitus. Serum or plasma potassium me asurement (moles/volume)Ordered By: Jimmie White on 04-12-2022 Potassium [Moles/Vol] 4.3 mmol/L 3.5-5.1 [facility] Serum or plasma sodium measu rement (moles/volume)Ordered By: Jimmie White on 04-12-2022 Sodium [Moles/Vol] 138 mmol/L 136-146 [facility] Serum or plasma total carbon dioxide measurement (moles/volume)Ordered By: Jimmie White on 04-12-2022 CO2 [Moles/Vol] 28.8 mmol/L 22.0-30.0 [facility] Serum or plasma urea nitroge n measurement (mass/volume)Ordered By: OZ White on 04-12-2022 Urea nitrogen [Mass/Vol] 21 mg/dL 9-23 [facility] MRI Ankle w/o + w/ Lefton MRI [...] by Shaq Bills on 03/18/2022 0919 Normal [facility] Support Specialist Tobacco Screening.on 022 Adult depression screening assessment No [facility] [employer] [place] 250 DO Work Phone: Fall risk assessment a) No falls within the last year [facility] [employer] 250 DO Work Phone: Tobacco use status CPHS b) No M [facility] [employer] [place] 250 DO Work Phone: CBC AUTO DIFFon 10-06-2021 BASO # 0.1 103/ul Normal 0.0-0.1 [facility] Comment on above: Performed By: #### C BC #### [facility] [address] [place] [address] Dr. Daniel Dave Basophils/100 WBC (Bld) 0.8 % Normal 0.2-2.0 [facility] Comment on above: Performed By: #### C BC #### [facility] [address] [place] [address] Dr. Daniel Dave EO # 0.3 103/ul Normal 0.0-0.7 [facility] Comment on above: Performed By: #### C BC #### [facility] [address] [place] [address] Dr. Daniel Dave Eosinophils/100 WBC (Bld) 3.8 % Normal 0.9-7.0 [facility] Comment on above: Performed By: #### C BC #### [facility] [address] [place] [address] Dr. Daniel Dave Erythrocyte distribution width (RBC) [Ratio] 13.8 % Normal 11.0-15.0 [facility] Comment on above: Performed By: #### C BC #### [facility] [address] [place] [address] Dr. Daniel Dave Hematocrit (Bld) [Volume fraction] 40.1 % Normal 36.0-48.0 [facility] Comment on above: Performed By: #### C BC #### [facility] [address] [place] [address] Dr. Daniel Dave Hemoglobin (Bld) [Mass/Vol] 13.1 g/dL Normal 12.0-16.0 [facility] Comment on above: Performed By: #### C BC #### [facility] [address] [place] [address] Dr. Daniel Dave IG # 0.03 10e3/ul Normal 0.00-0.03 [facility] Comment on above: Performed By: #### C BC #### [facility] [address] [place] [address] Dr. Daniel Dave IG % 0.4 % Normal 0.0-0.5 [facility] Comment on above: Performed By: #### C BC #### [facility] [address] [address] [address] Daniel Dave LYMPH # 1.7 103/ul Normal 1.2-3.8 [facility] Comment on above: Performed By: #### C BC #### [facility] [address] [place] [address] Dr. Daniel Dave Lymphocytes/100 WBC (Bld) 24.4 % Normal 20.5-60.0 [facility] Comment on above: Performed By: #### C BC #### [facility] [address] [place] [address] Dr. Daniel Dave MANUAL DIFF REQ NO Normal [facility] Comment on above: Performed By: #### C BC #### [facility] [address] [place] [address] Dr. Daniel Dave MCH (RBC) [Entitic mass] 29.2 pg Normal 26.7-34.0 [facility] Comment on above: Performed By: #### C BC #### [facility] [address] [place] [address] Dr. Daniel Dave MCHC (RBC) [Mass/Vol] 32.7 g/dL Normal 29.9-35.2 [facility] Comment on above: Performed By: #### C BC #### [facility] [address] [place] [address] Dr. Daniel Dave MCV (RBC) [Entitic vol] 89.5 fL Normal 81.0-99.0 [facility] Comment on above: Performed By: #### C BC #### [facility] [address] [place] [address] Dr. Daniel Dvae MONO # 0.7 103/ul Normal 0.3-0.8 [facility] Comment on above: Performed By: #### C BC #### [facility] [address] [place] [address] Dr. Daniel Dave Monocytes/100 WBC (Bld) 9.7 % Normal 1.7-12.0 [facility] Comment on above: Performed By: #### C BC #### [facility] [address] [address] [address] Daniel Dave NEUT # 4.3 103/ul Normal 1.4-6.5 [facility] Comment on above: Performed By: #### C BC #### [facility] [address] [place] [address] Dr. Daniel Dave Neutrophils/100 WBC (Bld) 60.9 % Normal 43.0-75.0 [facility] Comment on above: Performed By: #### C BC #### [facility] [address] [place] [address] Dr. Daniel Dave Platelet mean volume (Bld) [Entitic vol] 8.4 fL Critically low 9.5-13.5 [facility] Comment on above: Performed By: #### C BC #### [facility] [address] [place] [address] Dr. Daniel Dave PLT 440 103/ul Normal 150-450 [facility] Comment on above: Performed By: #### C BC #### [facility] [address] [place] [address] Dr. Daniel Dave RBC 4.48 106/ul Normal 4.20-5.40 [facility] Comment on above: Performed By: #### C BC #### [facility] [address] [place] [address] Dr. Daniel Dave WBC 7.1 103/ul Normal 4.0-11.0 [facility] Comment on above: Performed By: #### C BC #### [facility] [address] [place] [address] Dr. Daniel Dave LIPID PROFILEon 10-06-2021 CHOL-HDL RATIO NORM SEE BELOW Normal [facility] Comment on above: Result Comment: 3.3 - 4.4 LOW RISK 4.4 - 7.1 AVERAGE RISK 7.1 - 11.0 MODERATE RISK >11.0 HIGH RISK Performed By: #### A LT, LIPID, AST, BMP #### [facility] [address] [place] [address] Dr. Daniel Dave Cholesterol [Mass/Vol] 115 mg/dL Normal <=200 Th [facility] Comment on above: Performed By: #### A LT, LIPID, AST, BMP #### [facility] [address] [address] [address] Daniel Dave Cholesterol in HDL [Mass/Vol] 61 mg/dL Normal [facility] Comment on above: Performed By: #### A LT, LIPID, AST, BMP #### [facility] [address] [address] [address] Daniel Dave Cholesterol in LDL [Mass/Vol] 33.4 mg/dL Normal [facility] Comment on above: Performed By: #### A LT, LIPID, AST, BMP #### [facility] [address] [address] [address] Daniel Dave Cholesterol.total/Марина sterol in HDL [Mass ratio] 1.9 {ratio} Normal [facility] Comment on above: Performed By: #### A LT, LIPID, AST, BMP #### [facility] [address] [address] [address] Daniel Dave HDL NORMAL > or = 60 mg/dl - LO W CARDIOVASCULAR RISK <40 mg/dl - HIGH CARDIOVASCULAR RISK Normal [facility] Comment on above: Performed By: #### A LT, LIPID, AST, BMP #### [facility] [address] [address] [address] Daniel Dave LDL CALC NORMAL SEE BELOW Normal [facility] Comment on above: Result Comment: <100 mg/dl OPTIMAL 100 - 129 mg/dl NEAR OR ABOVE OPTIMAL 130 - 159 mg/dl BORDERLINE HIGH 160 - 189 mg/dl HIGH >190 mg/dl VERY HIGH Performed By: #### A LT, LIPID, AST, BMP #### [facility] [address] [address] [address] Daniel Dave Triglyceride [Mass/Vol] 103 mg/dL Normal <=150 T [facility] Comment on above: Performed By: #### A LT, LIPID, AST, BMP #### [facility] [address] [address] [address] Daniel Dave VLDL CALC 20.6 mg/dL Normal [facility] Comment on above: Performed By: #### A LT, LIPID, AST, BMP #### [facility] [address] [place] [address] Dr. Daniel Dave PROF CHEM 8 (BAS METB)on Anion gap [Moles/Vol] 12.8 mmol/L Normal Th [facility] Comment on above: Performed By: #### A LT, LIPID, AST, BMP #### [facility] [address] [place] [address] Dr. Daniel Dave Calcium [Mass/Vol] 9.2 mg/dL Normal 8.4-10.2 [facility] Comment on above: Performed By: #### A LT, LIPID, AST, BMP #### [facility] [address] [place] [address] Dr. Daniel Dave Chloride [Moles/Vol] 103 mmol/L Normal 98-107 [facility] Comment on above: Performed By: #### A LT, LIPID, AST, BMP #### [facility] [address] [place] [address] Dr. Daniel Dave CO2 [Moles/Vol] 30.5 mmol/L Critically high 22.0-30.0 [facility] Comment on above: Performed By: #### A LT, LIPID, AST, BMP #### [facility] [address] [place] [address] Dr. Daniel Dave Creatinine [Mass/Vol] 0.93 mg/dL Normal 0.52-1.04 [facility] Comment on above: Performed By: #### A LT, LIPID, AST, BMP #### [facility] [address] [place] [address] Dr. Daniel Dave EGFR-AF GAMBIAN >60 Normal >=60 [facility] Comment on above: Performed By: #### A LT, LIPID, AST, BMP #### [facility] [address] [place] [address] Dr. Daniel Dave EGFR-NON AF GAMBIAN >60 Normal >=60 [facility] Comment on above: Performed By: #### A LT, LIPID, AST, BMP #### [facility] [address] [place] [address] Dr. Daniel Dave Glucose [Mass/Vol] 118 mg/dL Critically high 74-106 T [facility] Comment on above: Performed By: #### A LT, LIPID, AST, BMP #### [facility] [address] [place] [address] Dr. Daniel Dave Potassium [Moles/Vol] 4.3 mmol/L Normal 3.4-5.0 [facility] Comment on above: Performed By: #### A LT, LIPID, AST, BMP #### [facility] [address] [place] [address] Dr. Daniel Dave Sodium [Moles/Vol] 142 mmol/L Normal 137-145 [facility] Comment on above: Performed By: #### A LT, LIPID, AST, BMP #### [facility] [address] [place] [address] Dr. Daniel Dave Urea nitrogen [Mass/Vol] 22.0 mg/dL Critically high 7.0-17.0 [facility] Comment on above: Performed By: #### A LT, LIPID, AST, BMP #### [facility] [address] [place] [address] Dr. Daniel Dave Urea nitrogen/Creatinine [Mass ratio] 23.7 mg/mg Normal [facility] Comment on above: Performed By: #### A LT, LIPID, AST, BMP #### [facility] [address] [place] [address] Dr. Daniel Vargas 10-06-2021 AST [Catalytic activity/Vol] 15 U/L Normal 14-36 [facility] Comment on above: Performed By: #### A LT, LIPID, AST, BMP #### [facility] [address] [place] [address] Dr. Daniel Crockett 10-06-2021 ALT [Catalytic activity/Vol] 36 U/L Normal 9-52 [facility] Comment on above: Performed By: #### A LT, LIPID, AST, BMP #### [facility] [address] [place] [address] Dr. Daniel Dave Tobacco Screening.on 022 Fall risk assessment a) No falls within the last year [facility] [employer] [place] [address] DO Work Phone: Tobacco use status CPHS b) No [facility] [employer] [place] [address] DO Work Phone: ALT (SGPT)on 05-18-2017 Alanine aminotransferase (ALT) 24 U/L Normal 7-45 [facility] Comment on above: Performed By: #### 1 [id number] ####[facility] [address] [place] [address] AST (SGOT)on 05-18-2017 Aspartate aminotransferase (AST) 18 U/L Normal 13-39 [facility] Comment on above: Performed By: #### 1 [id number] ####[facility] [address] [place] [address] Creatinineon 05-18-2017 Creatinine 0.75 mg/dL Normal 0.50-1.05 [facility] Comment on above: Performed By: #### 1 [id number] ####[facility] [address] [place] [address] eGFR (MDRD) mL/min/{1.73_m2} Normal [facility] Comment on above: Result Comment: Inte rpretation for Chronic Kidney Disease:Stages 1&2 >60 Healthy or potential kidney damage.Mild decrease of GFR.Stage 3 30-59 Moderate decrease of GFR.Stage 4 15-29 Severe decrease of GFR.Stage 5 <15 Kidney failure or on dialysis. Performed By: #### 1 [id number] ####[facility] [address] [place] [address] Electrolyte Panelon 05-18-20 17 Anion gap 9 mmol/L Low 10-20 [facility] Comment on above: Performed By: #### 1 [id number] ####[facility] [address] [place] [address] Bicarbonate (HCO3) 30 mmol/L Normal 21-32 [facility] Comment on above: Performed By: #### 1 [id number] ####[facility] [address] [place] [address] Chloride 105 mmol/L Normal 98-107 [facility] Comment on above: Performed By: #### 1 [id number] ####[facility] [address] [place] [address] Potassium molar conc 4.2 mmol/L Normal 3.5-5.1 [facility] Comment on above: Performed By: #### 1 [id number] ####[facility] [address] [place] [address] Sodium 140 mmol/L Normal 136-145 [facility] Comment on above: Performed By: #### 1 [id number] ####[facility] [address] [place] [address] Lipid Panelon 05-18-2017 Cholesterol 207 mg/dL Abnormal <200 [facility] Comment on above: Performed By: #### 1 [id number] ####[facility] [address] [place] [address] Cholesterol in VLDL mass conc 37 mg/dL Abnormal <30 [facility] Comment on above: Performed By: #### 1 [id number] ####[facility] [address] [place] [address] Cholesterol to HDL Ratio 3.9 {ratio} Normal [facility] Comment on above: Performed By: #### 1 [id number] ####[facility] [address] [place] [address] HDL Cholesterol 53 mg/dL Normal [facility] Comment on above: Result Comment: Age Normal Mod Risk High Risk5-9 >46 38-46 <3810-14 >44 40-44 <4015-19 >42 38-42 <38Adult >49 Performed By: #### 1 [id number] ####[facility] [address] [place] [address] LDL Cholesterol 117 mg/dL Normal <130 [facility] Comment on above: Performed By: #### 1 [id number] ####[facility] [address] [place] [address] Triglyceride 184 mg/dL Abnormal <150 [facility] Comment on above: Result Comment: 150- 199 Borderline [id number] High>500 Very High Performed By: #### 1 [id number] ####[facility] [address] [place] [address] Urea Nitrogenon 05-18-2017 Urea nitrogen 16 mg/dL Normal 6-23 [facility] Comment on above: Performed By: #### 1 [id number] ####[facility] [address] [facility] [place] [address] Vital Signs Date Time Vital Sign Value Performing Clinician Facility 09-28-2023 14:48-0500 Diastolic blood pressure 82 mm[Hg] Roseanne Hall MD Work Phone: [facility] 09-28-2023 14:48-0500 Systolic blood pressure 136 mm[Hg] Roseanne Hall MD Work Phone: [facility] 09-28-2023 14:31-0500 Body height 162.6 cm Roseanne Hall MD Work Phone: [facility] 09-28-2023 14:31-0500 Body mass index (BMI) [Ratio] 32.79 kg/m2 Roseanne Hall MD Work Phone: [facility] 09-28-2023 14:31-0500 Body weight 86.64 kg Roseanne Hall MD Work Phone: [facility] 09-28-2023 14:31-0500 Heart rate 88 /min Roseanne Hall MD Work Phone: [facility] 08-02-2023 13:56-0500 Blood Pressure Location Dereck URENA [facility] 08-02-2023 13:56-0500 Diastolic blood pressure 80 mm[Hg] Dereck URENA [facility] 08-02-2023 13:56-0500 Heart rate 72 /min Dereck URENA [facility] 08-02-2023 13:56-0500 Respiratory rate 16 /min Dereck URENA [facility] [place] 08-02-2023 13:56-0500 Systolic blood pressure 122 mm[Hg] Dereck NILL [facility] [place] 04-04-2023 09:35-0400 Body height 162.56 cm Ron M Hoy Work Phone: [facility] 250 DO Work Phone: 04-04-2023 09:35-0400 Body mass index (BMI) [Ratio] 34.12 kg/m2 Ron M Hoy Work Phone: [facility] 250 DO Work Phone: 04-04-2023 09:35-0400 Body surface area Derived from formula 1.95 m2 Ron M Hoy Work Phone: [facility] 250 DO Work Phone: 04-04-2023 09:35-0400 Body weight 90.18 kg Ron M Hoy Work Phone: [facility] 250 DO Work Phone: 04-04-2023 09:35-0400 Diastolic blood pressure 80 mm[Hg] Ron M Hoy Work Phone: [facility] 250 DO Work Phone: 04-04-2023 09:35-0400 Heart rate 66 /min Ron M Hoy Work Phone: [facility] 250 DO Work Phone: 04-04-2023 09:35-0400 Systolic blood pressure 106 mm[Hg] Ron M Hoy Work Phone: [facility] [address] DO Work Phone: 09-22-2022 10:18-0500 Body height 162.56 cm Ron M Hoy Work Phone: [facility] [address] DO Work Phone: 09-22-2022 10:18-0500 Body mass index (BMI) [Ratio] 33.82 kg/m2 Ron Casey Hoy Work Phone: [facility] 250 DO Work Phone: 09-22-2022 10:18-0500 Body surface area Derived from formula 1.94 m2 Ron Jacinto Hoy Work Phone: [facility] 250 DO Work Phone: 09-22-2022 10:18-0500 Body weight 89.36 kg Ron Jacinto Hoy Work Phone: [facility] 250 DO Work Phone: 09-22-2022 10:18-0500 Diastolic blood pressure 60 mm[Hg] Ron Jacinto Hoy Work Phone: [facility] 250 DO Work Phone: 09-22-2022 10:18-0500 Heart rate 76 /min Ron Casey Hoy Work Phone: [facility] 250 DO Work Phone: 09-22-2022 10:18-0500 Systolic blood pressure 116 mm[Hg] Ron Casey Hoy Work Phone: [facility] 250 DO Work Phone: 09-13-2022 09:15-0500 28.4 1 Ron Casey Hoy Work Phone: [facility] 250 DO Work Phone: Comment on above: [facility] 03-16-2022 11:29-0400 Body height 162.56 cm Ron Jacinto Hoy Work Phone: [facility] 250 DO Work Phone: 03-16-2022 11:29-0400 Body mass index (BMI) [Ratio] 33.64 kg/m2 Ron Jacinto Hoy Work Phone: [facility] 250 DO Work Phone: 03-16-2022 11:29-0400 Body surface area Derived from formula 1.94 m2 Ron M Hoy Work Phone: [facility] 250 DO Work Phone: 03-16-2022 11:29-0400 Body weight 88.91 kg Ron M Hoy Work Phone: [facility] DO Work Phone: 03-16-2022 11:29-0400 Diastolic blood pressure 74 mm[Hg] Ron M Hoy Work Phone: [facility] 250 DO Work Phone: 03-16-2022 11:29-0400 Heart rate 84 /min Ron M Hoy Work Phone: [facility] DO Work Phone: 03-16-2022 11:29-0400 Systolic blood pressure 129 mm[Hg] Ron M Hoy Work Phone: [facility] 250 DO Work Phone: 10-14-2021 08:50-0500 Diastolic blood pressure 71 mm[Hg] Ron M Hoy Work Phone: [facility] 250 DO Work Phone: 10-14-2021 08:50-0500 Systolic blood pressure 121 mm[Hg] Ron M Hoy Work Phone: [facility] 250 DO Work Phone: 10-14-2021 08:49-0500 Body height 162.56 cm Ron M Hoy Work Phone: [facility] [address] DO Work Phone: 10-14-2021 08:49-0500 Diastolic blood pressure 62 mm[Hg] Ron M Hoy Work Phone: [facility] 250 DO Work Phone: 10-14-2021 08:49-0500 Heart rate 81 /min Ron M Hoy Work Phone: [facility] 250 DO Work Phone: 10-14-2021 08:49-0500 Systolic blood pressure 122 mm[Hg] Ron M Hoy Work Phone: [facility] 250 DO Work Phone: 09-15-2021 10:40-0500 Diastolic blood pressure 90 mm[Hg] Ron M Hoy Work Phone: [facility] 250 DO Work Phone: 09-15-2021 10:40-0500 Systolic blood pressure 160 mm[Hg] Ron M Hoy Work Phone: [facility] [address] DO Work Phone: 09-15-2021 10:12-0500 Body height 162.56 cm Ron M Hoy Work Phone: [facility] [address] DO Work Phone: 09-15-2021 10:12-0500 Body mass index (BMI) [Ratio] 34.33 kg/m2 Ron M Hoy Work Phone: [facility] 250 DO Work Phone: 09-15-2021 10:12-0500 Body surface area Derived from formula 1.96 m2 Ron M Hoy Work Phone: [facility] 250 DO Work Phone: 09-15-2021 10:12-0500 Body weight 90.72 kg Ron M Hoy Work Phone: [facility] [address] DO Work Phone: 09-15-2021 10:12-0500 Diastolic blood pressure 71 mm[Hg] Ron M Hoy Work Phone: [facility] 250 DO Work Phone: 09-15-2021 10:12-0500 Heart rate 64 /min Ron Hernandez Work Phone: [facility] [address] DO Work Phone: 09-15-2021 10:12-0500 Systolic blood pressure 152 mm[Hg] Ron Hernandez Work Phone: [facility] 250 DO Work Phone: Encounters Encounter Date Encounter Type Care Provider Facility Start: 12-18-2023 End: 12-18-2023 ambulatory LAYNE PEREZ Not Available Start: 12-15-2023 End: 12-15-2023 ambulatory LAYNE PEREZ Not Available Start: 12-11-2023 End: 12-11-2023 ambulatory LAYNE PEREZ Not Available Start: 12-08-2023 End: 12-08-2023 ambulatory LAYNE PEREZ Not Available Start: 12-04-2023 End: 12-04-2023 ambulatory ANNE LOVELACE Not Available Start: 12-01-2023 End: 12-01-2023 ambulatory ELIZ LUIS Not Available Start: 11-28-2023 End: 11-28-2023 ambulatory ANNE LOVELACE Not Available Start: 11-24-2023 End: 11-24-2023 ambulatory WOLFGANG MALLORY Not Available Start: 10-30-2023 End: 10-30-2023 ambulatory ANNE LOVELACE Not Available Start: 10-26-2023 Encounter for other preprocedural examination [facility] Start: 10-26-2023 End: 10-27-2023 ambulatory [facility] Start: 10-24-2023 Orders Only Wolfgang VIZCAINO Work Phone: [facility] Comment on above: Encounter for other preprocedural examination Start: 10-24-2023 Patient encounter status Roger VIZCAINO Work Phone: [facility] Start: 10-23-2023 End: 10-23-2023 ambulatory WOLFGANG MALLORY Not Available Start: 10-23-2023 Orders Only Wolfgang VIZCAINO Work Phone: [facility] Comment on above: Encounter for other preprocedural examination Start: 10-23-2023 Patient encounter status Roger VIZCAINO Work Phone: [facility] Start: 09-28-2023 End: 09-28-2023 ambulatory ROSEANNE [facility] Start: 09-28-2023 End: 09-28-2023 Office outpatient visit 25 minutes Roseanne Hall MD Work Phone: [facility] Comment on above: Atherosclerosis of n ative coronary artery of [place] heart without angina pectoris (Primary Dx); Essential hypertension; Hyperlipidemia, unspecified hyperlipidemia type; S/P PTCA (percutaneous transluminal coronary angioplasty); Cerebrovascular accident (CVA), unspecified mechanism (CMS/HCC); Obesity, Class I, BMI 30-34.9 Start: 08-23-2023 End: 08-24-2023 ambulatory Dereck URENA Facility:[id number] Start: 08-21-2023 End: 08-21-2023 ambulatory OBED RODRIGUEZ Not Available Start: 08-02-2023 End: 08-03-2023 ambulatory Dereck R ROMEL Facility:[facility] Start: 08-02-2023 End: 08-02-2023 Patient encounter procedure Dereck URENA General Surgery [facility] Start: 07-24-2023 End: 07-25-2023 ambulatory WOLFGANG MALLORY Not Available Start: 07-18-2023 ambulatory Dereck URENA Facility:[facility] Start: 04-18-2023 End: 04-18-2023 ambulatory Ron Hernandez Facility:[facility] Start: 04-18-2023 End: 04-18-2023 ambulatory MD Ron Hernandez Work Phone: [facility] Work Phone: Start: 04-18-2023 End: 04-18-2023 Patient encounter procedure MD Ron Hernandez Work Phone: [facility] Work Phone: Start: 04-04-2023 Office outpatient vi sit 25 minutes Ron M Hoy Work Phone: [facility] [address] DO Work Phone: Start: 04-04-[address] Roseanne Hall Facility: Start: 03-24-2023 Rx Renewal Ron M Hoy Work Phone: [facility] 250 DO Work Phone: Start: 03-11-2023 Rx Renewal Ron M Hoy Work Phone: [facility] 250 DO Work Phone: Start: 10-25-2022 Rx Renewal Ron M Hoy Work Phone: [facility] 250 DO Work Phone: Start: 09-22-2022 Office outpatient vi sit 25 minutes Ron M Hoy Work Phone: [facility] DO Work Phone: Start: 09-22-[address] Roseanne Hall Facility: Start: 09-13-2022 End: 09-14-[address] ROSEANNE HALL Facility:[facility] Start: 09-07-2022 Rx Renewal Ron M Hoy Work Phone: [facility] 600 DO Work Phone: Start: 06-30-2022 End: 07-01-2022 ambulatory CELINA COATES Facility:[facility] Start: 06-29-2022 Rx Renewal Ron M Hoy Work Phone: [facility] 250 DO Work Phone: Start: 06-01-2022 Telephone encounter Ron M Hoy Work Phone: [facility] 250 DO Work Phone: Start: 05-30-2022 Rx Renewal Ron M Hoy Work Phone: [facility] DO Work Phone: Start: 05-18-2022 End: 05-19-[address] RON HERNANDEZ Facility:[facility] Start: 04-25-2022 End: 04-25-2022 Departed Referred MD Ron Hernandez Work Phone: [facility] [place] Start: 04-15-2022 End: 04-15-2022 Patient encounter procedure MD Ron Hernandez Work Phone: [facility] Start: 04-12-2022 End: 04-12-2022 Patient encounter procedure MD Ron Gaitan Phone: [facility] Start: 03-16-2022 Office outpatient vi sit 25 minutes Ron M Hoy Work Phone: [facility] 250 DO Work Phone: Start: 12-06-2021 Rx Renewal Ron M Hoy Work Phone: [facility] 250 DO Work Phone: Start: 10-25-2021 Rx Renewal Ron M Hoy Work Phone: [facility] DO Work Phone: Start: 10-14-2021 Office outpatient vi sit 10 minutes Ron M Hoy Work Phone: [facility] 250 DO Work Phone: Start: 10-06-2021 End: 10-07-[address] RON HERNANDEZ Facility:[facility] Start: 09-15-2021 Office outpatient vi sit 25 minutes Ron M Hoy Work Phone: [facility] 250 DO Work Phone: Start: 07-22-2021 Rx Renewal Roseanne Hall MD Work Phone: [facility] [address] [place] Work Phone: Start: 07-19-2021 Rx Renewal Roseanne Hall MD Work Phone: [facility] 250 DO Work Phone: Start: 05-18-2017 Ambulatory ROSEANNE HALL Facility :[id number] Patient encounter status Ron Jacinto Mary Work Phone: [facility] 250 DO Work Phone: Procedures Date Procedure Procedure Detail Performing Clinician Start: 09-28-2023 Alanine aminotransfe rase [Enzymatic activity/volume] in Serum or Plasma ROSEANNE HALL Start: 09-28-2023 Aspartate aminotrans ferase [Enzymatic activity/volume] in Serum or Plasma ROSEANNE HALL Start: 09-28-2023 Basic metabolic 2000 panel - Serum or Plasma ROSEANNE HALL Start: 09-28-2023 CBC panel - Blood by Automated count ROSEANNE HALL Start: 09-28-2023 Lipid panel ROSEANNE IVY Start: 04-18-2023 Screening mammograph y of bilateral breasts MD Ron Hernandez Work Phone: Start: 04-15-2022 Screening mammograph y of bilateral breasts MD Ron Hernandez Work Phone: Start: 04-13-2021 Mammography Roseanne ivy MD Work Phone: Start: 08-14-2017 Placement of stent i n coronary artery Dereck URENA Angioplasty of blood vessel Dereck URENA Blepharoplasty Ron M Jaysonrolanda Work Phone: section Ron M H orolanda Work Phone: section Dereck Hodges Colonoscopy Dereck URENA Percutaneous translu erinn coronary angioplasty Ron Jacinto Hernandez Work Phone: Repair of tendo achilles Mark gene Hernandez Work Phone: Repair of tendon Dereck YAW Hodges Comment on above: left ankle Total colonoscopy Ron Hernandez Work Phone: Plan of Treatment Date Care Activity Detail Author Start: 12-14-2028 DTaP,Tdap and Td Vaccines (2 - Td or Tdap) DTaP,Tdap and Td Vaccines (2 - Td or Tdap) [facility] Start: 12-14-2028 DTaP/Tdap/Td Vaccines (2 - Td or Tdap) DTaP/Tdap/Td Vaccines (2 - Td or Tdap) [facility] Start: 05-23-2024 ambulatory Ambulatory Facility:[id number] Start: 04-11-2024 End: 04-11-2024 Patient encounter procedure 04/11/2024 10:20 AM EDT Office Visit [facility] [address] [facility] [address] [address] [place] [id number] Roseanne Hall MD [address] [facility] [place] [address] [facility] Start: 03-28-2024 End: 09-28-2024 Alanine aminotransferase [Enzymatic activity/volume] in Serum or Plasma by With P-5'-P Alanine Aminotransferase Lab Routine Atherosclerosis of [place] coronary artery of [place] heart without angina pectoris Hyperlipidemia, unspecified hyperlipidemia type Expected: 03/28/2024 (Approximate), Expires: 09/28/2024 [facility] Work Phone: Comment on above: Expected: 03/28/2024 (Approximate), Expi res: 09/28/2024 Start: 03-28-2024 End: 09-28-2024 Aspartate aminotransferase [Enzymatic activity/volume] in Serum or Plasma by With P-5'-P Aspartate Aminotransferase Lab Routine Atherosclerosis of [place] coronary artery of [place] heart without angina pectoris Hyperlipidemia, unspecified hyperlipidemia type Expected: 03/28/2024 (Approximate), Expires: 09/28/2024 [facility] Work Phone: Comment on above: Expected: 03/28/2024 (Approximate), Expi res: 09/28/2024 Start: 03-28-2024 End: 09-28-2024 Basic metabolic 2000 panel - Serum or Plasma Basic Metabolic Panel Lab Routine Atherosclerosis of [place] coronary artery of [place] heart without angina pectoris Essential hypertension Expected: 03/28/2024 (Approximate), Expires: 09/28/2024 [facility] Work Phone: Comment on above: Expected: 03/28/2024 (Approximate), Expi res: 09/28/2024 Start: 03-28-2024 End: 09-28-2024 CBC panel - Blood by Automated count CBC Lab Routine Atherosclerosis of [place] coronary artery of [place] heart without angina pectoris Expected: 03/28/2024 (Approximate), Expires: 09/28/2024 [facility] Work Phone: Comment on above: Expected: 03/28/2024 (Approximate), Expi res: 09/28/2024 Start: 03-28-2024 End: 09-28-2024 Lipid 1996 panel - Serum or Plasma Lipid Panel Lab Routine Atherosclerosis of [place] coronary artery of [place] heart without angina pectoris Hyperlipidemia, unspecified hyperlipidemia type Expected: 03/28/2024 (Approximate), Expires: 09/28/2024 [facility] Service Area Work Phone: Comment on above: Expected: 03/28/2024 (Approximate), Expi res: 09/28/2024 Start: 10-23-2023 End: 10-22-2024 aPTT in Blood by Coagulation assay APTT Lab Routine Encounter for other preprocedural examination Expected: 10/23/2023, Expires: 10/22/2024 [facility] Work Phone: Comment on above: Expected: 10/23/2023, Expires: Start: 10-23-2023 End: 10-23-2024 Bacteria identified in Urine by Culture [facility] Work Phone: Comment on above: Expected: 10/23/2023, Expires: Expected: 10/23/2023 , Expires: 10/23/2024 Start: 10-23-2023 End: 10-22-2024 CBC W Auto Differential panel - Blood CBC auto differential Lab Routine Encounter for other preprocedural examination Expected: 10/23/2023, Expires: 10/22/2024 [facility] Work Phone: Comment on above: Expected: 10/23/2023, Expires: Start: 10-23-2023 End: 10-22-2024 Comprehensive metabolic 2000 panel - Serum or Plasma Comprehensive metabolic panel Lab Routine Encounter for other preprocedural examination Expected: 10/23/2023, Expires: 10/22/2024 [facility] Work Phone: Comment on above: Expected: 10/23/2023, Expires: Start: 10-23-2023 End: 10-22-2024 Protime & INR Protime & INR Lab Routine Encounter for other preprocedural examination Expected: 10/23/2023, Expires: 10/22/2024 [facility] Work Phone: Comment on above: Expected: 10/23/2023, Expires: Start: 09-28-2023 FUV, Provider: Roseanne Hall, Status: Pen, Time: 10:10 AM FUV, Provider: Roseanne Hall, Status: Pen, Time: 10:10 AM [place] [address] DO Work Phone: Start: 06-16-2023 Administration of varicella zoster vaccine Zoster (Shingles) Vaccine (2 of 3) [facility] Start: 04-14-2023 COVID-19 Vaccine ( season) COVID-19 Vaccine ( season) [facility] Start: 04-14-2023 Influenza vaccination Influenza Vaccine [facility] Start: 04-04-2023 FUV, Provider: Roseanne Hall, Status: Pen, Time: 9:30 AM FUV, Provider: Roseanne Hall, Status: Pen, Time: 9:30 AM -[facility] 250 DO Work Phone: Start: 09-22-2022 FUV, Provider: Roseanne Hall, Status: Pen, Time: 10:10 AM FUV, Provider: Roseanne Hall, Status: Pen, Time: 10:10 AM [facility] 250 DO Work Phone: Start: 04-15-2022 Screening mammography of bilateral breasts MM screening mammo BI w/CAD [facility] Start: 04-15-2022 End: 04-15-2022 Patient encounter procedure Departed Clinical [facility] Start: 04-13-2022 Screening for malignant neoplasm of breast Mammogram [facility] Start: 03-15-2022 FUV, Provider: Roseanne Hall, Status: Pen, Time: 10:50 AM FUV, Provider: Roseanne Hall, Status: Pen, Time: 10:50 AM [facility] 250 DO Work Phone: Start: 10-14-2021 NURSEVST, Provider: MALCOLM DEL CID CRIMINALIST TECHNICIAN 1,[id number], Status: Pen, Time: 8:30 AM NURSE[facility]ST, Provider: MALCOLM DEL CID CRIMINALIST TECHNICIAN 1,[id number], Status: Pen, Time: 8:30 AM [facility] 250 DO Work Phone: Start: 09-15-2021 FUV, Provider: Roseanne Hall, Status: Pen, Time: 10:00 AM FUV, Provider: Roseanne Hall, Status: Pen, Time: 10:00 AM [facility] 250 DO Work Phone: Start: 02-02-2021 Fall Risk Screening Fall Risk Screening [facility] Start: 02-02-1974 Adult BMI Screening Adult BMI Screening [facility] Start: 02-02-1974 Diabetes mellitus screening Diabetes Screening [facility] Start: 02-02-1974 Hepatitis C screening Hepatitis C Screening [facility] Start: 1968 Depression Screening Depression Screening [facility] Start: 1968 Tobacco Screening Tobacco Screening [facility] Start: 02-02-1962 Pneumococcal Vaccine: 65+ Years (1 - PCV) Pneumococcal Vaccine: 65+ Years (1 - PCV) [facility] Start: 1956 Lipid panel Lipid Panel [facility] Start: 1955 Medicare Annual Wellness Visit [facility] Start: 1956 Screening for malignant neoplasm of colon [facility] Start: 1956 Screening for osteoporosis Bone Density Scan [facility] Immunizations Immunization Date Immunization Notes Care Provider Fa cility 05-20-2023 influenza virus vaccine, unspecified formulation Dereck URENA [facility] 04-21-2023 zoster vaccine, unspecified formulation Wolfgang VIZCAINO Work Phone: [facility] 06-23-2022 influenza virus vaccine, unspecified formulation Wolfgang VIZCAINO Work Phone: [facility] 06-21-2022 Pfizer COVID-19 Vac Bivalent 30 MCG/0.3ML Intramuscular Suspension Ron Hernandez Work Phone: [facility] Comment on above: Result Comment: 2022: [id number] 06-21-2022 Pfizer Purple Cap SARS-CoV-2 Roseanne Hall MD Work Phone: [facility] Work Phone: 06-13-2022 influenza virus vaccine, unspecified formulation Roseanne Hall MD Work Phone: [facility] Work Phone: 06-13-2022 influenza, seasonal, injectable, preservative free [facility] Work Phone: 03-08-2022 Comirnaty 30 MCG/0.3 ML Intramuscular Suspension Ron Hernandez Work Phone: [facility] 250 DO Work Phone: 03-08-2022 SARS-CoV-2 mRNA ([id number]) vaccine Dereck URENA [facility] Comment on above: Result Comment: 2022: [id number] 03-08-2022 SARS-CoV-2, Unspecified Hamlet Hall MD Work Phone: [facility] Work Phone: 05-21-2021 influenza virus vaccine, unspecified formulation Ron M Hoy Work Phone: [facility] 250 DO Work Phone: 05-21-2021 Pfizer-BioNTech COVID-19 Vacc 30 MCG/0.3ML Intramuscular Suspension Ron M Hoy Work Phone: [facility] Comment on above: Result Comment: 2022: [id number] 11-06-2020 Pfizer-BioNTech COVID-19 Vacc 30 MCG/0.3ML Intramuscular Suspension Ron M Hoy Work Phone: [facility] 10-16-2020 Pfizer-BioNTech COVID-19 Vacc 30 MCG/0.3ML Intramuscular Suspension Ron M Hoy Work Phone: [facility] 05-13-2020 influenza, injectabl e, quadrivalent, preservative free Ron M Hoy Work Phone: [facility] 250 DO Work Phone: 04-30-2020 influenza, injectabl e, quadrivalent, preservative free Ron M Hoy Work Phone: [facility] 250 DO Work Phone: 04-14-2020 influenza virus vaccine, unspecified formulation Ron M Hoy Work Phone: [facility] 250 DO Work Phone: 05-30-2019 influenza, injectabl e, quadrivalent, preservative free Ron M Hoy Work Phone: [facility] 250 DO Work Phone: 05-14-2019 influenza virus vaccine, unspecified formulation Ron M Hoy Work Phone: [facility] 250 DO Work Phone: 12-14-2018 tetanus toxoid, redu jed diphtheria toxoid, and acellular pertussis vaccine, adsorbed Ron M Hoy Work Phone: [facility] 04-14-2018 influenza virus vaccine, unspecified formulation Ron M Hoy Work Phone: [facility] 250 DO Work Phone: 06-14-2017 influenza virus vaccine, unspecified formulation Ron M Hoy Work Phone: [facility] 250 DO Work Phone: 06-06-2017 Influenza, injectabl e, Madin Adrianne Canine Kidney, preservative free, quadrivalent Ron M Hoy Work Phone: [facility] 250 DO Work Phone: 04-18-2017 influenza, seasonal, injectable, preservative free Ron M Hoy Work Phone: [facility] 250 DO Work Phone: 06-10-2016 influenza, injectabl e, quadrivalent, preservative free Ron M Hoy Work Phone: [facility] 250 DO Work Phone: 05-14-2016 influenza virus vaccine, unspecified formulation [facility] M Hoy [facility]: [facility] Work Phone: 06-05-2015 influenza, seasonal, injectable, preservative free Ron M Hoy Work Phone: [facility] 250 DO Work Phone: Payers Date Payer Category Payer Private Health Insurance [id number] 2023 Self-pay [id number] 2022 Private Health Insurance [id number] 2021 Medicare MEDICARE MEDICAR E PART A & B [id number] 2021-Present [phone] [address] [place] [address] [id number] 2021 Unknown 1959 Medicare [id number] 1959 Private Health Insurance [id number] 1956 Unknown [id number] 2.16.840.1.236360.3.579.2.5 93 1956 Unknown [id number] 2.16.840.1.380288.3.579.2.5 93 1956 Unknown [id number] 2.16.840.1.352078.3.579.2.5 93 1956 Unknown [id number] 2.16.840.1.716601.3.579.2.5 93 1956 Unknown [id number] 2.16.840.1.367716.3.579.2.3 56 1956 Unknown [id number] 2.16.840.1.911822.3.579.2.3 56 1956 Unknown [id number] 2.16.840.1.790981.3.579.2.7 1956 Unknown [id number] 2.16.840.1.612533.3.579.2.7 1956 Unknown [id number] 2.16.840.1.606463.3.579.2.7 27 1956 Unknown [id number] 2.16.840.1.383800.3.579.2.1 244 1956 Unknown [id number] 2.16.840.1.688725.3.579.2.1 286 1956 Unknown [id number] 2.16.840.1.198330.3.579.2.1 286 1956 Unknown [id number] 2.16.840.1.942342.3.579.2.1 286 1956 Unknown [id number] 2.16.840.1.250993.3.579.2.1 259 1956 Unknown [id number] 2.16.840.1.741816.3.579.2.1 259 1956 Unknown [id number] 2.16.840.1.402205.3.579.2.1 259 1956 Unknown [id number] 2.16.840.1.978086.3.579.2.1 259 1956 Unknown [id number] 2.16.840.1.093002.3.579.2.1 259 1956 Unknown [id number] 2.16.840.1.346363.3.579.2.1 259 1956 Unknown [id number] 2.16.840.1.620226.3.579.2.1 259 1956 Unknown [id number] 2.16.840.1.765776.3.579.2.1 259 1956 Unknown [id number] 2.16.840.1.970287.3.579.2.1 259 1956 Unknown [id number] 2.16.840.1.212513.3.579.2.1 259 1956 Unknown [id number] 2.16.840.1.476223.3.579.2.1 259 1956 Unknown [id number] 2.16.840.1.790554.3.579.2.1 259 1956 Unknown [id number] 2.16.840.1.811107.3.579.2.1 259 Medicare [id number] Unknown [id number] Unknown [employer] BC/BS [id number] Unknown [id number] 2.16.840.1.988532.3.579.2.5 31 Social History Date Type Detail Facility Start: 09-24-2020 End: 09-28-2023 Alcohol use Alcohol use [facility] 250 DO Work Phone: Start: 1955 Sex Assigned At Female [facility] Start: 05-25-2020 End: 08-02-2023 Tobacco smoking status Never smoked tobacco (finding) [facility] Tobacco smoking status Never [facility] Start: 09-24-2020 End: 09-28-2023 Sex Assigned At Female [facility] Start: 05-25-2020 End: 05-24-2023 Tobacco use and exposure Smokeless tobacco non-user [facility] Work Phone: Start: 09-28-2023 Alcohol intake Lifetime non-drinker (finding) [facility] Work Phone: Start: 11-18-2019 Gender identity Identifies as female gender (finding) [facility] Work Phone: Start: 11-18-2019 Sexual orientation Heterosexual (finding) [facility] Work Phone: Start: 09-18-2023 End: 09-28-2023 Exposure to SARS-CoV-2 (event) Not sure [facility] Start: 06-24-2021 Alcohol intake Not Asked [facility] How often to you hav e a drink containing alcohol? 2-4 times a month [facility] Functional Status Date Assessment Result Facility 08-02-2023 Functional Status N/A [facility] Clinical Notes 08-02-2023 to 09-28-2023 Roseanne Hall MD - 09/28/2023 2:30 PM ESTPatient Instructions Note Date & Type Note Facility 09-28-2023 History of Present illness Narrative Frandy [place] is a 68 y.o. female Chief [...] the patient was advised to take her beta-hebert and lisinopril on daily basis regardless of [...] which has been well-tolerated. Roseanne Hall MD, [facility] Review of Systems All other systems reviewed [...] tablet, Rfl: 11 Assessment/Plan 1. Atherosclerosis of [place] coronary artery of [place] heart without angina pectoris Follow Up In [...] Attestation By signing my name below, I, [email or web address] , Scribe attest that this documentation has been prepared under the direction and in the presence of Roseanne Hall MD. documented in this encounter [facility] Work Phone: 09-28-2023 Instructions Violetta Villareal [...] of your visit. documented in this encounter [facility] Work Phone: 08-02-2023 Note Chief Complaint consultation for positive occult stool HPI Staff 68 year old female presents on consultation from Dr. Hoy for positive occult stool. Denies abdominal or [...] Mother. Primary mal (more content not included)... [facility] Comment on above: Result Comment: Elec tronically Signed By: ROMEL MOORE, Dereck Chauhan.payal\Date and Time Signed: 08/02/23 14:32 EST Evaluation + Plan note No data available for this section [facility] Evaluation note No assessment inform ation available [facility] Work Phone: Evaluation note Diagnosis Atherosclerosis of [place] coronary artery of [place] heart without angina pectoris- Primary Essential hypertension Unspecified essential hypertension Hyperlipidemia, unspecified hyperlipidemia type S/P PTCA (percutaneous transluminal coronary angioplasty) Postsurgical percutaneous transluminal coronary angioplasty status Cerebrovascular accident (CVA), unspecified mechanism (CMS/HCC) Obesity, Class I, BMI 30-34.9 documented in this encounter [facility] Work Phone: Evaluation note* Diagnosis Encounter for other preprocedural examination [facility] No data available for this section [facility] InstructionsNot on filedocumented in this encounter [facility] No data available for this section [facility] Reason for referral (narrative)* Consultation (Routine) - Authorized Specialty Diagnoses / Procedures Referred By Contac t Referred To Contact Cardiology Diagnoses Atherosclerosis of [place] coronary artery of [place] heart without angina pectoris Essential hypertension Hyperlipidemia, unspecified hyperlipidemia type Procedures Follow Up In Cardiology Roseanne Hall MD [address] [facility] [address], [address] [address] Roseanne Hall MD [facility] [facility], [place] [address] [place] [id number] Referral ID Status Reason Start Date Expiration Date V isits Requested Visits Authorized [id number] Authorized 09/28/2023 09/27/2024 1 1 [facility] Work Phone: Summary Purpose Family History [...] study for surgery * Roseanne Hall MD, [facility] * ASHLEY VALENCIA is being seen for [...] weight. She had blood work yesterday at [facility] which we requested. She is tolerating medication [...] section and content) DATE CREATED AUTHOR 02/06/2018 [facility] Healthcare DATE CREATED AUTHOR AUTHOR'S ORGANIZ ATION 09/14/2022 [facility] DATE CREATED AUTHOR AUTHOR'S ORGANIZ ATION 10/05/2022 [facility] dical Specialist DATE CREATED AUTHOR AUTHOR'S ORGANIZ ATION 04/05/2023 [facility] DATE CREATED AUTHOR AUTHOR'S ORGANIZ ATION 04/05/2023 [facility] DATE CREATED AUTHOR AUTHOR'S ORGANIZ ATION 04/28/2023 [facility] DATE CREATED AUTHOR AUTHOR'S ORGANIZ ATION 09/13/2023 [facility] DATE CREATED AUTHOR AUTHOR'S ORGANIZ ATION 09/30/2023 [facility] DATE CREATED AUTHOR AUTHOR'S ORGANIZ ATION 10/31/2023 [facility] DATE CREATED AUTHOR AUTHOR'S ORGANIZ ATION 12/19/2023 [facility] dical Specialists EPIC Care Teams [...] Provider Active Referral Self Attending Provider Active Endoscopic Technician Relationship Specialty Start Date End Date Ron Hernandez MD [address] [place] [address] PCP - General 08/14/99 Endoscopic Technician Relationship Specialty Start Date End Date Ron Hernandez MD [facility] [place] [address] PCP - General Family Medicine 09/24/19 Goals [...] BE BASED ON THE PRIMARY CLINICAL RECORDS. [employer] provides no warranty or guarantee of the accuracy or completeness of information in this document.
== END 2023-12-20 20:55 | disposition home or self-care (01) ==
LOC: SLEEP 20:55
PROVIDERS: PCP Family Medicine; Visit Provider Family Medicine
DX: G47.33 Obstructive sleep apnea (adult) (pediatric) (principal)
CPT/HCPCS: 95811

== ENCOUNTER 2024-02-28 09:36 | Outpatient (OUT) | payer MEDICARE, SELFPAY ==
[2024-02-28 10:39] LABS: Alanine Aminotransferase 23 U/L (14-59); Anion Gap 13.9; Aspartate Amino Transferase 12 U/L (15-37); BUN Creatinine Ratio 18.6; Calcium 8.9 mg/dL (8.5-10.1); Carbon Dioxide 28.1 mmol/L (21.0-32.0); Chloride 103 mmol/L (98-107); Cholesterol 121 mg/dL (<=200); Estimated GFR (African America >60 (>=60); Estimated GFR (Non-African Ame 54 (>=60); Glucose 103 mg/dL (74-106); HDL Cholesterol 61 mg/dL (40-60); Sodium 141 mmol/L (136-145); Triglycerides 78 mg/dL (<=150); VLDL CHOLESTEROL 15.6 mg/dL
[2024-02-28 11:09] LABS: Basophils Absolute Auto 0.1 10^3/uL (0.0-0.1); Basophils Percent Auto 0.7 % (0.2-2.0); Eosinophils Absolute Auto 0.2 10^3/uL (0.0-0.7); Eosinophils Percent Auto 3.1 % (0.9-7.0); Hematocrit 40.4 % (36.0-48.0); Immature Granulocytes Abs Auto 0.02 10^3/uL (0.00-0.03); Immature Granulocytes Pct Auto 0.3 % (0.0-0.5); Lymphocytes Absolute Auto 1.6 10^3/uL (1.2-3.8); Lymphocytes Percent Auto 23.5 % (20.5-60.0); Mean Corpuscular HGB Conc 32.2 g/dL (29.9-35.2); Mean Corpuscular Hemoglobin 29.3 pg (26.7-34.0); Mean Corpuscular Volume 91.2 fL (81.0-99.0); Monocytes Absolute Auto 0.7 10^3/uL (0.3-0.8); Monocytes Percent Auto 10.1 % (1.7-12.0); Neutrophils Absolute Auto 4.2 10^3/uL (1.4-6.5); Neutrophils Percent Auto 62.3 % (43.0-75.0); Platelet Count 483 10^3/uL (150-450); Red Blood Count 4.43 10^6/uL (4.20-5.40); Red Cell Distribution Width 13.5 % (11.0-15.0); White Blood Count 6.7 10^3/uL (4.0-11.0)
== END 2024-02-28 09:37 | disposition home or self-care (01) ==
LOC: LAB 09:37
PROVIDERS: PCP Family Medicine; Visit Provider Internal Medicine Cardiovascular Disease
DX: I25.10 Atherosclerotic heart disease of native coronary artery without angina pectoris (principal); E78.5 Hyperlipidemia, unspecified; I10 Essential (primary) hypertension
CPT/HCPCS: 36415; 80048; 80061; 84450; 84460; 85025

== ENCOUNTER 2024-10-14 08:40 | Outpatient (OUT) | payer MEDICARE, SELFPAY ==
[2024-10-14 09:57] LABS: Alanine Aminotransferase 21 U/L (14-59); Aspartate Amino Transferase 13 U/L (15-37); Cholesterol 134 mg/dL (<=200); HDL Cholesterol 67 mg/dL (40-60); Triglycerides 92 mg/dL (<=150); VLDL CHOLESTEROL 18.4 mg/dL
== END 2024-10-14 08:41 | disposition home or self-care (01) ==
LOC: LAB 08:49
PROVIDERS: PCP Family Medicine; Visit Provider Internal Medicine Cardiovascular Disease
DX: E78.5 Hyperlipidemia, unspecified (principal)
CPT/HCPCS: 36415; 80061; 84450; 84460

== ENCOUNTER 2025-05-29 11:15 | Outpatient (OUT) | payer MEDICARE, SELFPAY ==
--- OUTSIDE RECORDS SUMMARY | 2025-05-29 11:20 | XMS_ITS | CCD ---
Author Organization [facility] ion [facility] Care Team Providers Care Car Rental Service Attendant Name Role Phone WILLIE HALL Unavailable Unavailable RON HERNANDEZ Unavailable Unavailable Ron Hernandez Unavailable Unavailable Unavailable MD Ron Hernandez Primary Care Provider [phone] BASILIA White Attending Provider MD Ron Hernandez Referring Provider Self, Referral Attending Provider Unavailable JASKARAN, DR VELASQUEZ Primary Care Unavailable HALL, DR WILLIE Casey Admitting Unavailable HALL, DR WILLIE Casey Attending Unavailable HALL, DR WILLIE Casey Consulting Unavailable JASKARAN, DR VELASQUEZ Admitting Unavailable JASKARAN, DR VELASQUEZ Attending Unavailable HORolanda, DR VELASQUEZ Consulting Unavailable JASKARAN, DR VELASQUEZ [...] Primary Care Unavailable CELINA COATES Attending Unavailable CELINA COATES Consulting Unavailable Hall, Dr. Willie Rodriguez Referring Megan vailable Jaskaran, Dr. Ron Harden Primary Care Unavail able Hall, Dr. Willie Rodriguez Attending Megna vailable Hall, Dr. Willie Rodriguez Referring Megan vailable Jaskaran, Dr. Ron Harden Primary Care Unavail able Isabel, Dr. Willie Rodriguez Attending Megan vailable MD Ron Hernandez Primary Care Provider Self, Referral Attending Provider Unavailable Ron Hernandez Primary Care Physician Dereck URENA Attending Unavailable Dereck URENA Referring Unavailable Dereck URENA Attending Unavailable Dereck URENA Attending Unavailable Ron Hernandez MD Primary Care Provider RON HERNANDEZ Referring Unavailable RON HERNANDEZ Primary Care Unavailable WOLFGANG MALLORY Referring Unavailable RON HERNANDEZ Primary Care Unavailable RON HERNANDEZ Referring Unavailable RON HERNANDEZ Primary Care Unavailable MD Ron Hernandez Primary Care Provider Self, Referral Attending Provider Unavailable DO Elias Hu Referring Provider Ron Hernandez MD Primary Care Provider [phone] Ron Hernandez MD Primary Care Provider Ron Hernandez MD Primary Care Provider WILLIE HALL Attending Unavailable RON HERNANDEZ Primary Care Unavailable WILLIE HALL Referring Unavailable WILLIE HALL Attending Unavailable WILLIE HALL M Referring Unavailable RON HERNANDEZ Primary Care Unavailable Ron Hernandez MD Primary Care Provider [phone] Ron Hernandez MD Primary Care Provider [phone] Elias Hu DO Attending Provider Ron Hernandez Primary Care Unavailable Elias Hu Attending Unavailable Elias Hu Admitting Unavailable WOLFGANG MALLORY Attending Unavailable WOLFGANG MALLORY Referring Unavailable ELIAS HU Attending Carlos Manuel HERNANDEZ JR., GEORGE C Attending Unavailmeng HERNANDEZ JR., GEORGE C Referring Unavaila ble Allergies Allergy Classification Reported Allergen(s) Allergy Type Date of Onset Reaction(s) Facility (1 source) No Known Medication Allergies; Translations: [No Known Medication Allergies] Propensity to adverse reactions (disorder) [facility] Repository Medications Current Medications Medication Drug Class(es) Dates Sig (Normalized) Sig (Original) 0.25 MG, 0.5 MG Dose 3 ML semaglutide 0.68 MG/ML Pen Injector [Ozempic] (1 source) Start: 08-02-2023 Ozempic 2 mg/3 mL (0.25 mg or 0.5 mg dose) subcutaneous solution 0.25 mg, SubCutaneous, qWeek, Refills(s) 0 Start Date: 08/02/23 Status: Ordered amoxicillin 500 mg oral capsule (7 sources) Penicillin-class Antibacterial Start: 06-16-2024 amoxicillin (Amoxil) 500 MG capsule Before dentist appts 06/16/2024 Active aspirin 81 mg delayed release oral tablet (20 sources) Platelet Aggregation Inhibitor, Nonsteroidal Anti-inflammatory Drug Start: 10-25-2021 take 1 tablet by mouth once daily aspirin 81 mg EC tablet Take 1 tablet (81 mg) by mouth once daily. 10/25/2021 Active aspirin 81 MG EC tablet 2 (two) times a day Active cholecalciferol 0.125 mg oral tablet (8 sources) Vitamin D take 1 tablet by mouth once daily cholecalciferol (Vitamin D-3) 5,000 Units tablet Take 1 tablet (5,000 Units) by mouth once daily. Active take 1 tablet by mouth once jose alejandro y Vitamin D3 50 MCG (1999 UT) Oral Tablet Take 1 tablet daily Quantity: 0 Refills: 0 Ordered: 22-Sep-2022 DO Active clopidogrel 75 mg oral tablet (20 sources) P2Y12 Platelet Inhibitor Start: 03-24-2023 take 1 tablet by mouth once daily clopidogrel (Plavix) 75 mg tablet Indications: Atherosclerosis of [place] coronary artery of [place] heart without angina pectoris TAKE 1 TABLET BY MOUTH DAILY 90 tablet 3 12/20/2023 Active etodolac 500 mg oral tablet (18 sources) Nonsteroidal Anti-inflammatory Drug take 1 tablet by mouth twice daily etodolac (LODINE) 500 mg tablet Take 500 mg by mouth 2 (two) times a day. Active Lodine 500 MG TA BS TAKE 1 TABLET DAILY. Quantity: 0 Refills: 0 Ordered: 22-Sep-2022 DO Active 1 ml evolocumab 140 mg/ml auto-injector (20 sources) PCSK9 Inhibitor Start: 03-21-2024 End: 03-21-2025 inject 1 mL by subcutaneous injection once evolocumab (Repatha SureClick) 140 mg/mL injection Indications: Hyperlipidemia, unspecified hyperlipidemia type , Atherosclerosis of [place] coronary artery of [place] heart without angina pectoris Inject 1 mL (140 mg) under the skin every 14 (fourteen) days. 6 mL 3 03/21/2024 03/21/2025 Active Start: 07-24-2023 Repatha 140 mg /mL subcutaneous solution Refills(s) 0 Start Date: 07/24/23 Status: Ordered Start: 06-01-2023 inject 1 mL by subcu taneous injection once evolocumab (Repatha SureClick) 140 mg/mL injection Indications: Hyperlipidemia, unspecified hyperlipidemia type , Atherosclerosis of [place] coronary artery of [place] heart without angina pectoris Inject 1 mL (140 mg) under the skin every 14 (fourteen) days. 6 each 3 06/01/2023 Active Start: 11-25-2022 Repatha SureCl ick 140 MG/ML injection 11/25/2022 Active ezetimibe 10 mg oral tablet (20 sources) Dietary Cholesterol Absorption Inhibitor Start: 05-30-2022 take 1 tablet by mouth at bedtime ezetimibe (Zetia) 10 mg tablet Indications: Mixed hyperlipidemia TAKE 1 TABLET BY MOUTH AT BEDTIME 90 tablet 3 12/20/2023 Active ezetimibe 10 mg / simvastatin 10 mg oral tablet (8 sources) HMG-CoA Reductase Inhibitor, Dietary Cholesterol Absorption Inhibitor take 1 tablet by mouth once daily ezetimibe-simvastati n (VYTORIN) 10-10 mg per tablet Take 1 tablet by mouth nightly. Active lisinopril 10 mg oral tablet (20 sources) Angiotensin Converting Enzyme Inhibitor Start: 07-19-2021 take 1 tablet by mouth once daily lisinopril 10 mg tablet Indications: Essential hypertension TAKE 1 TABLET BY MOUTH DAILY 90 tablet 3 12/20/2023 Active 24 hr metoprolol succinate 50 mg extended release oral tablet (20 sources) beta-Adrenergic Hector Start: 05-30-2022 take 1 tablet by mouth once daily metoprolol succinate XL (Toprol-XL) 50 mg 24 hr tablet Indications: Essential hypertension TAKE 1 TABLET BY MOUTH DAILY 90 tablet 3 12/20/2023 Active niacin 500 mg oral tablet (12 sources) Nicotinic Acid take 1 tablet by mouth once daily at breakfast niacin (VITAMIN B3) 500 mg tablet Take 500 mg by mouth daily with breakfast. Active take 1 tablet by mouth once jose alejandro y Niaspan 500 MG Oral Tablet Extended Release TAKE 1 TABLET DAILY. Quantity: 0 Refills: 0 Ordered: 15-Sep-2021 DO Active nitroglycerin 0.4 mg sublingual tablet (2 sources) Nitrate Vasodilator Start: 09-28-2023 End: 10-28-2023 nitroglycerin (Nitrostat) 0.4 mg SL tablet Indications: Atherosclerosis of [place] coronary artery of [place] heart without angina pectoris Place 1 tablet (0.4 mg) under the tongue every 5 minutes if needed for chest pain. May repeat dose every 5 minutes for up to 3 doses total. 25 tablet 11 09/28/2023 Active omeprazole 40 mg delayed release oral capsule (20 sources) Proton Pump Inhibitor Start: 01-13-2021 take 1 capsule by mouth once daily omeprazole (PriLOSEC) [address] capsule Take 1 capsule (40 mg) by mouth once daily. 01/13/2021 Active polysaccharide iron complex 150 mg oral capsule (1 source) take 1 capsule by mouth once daily iron polysaccharides (Nu-Iron,Niferex) 150 mg iron capsule Take 1 capsule (150 mg) by mouth once daily. Active pravastatin sodium 20 mg oral tablet (20 sources) HMG-CoA Reductase Inhibitor Start: 03-24-2023 take 1 tablet by mouth every week pravastatin (Pravachol) 20 mg tablet Indications: Mixed hyperlipidemia TAKE 1 TABLET BY MOUTH WEEKLY 12 tablet 3 01/07/2024 Active take 1 tablet by mouth once jose alejandro y pravastatin (PRAVACHOL) 20 mg tablet Take 20 mg by mouth daily. x3 weekly Active semaglutide (Ozempic) 0.25 m g or 0.5 mg (2 mg/3 mL) pen injector (1 source) semaglutide (Oze mpic) 0.25 mg or 0.5 mg (2 mg/3 mL) pen injector Inject 0.25 mg under the skin 1 (one) time per week. 0 Active Semaglutide (OZEMPIC, 0.25 O R 0.5 MG/DOSE, SC) (5 sources) End: 07-16-2024 Semaglutide (OZEMPIC, 0.25 O R 0.5 MG/DOSE, SC) Inject under the skin 07/16/2024 Discontinued Semaglutide (OZE MPIC, 0.25 OR 0.5 MG/DOSE, SC) Inject under the skin Active SEMAGLUTIDE-WEIGHT MANAGEMENT SC (7 sources) Start: 06-18-2024 SEMAGLUTIDE-WEIGHT MANAGEMENT SC Buderer 06/18/2024 Active ubidecarenone 10 mg oral capsule (20 sources) coenzyme Q-10 10 MG capsule 1 (one) time each day at the same time. Active venlafaxine 37.5 mg oral tablet (20 sources) Serotonin and Norepinephrine Reuptake Inhibitor Start: 07-24-2023 take 1 tablet by mouth once daily venlafaxine 37.5 mg Tab 37.5 mg = 1 tab(s), Oral, Daily, Refills(s) 0 Start Date: 07/24/23 Status: Ordered Start: 12-29-2021 take 1 capsule by [facility] every twenty-four hours Venlafaxine HCl ER 37.5 MG Oral Capsule Extended Release 24 Hour Quantity: 90 Refills: 0 Ordered: 29-Dec-2021 DO Start : 29-Dec-2021 Active Start: 12-29-2021 take 1 capsule by mouth once d aily venlafaxine XR (Effexor-XR) 37.5 mg 24 hr capsule Take 1 capsule (37.5 mg) by mouth once daily. 12/29/2021 Active vit A/vit C/biotin/zinc/hardeep er (XLTA-AHMW-NOPL,VIT A,C-BIOTIN, ORAL) (8 sources) take 1 tablet by mouth once daily vit A/vit C/biotin/zinc/copper (LVQV-GVSP-SYSV,VIT A,C-BIOTIN, ORAL) Take 1 tablet by mouth daily. Active take 1 tablet by mouth once jose alejandro y vit A/vit C/biotin/zinc/copper (CPRE-MEPQ-TTSQ,VIT A,C-BIOTIN, ORAL) Take 1 tablet by mouth daily. 0 Active vitamin b12 1 mg oral tablet (13 sources) Vitamin B12 take 1 tablet by mouth once daily cyanocobalamin (Vitamin B-12) 1,000 mcg tablet Take 1 tablet (1,000 mcg) by mouth once daily. Active Completed/Discontinued Medications Medication Drug Class(es) Dates Sig (Normalized) Sig (Original) calcitriol 0.0005 mg oral capsule (1 source) Vitamin D3 Analog End: 09-28-19 24 take 1 capsule by mouth once daily calcitriol (Rocaltrol) 0.5 mcg capsule Take 1 capsule (0.5 mcg) by mouth once daily. 0 09/28/2023 Discontinued (Therapy completed) hydroCHLOROthiazide 12.5 mg oral capsule (16 sources) Thiazide Diuretic Start: 09-15-19 End: 09-28-19 take 1 capsule by mouth once daily hydroCHLOROthiazide (Microzide) 12.5 mg capsule Take 1 capsule (12.5 mg) by mouth once daily. 0 09/15/2021 09/28/2023 Discontinued (Therapy completed) meloxicam 7.5 mg oral tablet (5 sources) Nonsteroidal Anti-inflammatory Drug Start: 02-18-20 Meloxicam 7.5 MG Oral Tablet TAKE TABLET PRN Quantity: 0 Refills: 0 Ordered: 17-Feb-2022 DO Start : 17-Feb-2022 Active 1 ml methylPREDNISolone acetate 40 mg/ml injection (4 sources) Corticosteroid Start: 01-24-20 End: 01-24-20 methylPREDNISolone acetate (DEPO-Medrol) injection 40 mg Start: 01-23-2025 End: 01-23-2025 40 mg, Intra-articular, Once PRN Procedure, Starting on Sarahy 01/23/25 at 1038, For 1 dose Move Free [employer] Health Advance Oral Tablet (6 sources) take 1 tablet by sukumar th once daily Move Free [employer] Advance Oral Tablet Take 1 tablet daily Quantity: 0 Refills: 0 Ordered: 22-Sep-2022 DO Active Problems Active Problems Problem Classification Problem Date Documented Da te Episodic/Chronic Acquired foot deformities (11 sources) Acquired hallux rigidus; Translations: [Hallux rigidus, unspecified foot] Onset: 02-06-2023 02-06-2023 Chronic Acute cerebrovascular disease (20 sources) Cerebrovascular accident; Translations: [Stroke syndrome] Onset: 05-24-2023 07-24-2023 Chronic Cataract (11 sources) Nuclear senile cataract; Translations: [Age-related nuclear cataract, unspecified eye] Onset: 02-06-2023 02-06-2023 Chronic Coronary atherosclerosis and other heart disease (20 sources) Atherosclerotic heart disease of [place] coronary artery without angina pectoris; Translations: [Coronary atherosclerosis] Onset: 05-18-2017 Chronic Coronary atherosclerosis and other heart disease (1 source) Coronary atherosclerosis and other heart disease Onset: 05-18-2017 Disorders of lipid metabolism (20 sources) Hyperlipidemia; Translations: [Other and unspecified hyperlipidemia] Onset: 09-13-2022 Chronic Essential hypertension (20 sources) Hypertensive disorder; Translations: [Unspecified essential hypertension] Onset: 10-07-2021 07-24-2023 Chronic Essential hypertension (1 source) Essential hypertension Onset: 05-18-2017 Menopausal disorders (12 sources) Atrophic vaginitis; Translations: [Postmenopausal atrophic vaginitis] Onset: 02-06-2023 02-06-2023 Chronic Mood disorders (1 source) Depressive disorder 07-24-2023 Chronic Nonmalignant breast conditions (1 source) Fibrocystic disease of breast 07-24-2023 Chronic Occlusion or stenosis of precerebral arteries (20 sources) Occlusion and stenosis of bilateral carotid arteries; Translations: [Bilateral stenosis of carotid arteries] Onset: 05-25-2020 Chronic Osteoarthritis (20 sources) Arthritis of left knee; Translations: [Unilateral primary osteoarthritis, left knee] Onset: 02-06-2023 02-06-2023 Chronic Other bone disease and musculoskeletal deformities (11 sources) Posterior calcaneal exostosis; Translations: [Juvenile osteochondrosis of tarsus, left ankle] Onset: 02-06-2023 02-06-2023 Chronic Other connective tissue disease (2 sources) History of total knee arthroplasty; Translations: [Presence of right artificial knee joint] 01-23-2025 Chronic Other gastrointestinal disorders (1 source) Abnormal feces; Translations: [Other fecal abnormalities] Onset: 08-02-2023 Episodic Other gastrointestinal disorders (1 source) Occult blood in stools 08-02-2023 Episodic Other lower respiratory disease (2 sources) Snoring; Translations: [Snoring] 05-15-2024 Episodic Other non-traumatic joint disorders (2 sources) Pain in right knee; Translations: [Pain in joint, lower leg] 01-23-2025 Episodic Other non-traumatic joint disorders (4 sources) Pain in left knee; Translations: [Pain in joint, lower leg] 01-23-2025 Episodic Other nutritional; endocrine; and metabolic disorders (17 sources) Obesity; Translations: [Obesity, unspecified] 07-24-2023 Chronic Other nutritional; endocrine; and metabolic disorders (3 sources) Body mass index 30+ - obesity; Translations: [Body mass index (BMI) 31.0-31.9, adult] Onset: 10-17-2024 08-02-2023 Chronic Other nutritional; endocrine; and metabolic disorders (2 sources) Obese class I; Translations: [Obesity, unspecified] 09-28-2023 Chronic Other nutritional; endocrine; and metabolic disorders (2 sources) Body mass index (BMI) 31.0-31.9, adult; Translations: [Body mass index (BMI) 31.0-31.9, adult] Onset: 10-17-2024 Chronic Other screening for suspected conditions (not mental disorders or infectious disease) (3 sources) Patient encounter status; Translations: [Encounter for screening mammogram for malignant neoplasm of breast] Onset: 04-24-2025 07-16-2024 Episodic Residual codes; unclassified (2 sources) Obstructive sleep apnea syndrome; Translations: [Obstructive sleep apnea (adult) (pediatric)] 05-15-2024 Chronic Residual codes; unclassified (2 sources) Hypersomnia; Translations: [Hypersomnia, unspecified] 05-15-2024 Chronic Residual codes; unclassified (1 source) Menopause present; Translations: [Asymptomatic menopausal state] 07-16-2024 Episodic Transient cerebral ischemia (20 sources) Transient cerebral ischemia; Translations: [Transient cerebral ischemic attack, unspecified] Onset: 05-25-2020 07-24-2023 Chronic Unclassified (2 sources) Athscl heart disease of [place] coronary artery w/o ang pctrs / I25.10(ICD-9) Onset: 05-18-2017 Past or Other Problems Problem Classification Problem Date Documented Da te Episodic/Chronic Acquired foot deformities (11 sources) Acquired equinus deformity of foot; Translations: [Other acquired deformities of unspecified foot] Onset: 02-06-2023 02-06-2023 Episodic Coronary atherosclerosis and other heart disease (20 sources) Patient post percutaneous transluminal coronary angioplasty; Translations: [Percutaneous transluminal coronary angioplasty status] Onset: 05-24-2023 09-28-2023 Episodic Comment on above: RCA/left circumflex 2016; Other circulatory disease (16 sources) H/O: hypertension; Translations: [Personal history of other diseases of circulatory system] Resolved: 09-15-2021 Episodic Other connective tissue disease (11 sources) Achillodynia; Translations: [Achilles tendinitis, unspecified leg] Onset: 02-06-2023 02-06-2023 Episodic Other connective tissue disease (11 sources) Pain in right foot; Translations: [Pain in right foot] Onset: 02-06-2023 02-06-2023 Episodic Other nutritional; endocrine; and metabolic disorders (1 source) Overweight in adulthood with body mass index of 25 or more but less than 30; Translations: [Body mass index (BMI) 29.0-29.9, adult] Onset: 03-07-2024 Resolved: 10-17-2024 10-17-2024 Episodic Other nutritional; endocrine; and metabolic disorders (2 sources) Body mass index (BMI) 29.0-29.9, adult; Translations: [Body mass index (BMI) 29.0-29.9, adult] Onset: 03-07-2024 Episodic Unclassified (16 sources) Never smoked tobacco; Translations: [Never a smoker] Unclassified (2 sources) Onset: 09-28-2023 Resolved: 10-17-2024 09-28-2023 Results Test Name Value Interpretation Reference Range Facility XR Knee - left 1 or 2 Viewso n 05-07-2025 Imaging Result: X-rays AP and lateral of left knee showed severe valgus deformity with [id number] articulation to the lateral joint line. There is flattening of the articular surfaces laterally to the tibia plateau and femoral condyle. There is marginal osteophytic formation and subchondral sclerosis noted laterally and to the patellofemoral joint. There is no evidence of fracture or dislocation. Bony structures viewed showed appropriate ossification. Impression: severe degenerative joint disease Tricompartmentally with valgus deformity Left knee [facility] Radiology Study observation (narrative) [facility] MM screening mammo BI w/CADo n 04-24-2025 MM screening mammo BI w/CAD [facility] [address] [place] [address] Mammography Report Signed Patient: Danica Valencia MR#: [id number] : 1955 Acct:[id number] Age/Sex: 70 / F Adm Date: 04/24/25 Loc: [place] Room: Type: [facility] Attending Dr: Elias Hu DO Ordering Provider: Elias Hu DO Date of Service: 04/24/25 Procedure(s): MM screening mammo BI w/CAD Accession Number(s): ([id number]) MM/MM screening mammo BI w/CAD: SCREENING Copies to: MD Elias Singh DO CLINICAL DATA: Screening for malignancy. SCREENING MAMMOGRAM - FULL FIELD DIGITAL WITH TOMOSYNTHESIS AND CAD COMPARISON:Mammograms dating back to 2020 Tomosynthesis craniocaudal and mediolateral oblique views of both breasts were obtained using low- dose digital technique. This examination was reviewed with the aid of CAD. FINDINGS: The breast tissue is composed of scattered fibroglandular densities. There are no dominant masses, typically malignant calcifications or architectural distortion. There has been no significant interval change. MM/MM screening mammo BI w/CAD IMPRESSION: NO MAMMOGRAPHIC EVIDENCE OF MALIGNANCY. ROUTINE FOLLOW-UP IS RECOMMENDED IN ONE YEAR. RESULT CODE: 1 Negative DENSITY CODE: 2 (approximately 25-50% glandular) There are scattered areas of fibroglandular density. FOLLOW UP: 1YR The false-negative rate of mammography is approximately 10-percent. Management of a palpable abnormality must be based on clinical grounds. Patient was entered into a reminder system with a target due date for the next mammogram. Impression dictated by: Aj Sterling Jr., D.O. 04/24/2025 9:29 AM Dictation Location: [facility] Dictated By: Aj Sterling Jr, DO 04/24/25927 Signed By: 04/24/25928 Normal [facility] Mammography reportOrdered By : Aj Sterling on 04-24-2025 Diagnostic imaging study [facility] [address] [place] [address] Mammography Report Signed Patient: Danica Valencia MR#: [id number] : 1955 Acct:[id number] Age/Sex: 70 / F Adm Date: 5 Loc: [place] Room: Type: [facility] Attending Dr: Elias Hu DO Ordering Provider: Elias Hu DO Date of Service: 04/24/25 Procedure(s): MM screening mammo BI w/CAD Accession Number(s): ([id number]) MM/MM screening mammo BI w/CAD: SCREENING Copies to: MD Elias Singh DO~ CLINICAL DATA: Screening for malignancy. SCREENING MAMMOGRAM - FULL FIELD DIGITAL WITH TOMOSYNTHESIS AND CAD COMPARISON:Mammograms dating back to 2020 Tomosynthesis craniocaudal and mediolateral oblique views of both breasts were obtained using low-dose digital technique. This examination was reviewed with the aid of CAD. FINDINGS: The breast tissue is composed of scattered fibroglandular densities. There are no dominant masses, typically malignant calcifications or architectural distortion. There has been no significant interval change. MM/MM screening mammo BI w/CAD IMPRESSION: NO MAMMOGRAPHIC EVIDENCE OF MALIGNANCY. ROUTINE FOLLOW-UP IS RECOMMENDED IN ONE YEAR. RESULT CODE: 1 Negative DENSITY CODE: 2 (approximately 25-50% glandular) There are scattered areas of fibroglandular density. FOLLOW UP: 1YR The false-negative rate of mammography is approximately 10-percent. Management of a palpable abnormality must be based on clinical grounds. Patient was entered into a reminder system with a target due date for the next mammogram. Impression dictated by: Aj Sterling Jr., D.O. 04/24/2025 9:29 AM Dictation Location: [facility] Dictated By: Aj Sterling Jr, DO 04/24/2528 Signed By: 04/24/25928 [facility] No Panel Informationon 01-23 CARRILLO Acosta 01/23/2025 10:48 AM L Inj/Asp: L knee on 01/23/2025 10:38 AM Indications: pain Details: 22 G needle, anterolateral approach Medications: 40 mg methylPREDNISolone acetate 40 MG/ML Outcome: tolerated well, no immediate complications UTILIZING ASEPTIC TECHNIQUE PT GIVEN INJECTION IN LEFT KNEE, NEUROVASC INTACT S/P INJ, TOLERATED WELL Procedure, treatment alternatives, risks and benefits explained, specific risks discussed. Consent was given by the patient. NxThera XR Knee - right 1 or 2 Views on 01-23-2025 Imaging Result: AP and Lateral of right knee: Surgical position and alignment of prosthetic components without evidence of loosening or wear to femora, tibial or patellar components, The alignment appears to be anatomic. No evidence of accelerated or asymmetric wear to tibial tray or patella button. No evidence of fracture or dislocation. Impression: Unremarkable right total knee arthroplasty [facility] Radiology Study observation (narrative) [facility] XR BONE LENGTH STUDYon 10-29 XR BONE [...] Sandoval MD on 10/30/2023 1:44 PM Normal [facility] CBC AND AUTO DIFFon 10-26-19 ABSOLUTE BASOPHIL 0.1 X10E9/L Normal 0.0-0.2 [facility] Comment on above: Performed By: #### P INR, 88643-3 #### [facility] ([id number]) [address] [place] [id number] #### CBCA, CMP #### [facility] ([id number]) [address] [facility], [address] [place] [address] ABSOLUTE NEUTROPHIL 4.5 X10E9/L Normal 1.5-6.6 [facility] Comment on above: Performed By: #### P INR, [id number] #### [facility] ([id number]) [address] [place] [id number] #### CBCA, CMP #### [facility] ([id number]) [address] [facility], [address] [place] [address] Basophils/100 WBC (Bld) 0.7 % Normal [facility] Comment on above: Performed By: #### P INR, 22121-7 #### [facility] ([id number]) [address] [place] [address] 43433 #### CBCA, CMP #### [facility] ([id number]) [address], [address] [place] [address] Eosinophils (Bld) [#/Vol] 0.2 10*3/uL Normal 0.0-0.4 [facility] Comment on above: Performed By: #### P INR, 07387-2 #### [facility] ([id number]) [address] [place] [address] 59569 #### CBCA, CMP #### [facility] ([id number]) [address] [facility], [address] [place] [address] Eosinophils/100 WBC (Bld) 2.9 % Normal [facility] Comment on above: Performed By: #### P INR, 96280-4 #### [facility] ([id number]) [address] [place] [address] 34266 #### CBCA, CMP #### [facility] ([id number]) [address] [facility], [address] [place] [address] Erythrocyte distribution width (RBC) [Ratio] 14.3 % Normal 11.5-15.0 [facility] Comment on above: Performed By: #### P INR, 33639-3 #### [facility] ([id number]) [address] [place] [address] 40103 #### CBCA, CMP #### [facility] ([id number]) [address] [facility], [address] [place] [address] Hematocrit (Bld) [Volume fraction] 38.1 % Normal 35-47 [facility] Comment on above: Performed By: #### P INR, 50878-8 #### [facility] ([id number]) [address] [place] [address] 71690 #### CBCA, CMP #### [facility] ([id number]) [address] [facility], [address] [place] [address] Hemoglobin (Bld) [Mass/Vol] 12.8 g/dL Normal 11.7-15.5 [facility] Comment on above: Performed By: #### P INR, 66170-0 #### [facility] ([id number]) [address] [place] [address] 69985 #### CBCA, CMP #### [facility] ([id number]) [address], [address] [place] [address] Lymphocytes (Bld) [#/Vol] 1.7 10*3/uL Normal 1.0-3.5 [facility] Comment on above: Performed By: #### P INR, 74472-4 #### [facility] ([id number]) [address] [place] [address] 80131 #### CBCA, CMP #### [facility] ([id number]) [address], [address] [place] [address] Lymphocytes/100 WBC (Bld) 24.6 % Normal [facility] Comment on above: Performed By: #### P INR, 74731-3 #### [facility] ([id number]) [address] [place] [address] 55882 #### CBCA, CMP #### [facility] ([id number]) [address], [address] [place] [address] MCH (RBC) [Entitic mass] 29.1 pg Normal 27-34 [facility] Comment on above: Performed By: #### P INR, 48141-8 #### [facility] ([id number]) [address] [place] [address] 20599 #### CBCA, CMP #### [facility] ([id number]) [address], [address] [place] [address] MCHC (RBC) [Mass/Vol] 33.7 g/dL Normal 32-36 [facility] Comment on above: Performed By: #### P INR, 56773-0 #### [facility] ([id number]) [address] [place] [address] 07408 #### CBCA, CMP #### [facility] ([id number]) [address], [address] [place] [address] MCV (RBC) [Entitic vol] 86 fL Normal 80-100 P [facility] Comment on above: Performed By: #### P INR, 16159-4 #### [facility] ([id number]) [address] [place] [address] 77767 #### CBCA, CMP #### [facility] ([id number]) [address], [address] [place] [address] Monocytes (Bld) [#/Vol] 0.6 10*3/uL Normal 0-0.9 [facility] Comment on above: Performed By: #### P INR, 57530-6 #### [facility] ([id number]) [address] [place] [address] 36448 #### CBCA, CMP #### [facility] ([id number]) [address], [address] [place] [address] Monocytes/100 WBC (Bld) 8.2 % Normal P [facility] Comment on above: Performed By: #### P INR, 47394-3 #### [facility] ([id number]) [address] [place] [address] 63498 #### CBCA, CMP #### [facility] ([id number]) [address], [address] [place] [address] Neutrophils/100 WBC (Bld) 63.6 % Normal [facility] Comment on above: Performed By: #### P INR, 31582-4 #### [facility] ([id number]) [address] [place] [address] 49180 #### CBCA, CMP #### [facility] ([id number]) [address] [facility], [address] [place] [address] Platelet mean volume (Bld) [Entitic vol] 7.3 fL Normal 7-12 [facility] Comment on above: Performed By: #### P INR, 00694-4 #### [facility] ([id number]) [address] [place] [address] 61941 #### CBCA, CMP #### [facility] ([id number]) [facility], [address] [place] [address] Platelets (Bld) [#/Vol] 437 10*3/uL Normal 150-450 [facility] Comment on above: Performed By: #### P INR, 45343-6 #### [facility] ([id number]) [address] [place] [address] 53384 #### CBCA, CMP #### [facility] ([id number]) [facility], [address] [place] [address] RBC COUNT 4.41 X10E12/L Normal 3.80-5.20 [facility] Comment on above: Performed By: #### P INR, 67419-9 #### [facility] ([id number]) [address] [place] [address] 78376 #### CBCA, CMP #### [facility] ([id number]) [address] [facility], [address] [place] [address] WBC (Bld) [#/Vol] 7.1 10*3/uL Normal 4.0-11.0 [facility] Comment on above: Performed By: #### P INR, 97339-8 #### [facility] ([id number]) [address] [place] [address] 76859 #### CBCA, CMP #### [facility] ([id number]) [address] [facility], [address] [place] [address] COMPREHENSIVE METABOLIC PANE Edgar 10-26-2023 Albumin [Mass/Vol] 4.2 g/dL Normal 3.2-5.3 [facility] Comment on above: Performed By: #### P INR, 54464-0 #### [facility] ([id number]) [address] [place] [address] 52920 #### CBCA, CMP #### [facility] ([id number]) [address] [facility], [address] [place] [address] ALP [Catalytic activity/Vol] 83 U/L Normal 39-130 [facility] Comment on above: Performed By: #### P INR, 47708-9 #### [facility] ([id number]) [address] [place] [address] 90364 #### CBCA, CMP #### [facility] ([id number]) [address] [facility], [address] [place] [address] ALT [Catalytic activity/Vol] 20 U/L Normal 0-31 [facility] Comment on above: Performed By: #### P INR, 29368-2 #### [facility] ([id number]) [address] [place] [address] 07265 #### CBCA, CMP #### [facility] ([id number]) [address] [facility], [address] [place] [address] Anion gap [Moles/Vol] 8 mmol/L Normal 5-15 [facility] Comment on above: Performed By: #### P INR, 53785-5 #### [facility] ([id number]) [address] [place] [address] 75790 #### CBCA, CMP #### [facility] ([id number]) [address], [address] [place] [address] AST [Catalytic activity/Vol] 16 U/L Normal 0-41 [facility] Comment on above: Performed By: #### P INR, 25320-3 #### [facility] ([id number]) [address] [place] [address] 03955 #### CBCA, CMP #### [facility] ([id number]) [address], [address] [place] [address] Bilirubin [Mass/Vol] 0.4 mg/dL Normal 0.3-1.2 [facility] Comment on above: Performed By: #### P INR, 26153-8 #### [facility] ([id number]) [address] [place] [address] 24106 #### CBCA, CMP #### [facility] ([id number]) [address], [address] [place] [address] Calcium [Mass/Vol] 9.6 mg/dL Normal 8.5-10.5 [facility] Comment on above: Performed By: #### P INR, 58061-9 #### [facility] ([id number]) [address] [place] [address] 57139 #### CBCA, CMP #### [facility] ([id number]) [address], [address] [place] [address] Chloride [Moles/Vol] 104 mmol/L Normal 98-109 [facility] Comment on above: Performed By: #### P INR, 14293-7 #### [facility] ([id number]) [address] [place] [address] 76214 #### CBCA, CMP #### [facility] ([id number]) [address], [address] [place] [address] CO2 [Moles/Vol] 28 mmol/L Normal 22-32 [facility] Comment on above: Performed By: #### P INR, 00651-8 #### [facility] ([id number]) [address] [place] [address] 91629 #### CBCA, CMP #### [facility] ([id number]) [address], [address] [place] [address] Creatinine [Mass/Vol] 1.27 mg/dL High 0.40-1.00 [facility] Comment on above: Result Comment: METH OD TRACEABLE TO IDMS STANDARD Performed By: #### P INR, 60290-3 #### [facility] ([id number]) [address] [place] [address] 93303 #### CBCA, CMP #### [facility] ([id number]) [address], [address] [place] [address] GFR/1.73 sq M.predicted among non-blacks MDRD (S/P/Bld) [Vol rate/Area] 46 mL/min/{1.73_m2} Low >59 [facility] Comment on above: Result Comment: Reported eGFR is based on the CKD-EPI 2020 equation that does not use a race coefficient. Performed By: #### P INR, 89820-5 #### [facility] ([id number]) [address] [place] [address] 93403 #### CBCA, CMP #### [facility] ([id number]) [address], [address] [place] [address] Glucose [Mass/Vol] 75 mg/dL Normal 65-99 [facility] Comment on above: Performed By: #### P INR, 85648-1 #### [facility] ([id number]) [address] [place] [address] 50677 #### CBCA, CMP #### [facility] ([id number]) [address], [address] [place] [address] Potassium [Moles/Vol] 4.7 mmol/L Normal 3.5-5.0 [facility] Comment on above: Performed By: #### P INR, 93836-1 #### [facility] ([id number]) [address] [place] [address] 64619 #### CBCA, CMP #### [facility] ([id number]) [address], [address] [place] [address] Protein [Mass/Vol] 7.1 g/dL Normal 6.0-8.0 [facility] Comment on above: Performed By: #### P INR, 73392-2 #### [facility] ([id number]) [address] [place] [address] 78153 #### CBCA, CMP #### [facility] ([id number]) [address] [facility] [facility], [address] [place] [address] Sodium [Moles/Vol] 140 mmol/L Normal 134-146 [facility] Comment on above: Performed By: #### P INR, 22672-9 #### [facility] ([id number]) [address] [place] [address] 84529 #### CBCA, CMP #### [facility] ([id number]) [address], [address] [place] [address] Urea nitrogen [Mass/Vol] 24 mg/dL Normal 5-27 [facility] Comment on above: Performed By: #### P INR, 15913-2 #### [facility] ([id number]) [address] [place] [address] 58577 #### CBCA, CMP #### [facility] ([id number]) [address], [address] [place] [address] PROTIME AND INRon 10-26-2023 INR Coag (PPP) [Relative time] 1.1 {INR} Normal 0.8-1.1 [facility] Comment on above: Performed By: #### P INR, 21744-2 #### [facility] ([id number]) [address] [place] [address] 13310 #### CBCA, CMP #### [facility] ([id number]) [address] [facility] [facility], [address] [place] [address] PT Coag (PPP) [Time] 12.4 s Normal 9.8-13.2 [facility] Comment on above: Result Comment: NEW REFERENCE RANGE Performed By: #### P INR, 77976-8 #### [facility] ([id number]) [address] [place] [address] 31534 #### CBCA, CMP #### [facility] ([id number]) [address] [facility], [address] [place] [address] URINALYSISon 10-26-2023 Bilirubin Ql (U) Negative Normal NEG [facility] BLOOD/HGB Negative Normal NEG [facility] Color (U) YELLOW Normal YELLOW [facility] Glucose Ql (U) Negative Normal NEG [facility] Ketones Ql (U) Negative Normal NEG [facility] Leukocyte esterase Test strip Ql (U) Negative Normal NEG [facility] Nitrite Ql (U) Negative Normal NEG [facility] pH (U) 6.0 [pH] Normal 5.0-8.5 [facility] Protein Ql (U) Negative Normal NEG [facility] Specific gravity (U) [Rel density] 1.005 Normal 1.003-1.035 [facility] TURBIDITY CLEAR Normal CLEAR [facility] Urobilinogen (U) [Mass/Vol] mg/dL Normal <1.1 [facility] URINE CULTUREon 10-26-2023 Bacteria identified Cx Nom (U) CULTURE RESULTS <10,000 ORGANISMS/ML NORMAL URO GENITAL JANNETTE Normal [facility] Comment on above: Performed By: #### 6 30-4 #### [facility] ([id number]) [address] [facility], [address] [place] [address] aPTT Coag (PPP) [Time]on aPTT Coag (Bld) [Time] 30 s Normal 26-37 [facility] Comment on above: Result Comment: NEW REFERENCE RANGE Performed By: #### P INR, 33535-9 #### [facility] ([id number]) [address] [place] [address], [place] [address] #### CBCA, CMP #### [facility] ([id number]) [address] [place] [address], [address] [place] [address] Outside Colonoscopyon 2023 Outside Colonoscopy [id number]#1.00T IFF Normal [facility] Reminderson 08-24-2023 Reminders - From: Rosemarie August LPN To: GSN - Clinical; Sent: 08/24/2023 10:14:17 EST Show up: 07/23/2033 07:00:00 EST Subject: colonoscopy recall Due Date/Time: 08/23/2033 07:00:00 EST Reminder/Recall Patient due for screening colonoscopy 08/23/2033. Normal [facility] Consultation Noteon 08-16-19 24 Consultation Note [id number]#1.00T IFF Normal [facility] Consultation Note [id number]#1.00T IFF Normal [facility] Insurance Correspondenceon 0 08-16-2023 Insurance Correspondence [id number]#1.00 TIFF Normal [facility] Consent for Procedure/Surger yon 08-03-2023 Consent for Procedure/Surgery [id number]#1.00T IFF Normal [facility] Facesheeton 08-03-2023 Facesheet [id number]#1.00 TIFF Normal [facility] Ambulatory Visit Summaryon 1 10-03-2022 Ambulatory Visit Summary DANICA VALENCIA :1955 Visit Date:08/02/2023 Ambulatory Visit Instructions Your Care Team Attending Physician - ROMEL MOORE, Dereck Streeter Primary Care Physician - Jaskaran MOORE, Ron This Is Your Medications List [...] for choosing us for your care. Normal [facility] Physician Referralon 023 Physician Referral [id number]#1.00T IFF [facility] Office Visit (Cardiology)on 04-04-2023 Follow-up visit Diagnoses/Problems Assessed Atherosclerosis of chitina coronary artery of chitina heart without angina pectoris (414.01) (I25.10) Essential hypertension (401.9) (I10) Hyperlipidemia (272.4) (E78.5) S/P PTCA (percutaneous transluminal coronary angioplasty) (V45.82) (Z98.61) RCA/left circumflex 2016 Never a smoker Class 1 obesity with body mass index (BMI) of 34.0 to 34.9 in adult (278.00,V85.34) (E66.9,Z68.34) Stroke syndrome Orders SocHx: Never a smoker Tobacco Use Screening; Status:Complete; Done: [id number] Patient Instructions Please bring all medicines, vitamins, and herbal supplements with you when you come to the office. Prescriptions will not be filled unless you are compliant with your follow up appointments or have a follow up appointment scheduled as per instruction of your physician. Refills should be requested at the time of your visit. Labs requested from [facility] Follow up in [6 ] months Chief Complaint DANICA VALENCIA is being seen for a 6 month follow-up of. Patient is in the office for follow-up for the problems noted below. She has had no events since her last visit 6 months ago. Her weight remains above target. She is trying to lose weight. She had blood work yesterday at [facility] which we requested. She is tolerating medication [...] which has been well-tolerated. Willie Hall MD, [facility] Surgical History Problems History of Achilles [...] negative for complaint. Vitals Vital Signs Recorded: 04Apr2023 09:35AM Heart Rate66, R Radial Aagekilf690, LLE, Sitting Etzmvwqqi08, LLE, Sitting Height5 ft 4 in Gmkuut523 lb 12.8 oz BMI Azhljljhgx79.12 kg/m2 BSA Calculated1.95 Tobacco Useb) No Falls [...] normal skin (more content not included)... Normal [facility] Tobacco Screening.on 023 Fall risk assessment a) No falls within the last year [facility] [employer] 250 DO Work Phone: Tobacco use status [facility] b) No M [facility] [employer] 250 DO Work Phone: MRI Ankle w/o [...] by Shaq Bills on 10/04/2022 1018 Normal [facility] [employer] Office Visit (Cardiology)on 09-22-2022 Follow-up visit Diagnoses/Problems Assessed Atherosclerosis of chitina coronary artery of chitina heart without angina pectoris (414.01) (I25.10) S/P [...] Weight Tips; Status:Complete - Retrospective Authorization; Done: [id number] Some eating tips that can help you lose weight.; Status:Complete - Retrospective Authorization; Done: [id number] SocHx: Never a smoker Tobacco Use Screening; Status:Complete; Done: [id number] Patient Instructions Please bring all medicines, vitamins, [...] which has been well-tolerated. Willie Hall MD, [facility] Surgical History Problems History of Blepharoplasty [...] negative for complaint. Vitals Vital Signs Recorded: [id number] 10:18AM Heart Rate76, L Radial Jltzqzqp400, LUE, Sitting Vidsbutje66, LUE, Sitting Height5 ft 4 in Wpspda473 lb BMI Qqlqwbqcbz99.82 kg/m2 BSA Calculated1.94 Tobacco Useb) No PHQ-2 [...] Screening.on 023 Adult depression screening assessment No -[facility] [address] DO Work Phone: Fall risk assessment a) No falls within the last year [facility] [address] DO Work Phone: Tobacco use status [facility] b) No M [facility] [address] DO Work Phone: CBC AUTO DIFFon 09-13-2022 BASO # 0.1 103/ul Normal 0.0-0.1 [facility] Comment on above: Performed By: #### C BC #### [facility] [address] [place] [address] Dr. Daniel Dave Basophils/100 WBC (Bld) 1.0 % Normal 0.2-2.0 [facility] Comment on above: Performed By: #### C BC #### [facility] [address] [place] [address] Dr. Daniel Dave EO # 0.2 103/ul Normal 0.0-0.7 [facility] Comment on above: Performed By: #### C BC #### [facility] [address] [place] [address] Dr. Daniel Dave Eosinophils/100 WBC (Bld) 3.9 % Normal 0.9-7.0 [facility] Comment on above: Performed By: #### C BC #### [facility] [address] [place] [address] Dr. Daniel Dave Erythrocyte distribution width (RBC) [Ratio] 13.6 % Normal 11.0-15.0 [facility] Comment on above: Performed By: #### C BC #### [facility] [address] [place] [address] Dr. Daniel Dave Hematocrit (Bld) [Volume fraction] 40.8 % Normal 36.0-48.0 [facility] Comment on above: Performed By: #### C BC #### [facility] [address] [place] [address] Dr. Daniel Dave Hemoglobin (Bld) [Mass/Vol] 13.1 g/dL Normal 12.0-16.0 [facility] Comment on above: Performed By: #### C BC #### [facility] [address] [place] [address] Dr. Daniel Dave IG # 0.02 10e3/ul Normal 0.00-0.03 [facility] Comment on above: Performed By: #### C BC #### [facility] [address] [place] [address] Dr. Daniel Dave IG % 0.3 % Normal 0.0-0.5 [facility] Comment on above: Performed By: #### C BC #### [facility] [address] [place] [address] Dr. Daniel Dave LYMPH # 1.7 103/ul Normal 1.2-3.8 [facility] Comment on above: Performed By: #### C BC #### [facility] [address] [place] [address] Dr. Daniel Dave Lymphocytes/100 WBC (Bld) 27.6 % Normal 20.5-60.0 [facility] Comment on above: Performed By: #### C BC #### [facility] [address] [place] [address] Dr. Daniel Dave MANUAL DIFF REQ NO Normal [facility] Comment on above: Performed By: #### C BC #### [facility] [address] [place] [address] Dr. Daniel Dave MCH (RBC) [Entitic mass] 28.8 pg Normal 26.7-34.0 [facility] Comment on above: Performed By: #### C BC #### [facility] [address] [place] [address] Dr. Daniel Dave MCHC (RBC) [Mass/Vol] 32.1 g/dL Normal 29.9-35.2 [facility] Comment on above: Performed By: #### C BC #### [facility] [address] [place] [address] Dr. Daniel Dave MCV (RBC) [Entitic vol] 89.7 fL Normal 81.0-99.0 [facility] Comment on above: Performed By: #### C BC #### [facility] [address] [place] [address] Dr. Daniel Dave MONO # 0.6 103/ul Normal 0.3-0.8 [facility] Comment on above: Performed By: #### C BC #### [facility] [address] [place] [address] Dr. Daniel Dave Monocytes/100 WBC (Bld) 9.4 % Normal 1.7-12.0 [facility] Comment on above: Performed By: #### C BC #### [facility] [address] [place] [address] Dr. Daniel Dave NEUT # 3.5 103/ul Normal 1.4-6.5 [facility] Comment on above: Performed By: #### C BC #### [facility] [address] [place] [address] Dr. Daniel Dave Neutrophils/100 WBC (Bld) 57.8 % Normal 43.0-75.0 [facility] Comment on above: Performed By: #### C BC #### [facility] [address] [place] [address] Dr. Daniel Dave Platelet mean volume (Bld) [Entitic vol] 8.7 fL Critically low 9.5-13.5 [facility] Comment on above: Performed By: #### C BC #### [facility] [address] [place] [address] Dr. Daniel Dave PLT 412 103/ul Normal 150-450 [facility] [facility] Comment on above: Performed By: #### C BC #### [facility] [address] [place] [address] Dr. Daniel Dave RBC 4.55 106/ul Normal 4.20-5.40 [facility] Comment on above: Performed By: #### C BC #### [facility] [address] [place] [address] Dr. Daniel Dave WBC 6.1 103/ul Normal 4.0-11.0 [facility] Comment on above: Performed By: #### C BC #### [facility] [address] [place] [address] Dr. Daniel Dave LIPID PROFILEon 09-13-2022 CHOL-HDL RATIO NORM SEE BELOW Normal [facility] Comment on above: Result Comment: 3.3 - 4.4 LOW RISK 4.4 - 7.1 AVERAGE RISK 7.1 - 11.0 MODERATE RISK >11.0 HIGH RISK Performed By: #### B MP, ALT, AST, LIPID ####[facility] [address] [place], [place] [address]Dx. Daniel Dave Cholesterol [Mass/Vol] 114 mg/dL Normal <=200 Th [facility] Comment on above: Performed By: #### B MP, ALT, AST, LIPID ####[facility] [address] [place] [id number]. Daniel Dave Cholesterol in HDL [Mass/Vol] 62 mg/dL Critically high 40-60 [facility] Comment on above: Performed By: #### B MP, ALT, AST, LIPID ####[facility] [address] [place] [id number]. Daniel Dave Cholesterol in LDL [Mass/Vol] 28.4 mg/dL Normal [facility] Comment on above: Performed By: #### B MP, ALT, AST, LIPID ####[facility] [address] [place] [id number]. Daniel Dave Cholesterol.total/Марина sterol in HDL [Mass ratio] 1.8 {ratio} Normal [facility] Comment on above: Performed By: #### B MP, ALT, AST, LIPID ####[facility] [address] [place] [id number]. Daniel Dave HDL NORMAL > or = 60 mg/dl - LO W CARDIOVASCULAR RISK <40 mg/dl - HIGH CARDIOVASCULAR RISK Normal [facility] Comment on above: Performed By: #### B MP, ALT, AST, LIPID ####[facility] [address] [place] [id number]. Daniel Dave LDL CALC NORMAL SEE BELOW Normal [facility] Comment on above: Result Comment: <100 mg/dl OPTIMAL 100 - 129 mg/dl NEAR OR ABOVE OPTIMAL 130 - 159 mg/dl BORDERLINE HIGH 160 - 189 mg/dl HIGH >190 mg/dl VERY HIGH Performed By: #### B MP, ALT, AST, LIPID ####[facility] [address] [place], [place] [address]PlDr. Daniel Dave Triglyceride [Mass/Vol] 118 mg/dL Normal <=150 T [facility] Comment on above: Performed By: #### B MP, ALT, AST, LIPID ####[facility] [address] [place], [place] [address]OkDr. Daniel Dave VLDL CALC 23.6 mg/dL Normal [facility] Comment on above: Performed By: #### B MP, ALT, AST, LIPID ####[facility] [address] [place] [id number]. Daniel Dave PROF CHEM 8 (BAS METB)on Anion gap [Moles/Vol] 11.7 mmol/L Normal [facility] Comment on above: Performed By: #### B MP, ALT, AST, LIPID #### [facility] [address] [place] [address] [address] Daniel Dave Calcium [Mass/Vol] 9.2 mg/dL Normal 8.5-10.1 [facility] Comment on above: Performed By: #### B MP, ALT, AST, LIPID #### [facility] [address] [place] [address] [address] Daniel Dave Chloride [Moles/Vol] 104 mmol/L Normal 98-107 [facility] Comment on above: Performed By: #### B MP, ALT, AST, LIPID #### [facility] [address] [place] [address] [address] Daniel Dave CO2 [Moles/Vol] 30.9 mmol/L Normal 21.0-32.0 [facility] Comment on above: Performed By: #### B MP, ALT, AST, LIPID #### [facility] [address] [place] [address] [address] Daniel Dave Creatinine [Mass/Vol] 1.04 mg/dL Critically high 0.55-1.02 [facility] Comment on above: Performed By: #### B MP, ALT, AST, LIPID #### [facility] [address] [place] [address] [address] Daniel Dave EGFR-AF SOUTH [place]OREAN >60 Normal >=60 [facility] Comment on above: Performed By: #### B MP, ALT, AST, LIPID #### [facility] [address] [place] [address] [address] Daniel Dave EGFR-NON AF [place]AN 53 mL/min/1.73m2 Critically low >=60 [facility] Comment on above: Performed By: #### B MP, ALT, AST, LIPID #### [facility] [address] [place] [address] Dr. Daniel Dave Glucose [Mass/Vol] 106 mg/dL Normal 74-106 [facility] Comment on above: Performed By: #### B MP, ALT, AST, LIPID #### [facility] [address] [place] [address] Dr. Daniel Dave Potassium [Moles/Vol] 4.6 mmol/L Normal 3.5-5.1 [facility] Comment on above: Performed By: #### B MP, ALT, AST, LIPID #### [facility] [address] [place] [address] Dr. Daniel Dave Sodium [Moles/Vol] 142 mmol/L Normal 136-145 [facility] Comment on above: Performed By: #### B MP, ALT, AST, LIPID #### [facility] [address] [place] [address] Dr. Daniel Dave Urea nitrogen [Mass/Vol] 22.0 mg/dL Critically high 7.0-18.0 [facility] Comment on above: Performed By: #### B MP, ALT, AST, LIPID #### [facility] [address] [place] [address] Dr. Daniel Dave Urea nitrogen/Creatinine [Mass ratio] 21.2 mg/mg Normal [facility] Comment on above: Performed By: #### B MP, ALT, AST, LIPID #### [facility] [address] [place] [address] Dr. Daniel Dave SGOTon 09-13-2022 AST [Catalytic activity/Vol] 19 U/L Normal 15-37 [facility] Comment on above: Performed By: #### B MP, ALT, AST, LIPID #### [facility] [address] [place], [place] [address] Dr. Daniel Dave [facility] 09-13-2022 ALT [Catalytic activity/Vol] 27 U/L Normal 14-59 [facility] Comment on above: Performed By: #### B MP, ALT, AST, LIPID ####[facility] [address] [place], [place] [address]yDr. Daniel Dave US CAROTID ART BILon 022 [...] by: JO ALONSO Date: 2022-06-30 12:12 Normal [facility] STRESS/REST MULTIon 05-18 [place] STRESS/REST MULTI Patient: DANICA VALENCIA Exam Date: 05/18/2022 : 1955 Gender:F Ordering : DR RON HERNANDEZ . Admission #: [id number] Family : Order #: [id number] CLICK HERE TO VIEW EXAM RADIOLOGY REPORT [...] Alonso MD on 05/18/2022 at 12:51 Normal [facility] Basophils Auto (Bld) [#/Vol] Ordered By: Jimmie White on 04-12-2022 Basophils (Bld) [#/Vol] 0.1 10*3/uL 0.0-0.2 [facility] Basophils/100 WBC Auto (Bld) Ordered By: Jimmie White on 04-12-2022 Basophils/100 WBC (Bld) 1.3 % . F [facility] Blood hemoglobin measurement (mass/volume)Ordered By: Jimmie White on 04-12-2022 Hemoglobin (Bld) [Mass/Vol] 13.4 g/dL 11.8-15.4 [facility] Blood leukocytes automated c ount (number/volume)Ordered By: [facility] Flash White on 04-12-2022 WBC (Bld) [#/Vol] 6.6 10*3/uL 4.5-11.0 [facility] Creatinine and Glomerular fi ltration rate.predicted panel (S/P/Bld)Ordered By: Jimmie White on 04-12-2022 Creatinine [Mass/Vol] 1.01 mg/dL 0.44-1.03 [facility] Eosinophils Auto (Bld) [#/Vo l]Ordered By: Jimmie White on 04-12-2022 Eosinophils (Bld) [#/Vol] 0.2 10*3/uL 0.0-0.45 [facility] Eosinophils/100 WBC Auto (Bl d)Ordered By: Jimmie White on 04-12-2022 Eosinophils/100 WBC (Bld) 3.3 % . [facility] Erythrocyte distribution wid th Auto (RBC) [Ratio]Ordered By: Jimmie White on 04-12-2022 Erythrocyte distribution width (RBC) [Ratio] 14.1 % 11.9-15.3 [facility] Estimated glomerular filtrat ion rate (GFR) non- AmericanOrdered By: Jimmie White on 04-12-2022 GFR/1.73 sq M.predicted among non-blacks MDRD (S/P/Bld) [Vol rate/Area] 55 mL/Min [facility] Hematocrit Auto (Bld) [Volum e fraction]Ordered By: Jimmie White on 04-12-2022 Hematocrit (Bld) [Volume fraction] 40.9 % 34.0-46.4 [facility] Laboratory - CoagulationOrde red By: Jimmie White on 04-12-2022 PT Coag (PPP) [Time] 11.6 s 9.0-12.9 [facility] - Hematology and Cell countsOrdered By: Jimmie White on 04-12-2022 Nucleated RBC/100 WBC (Bld) [Ratio] 0.1 % 0-0.5 [facility] Lymphocytes Auto (Bld) [#/Vo l]Ordered By: Jimmie White on 04-12-2022 Lymphocytes (Bld) [#/Vol] 1.8 10*3/uL 1.00-4.8 [facility] Lymphocytes/100 WBC Auto (Bl d)Ordered By: Jimmie White on 04-12-2022 Lymphocytes/100 WBC (Bld) 27.6 % . [facility] MCH Auto (RBC) [Entitic mass ]Ordered By: OZ White on 04-12-2022 MCH (RBC) [Entitic mass] 28.7 pg 24.7-34.3 [facility] MCHC Auto (RBC) [Mass/Vol]Or dered By: OZ White on 04-12-2022 MCHC (RBC) [Mass/Vol] 32.7 g/dL 32.0-35.0 [facility] MCV Auto (RBC) [Entitic vol] Ordered By: Jimmie White on 04-12-2022 MCV (RBC) [Entitic vol] 87.7 fL 80-100 F [facility] Monocytes Auto (Bld) [#/Vol] Ordered By: Jimmie White on 04-12-2022 Monocytes (Bld) [#/Vol] 0.6 10*3/uL 0.0-0.8 [facility] Monocytes/100 WBC Auto (Bld) Ordered By: Jimmie White on 04-12-2022 Monocytes/100 WBC (Bld) 9.5 % . F [facility] Neutrophils Auto (Bld) [#/Vo l]Ordered By: Jimmie White on 04-12-2022 Neutrophils (Bld) [#/Vol] 3.8 10*3/uL 1.8-7.7 [facility] Neutrophils/100 WBC Auto (Bl d)Ordered By: Jimmie White on 04-12-2022 Neutrophils/100 WBC (Bld) 58.3 % . [facility] No Panel InformationOrdered By: OZ White on 04-12-2022 Estimated GFR () > 60 mL/Min [facility] Comment on above: GFR estimated refere nce range: According to KDOQI guidelines, <60 ml/min/1.73m2 is sufficient to diagnose a patient with chronic kidney disease. Pharmacy Creatinine Clearance (Chem N/A [facility] Platelet mean volume Auto (B ld) [Entitic vol]Ordered By: OZ White on 04-12-2022 Platelet mean volume (Bld) [Entitic vol] 7.2 fL 6.3-10.7 [facility] Platelet poor plasma interna tional normalized ratio (INR) by coagulation assay (relatOrdered By: OZ White on 04-12-2022 INR Coag (PPP) [Relative time] 1.0 {INR} [facility] Comment on above: INR Therapeutic Rang [...] 04-12-2022 Platelets (Bld) [#/Vol] 482 10*3/uL 150-450 [facility] RBC Auto (Bld) [#/Vol]Ordere d By: Jimmie White on 04-12-2022 RBC (Bld) [#/Vol] 4.66 10*6/uL 3.60-5.00 [facility] Serum or plasma anion gap de terminationOrdered By: Jimmie White on 04-12-2022 Anion gap [Moles/Vol] 13.5 mmol/L 6.0-15.0 [facility] Serum or plasma calcium idalia urement (mass/volume)Ordered By: Jimmie White on 04-12-2022 Calcium [Mass/Vol] 9.6 mg/dL 8.2-10.2 [facility] Serum or plasma chloride julieth surement (moles/volume)Ordered By: Jimmie White on 04-12-2022 Chloride [Moles/Vol] 100 mmol/L 95-114 [facility] Serum or plasma glucose idalia urement (mass/volume)Ordered By: Jimmie White on 04-12-2022 Glucose [Mass/Vol] 86 mg/dL 70-100 [facility] Comment on above: ADA recommended refe rence range Random Glucose Reference Range is dependent on time and content of last meal. Glucose of more than 200 mg/dL in a nonstressed, ambulatory subject supports the diagnosis of Diabetes Mellitus. Serum or plasma potassium me asurement (moles/volume)Ordered By: [facility] Flash White on 04-12-2022 Potassium [Moles/Vol] 4.3 mmol/L 3.5-5.1 [facility] Serum or plasma sodium measu rement (moles/volume)Ordered By: [facility] Flash White on 04-12-2022 Sodium [Moles/Vol] 138 mmol/L 136-146 [facility] Serum or plasma total carbon dioxide measurement (moles/volume)Ordered By: [facility] Flash White on 04-12-2022 CO2 [Moles/Vol] 28.8 mmol/L 22.0-30.0 [facility] Serum or plasma urea nitroge n measurement (mass/volume)Ordered By: [facility] Flash White on 04-12-2022 Urea nitrogen [Mass/Vol] 21 mg/dL 9-23 [facility] MRI Ankle w/o + w/ Lefton [...] by Shaq Bills on 03/18/2022 0919 Normal [facility] [employer] Tobacco Screening.on Adult depression screening assessment No -[facility] [address] DO Work Phone: Fall risk assessment a) No falls within the last year -[facility] [address] [place] Work Phone: Tobacco use status [facility] b) No M -[facility] [address] [place] [address] [place] Work Phone: CBC AUTO DIFFon 10-06-2021 BASO # 0.1 103/ul Normal 0.0-0.1 [facility] Comment on above: Performed By: #### C BC #### [facility] [address] [place] [address] Dr. Daniel Dave Basophils/100 WBC (Bld) 0.8 % Normal 0.2-2.0 [facility] Comment on above: Performed By: #### C BC #### [facility] [address] [place] [address] Dr. Daniel Dave EO # 0.3 103/ul Normal 0.0-0.7 [facility] Comment on above: Performed By: #### C BC #### [facility] [address] [place] [address] Dr. Daniel Dave Eosinophils/100 WBC (Bld) 3.8 % Normal 0.9-7.0 [facility] Comment on above: Performed By: #### C BC #### [facility] [address] [place] [address] Dr. Daniel Dave Erythrocyte distribution width (RBC) [Ratio] 13.8 % Normal 11.0-15.0 [facility] Comment on above: Performed By: #### C BC #### [facility] [address] [place] [address] Dr. Daniel Dave Hematocrit (Bld) [Volume fraction] 40.1 % Normal 36.0-48.0 [facility] Comment on above: Performed By: #### C BC #### [facility] [address] [place] [address] Dr. Daniel Dave Hemoglobin (Bld) [Mass/Vol] 13.1 g/dL Normal 12.0-16.0 [facility] Comment on above: Performed By: #### C BC #### [facility] [address] [place] [address] Dr. Daniel Dave IG # 0.03 10e3/ul Normal 0.00-0.03 [facility] Comment on above: Performed By: #### C BC #### [facility] [address] [place] [address] Dr. Daniel Dave IG % 0.4 % Normal 0.0-0.5 [facility] Comment on above: Performed By: #### C BC #### [facility] [address] [place] [address] Dr. Daniel Dave LYMPH # 1.7 103/ul Normal 1.2-3.8 [facility] Comment on above: Performed By: #### C BC #### [facility] [address] [place] [address] Dr. Daniel Dave Lymphocytes/100 WBC (Bld) 24.4 % Normal 20.5-60.0 [facility] Comment on above: Performed By: #### C BC #### [facility] [address] [place] [address] Dr. Daniel Dave MANUAL DIFF REQ NO Normal [facility] Comment on above: Performed By: #### C BC #### [facility] [address] [place] [address] Dr. Daniel Dave MCH (RBC) [Entitic mass] 29.2 pg Normal 26.7-34.0 [facility] Comment on above: Performed By: #### C BC #### [facility] [address] [place] [address] Dr. Daniel Dave MCHC (RBC) [Mass/Vol] 32.7 g/dL Normal 29.9-35.2 [facility] Comment on above: Performed By: #### C BC #### [facility] [address] [place] [address] Dr. Daniel Dave MCV (RBC) [Entitic vol] 89.5 fL Normal 81.0-99.0 [facility] Comment on above: Performed By: #### C BC #### [facility] [address] [place] [address] Dr. Daniel Dave MONO # 0.7 103/ul Normal 0.3-0.8 [facility] Comment on above: Performed By: #### C BC #### [facility] [address] [place] [address] Dr. Daniel Dave Monocytes/100 WBC (Bld) 9.7 % Normal 1.7-12.0 [facility] Comment on above: Performed By: #### C BC #### [facility] [address] [place] [address] Dr. Daniel Dave NEUT # 4.3 103/ul Normal 1.4-6.5 [facility] Comment on above: Performed By: #### C BC #### [facility] [address] [place] [address] Dr. Daniel Dave Neutrophils/100 WBC (Bld) 60.9 % Normal 43.0-75.0 [facility] Comment on above: Performed By: #### C BC #### [facility] [address] [place] [address] Dr. Daniel Dave Platelet mean volume (Bld) [Entitic vol] 8.4 fL Critically low 9.5-13.5 [facility] Comment on above: Performed By: #### C BC #### [facility] [address] [place] [address] Dr. Daniel Dave PLT 440 103/ul Normal 150-450 [facility] Comment on above: Performed By: #### C BC #### [facility] [address] [place] [address] Dr. Daniel Dave RBC 4.48 106/ul Normal 4.20-5.40 [facility] Comment on above: Performed By: #### C BC #### [facility] [address] [place] [address] [address] Daniel Dave WBC 7.1 103/ul Normal 4.0-11.0 [facility] Comment on above: Performed By: #### C BC #### [facility] [address] [place] [address] [address] Daniel Dave LIPID PROFILEon 10-06-2021 CHOL-HDL RATIO NORM SEE BELOW Normal [facility] Comment on above: Result Comment: 3.3 - 4.4 LOW RISK 4.4 - 7.1 AVERAGE RISK 7.1 - 11.0 MODERATE RISK >11.0 HIGH RISK Performed By: #### A LT, LIPID, AST, BMP #### [facility] [address] [place] [address] Dr. Daniel Dave Cholesterol [Mass/Vol] 115 mg/dL Normal <=200 Th [facility] Comment on above: Performed By: #### A LT, LIPID, AST, BMP #### [facility] [address] [place] [address] [address] Daniel Dave Cholesterol in HDL [Mass/Vol] 61 mg/dL Normal [facility] Comment on above: Performed By: #### A LT, LIPID, AST, BMP #### [facility] [address] [place] [address] Dr. Daniel Dave Cholesterol in LDL [Mass/Vol] 33.4 mg/dL Normal [facility] Comment on above: Performed By: #### A LT, LIPID, AST, BMP #### [facility] [address] [place] [address] [address] Daniel Dave Cholesterol.total/Марина sterol in HDL [Mass ratio] 1.9 {ratio} Normal [facility] Comment on above: Performed By: #### A LT, LIPID, AST, BMP #### [facility] [address] [place] [address] [address] Daniel Dave HDL NORMAL > or = 60 mg/dl - LO W CARDIOVASCULAR RISK <40 mg/dl - HIGH CARDIOVASCULAR RISK Normal [facility] Comment on above: Performed By: #### A LT, LIPID, AST, BMP #### [facility] [address] [place] [address] [address] Daniel Dave LDL CALC NORMAL SEE BELOW Normal [facility] Comment on above: Result Comment: <100 mg/dl OPTIMAL 100 - 129 mg/dl NEAR OR ABOVE OPTIMAL 130 - 159 mg/dl BORDERLINE HIGH 160 - 189 mg/dl HIGH >190 mg/dl VERY HIGH Performed By: #### A LT, LIPID, AST, BMP #### [facility] [address] [place] [address] [address] Daniel Dave Triglyceride [Mass/Vol] 103 mg/dL Normal <=150 [facility] Comment on above: Performed By: #### A LT, LIPID, AST, BMP #### [facility] [address] [place] [address] [address] Daniel Dave VLDL CALC 20.6 mg/dL Normal [facility] Comment on above: Performed By: #### A LT, LIPID, AST, BMP #### [facility] [address] [place] [address] [address] Daniel Dave PROF CHEM 8 (BAS METB)on Anion gap [Moles/Vol] 12.8 mmol/L Normal [facility] Comment on above: Performed By: #### A LT, LIPID, AST, BMP #### [facility] [address] [place] [address] [address] Daniel Dave Calcium [Mass/Vol] 9.2 mg/dL Normal 8.4-10.2 [facility] Comment on above: Performed By: #### A LT, LIPID, AST, BMP #### [facility] [address] [place] [address] [address] Daniel Dave Chloride [Moles/Vol] 103 mmol/L Normal 98-107 [facility] Comment on above: Performed By: #### A LT, LIPID, AST, BMP #### [facility] [address] [place] [address] [address] Daniel Dave CO2 [Moles/Vol] 30.5 mmol/L Critically high 22.0-30.0 [facility] Comment on above: Performed By: #### A LT, LIPID, AST, BMP #### [facility] [address] [place] [address] [address] Daniel Dave Creatinine [Mass/Vol] 0.93 mg/dL Normal 0.52-1.04 [facility] Comment on above: Performed By: #### A LT, LIPID, AST, BMP #### [facility] [address] [place] [address] Dr. Daniel Dave EGFR-AF SOU[place]OREAN >60 Normal >=60 [facility] Comment on above: Performed By: #### A LT, LIPID, AST, BMP #### [facility] [address] [place] [address] Dr. Daniel Dave EGFR-NON AF [place]ORE[place] >60 Normal >=60 [facility] Comment on above: Performed By: #### A LT, LIPID, AST, BMP #### [facility] [address] [place] [address] Dr. Daniel Dave Glucose [Mass/Vol] 118 mg/dL Critically high 74-106 [facility] Comment on above: Performed By: #### A LT, LIPID, AST, BMP #### [facility] [address] [place] [address] Dr. Daniel Dave Potassium [Moles/Vol] 4.3 mmol/L Normal 3.4-5.0 [facility] Comment on above: Performed By: #### A LT, LIPID, AST, BMP #### [facility] [address] [place] [address] Dr. Daniel Dave Sodium [Moles/Vol] 142 mmol/L Normal 137-145 [facility] Comment on above: Performed By: #### A LT, LIPID, AST, BMP #### [facility] [address] [place] [address] Dr. Daniel Dave Urea nitrogen [Mass/Vol] 22.0 mg/dL Critically high 7.0-17.0 [facility] Comment on above: Performed By: #### A LT, LIPID, AST, BMP #### [facility] [address] [place] [address] Dr. Daniel Dave Urea nitrogen/Creatinine [Mass ratio] 23.7 mg/mg Normal [facility] Comment on above: Performed By: #### A LT, LIPID, AST, BMP #### [facility] [address] [place] [address] [address] Daniel ALMARAZOTon 10-06-2021 AST [Catalytic activity/Vol] 15 U/L Normal 14-36 [facility] Comment on above: Performed By: #### A LT, LIPID, AST, BMP #### [facility] [address] [place] [address] [address] Daniel Dave SGPTon 10-06-2021 ALT [Catalytic activity/Vol] 36 U/L Normal 9-52 [facility] Comment on above: Performed By: #### A LT, LIPID, AST, BMP #### [facility] [address] [place] [address] Dr. Daniel Dave Tobacco Screening.on 022 Fall risk assessment a) No falls within the last year [facility] [address] [place] [address] Work Phone: Tobacco use status [facility] b) No M [facility] [place] [address] [place] Work Phone: ALT (SGPT)on 05-18-2017 Alanine aminotransferase (ALT) 24 U/L Normal 7-45 [facility] Comment on above: Performed By: #### 1 [id number] ####[facility] [address] [place] [address] AST (SGOT)on 05-18-2017 Aspartate aminotransferase (AST) 18 U/L Normal 13-39 [facility] Comment on above: Performed By: #### 1 [id number] ####[facility] [address] [place] [address] Creatinineon 05-18-2017 Creatinine 0.75 mg/dL Normal 0.50-1.05 [facility] Comment on above: Performed By: #### 1 [id number] ####[facility] [address] [place] [address] eGFR (MDRD) mL/min/{1.73_m2} Normal [facility] Comment on above: Result Comment: Inte rpretation for Chronic Kidney Disease:Stages 1&2 >60 Healthy or potential kidney damage.Mild decrease of GFR.Stage 3 30-59 Moderate decrease of GFR.Stage 4 15-29 Severe decrease of GFR.Stage 5 <15 Kidney failure or on dialysis. Performed By: #### 1 [id number] ####[facility] [address] [facility] [place] [address] Electrolyte Panelon 05-18-20 17 Anion gap 9 mmol/L Low 10-20 [facility] Comment on above: Performed By: #### 1 [id number] ####[facility] [address] [facility] [place] [address] Bicarbonate (HCO3) 30 mmol/L Normal 21-32 [facility] Comment on above: Performed By: #### 1 [id number] ####[facility] [address] [facility] [place] [address] Chloride 105 mmol/L Normal 98-107 [facility] Comment on above: Performed By: #### 1 [id number] ####[facility] [address] [facility] [place] [address] Potassium molar conc 4.2 mmol/L Normal 3.5-5.1 [facility] Comment on above: Performed By: #### 1 [id number] ####[facility] [address] [facility] [place] [address] Sodium 140 mmol/L Normal 136-145 [facility] Comment on above: Performed By: #### 1 [id number] ####[facility] [address] [facility] [place] [address] Lipid Panelon 05-18-2017 Cholesterol 207 mg/dL Abnormal <200 [facility] Comment on above: Performed By: #### 1 [id number] ####[facility] [address] [facility] [place] [address] Cholesterol in VLDL mass conc 37 mg/dL Abnormal <30 [facility] Comment on above: Performed By: #### 1 [id number] ####[facility] [address] [place] [address] Cholesterol to HDL Ratio 3.9 {ratio} Normal [facility] Comment on above: Performed By: #### 1 [id number] ####[facility] [address] [place] [address] HDL Cholesterol 53 mg/dL Normal [facility] Comment on above: Result Comment: Age Normal Mod Risk High Risk5-9 >46 38-46 <3810-14 >44 40-44 <4015-19 >42 38-42 <38Adult >49 Performed By: #### 1 [id number] ####[facility] [address] [place] [address] LDL Cholesterol 117 mg/dL Normal <130 [facility] Comment on above: Performed By: #### 1 [id number] ####[facility] [address] [place] [address] Triglyceride 184 mg/dL Abnormal <150 [facility] Comment on above: Result Comment: 150- 199 Borderline [id number] High>500 Very High Performed By: #### 1 [id number] ####[facility] [address] [place] [address] Urea Nitrogenon 05-18-2017 Urea nitrogen 16 mg/dL Normal 6-23 [facility] Comment on above: Performed By: #### 1 [id number] ####[facility] [address] [place] [address] Vital Signs Date Time Vital Sign Value Performing Clinician Facility 10-17-2024 09:56-0500 Body height 162.6 cm Willie Hall MD Work Phone: [facility] 10-17-2024 09:56-0500 Body mass index (BMI) [Ratio] 31.58 kg/m2 Willie Hall MD Work Phone: [facility] 10-17-2024 09:56-0500 Body weight 83.46 kg Willie Hall MD Work Phone: [facility] 10-17-2024 09:56-0500 Diastolic blood pressure 78 mm[Hg] Willie Hall MD Work Phone: [facility] 10-17-2024 09:56-0500 Heart rate 68 /min Willie Hall MD Work Phone: [facility] 10-17-2024 09:56-0500 Systolic blood pressure 122 mm[Hg] Willie Hall MD Work Phone: [facility] 07-16-2024 10:11-0500 Body height 161.9 cm Elias Hu DO Work Phone: [facility] 07-16-2024 10:11-0500 Body mass index (BMI) [Ratio] 30.97 kg/m2 Elias Hu DO Work Phone: [facility] 07-16-2024 10:11-0500 Body weight 81.19 kg Elias Hu DO Work Phone: [facility] 07-16-2024 10:11-0500 Diastolic blood pressure 78 mm[Hg] Elias Hu DO Work Phone: [facility] 07-16-2024 10:11-0500 Systolic blood pressure 140 mm[Hg] Elias Hu DO Work Phone: [facility] 05-15-2024 14:05-0400 Body height 162.6 cm Kate Ruel DO Work Phone: [facility] 05-15-2024 14:05-0400 Body mass index (BMI) [Ratio] 30.04 kg/m2 Kate Ruel DO Work Phone: [facility] 05-15-2024 14:05-0400 Body weight 79.38 kg Kate Ruel DO Work Phone: [facility] 05-15-2024 14:05-0400 Diastolic blood pressure 78 mm[Hg] Kate Ruel DO Work Phone: [facility] 05-15-2024 14:05-0400 Heart rate 64 /min Kate Ruel DO Work Phone: [facility] 05-15-2024 14:05-0400 SaO2% (BldA) [Mass fraction] 96 % Kate Ruel DO Work Phone: [facility] 05-15-2024 14:05-0400 Systolic blood pressure 124 mm[Hg] Kate Ruel DO Work Phone: [facility] 09-28-2023 14:48-0500 Diastolic blood pressure 82 mm[Hg] Willie Hall MD Work Phone: [facility] 09-28-2023 14:48-0500 Systolic blood pressure 136 mm[Hg] Willie Hall MD Work Phone: [facility] 09-28-2023 14:31-0500 Body height 162.6 cm Willie Hall MD Work Phone: [facility] 09-28-2023 14:31-0500 Body mass index (BMI) [Ratio] 32.79 kg/m2 Willie Hall MD Work Phone: [facility] 09-28-2023 14:31-0500 Body weight 86.64 kg Willie Hall MD Work Phone: [facility] 09-28-2023 14:31-0500 Heart rate 88 /min Willie Hall MD Work Phone: [facility] 08-02-2023 13:56-0500 Blood Pressure Location Dereck URENA [facility] [place] 08-02-2023 13:56-0500 Diastolic blood pressure 80 mm[Hg] Dereck URENA [facility] [place] 08-02-2023 13:56-0500 Heart rate 72 /min Dereck URENA [facility] [place] 08-02-2023 13:56-0500 Respiratory rate 16 /min Dereck URENA [facility] [place] 08-02-2023 13:56-0500 Systolic blood pressure 122 mm[Hg] Dereck URENA [facility] [place] 04-04-2023 09:35-0400 Body height 162.56 cm Ron M Hoy Work Phone: [facility] [address] DO Work Phone: 04-04-2023 09:35-0400 Body mass index (BMI) [Ratio] 34.12 kg/m2 Ron M Hoy Work Phone: [facility] [address] DO Work Phone: 04-04-2023 09:35-0400 Body surface area Derived from formula 1.95 m2 Ron M Hoy Work Phone: [facility] [address] DO Work Phone: 04-04-2023 09:35-0400 Body weight 90.18 kg Ron M Hoy Work Phone: [facility] [address] DO Work Phone: 04-04-2023 09:35-0400 Diastolic blood pressure 80 mm[Hg] Ron M Hoy Work Phone: [facility] [address] DO Work Phone: 04-04-2023 09:35-0400 Heart rate 66 /min Ron M Hoy Work Phone: [facility] [address] DO Work Phone: 04-04-2023 09:35-0400 Systolic blood pressure 106 mm[Hg] Ron M Hoy Work Phone: [facility] [address] DO Work Phone: 09-22-2022 10:18-0500 Body height 162.56 cm Ron M Hoy Work Phone: [facility] [address] DO Work Phone: 09-22-2022 10:18-0500 Body mass index (BMI) [Ratio] 33.82 kg/m2 Ron M Hoy Work Phone: [facility] [address] DO Work Phone: 09-22-2022 10:18-0500 Body surface area Derived from formula 1.94 m2 Ron M Hoy Work Phone: [facility] [address] DO Work Phone: 09-22-2022 10:18-0500 Body weight 89.36 kg Ron M Hoy Work Phone: [facility] [address] DO Work Phone: 09-22-2022 10:18-0500 Diastolic blood pressure 60 mm[Hg] Ron M Hoy Work Phone: [facility] [address] DO Work Phone: 09-22-2022 10:18-0500 Heart rate 76 /min Ron Jacinto Hoy Work Phone: [facility] [address] DO Work Phone: 09-22-2022 10:18-0500 Systolic blood pressure 116 mm[Hg] Ron Jacinto Hoy Work Phone: [facility] [address] DO Work Phone: 09-13-2022 09:15-0500 28.4 1 Ron M Hoy Work Phone: [facility] [address] DO Work Phone: Comment on above: [facility] 03-16-2022 11:29-0400 Body height 162.56 cm Ron Jacinto Hoy Work Phone: [facility] [address] DO Work Phone: 03-16-2022 11:29-0400 Body mass index (BMI) [Ratio] 33.64 kg/m2 Ron M Hoy Work Phone: [facility] [address] DO Work Phone: 03-16-2022 11:29-0400 Body surface area Derived from formula 1.94 m2 Ron M Hoy Work Phone: [facility] [address] DO Work Phone: 03-16-2022 11:29-0400 Body weight 88.91 kg Ron M Hoy Work Phone: [facility] [address] DO Work Phone: 03-16-2022 11:29-0400 Diastolic blood pressure 74 mm[Hg] Ron M Hoy Work Phone: [facility] [address] DO Work Phone: 03-16-2022 11:29-0400 Heart rate 84 /min Ron M Hoy Work Phone: [facility] [address] DO Work Phone: 03-16-2022 11:29-0400 Systolic blood pressure 129 mm[Hg] Ron M Hoy Work Phone: [facility] [address] DO Work Phone: 10-14-2021 08:50-0500 Diastolic blood pressure 71 mm[Hg] Ron M Hoy Work Phone: [facility] [address] DO Work Phone: 10-14-2021 08:50-0500 Systolic blood pressure 121 mm[Hg] Ron M Hoy Work Phone: [facility] [address] DO Work Phone: 10-14-2021 08:49-0500 Body height 162.56 cm Ron M Hoy Work Phone: [facility] [address] DO Work Phone: 10-14-2021 08:49-0500 Diastolic blood pressure 62 mm[Hg] Ron M Hoy Work Phone: [facility] [address] DO Work Phone: 10-14-2021 08:49-0500 Heart rate 81 /min Ron M Hoy Work Phone: [facility] [address] DO Work Phone: 10-14-2021 08:49-0500 Systolic blood pressure 122 mm[Hg] Ron Jacinto Hoy Work Phone: [facility] [address] DO Work Phone: 09-15-2021 10:40-0500 Diastolic blood pressure 90 mm[Hg] Ron M Hoy Work Phone: [facility] [address] DO Work Phone: 09-15-2021 10:40-0500 Systolic blood pressure 160 mm[Hg] Ron M Hoy Work Phone: [facility] [address] DO Work Phone: 09-15-2021 10:12-0500 Body height 162.56 cm Ron M Hoy Work Phone: [facility] [address] DO Work Phone: 09-15-2021 10:12-0500 Body mass index (BMI) [Ratio] 34.33 kg/m2 Ron M Hoy Work Phone: [facility] [address] DO Work Phone: 09-15-2021 10:12-0500 Body surface area Derived from formula 1.96 m2 Ron M Hoy Work Phone: [facility] [address] DO Work Phone: 09-15-2021 10:12-0500 Body weight 90.72 kg Ron M Hoy Work Phone: [facility] [address] DO Work Phone: 09-15-2021 10:12-0500 Diastolic blood pressure 71 mm[Hg] Ron M Hoy Work Phone: [facility] [address] DO Work Phone: 09-15-2021 10:12-0500 Heart rate 64 /min Ron Hernandez Work Phone: [facility] [address] DO Work Phone: 09-15-2021 10:12-0500 Systolic blood pressure 152 mm[Hg] Ron Hernandez Work Phone: [facility] [address] DO Work Phone: Encounters Encounter Date Encounter Type Care Provider Facility Start: 05-07-2025 End: 05-07-2025 Bamboo flowsbernie Hernandez DO Work Phone: [facility] Start: 05-07-2025 End: 05-07-2025 Bamboo flowsheet Jr. Obed Hernandez DO Work Phone: [facility] Start: 05-07-2025 End: 05-07-2025 Office outpatient visit 40 minutes Jr. Obed Hernandez DO Work Phone: [facility] Comment on above: Acute pain of left k nee (Primary Dx); Primary osteoarthritis of left knee Start: 05-07-2025 End: 05-07-2025 ambulatory OBED RODRIGUEZ Not Available Start: 04-24-2025 End: 04-24-2025 Patient encounter procedure Elias Barillas DO -[place] [facility] Work Phone: Start: 04-24-2025 End: 04-24-2025 ambulatory Ron Hernandez MD Work Phone: [facility] Work Phone: Start: 01-23-2025 End: 01-23-2025 Bamboo flowsheet Wolfgang VIZCAINO Work Phone: [facility] Start: 01-23-2025 End: 01-23-2025 Bamboo flowsheet Wolfgang VIZCAINO Work Phone: [facility] Start: 01-23-2025 End: 01-23-2025 Office outpatient visit 25 minutes Wolfgang VIZCAINO Work Phone: [facility] Comment on above: S/P TKR (total knee replacement), right (Primary Dx); Right knee pain, unspecified chronicity; Acute pain of left knee; Arthritis of left knee Start: 01-23-2025 End: 01-23-2025 ambulatory WOLFGANG Maria Esther MALLORY Not Available Start: 10-17-2024 End: 10-17-2024 Office outpatient visit 25 minutes Willie Hall MD Work Phone: [facility] Comment on above: Atherosclerosis of n ative coronary artery of chit[place] heart without angina pectoris (Primary Dx); S/P PTCA (percutaneous transluminal coronary angioplasty); Essential hypertension; Mixed hyperlipidemia; Cerebrovascular accident (CVA), unspecified mechanism (Multi); BMI 31.0-31.9,adult; Obesity, Class I, BMI 30-34.9 Start: 10-17-2024 End: 10-17-2024 ambulatory WILLIE Casey [facility] Start: 07-16-2024 End: 07-16-2024 Office outpatient visit 25 minutes Elias Hu DO Work Phone: [facility] Comment on above: Vaginal atrophy (Nikki cl Dx); Breast cancer screening by mammogram; Screening for osteoporosis; Asymptomatic menopausal state Start: 07-16-2024 End: 07-16-2024 ambulatory ELIAS HU Not Available Start: 05-15-2024 End: 05-15-2024 Bamboo flowsheet Kate Ruel DO Work Phone: [facility] Start: 05-15-2024 End: 05-15-2024 Bamboo flowsheet Kate Ruel DO Work Phone: [facility] Start: 05-15-2024 End: 05-15-2024 Office outpatient new 45 minutes Kate Ruel DO Work Phone: [facility] Comment on above: Hypersomnia (Primary Dx); JOSE (obstructive sleep apnea); Snoring Start: 05-07-2024 End: 05-07-2024 Telephone encounter Elias Hu DO Work Phone: [facility] Start: 04-22-2024 End: 04-22-2024 ambulatory MD Ron Hernandez Work Phone: [facility] Work Phone: Start: 04-22-2024 End: 04-22-2024 Patient encounter procedure MD Ron Hernandez Work Phone: [facility] Work Phone: Start: 03-07-2024 End: 03-07-2024 ambulatory WILLIE [facility] Amb[facility] Start: 11-24-2023 End: 11-24-2023 Orders Only Wolfgang VIZCAINO Work Phone: [facility] Comment on above: Encounter for other preprocedural examination Start: 11-24-2023 End: 11-24-2023 Patient encounter status Wolfgang VIZCAINO Work Phone: [facility] Start: 10-26-2023 Encounter for other preprocedural examination [facility] Start: 10-26-2023 End: 10-27-2023 ambulatory [facility] Start: 10-24-2023 Orders Only Wolfgang VIZCAINO Work Phone: [facility] Comment on above: Encounter for other preprocedural examination Start: 10-24-2023 Patient encounter status Roger VIZCAINO Work Phone: [facility] Start: 10-23-2023 Orders Only Wolfgang VIZCAINO Work Phone: [facility] Comment on above: Encounter for other preprocedural examination Start: 10-23-2023 Patient encounter status [facility]CAINO [facility] Start: 09-28-2023 End: 09-28-2023 Office outpatient visit 25 minutes Willie Hall MD Work Phone: [facility] Comment on above: Atherosclerosis of n ative coronary artery of chitina heart without angina pectoris (Primary Dx); Essential hypertension; Hyperlipidemia, unspecified hyperlipidemia type; S/P PTCA (percutaneous transluminal coronary angioplasty); Cerebrovascular accident (CVA), unspecified mechanism (CMS/HCC); Obesity, Class I, BMI 30-34.9 Start: 08-23-2023 End: 08-24-2023 ambulatory Dereck Streeter YAWTracie Facility:[id number] Start: 08-02-2023 End: 08-03-2023 ambulatory Dereck Streeter [facility] Facility:[facility] Start: 08-02-2023 End: 08-02-2023 Patient encounter procedure Dereck Streeter ROM[facility] General Surgery [facility] Start: 07-18-2023 ambulatory Dereck URENA Facility:[facility] Start: 04-18-2023 End: 04-18-2023 ambulatory MD Ron Hernandez Work Phone: [facility] Work Phone: Start: 04-18-2023 End: 04-18-2023 Patient encounter procedure MD Ron Hernandez Work Phone: [facility] Work Phone: Start: 04-04-2023 Office outpatient vi sit 25 minutes Ron Jacinto Hoy Work Phone: [facility] [address] DO Work Phone: Start: 04-04-[address] Willie Dickeyahim Facility: Start: 03-24-2023 Rx Renewal Ron Casey Hoy Work Phone: [facility] [address] DO Work Phone: Start: 03-11-2023 Rx Renewal Ron M Hoy Work Phone: [facility] [address] DO Work Phone: Start: 10-25-2022 Rx Renewal Ron M Hoy Work Phone: [facility] [address] DO Work Phone: Start: 09-22-2022 Office outpatient vi sit 25 minutes Ron Jacinto Hoy Work Phone: [facility] [address] DO Work Phone: Start: 09-22-[address] Willie Hall Facility:[id number] Start: 09-13-2022 End: 09-14-[address] WILLIE HALL Facility:H1 Start: 09-07-2022 Rx Renewal Ron Jacinto Hoy Work Phone: [facility] [address] DO Work Phone: Start: 06-30-2022 End: 07-01-2022 ambulatory CELINA COATES Facility:[facility] Start: 06-29-2022 Rx Renewal Ron M Hoy Work Phone: [facility] [address] DO Work Phone: Start: 06-01-2022 Telephone encounter Ron Casey Hoy Work Phone: [facility] [address] DO Work Phone: Start: 05-30-2022 Rx Renewal Ron Jacinto Hoy Work Phone: [facility] [address] DO Work Phone: Start: 05-18-2022 End: 05-19-[address] RON HERNANDEZ Facility:[facility]1 Start: 04-25-2022 End: 04-25-2022 Departed Referred MD Ron Hernandez Work Phone: [facility] [place] Start: 04-15-2022 End: 04-15-2022 Patient encounter procedure MD Ron Hernandez Work Phone: [facility] Start: 04-12-2022 End: 04-12-2022 Patient encounter procedure MD Ron Hernandez Work Phone: [facility] Start: 03-16-2022 Office outpatient vi sit 25 minutes Ron Casey Hoy Work Phone: [facility] [address] DO Work Phone: Start: 12-06-2021 Rx Renewal Ron Hernandez Work Phone: [facility] [address] DO Work Phone: Start: 10-25-2021 Rx Renewal Ron Hernandez Work Phone: [facility] [address] DO Work Phone: Start: 10-14-2021 Office outpatient vi sit 10 minutes Ron Hernandez Work Phone: [facility] [address] DO Work Phone: Start: 10-06-2021 End: 10-07-[address] RON HERNANDEZ Facility: Start: 09-15-2021 Office outpatient vi sit 25 minutes Ron Hernandez Work Phone: [facility] [address] DO Work Phone: Start: 07-22-2021 Rx Renewal Willie Hall MD Work Phone: [facility] [address] [place] Work Phone: Start: 07-19-2021 Rx Renewal Willie Hall MD Work Phone: [facility] [address] DO Work Phone: Start: 05-18-2017 Ambulatory WILLIE HALL Facility :[id number] Patient encounter status Ron Hernandez Work Phone: [facility] [address] DO Work Phone: Procedures Date Procedure Procedure Detail Performing Clinician Start: 05-07-2025 Radiologic examinati on knee 1/2 views Jr. Obed Hernandez DO Work Phone: Start: 04-24-2025 Dual energy X-ray absorptiometry Ron Hernandez MD Work Phone: Start: 04-24-2025 End: 04-24-2025 Screening mammography of bilateral breasts Ron Hernandez MD Work Phone: Start: 01-23-2025 Arthrocentesis aspir &/inj major jt/bursa w/o us Wolfgang VIZCAINO Work Phone: Start: 01-23-2025 Radiologic examinati on knee 1/2 views Wolfgang VIZCAINO Work Phone: Start: 04-22-2024 Screening mammograph y of bilateral breasts MD Ron Hernandez Work Phone: Start: 08-23-2023 Colonoscopy Willie marrero MD Work Phone: Start: 04-18-2023 Screening mammograph y of bilateral breasts MD Ron Hernandez Work Phone: Start: 04-15-2022 Screening mammograph y of bilateral breasts MD Ron Hernandez Work Phone: Start: 04-13-2021 Mammography Willie marrero MD Work Phone: Start: 08-14-2017 Placement of stent i n coronary artery Dereck URENA Angioplasty of blood vessel Dereck URENA Blepharoplasty Ron M Jaysonrolanda Work Phone: section Ron Casey Vinicio oy Work Phone: section Dereck Hodges Colonoscopy Dereck URENA Percutaneous translu erinn coronary angioplasty Ron Jacinto Jaysonrolanda Work Phone: Repair of tendo achilles Mark gene Jacinto Hernandez Work Phone: Repair of tendon Dereck Hodges Comment on above: left ankle Total colonoscopy Ron Hernandez Work Phone: Plan of Treatment Date Care Activity Detail Author Start: 08-23-2033 Screening for malignant neoplasm of colon [facility] Start: 12-14-2028 DTaP,Tdap and Td Vaccines (2 - Td or Tdap) DTaP,Tdap and Td Vaccines (2 - Td or Tdap) [facility] Start: 12-14-2028 DTaP/Tdap/Td Vaccines (2 - Td or Tdap) DTaP/Tdap/Td Vaccines (2 - Td or Tdap) [facility] Start: 04-24-2026 Screening for malignant neoplasm of breast Mammogram [facility] Start: 06-17-2025 End: 06-17-2025 Patient encounter procedure 06/17/2025 10:10 AM EST Office Visit [facility] [address] [place] [address] Willie Hall MD [address] [place] [address] [facility] Start: 06-16-2025 End: 06-16-2025 Patient encounter procedure 06/16/2025 10:30 AM EST Office Visit [facility] [address] [place] [id number] Sae Bojorquez, [employer] [address] [place] [address] [facility] Start: 05-07-2025 End: 05-07-2025 Patient encounter procedure 05/07/2025 9:00 AM EDT [facility] [address] [place] [id number] Jr. Obed Hernandez, DO [address] [facility] [address] [place] [address] Arrived [facility] Comment on above: Arrived Start: 04-23-2025 End: 04-23-2025 Patient encounter procedure 04/23/2025 10:15 AM EDT [facility] [address] [place] [phone] Jr. Obed Hernandez, DO [address] [place] [address] [facility] Start: 04-17-2025 End: 09-16-2025 DBT Breast - bilateral screening Bilateral screening mammogram with tomosynthesis Imaging Routine Breast cancer screening by mammogram Expected: 04/17/2025, Expires: 09/16/2025 [facility] Comment on above: Expected: 04/17/2025, Expires: Start: 04-14-2025 Influenza vaccination Influenza Vaccine (#1) [facility] Start: 01-23-2025 End: 01-23-2025 Patient encounter procedure [facility] Comment on above: S/P TKR (total knee replacement), right (Primary Dx); Right knee pain, unspecified chronicity Start: 10-17-2024 End: 10-17-2025 Alanine aminotransferase [Enzymatic activity/volume] in Serum or Plasma by With P-5'-P Alanine Aminotransferase Lab Routine Mixed hyperlipidemia Expected: 10/17/2024 (Approximate), Expires: 10/17/2025 [facility] Work Phone: Comment on above: Expected: 10/17/2024 (Approximate), Expi res: 10/17/2025 Start: 10-17-2024 End: 10-17-2025 Aspartate aminotransferase [Enzymatic activity/volume] in Serum or Plasma by With P-5'-P Aspartate Aminotransferase Lab Routine Mixed hyperlipidemia Expected: 10/17/2024 (Approximate), Expires: 10/17/2025 [facility] Work Phone: Comment on above: Expected: 10/17/2024 (Approximate), Expi res: 10/17/2025 Start: 10-17-2024 End: 10-17-2025 Basic metabolic 2000 panel - Serum or Plasma Basic Metabolic Panel Lab Routine Essential hypertension Expected: 10/17/2024 (Approximate), Expires: 10/17/2025 [facility] Service Area Work Phone: Comment on above: Expected: 10/17/2024 (Approximate), Expi res: 10/17/2025 Start: 10-17-2024 End: 10-17-2025 CBC panel - Blood by Automated count CBC Lab Routine Atherosclerosis of chitina coronary artery of chit[place] heart without angina pectoris S/P PTCA (percutaneous transluminal coronary angioplasty) Essential hypertension Mixed hyperlipidemia Cerebrovascular accident (CVA), unspecified mechanism (Multi) Expected: 10/17/2024 (Approximate), Expires: 10/17/2025 [facility] Work Phone: Comment on above: Expected: 10/17/2024 (Approximate), Expi res: 10/17/2025 Start: 10-17-2024 End: 10-17-2025 Lipid 1996 panel - Serum or Plasma Lipid Panel Lab Routine Mixed hyperlipidemia Expected: 10/17/2024 (Approximate), Expires: 10/17/2025 [facility] Work Phone: Comment on above: Expected: 10/17/2024 (Approximate), Expi res: 10/17/2025 Start: 07-16-2024 End: 07-16-2025 DXA Skeletal system Views for bone density DEXA bone density Imaging Routine Screening for osteoporosis Asymptomatic menopausal state Expected: 07/16/2024, Expires: 07/16/2025 [facility] Work Phone: Comment on above: Expected: 07/16/2024, Expires: Start: 07-16-2024 End: 07-16-2024 Patient encounter procedure 07/16/2024 10:00 AM EST Office Visit [facility] [address] [place] [id number] Elias Hu, DO [address] [place] [address] [facility] Start: 05-23-2024 ambulatory Ambulatory Facility:[id number] Start: 05-15-2024 End: 05-15-2024 Patient encounter procedure [facility] Comment on above: Arrived Start: 04-14-2024 COVID-19 Vaccine ( season) COVID-19 Vaccine ( season) [facility] Start: 04-14-2024 Influenza vaccination [facility] Start: 04-11-2024 End: 04-11-2024 Patient encounter procedure 04/11/2024 10:20 AM EDT Office Visit [facility] [address] [place] [address] Willie Hall MD [address] [place] [address] [facility] Start: 03-28-2024 End: 09-28-2024 Alanine aminotransferase [Enzymatic activity/volume] in Serum or Plasma by With P-5'-P Alanine Aminotransferase Lab Routine Atherosclerosis of chitina coronary artery of chitina heart without angina pectoris Hyperlipidemia, unspecified hyperlipidemia type Expected: 03/28/2024 (Approximate), Expires: 09/28/2024 [facility] Work Phone: Comment on above: Expected: 03/28/2024 (Approximate), Expi res: 09/28/2024 Start: 03-28-2024 End: 09-28-2024 Aspartate aminotransferase [Enzymatic activity/volume] in Serum or Plasma by With P-5'-P Aspartate Aminotransferase Lab Routine Atherosclerosis of chitina coronary artery of chitina heart without angina pectoris Hyperlipidemia, unspecified hyperlipidemia type Expected: 03/28/2024 (Approximate), Expires: 09/28/2024 [facility] Work Phone: Comment on above: Expected: 03/28/2024 (Approximate), Expi res: 09/28/2024 Start: 03-28-2024 End: 09-28-2024 Basic metabolic 2000 panel - Serum or Plasma Basic Metabolic Panel Lab Routine Atherosclerosis of chitina coronary artery of chitina heart without angina pectoris Essential hypertension Expected: 03/28/2024 (Approximate), Expires: 09/28/2024 [facility] Work Phone: Comment on above: Expected: 03/28/2024 (Approximate), Expi res: 09/28/2024 Start: 03-28-2024 End: 09-28-2024 CBC panel - Blood by Automated count CBC Lab Routine Atherosclerosis of chitina coronary artery of chitina heart without angina pectoris Expected: 03/28/2024 (Approximate), Expires: 09/28/2024 [facility] Work Phone: Comment on above: Expected: 03/28/2024 (Approximate), Expi res: 09/28/2024 Start: 03-28-2024 End: 09-28-2024 Lipid 1996 panel - Serum or Plasma Lipid Panel Lab Routine Atherosclerosis of chitina coronary artery of chitina heart without angina pectoris Hyperlipidemia, unspecified hyperlipidemia type Expected: 03/28/2024 (Approximate), Expires: 09/28/2024 [facility] Service Area Work Phone: Comment on above: Expected: 03/28/2024 (Approximate), Expi res: 09/28/2024 Start: 10-26-2023 End: 11-23-2024 Glucose dipstick, urine Glucose dipstick, urine Lab Routine Encounter for other preprocedural examination Expected: 10/26/2023, Expires: 11/23/2024 [facility] Work Phone: Comment on above: Expected: 10/26/2023, Expires: Start: 10-23-2023 End: 10-22-2024 aPTT in Blood by Coagulation assay APTT Lab Routine Encounter for other preprocedural examination Expected: 10/23/2023, Expires: 10/22/2024 [facility] Work Phone: Comment on above: Expected: 10/23/2023, Expires: Start: 10-23-2023 End: 10-23-2024 Bacteria identified in Urine by Culture [facility] Work Phone: Comment on above: Expected: 10/23/2023, Expires: Expected: 10/23/2023 , Expires: 10/23/2024 Start: 10-23-2023 End: 10-22-2024 CBC W Auto Differential panel - Blood CBC auto differential Lab Routine Encounter for other preprocedural examination Expected: 10/23/2023, Expires: 10/22/2024 [facility] Work Phone: Comment on above: Expected: 10/23/2023, Expires: Start: 10-23-2023 End: 10-22-2024 Comprehensive metabolic 2000 panel - Serum or Plasma Comprehensive metabolic panel Lab Routine Encounter for other preprocedural examination Expected: 10/23/2023, Expires: 10/22/2024 [facility] Work Phone: Comment on above: Expected: 10/23/2023, Expires: Start: 10-23-2023 End: 10-22-2024 Protime & INR Protime & INR Lab Routine Encounter for other preprocedural examination Expected: 10/23/2023, Expires: 10/22/2024 [facility] Work Phone: Comment on above: Expected: 10/23/2023, Expires: Start: 09-28-2023 FUV, Provider: Willie Hall, Status: Pen, Time: 10:10 AM FUV, Provider: Willie Hall, Status: Pen, Time: 10:10 [facility] Work Phone: Start: 06-16-2023 Administration of varicella zoster vaccine Zoster (Shingles) Vaccine (2 of 3) [facility] Start: 04-14-2023 COVID-19 Vaccine ( season) COVID-19 Vaccine ( season) [facility] Start: 04-14-2023 Influenza vaccination Influenza Vaccine [facility] Start: 04-04-2023 FUV, Provider: Willie Hall, Status: Pen, Time: 9:30 AM FUV, Provider: Willie Hall, Status: Pen, Time: 9:30 AM [facility] Work Phone: Start: 09-22-2022 FUV, Provider: Willie Hall, Status: Pen, Time: 10:10 AM FUV, Provider: Willie Hall, Status: Pen, Time: 10:10 AM [facility] Work Phone: Start: 04-15-2022 Screening mammography of bilateral breasts MM screening mammo BI w/CAD [facility] Start: 04-15-2022 End: 04-15-2022 Patient encounter procedure Departed Clinical [facility] Start: 04-13-2022 Screening for malignant neoplasm of breast Mammogram [facility] Start: 03-15-2022 FUV, Provider: Willie Hall, Status: Pen, Time: 10:50 AM FUV, Provider: Willie Hall, Status: Pen, Time: 10:50 AM -[facility] 250 DO Work Phone: Start: 10-14-2021 NURSEVST, Provider: MALCOLM DEL CID LOCKSMITH HELPER 1,[id number], Status: Pen, Time: 8:30 AM NURSEVST, Provider: MALCOLM DEL CID LOCKSMITH HELPER 1,[id number], Status: Pen, Time: 8:[address] [facility] 250 DO Work Phone: Start: 09-15-2021 FUV, Provider: Willie Hall, Status: Pen, Time: 10:00 AM FUV, Provider: Willie Hall, Status: Pen, Time: 10:00 AM -[facility] 250 DO Work Phone: Start: 02-02-2021 Fall Risk Screening Fall Risk Screening [facility] Start: 02-02-2021 Pneumococcal Vaccine: 65+ Years (1 of 1 - PCV) Pneumococcal Vaccine: 65+ Years (1 of 1 - PCV) [facility] Start: 2016 RSV High Risk: (Elderly (60+) or Population) (1 - Risk 60-74 years 1-dose series) RSV High Risk: (Elderly (60+) or Population) (1 - Risk 60-74 years 1-dose series) [facility] Start: 02-02-2006 Pneumococcal Vaccine: 65+ Years (1 of 1 - PCV) Pneumococcal Vaccine: 65+ Years (1 of 1 - PCV) [facility] Start: 02-02-1975 Pneumococcal vaccination Pneumococcal Vaccine (1 of 2 - PCV) [facility] Start: 02-02-1974 Adult BMI Screening Adult BMI Screening [facility] Start: 02-02-1974 Diabetes mellitus screening Diabetes Screening [facility] Start: 02-02-1974 Hepatitis C screening Hepatitis C Screening [facility] Start: 1968 Depression Screening Depression Screening [facility] Start: 1968 Tobacco Screening Tobacco Screening [facility] Start: 02-02-1962 Pneumococcal Vaccine: 65+ Years (1 - PCV) Pneumococcal Vaccine: 65+ Years (1 - PCV) [facility] Start: 1956 Lipid panel Lipid Panel [facility] Start: 1955 Medicare Annual Wellness Visit [facility] Start: 1955 Screening for malignant neoplasm of colon [facility] Start: 1956 Screening for osteoporosis Bone Density Scan [facility] Immunizations Immunization Date Immunization Notes Care Provider [facility] 06-03-2024 influenza, seasonal, injectable Willie Hall MD Work Phone: [facility] Work Phone: 06-03-2024 influenza virus vaccine, unspecified formulation Morrodarren DO Work Phone: [facility] 05-14-2024 Seasonal trivalent influenza vaccine, adjuvanted, preservative free Elias Hu DO Work Phone: [facility] 05-14-2024 influenza virus vaccine, unspecified formulation Kate Lipscomb DO Work Phone: [facility] 06-23-2023 zoster vaccine recombinant Elias Hu DO Work Phone: [facility] 05-20-2023 influenza virus vaccine, unspecified formulation Dereck URENA [facility] [place] 05-20-2023 Influenza, Seasonal, Quadrivalent, Adjuvanted Elias Hu DO Work Phone: [facility] 04-21-2023 zoster vaccine, unspecified formulation Wolfgang VIZCAINO Work Phone: [facility] 04-20-2023 zoster vaccine recombinant Elias Hu DO Work Phone: [facility] 06-23-2022 influenza virus vaccine, unspecified formulation Wolfgang VIZCAINO Work Phone: [facility] 06-21-2022 Moderna Bivalent Booster Vaccination Elias Hu DO Work Phone: [facility] 06-21-2022 Pfizer COVID-19 Vac Bivalent 30 MCG/0.3ML Intramuscular Suspension Ron Hernandez Work Phone: [facility] Comment on above: Result Comment: 2022: [id number] 06-21-2022 Pfizer Purple Cap SARS-CoV-2 Willie Hall MD Work Phone: [facility] Work Phone: 06-13-2022 influenza virus vaccine, unspecified formulation Willie Hall MD Work Phone: [facility] Work Phone: 06-13-2022 influenza, seasonal, injectable, preservative free Ron Hernandez [facility] DO Work Phone: 03-08-2022 Comirnaty 30 MCG/0.3 ML Intramuscular Suspension Ron Hernandez [facility] DO Work Phone: 03-08-2022 SARS-CoV-2 mRNA (zmgmckzjged-mscx-xcdxi se) vaccine Dereck URENA [facility] Comment on above: Result Comment: 2022: [id number] 03-08-2022 SARS-CoV-2, Unspecified Hamlet Hall MD Work Phone: [facility] Work Phone: 06-13-2021 seasonal influenza, intradermal, preservative free Elias Hu DO Work Phone: [facility] 05-21-2021 influenza virus vaccine, unspecified formulation Ron Hernandez Work Phone: [facility] 250 DO Work Phone: 05-21-2021 Pfizer-BioNTech COVID-19 Vacc 30 MCG/0.3ML Intramuscular Suspension Ron Jacinto Hoy Work Phone: [facility] Comment on above: Result Comment: 2022: [id number] 11-06-2020 Pfizer-BioNTech COVID-19 Vacc 30 MCG/0.3ML Intramuscular Suspension Ron M Hoy Work Phone: [facility] 10-16-2020 Pfizer-BioNTech COVID-19 Vacc 30 MCG/0.3ML Intramuscular Suspension Orn M Hoy Work Phone: [facility] 05-13-2020 influenza, injectabl e, quadrivalent, preservative free Ron M Hoy Work Phone: [facility] 250 DO Work Phone: 04-30-2020 influenza, injectabl e, quadrivalent, preservative free Ron M Hoy Work Phone: [facility] 250 DO Work Phone: 04-14-2020 influenza virus vaccine, unspecified formulation Ron M Hoy Work Phone: [facility] 250 DO Work Phone: 04-14-2020 influenza, seasonal, injectable Elias Hu DO Work Phone: [facility] 05-30-2019 influenza, injectabl e, quadrivalent, preservative free Ron M Hoy Work Phone: [facility] 250 DO Work Phone: 05-14-2019 influenza virus vaccine, unspecified formulation Ron M Hoy Work Phone: [facility] 250 DO Work Phone: 05-14-2019 influenza, seasonal, injectable, preservative free Elias Alfaroer DO Work Phone: [facility] 12-14-2018 tetanus toxoid, redu jed diphtheria toxoid, and acellular pertussis vaccine, adsorbed Ron M Hoy Work Phone: [facility] 04-18-2018 influenza, injectabl e, quadrivalent, preservative free Elias Hu DO Work Phone: [facility] 04-14-2018 influenza virus vaccine, unspecified formulation Ron M Hoy Work Phone: [facility] 250 DO Work Phone: 06-14-2017 influenza virus vaccine, unspecified formulation Ron M Hoy Work Phone: [facility] 250 DO Work Phone: 06-06-2017 Influenza, injectabl e, Madin [place] Canine Kidney, preservative free, quadrivalent Ron M Hoy [facility] DO Work Phone: 04-18-2017 influenza, seasonal, injectable, preservative free Ron M [facility]oy [facility] Work Phone: 06-10-2016 influenza, injectabl e, quadrivalent, preservative free Ron M Hoy [facility] Work Phone: 05-14-2016 influenza virus vaccine, unspecified formulation Ron M Hoy Work Phone: [facility] 250 DO Work Phone: 06-05-2015 influenza, seasonal, injectable, preservative free Ron M [facility]oy [facility] Work Phone: Payers Date Payer Category Payer Self-pay [id number] 2024 Medicare supplementa l policy (as second payer) AAR [id number] 2024 Private Health Insurance AARP [id number] 2024 Unknown [id number] 2023 Medicare (Managed Care) [facility] MEDICARE [id number] 2022 Private Health Insurance [id number] 2021 Medicare [id number] 2021 Unknown 2021 Medicare [id number] 1959 Medicare [id number] 1959 Private Health Insurance [id number] 1956 Unknown [id number] [id number] .593 1956 Unknown [id number] 2.16.840.1.190841.3.579.2 .593 1956 Unknown [id number] 2.16.840.1.546693.3.579.2 .593 1956 Unknown [id number] 2.16.840.1.908869.3.579.2 .593 1956 Unknown [id number] 2.16.840.1.640540.3.579.2 .356 1956 Unknown [id number] 2.16.840.1.604435.3.579.2 .356 1956 Unknown [id number] 2.16.840.1.934184.3.579.2 .727 1956 Unknown [id number] 2.16.840.1.818066.3.579.2 .727 1956 Unknown [id number] 2.16.840.1.616136.3.579.2 .727 1956 Unknown [id number] 2.16.840.1.268414.3.579.2 .1286 1956 Unknown [id number] 2.16.840.1.168174.3.579.2 .1286 1956 Unknown [id number] 2.16.840.1.942772.3.579.2 .1286 1956 Unknown [id number] 2.16.840.1.065701.3.579.2 .1244 1956 Unknown [id number] 2.16.840.1.211919.3.579.2 .1244 1956 Unknown [id number] 2.16.840.1.981258.3.579.2 .1259 1956 Unknown [id number] 2.16.840.1.399245.3.579.2 .1259 1956 Unknown [id number] 2.16.840.1.315845.3.579.2 .1259 1956 Unknown [id number] 2.16.840.1.822523.3.579.2 .1259 1956 Unknown [id number] 2.16.840.1.567186.3.579.2 .[address] [facility] [id number] Unknown [id number] Unknown [employer] BC/BS [id number] Unknown [id number] [id number] .531 Social History Date Type Detail Facility Start: 09-28-2023 End: 07-16-2024 Alcohol use Alcohol use [facility] 250 DO Work Phone: Start: 1955 Sex Assigned At Female [facility] Start: 02-06-2023 End: 08-02-2023 Tobacco smoking status Never smoked tobacco (finding) [facility] smoking status Never [facility] [place] Start: 09-28-2023 End: 07-16-2024 Sex Assigned At Female [facility] Start: 02-06-2023 End: 05-24-2023 Tobacco use and exposure Smokeless tobacco non-user [facility] Work Phone: Start: 09-28-2023 Alcohol intake Lifetime non-drinker (finding) [facility] Work Phone: Start: 11-18-2019 Gender identity Identifies as female gender (finding) [facility] Work Phone: Start: 11-18-2019 Sexual orientation Heterosexual (finding) [facility] Work Phone: Start: 09-18-2023 End: 10-17-2024 Exposure to SARS-CoV-2 (event) Not sure [facility] Start: 01-25-2024 End: 05-07-2025 Alcoholic beverage intake Ex-drinker (finding) [facility] How often to you hav e a drink containing alcohol? Never [facility] Start: 02-06-2023 Alcohol Comment One drink a month [facility] Start: 1955 Sex assigned at Not on file [facility] How often to you hav e a drink containing alcohol? Monthly or less [facility] How many standard drinks containing alcohol do you have on a typical day? 1 or 2 [facility] Start: 06-24-2021 Alcohol intake Not Asked [facility] How often to you hav e a drink containing alcohol? 2-4 times a month [facility] Start: 10-17-2024 Alcoholic beverage intake Current drinker of alcohol (finding) [facility] Work Phone: Start: 10-17-2024 Alcohol Comment once a month [facility] Work Phone: Tobacco smoking stat [facility] Unknown if ever smoked [facility] Work Phone: Sex Female (finding) [facility] Functional Status Date Assessment Result Facility 08-02-2023 Functional Status N/A General Denney mau Felix Clinical Notes 08-02-2023 to 05-07-2025 Jr. Obed Hernandez DO - 05/07/2025 9:00 AM CARRILLO Back - 01/23/2025 10:00 AM Jose Carlos Hall MD - 10/17/2024 9:40 AM ESTPatient InstructionsAttachmentsPatient Instructions Note Date & Type Note Facility 05-07-2025 History of Present illness Narrative Images from the original note were not included. HISTORY OF PRESENT ILLNESS: EST PT Danica Valencia is an 70 y.o. @ female. (EST PT) (LAST APPT W/ MESHA) - RECHECK (L) KNEE S/P CORTISONE INJ 01/23/25 (3 MONTHS, 13 DAYS) - HERE TO DISCUSS OPTIONS XRAY TODAY, 05/07/25 IN EPIC XRAY 04/05/21 IN EXA NO MRI NO MDP / PREDNISONE CORTISONE INJ 01/23/25 NO PT NO PAIN MGMT S/P CORTISONE INJ - SOME RELIEF. MEDIAL ANTERIOR DISCOMFORT - RADIATION INTO THIGH. DENIES SWELLING. DENIES STIFFNESS / WEAKNESS. DENIES N/T. GOOD ROM. ADMITS INSTABILITY / BUCKLING. ADMITS POPPING. DENIES GRINDING. DENIES WAKING HS. TYL PRN. DENIES ICING / HEATING / ELEVATING. ICY HOT. ALLERGIES: No Known Allergies HOME MEDICATIONS: Current Outpatient Medications Medication Instructions amoxicillin (Amoxil) 500 MG capsule Before dentist appts aspirin 81 MG EC tablet 2 times daily clopidogrel (PLAVIX) 75 mg, Oral, Daily RT coenzyme Q-10 10 MG capsule Every 24 hours Effexor XR 37.5 MG 24 hr capsule Orally lisinopril 10 MG tablet Daily PRN metoprolol succinate XL (Toprol-XL) 50 MG 24 hr tablet Daily PRN omeprazole (PriLOSEC) [address] capsule 1 capsule, Every 24 hours pravastatin (Pravachol) 20 MG tablet 1 tablet Orally ONCE A WEEK Repatha SureClick 140 MG/ML injection SEMAGLUTIDE-WEIGHT MANAGEMENT SC Buderer Zetia 10 MG tablet Every 24 hours PHYSICAL EXAM: Knee Musculoskeletal Exam Gait Antalgic: left Inspection Leg length disparity: no discrepancy Left Erythema: none Effusion: mild Edema: none Ecchymosis: none Deformity: none Alignment: varus Palpation Left Left knee palpation is unremarkable. Increased warmth: none Masses: none Crepitus: patellofemoral and medial Tenderness: present Medial joint line: moderate Patella: mild Range of Motion Left Left knee range of motion is normal and full. Active extension: 5 Passive extension: 5 Active flexion: 115 Passive flexion: 120 Strength Left Left knee strength is normal. Extension: 5/5. Extension is affected by pain. Flexion: 5/5. Flexion is affected by pain. Instability Left Instability signs: none - stable Anterior drawer: normal Neurovascular Left Left knee neurovascular exam is normal. Pulses - PT: normal Posterior tibial: 2+ Capillary refill: warm and well-perfused Special Signs Left Left knee special signs are normal. General Constitutional: appears stated age Labored breathing: no Psychiatric: normal mood and affect Neurological: alert Skin: intact Lymphadenopathy: none Vitals: There is no height or weight on file to calculate BMI. Tobacco Use: Low Risk (05/07/2025) Patient History Smoking Tobacco Use: Never Smokeless Tobacco Use: Never Passive Exposure: Not on file Alcohol Use: Unknown (07/16/2024) AUDIT-C Frequency of Alcohol Consumption: Monthly or less Average Number of Drinks: 1 or 2 Frequency of Binge Drinking: Not on file IMAGING: XR knee 1 or 2 views left Imaging Result: X-rays AP and lateral of left knee showed severe valgus deformity with [id number] articulation to the lateral joint line. There is flattening of the articular surfaces laterally to the tibia plateau and femoral condyle. There is marginal osteophytic formation and subchondral sclerosis noted laterally and to the patellofemoral joint. There is no evidence of fracture or dislocation. Bony structures viewed showed appropriate ossification. Impression: severe degenerative joint disease Tricompartmentally with valgus deformity Left knee Procedures Orders Placed This Encounter Procedures XR knee 1 or 2 views left Reason for exam:: Pain ASSESSMENT: ICD-10-CM 1. Acute pain of left knee M25.562 XR knee 1 or 2 views left 2. Primary osteoarthritis of left knee M17.12 PLAN: We have discussed her case with her at length including her symptoms physical exam response to the cortisone injection and today's x-rays. She is requesting a left total knee arthroplasty for valgus knee because she wants her left knee to feel as good as her right knee does. We'll see her back on the day of surgery for a left total knee arthroplasty. We have discussed both surgical and nonsurgical treatment options with the patient and the risks and benefits associated with both. The patient is requesting surgical intervention because the patient's symptoms were affecting the patient's activities of daily living and ability to sleep. The patient's symptoms were unresponsive to outpatient treatment options. After lengthy discussions involving but not limited to both surgical and nonsurgical treatment options the patient has requested surgical intervention and we will see them back on the day of surgery. The patient understands the risks of said treatment. We have discussed both surgical and nonsurgical treatment options with the patient at length and the risks and benefits associated with both. The patient is requesting surgical intervention because they have not responded to outpatient treatment options including but not limited to rest ice, and home exercise program. Pain and decreased range of motion are affecting the patient''s ability to sleep and activities of daily living and we have recommended surgical intervention. We recommended surgery in the form of a total knee arthroplasty. Factors including the patient's age and longevity of prosthesis, usual postoperative course, and possible need for revision in the future, and leg length inequality postoperatively were discussed at length. We have discussed with the patient that this is a major orthopedic procedure. We discussed that the patient may require more than the average 30 MED limited and may require greater than 7 days narcotic treatment postoperatively. Therefore, patient's narcotic usage will be tailored on an individual basis. If this patient at the time of surgery has any of the following: Morbidities including but not limited to history of falling, cognitive impairment, BMI greater than 30, end-stage renal disease, respiratory failure, heart failure, kidney failure, liver failure, diabetes, cardiac event in the last year, sleep apnea, disorder, excessive tobacco use, if at the time of surgery the patient is greater than 80 years old, or the patient requires discharge to a custodial facility, the patient may require to have additional inpatient hospital stay days following the surgery. Physical therapy is contraindicated in this patient''s case because of the [id number] articulation of the patient's knee.. Questions answered in laymen terms at the bedside. The diagnosis, home exercise plan and any ongoing restrictions/ recommendations reviewed. If unable to be reached in office, I recommend evaluation at nearest Emergency Room if any symptoms worsened or new symptoms develop for requiring urgent evaluation. documented in this encounter [facility] 01-23-2025 History of Present illness Narrative Associated Order(s): L Inj/Asp: L knee Post-Procedure Diagnose(s): Arthritis of left knee Images from the original note were not included. Orthopedic Office note: NAME: Danica Valencia : 1955 (EST PT) - YEARLY RECHECK S/P (R) TKA 11/09/23 (~1 YR, 2 MONTHS) ; ADMITS (L) KNEE DISCOMFORT ~2 YRS ; NKI XRAY (R) KNEE TODAY, 01/23/25 IN EPIC XRAYS, 12/22/23 IN EPIC FINISHED PT @[facility] (R) KNEE DOING WELL. SOME ANTERIOR DISCOMFORT AFTER PROLONGED ACTIVITY. DENIES SWELLING. ADMITS MIDLINE NUMBNESS ANTERIORLY. CONTINUES HEP / STAYING ACTIVE. GOOD ROM / STRENGTH. DENIES WEAKNESS. NO PAIN MEDS. DENIES ICING / HEATING / ELEVATING. (L) KNEE ADMITS ANTERIOR DISCOMFORT. DENIES SWELLING. GOOD ROM. NOTES CLICKING / SOME GRINDING. DENIES N/T. DENIES WEAKNESS / INSTABILITY / BUCKLING. NO PAIN MEDS. DENIES ICING / HEATING / TOPICALS. WEARS KNEE BRACE WITH RELIEF. TAKES PLAVIX ; H/O STROKE Knee Musculoskeletal Exam Gait Gait is normal. Antalgic: left Limp: left Inspection Leg length disparity: no discrepancy Right Erythema: none Effusion: none Edema: none Ecchymosis: none Deformity: none Alignment: normal Previous incision: anterolateral Incision: well-healed Left Erythema: none Effusion: mild Edema: none Ecchymosis: none Deformity: moderate Alignment: valgus Palpation Right Right knee palpation is unremarkable. Increased warmth: none Masses: none Tenderness: none Left Left knee palpation is unremarkable. Increased warmth: none Masses: none Crepitus: patellofemoral and lateral Tenderness: present Lateral joint line: moderate Patella: mild Range of Motion Right Right knee range of motion is normal and full. Active extension: 0 Passive extension: 0 Active flexion: 120 Passive flexion: 120 Left Left knee range of motion is normal and full. Active extension: 5 Passive extension: 5 Active flexion: 115 Passive flexion: 115 Strength Right Right knee strength is normal. Extension: 5/5. Flexion: 5/5. Left Left knee strength is normal. Extension: 5/5. Extension is affected by pain. Flexion: 5/5. Flexion is affected by pain. Instability Right Instability signs: none - stable Varus stress grade: normal Valgus stress grade: normal Left Instability signs: none - stable Varus stress grade: 1+ Valgus stress grade: 1+ Anterior drawer: normal Neurovascular Right Right knee neurovascular exam is normal. Pulses - PT: normal Posterior tibial: 2+ Capillary refill: warm and well-perfused Left Left knee neurovascular exam is normal. Pulses - PT: normal Posterior tibial: 2+ Capillary refill: warm and well-perfused Special Signs Right Right knee special signs are normal. Patellar apprehension: none Left Left knee special signs are normal. General Constitutional: appears stated age Labored breathing: no Psychiatric: normal mood and affect Neurological: alert Skin: intact Lymphadenopathy: none Orders Placed This Encounter Procedures L Inj/Asp This order was created via procedure documentation XR knee 1 or 2 views right Reason for exam:: Post-op L Inj/Asp: L knee on 01/23/2025 10:38 AM Indications: pain Details: 22 G needle, anterolateral approach Medications: 40 mg methylPREDNISolone acetate 40 MG/ML Outcome: tolerated well, no immediate complications UTILIZING ASEPTIC TECHNIQUE PT GIVEN INJECTION IN LEFT KNEE, NEUROVASC INTACT S/P INJ, TOLERATED WELL Procedure, treatment alternatives, risks and benefits explained, specific risks discussed. Consent was given by the patient. Results ICD-10-CM 1. S/P TKR (total knee replacement), right Z96.651 XR knee 1 or 2 views right 2. Right knee pain, unspecified chronicity M25.561 3. Acute pain of left knee M25.562 CANCELED: XR knee 1 or 2 views left 4. Arthritis of left knee M17.12 F/U Dr. Hernandez s/p Left knee injection to discuss need for possible: (L) TKA Surgical and non surgical tx options discussed with conservative measures reviewed. Recommend ICE/ ELEVATION, continued activity modification in interim. Pt would consider surgical intervention to possibly improve symptoms. Assessment & Plan Right knee pain, status post right knee replacement. She reports no pain in the right knee and is very happy with the outcome of the replacement. X-rays were discussed and reviewed at the bedside. She does have significant arthritis in her left knee with valgus alignment. Patient notes that since her right knee is doing so well, she would like to discuss potential surgical intervention on the left but would like to wait for her family member to get their knee replaced first. Treatment plan: She is agreeable to an injection today as she would not consider surgery in the next 3 months. She will focus on wearing a compressive wrap when she is on uneven ground or up for more than 10 minutes for stability. Patient is on Plavix and can not do NSAIDs, but takes Tylenol occasionally for pain. Clinical decision making: She was thankful for time spent at bedside and meet with attending in 3 months to discuss surgical timing pending reevaluation. Follow-up: Meet with attending in 3 months to discuss surgical timing pending reevaluation. PROCEDURE Procedure Performed Right knee replacement We discussed AAOS guidashok for initial treatment of symptomatic osteoarthritis: We have recommended Self-Management programs for strengthening, low-impact aerobic exercises, and physical activity maintenance and modifications to symptom tolerance. Questions answered in laymen terms at the bedside. The diagnosis, home exercise plan and any ongoing restrictions/ recommendations reviewed. If unable to be reached in office, I recommend evaluation at nearest Emergency Room if any symptoms worsened or new symptoms develop for requiring urgent evaluation. Visit was preformed using Volve speech recognition. documented in this encounter [facility] 10-17-2024 History of Present illness Narrative Subjective Danica Valencia is a 69 y.o. female Chief Complaint Follow-up HPI Patient is in the office for follow-up for CAD and previous PCI involving the RCA and the left circumflex in 2017. She has combined dyslipidemia which has been under excellent control on combination therapy with PCSK9 inhibitors statin and ezetimibe. She reports no symptoms of chest pain dyspnea orthopnea or palpitations. Her weight is up nearly 10 pounds from last visit something that she is aware of and she is making the effort to bring it under control. Recent lab data which were available for my review were discussed with the patient and her numbers are on target. Physical examination only remarkable for class I obesity. Patient has no side effect of medications and maintains highly motivated conditions and active lifestyle. She is contemplating knee surgery and the course of this year. ASSESSMENT AND PLAN: 1. Coronary artery disease, status post angioplasty in 2017. This involved the left circumflex and the right coronary artery. Presently stable with no changes needed and no cardiac investigations are necessary. 2. Essential hypertension, currently under control. Renal function is normal, 3. Class I obesity. Patient has gained more than 10 pounds since last visit and she is aware of this fact and she is making the effort to bring her weight under control especially in view of her need for knee surgery this year. 4. Hyperlipidemia, currently on a combination of Repatha, Zetia and pravastatin [once weekly]. All of which have been well-tolerated. Lipid profile from recently was excellent, the results were shared with the patient 5. History of stroke back in August 2019 mostly in the form of slurred speech which resolved. Continue dual antiplatelet therapy which has been well-tolerated. Review of Systems All other systems reviewed and are negative. Vitals: 10/17/24 0956 BP: 122/78 BP Location: Left arm Patient Position: Sitting Pulse: 68 Weight: 83.5 kg (184 lb) Height: 1.626 m (5' 4 ) Objective Physical Exam Constitutional: Appearance: Normal appearance. HENT: Nose: Nose normal. Neck: Vascular: No carotid bruit. Cardiovascular: Rate and Rhythm: Normal rate. Pulses: Normal pulses. Heart sounds: Normal heart sounds. Pulmonary: Effort: Pulmonary effort is normal. Abdominal: General: Bowel sounds are normal. Palpations: Abdomen is soft. Musculoskeletal: General: Normal range of motion. Cervical [...] by mouth once daily., Disp: , Rfl: cholecalciferol (Vitamin D-3) 5,000 Units tablet, Take 1 tablet (5,000 Units) by mouth once daily., Disp: , Rfl: clopidogrel (Plavix) 75 mg tablet, TAKE 1 TABLET BY MOUTH DAILY, Disp: 90 tablet, Rfl: 3 coenzyme Q-10 10 mg capsule, Take 1 capsule (10 mg) by mouth once daily., Disp: , Rfl: cyanocobalamin (Vitamin B-12) 1,000 mcg tablet, Take 1 tablet (1,000 mcg) by mouth once daily., Disp: , Rfl: evolocumab (Repatha SureClick) 140 mg/mL injection, Inject 1 mL (140 mg) under the skin every 14 (fourteen) days., Disp: 6 mL, Rfl: 3 ezetimibe (Zetia) 10 mg tablet, TAKE 1 TABLET BY MOUTH AT BEDTIME, Disp: 90 tablet, Rfl: 3 iron polysaccharides (Nu-Iron,Niferex) 150 mg iron capsule, Take 1 capsule (150 mg) by mouth once daily., Disp: , Rfl: lisinopril 10 mg tablet, TAKE 1 TABLET BY MOUTH DAILY, Disp: 90 tablet, Rfl: 3 metoprolol succinate XL (Toprol-XL) 50 mg 24 hr tablet, TAKE 1 TABLET BY MOUTH DAILY, Disp: 90 tablet, Rfl: 3 nitroglycerin (Nitrostat) 0.4 mg SL tablet, Place 1 tablet (0.4 mg) under the tongue every 5 minutes if needed for chest pain. May repeat dose every 5 minutes for up to 3 doses total., Disp: 25 tablet, Rfl: 11 omeprazole (PriLOSEC) [address] capsule, Take 1 capsule (40 mg) by mouth once daily., Disp: , Rfl: pravastatin (Pravachol) 20 mg tablet, TAKE 1 TABLET BY MOUTH WEEKLY, Disp: 12 tablet, Rfl: 3 venlafaxine XR (Effexor-XR) 37.5 mg 24 hr capsule, Take 1 capsule (37.5 mg) by mouth once daily., Disp: , Rfl: Assessment/Plan 1. Atherosclerosis of [place] coronary artery of [place] heart without angina pectoris Follow Up In Cardiology Follow Up In Cardiology CBC CBC 2. S/P PTCA (percutaneous transluminal coronary angioplasty) CBC CBC 3. Essential hypertension Basic Metabolic Panel CBC Basic Metabolic Panel CBC 4. Mixed hyperlipidemia CBC Alanine Aminotransferase Aspartate Aminotransferase Lipid Panel CBC Alanine Aminotransferase Aspartate Aminotransferase Lipid Panel 5. Cerebrovascular accident (CVA), unspecified mechanism (Multi) CBC CBC 6. BMI 31.0-31.9,adult Scribe Attestation By signing my name below, IKavitha LPN, Scribe attest that this documentation has been prepared under the direction and in the presence of Willie Hall MD. Provider Attestation - Scribe documentation All medical record entries made by the Scribe were at my direction and personally dictated by me. I have reviewed the chart and agree that the record accurately reflects my personal performance of the history, physical exam, discussion and plan. documented in this encounter [facility] Work Phone: 10-17-2024 Instructions Kavitha Nieves LPN - 10/17/2024 9:40 AM EST Please bring all medicines, vitamins, and herbal supplements with you when you come to the office. Prescriptions will not be filled unless you are compliant with your follow up appointments or have a follow up appointment scheduled as per instruction of your physician. Refills should be requested at the time of your visit. Fall Prevention Education Given. BMI was above normal measurement. Current weight: 83.5 kg (184 lb) Weight change since last visit (-) denotes wt loss 11.8 lbs Weight loss needed to achieve BMI 25: 38.7 Lbs Weight loss needed to achieve BMI 30: 9.6 Lbs Provided instructions on dietary changes. The following attachments cannot be sent through Care Everywhere.Heart Healthy Diet (Bulgarian)documented in this encounter [facility] Work Phone: 07-16-2024 History of Present illness Narrative Images from the original note were not included. Elias Hu, DO Obstetrics and Gynecology Danica Valencia 1955 07/16/24 [id number] Yearly Wellness Exam Chief Complaint Patient presents with Gynecologic Exam Medicare off year. LMP: 2009 HRT: None Last pap 02-06-23 neg. Last mammogram 04-22-24 [facility]. Prefers self referral. Denies breast, urinary, or bowel concerns. Visit Vitals BP 140/78 Ht 5' 3.75 Wt 179 lb BMI 30.97 kg/m OB Status Postmenopausal Smoking Status Never BSA 1.91 m OB History Para Term AB Living 1 1 1 SAB IAB Ectopic Multiple Live Births 1 # Outcome Date GA Lbr Reji/2nd Weight Sex Type Anes PTL Lv 1 Para 6 lb 15 oz F CS-LTranv ADRIENNE Current Outpatient Medications Medication Sig Dispense Refill amoxicillin (Amoxil) 500 MG capsule Before dentist appts SEMAGLUTIDE-WEIGHT MANAGEMENT SC Buderer aspirin 81 MG EC tablet 2 (two) times a day clopidogrel (Plavix) 75 MG tablet Take 75 mg by mouth in the morning. coenzyme Q-10 10 MG capsule 1 (one) time each day at the same time. Effexor XR 37.5 MG 24 hr capsule Orally lisinopril 10 MG tablet Daily as needed metoprolol succinate XL (Toprol-XL) 50 MG 24 hr tablet Daily as needed omeprazole (PriLOSEC) [address] capsule 1 capsule 1 (one) time each day at the same time. pravastatin (Pravachol) 20 MG tablet 1 tablet Orally ONCE A WEEK Repatha SureClick 140 MG/ML injection Zetia 10 MG tablet 1 (one) time each day at the same time. No current facility-administered medications for this visit. No Known Allergies Past Surgical History: Procedure Laterality Date ACHILLES TENDON SURGERY Left x2 CARDIAC SURGERY 08/2016 stents SECTION, LOW TRANSVERSE 11/25/1991 CHEILECTOMY Right 07/03/2015 1st [facility] TOTAL KNEE ARTHROPLASTY Right 11/09/2023 DR HERNANDEZ WISDOM TOOTH EXTRACTION Past Medical History: Diagnosis Date Fibrocystic breast Fibroid Hypertension ([facility]/HCC) Stroke ([facility]) ROS Const: Denies appetite change, fever, chills. Allergy: Denies medication reaction. Ocular: Denies visual acuity change. ENT: Denies hearing change. Endoc: Denies weight loss. Resp: Denies dyspnoea, wheezing. Cardiac: Denies angina, palpitations. GI: Denies nausea, vomiting. Haem: Denies bleeding. : Denies incontinence. MSK: Denies arthralgias, joint oedema. Derm: Denies rash, hair loss. Neuro: Denies ataxia, tremor. Also see HPI for elements of ROS documented therein and for details of positive findings, which shall supersede the foregoing. EXAM GENERAL EXAMINATION alert oriented well developed, well nourished. HEAD: normocephalic atraumatic. EYES: sclera anicteric. EARS: no obvious hearing deficit. NECK/THYROID: neck supple no cervical lymphadenopathy no thyromegaly. LYMPH NODES: no axillary, supraclavicular or inguinal adenopathy. SKIN: warm and dry. HEART: regular rate and rhythm. LUNGS: clear to auscultation bilaterally. CHEST:axillary nodes grossly normal. BREASTS:no masses palpable bilaterally, normal nipples bilaterally - everted -fatty replaced - dense - well supported- axilla negative. ABDOMEN: soft, nontender, nondistended, no masses palpable. BACK: no costovertebral angle tenderness, no obvious scoliosis/kyphosis. FEMALE GENITOURINARY:lokie engineer in room -mild atrophic vaginal mucosa - 1-2mm os cervix absent of lesions - nontender, uterus straight RV - atrophic mobile - ovaries nonpalpable and nontender - cul-de-sac negative - gr. 1 pelvic prolapse -stenotic RECTAL:normal tone , no masses palpable , only small external hemorrhoids. EXTREMITIES no edema. NEUROLOGIC: alert and oriented. PSYCH: cooperative with exam. ICD-10-CM 1. Vaginal atrophy N95.2 Pelvic and breast exam completed. Findings of today's exam discussed with the patient. Continue MSBE. Ca/Vit D recommendations reviewed with the patient. The patient is to contact the office with any changes to her gynecological condition or any changes with breast or bleeding. The patient is to return in 1 year or as needed 2. Breast cancer screening by mammogram Z12.31 Completed in April. Many years since DEXA, sent as well. She voiced is on a weight loss journey, has lost 30 lbs on semiglutide. Entered by Charley Guerra MA acting as scribe for Dr. Elias Hu. Signature Charley Guerra MA Date 07/16/24 . Time 10:27 AM . The documentation recorded by the scribe accurately reflects the service(s) I personally performed and the decisions I made. Signature Jordi Hu D.O. Date 07/16/24 Time 5:00PM. documented in this encounter [facility] 05-15-2024 History of Present illness Narrative Images from the original note were not included. Chief Complaint Patient presents with Sleep Apnea Subjective Danica Valencia, 69 y.o., female being seen in Sleep Consultation. She went on vacation with her sister and friend and she was snoring and they told her she stopped breathing. HPI Sleep ND She states that she is wearing her machine every night. She states that she does not like the mask that she has. She has not contacted the company about truing different masks. She does not like the silicon. She does not need any supplies. She states that she has a hard time sleeping on her side while wearing the machine. It is causing neck pain. She is going to bed at 11pm and is sleeping 8 hours depending on when her dogs wake her up. Patient Symptoms Snores: Yes Wakes gasping for breath: No Dozes off if inactive: No Dozes off with activity: No Wakes a lot through the night: No Witnessed episodes of apnea: Yes Is sleep restful or restorative: Yes Bedtime: 11 pm Is it hard or easy to fall asleep: Easy Wake time: 7-8 am not rested Takes naps: Depends Feels better after napping: Yes Sleepwalk: No Sleeptalk: No Vivid Dreams: No Acts out dreams: No Sleep related hallucinations: No Sleep paralysis: No Cataplexy: No Restless Leg: No Kicking/Jerking at night: No TV on while sleeping: Yes Smoke before bed: No Caffeine within 3 hours before bed: Yes Past Medical History: Diagnosis Date Fibrocystic breast Fibroid Hypertension (CMS/HCC) Stroke (CMS/HCC) -2018 Past Surgical History: Procedure Laterality Date ACHILLES TENDON SURGERY Left x2 SECTION, LOW TRANSVERSE 11-25-1991 CHEILECTOMY Right 07/03/[address] [place] [address] OTHER SURGICAL HISTORY heart stints 08/2016 TOTAL KNEE ARTHROPLASTY Right 11/09/2023 DR HERNANDEZ WISDOM TOOTH EXTRACTION Family History Problem Relation Name Age of Onset Cancer Mother Kylah Sanchez Social History Tobacco Use Smoking status: Never Smokeless tobacco: Never Substance Use Topics Alcohol use: Not Currently Comment: One drink a month Allergies: Patient has no known allergies. General: No fever or chills HEENT: No nasal congestion or runny nose Pulmonary: No shortness of breath or cough Cardiovascular: No chest pain or palpitations GI: No nausea or vomiting : No dysuria or hematuria Musculoskeletal: No new aches or pains or muscle weakness Infectious: no recurrent fevers or infections Dermatologic: No rashes or skin lesions Neurologic: No new headaches or dizziness Vitals: 05/15/24 1405 BP: 124/78 Pulse: 64 SpO2: 96% Body mass index is 30.04 kg/m . weight: 175 lb Neurologic exam: General: Normal body habitus, cooperative, pleasant Mental status: Awake, alert to person, place and time. Recent and remote memory are intact. Attention and concentration are normal. Fund of knowledge is appropriate for level of education. HEENT: NC/AT Cranial nerves: CN II: Visual mahoney full to confrontation. No loss of vision CN III, IV, : pupils equal round and reactive to light. Extraocular movements intact. No ptosis present. CN V: Facial sensation is normal. CN VII: Full and symmetric facial movement. CN VIII: Hearing is normal CN IX and X: Palate elevates symmetrically. CN XI: Shoulder shrug is normal bilaterally. CN XII: Tongue is midline without atrophy or fasciculation. Speech: Clear and fluent no aphasia or dysarthria Pronator drift: Negative bilateral upper extremity Coordination: Intact, no signs of dysmetria Good finger to nose and rapid alternating movements Sensory: Sensation is intact to light, temperature and vibratory touch throughout four extremities. Motor: LUE 5/5 RUE 5/5 LLE 5/5 RLE 5/5 Tone: Physiologic, no tremor, bradykinesia or rigidity DTR: Bilateral Biceps 2/4 Bilateral BR 2/4 left Patellar 2/4, right 1/4 No spasticity Gait: Normal to casual gait Romberg's Negative Review and summary of old records: Assessment/Plan Diagnoses and all orders for this visit: Hypersomnia JOSE (obstructive sleep apnea) Snoring 69-year-old female with a severe obstructive sleep apnea with an apnea-hypopnea index of 45 and an oxygen desaturation / hypoxia down to 74 percent. This is leading to daytime hypersomnolence and snoring. She is compliant with her machine she is using it 90 percent of the time was 70 percent of the time greater than 4 hours average nightly usage of 4 hours and 15 minutes and residual AHI of 9.4. She does have some difficulty with the mask as she likes to sleep on her side and the pillow dislodging the mask. She would benefit from a sleep apnea pillow. In addition she was sent a silicone mask however she used a foam mask at the sleep Clinic which she likes better. Apparently the foam mask has magnets on it and she has heart stents so she can not have that mask. She would like to try to find a different mask that has foam padding instead of silicone. She can work with [facility] at trying to find the appropriate mask. Overall she is getting a great benefit. She is not as sleepy as she was. She is not needing the naps that she was previously. She is feeling much more rested during the day and not waking up as much at night. Plan Patient's PSG was reviewed with her Patient's BiPAP titration was reviewed with her and she is at 18/14 cm water Patient's [place] Sleepiness scale is a 4 Patient needs to get the mask on more and I am hopeful that if she gets the new foam mask and a CPAP pillow that this will make a big difference for her. We did briefly discuss the inspire. She is going to try the CPAP pillow and the foam mask 1st we will see her back in 6 months see how she is doing and then we can make a better determination whether she would like to explore the inspire The patient was counseled on proper sleep hygiene and adequate hours of sleep. The patient was counseled on the risks of stroke, UT, and sudden with JOSE, along with the need for compliance with the CPAP/BiPAP treatment. The diagnosis was all discussed with the patient. All questions were answered and they agreed with the treatment plan. Patient will call if there are any new issues or questions. Pt has been fully educated on their diagnosis, treatment options, follow up plan, and return instructions Return to clinic: 6 months documented in this encounter [facility] 05-07-2024 Telephone encounter Note Pt LVM request to know when her next appt was scheduled for, called pt back and lvm informing her we don't have any future appts scheduled but if she would like to schedule we could look at dates for her [facility] 05-07-2024 Miscellaneous Notes Pt LVM request to know when her next appt was scheduled for, called pt back and lvm informing her we don't have any future appts scheduled but if she would like to schedule we could look at dates for her documented in this encounter [facility] [facility] History of Present illness Narrative Frandy [...] which has been well-tolerated. Willie Hall MD, [facility] Review of Systems All other systems [...] tablet, Rfl: 11 Assessment/Plan 1. Atherosclerosis of chitina coronary artery of chitina heart without angina pectoris Follow Up In [...] Willie Hall MD. documented in this encounter [facility] Work Phone: 09-28-2023 Instructions Violteta Villareal LPN - 09/28/2023 2:30 PM EST [...] of your visit. documented in this encounter [facility] Work Phone: 08-02-2023 Note Chief Complaint consultation [...] Mother. Primary mal (more content not included)... [facility] Comment on above: Result Comment: Elec tronically Signed By: ROMEL MOORE, Dereck Chauhan.payal\Date and Time Signed: 08/02/23 14:32 EST Evaluation + Plan note No data available for this section General Surgery [place] Evaluation note No assessment inform ation available [facility] Work Phone: Evaluation note Diagnosis Atherosclerosis of chitina coronary artery of chitina heart without angina pectoris- Primary Essential hypertension Unspecified essential hypertension Hyperlipidemia, unspecified hyperlipidemia type S/P PTCA (percutaneous transluminal coronary angioplasty) Postsurgical percutaneous transluminal coronary angioplasty status Cerebrovascular accident (CVA), unspecified mechanism (CMS/HCC) Obesity, Class I, BMI 30-34.9 documented in this encounter [facility] Work Phone: Evaluation note* Diagnosis Hypersomnia- Primary Hypersomnia, unspecified JOSE (obstructive sleep apnea) Obstructive sleep apnea (adult) (pediatric) Snoring Other dyspnea and respiratory abnormality documented in this encounter [facility] HealthcareEvaluation [facility]* Diagnosis Vaginal atrophy- Primary Postmenopausal atrophic vaginitis Breast cancer screening by mammogram Screening for osteoporosis Special screening for osteoporosis Asymptomatic menopausal state documented in this encounter [facility] HealthcareEvaluation note* Diagnosis Encounter for other preprocedural examination [facility] Diagnosis Atherosclerosis of chitina coronary artery of chitina heart without angina pectoris- Primary S/P PTCA (percutaneous transluminal coronary angioplasty) Postsurgical percutaneous transluminal coronary angioplasty status Essential hypertension Unspecified essential hypertension Mixed hyperlipidemia Cerebrovascular accident (CVA), unspecified mechanism (Multi) BMI 31.0-31.9,adult Obesity, Class I, BMI 30-34.9 documented in this encounter [facility] Work Phone: Evaluation note* Diagnosis S/P TKR (total knee replacement), right- Primary Right knee pain, unspecified chronicity Acute pain of left knee Arthritis of left knee documented in this encounter [facility] HealthcareEvaluation note* Diagnosis Acute pain of left knee- Primary Primary osteoarthritis of left knee documented in this encounter [facility] HealthcareHospital Discharge instructions No data available for this section General Surgery [place] InstructionsNot on filedocumented in this encounter [facility] No data available for this section General Surgery [place] Reason for referral (narrative)* Consultation (Routine) - Authorized Specialty Diagnoses / Procedures Referred By Azalia t Referred To Contact Cardiology Diagnoses Atherosclerosis of chitina coronary artery of chitina heart without angina pectoris Essential hypertension Hyperlipidemia, unspecified hyperlipidemia type Procedures Follow Up In Cardiology Willie Hall MD [address] [place] [address] 2, [address] [address] Willie Hall MD [address] [place] [address] 2, [address] [address] Referral ID Status Reason Start Date Expiration Date V isits Requested Visits Authorized [id number] Authorized 09/28/2023 09/27/2024 1 1 [facility] Work Phone: Reofqe for referral (narrative)No reason for referral [facility] Work [facility]: Summary Purpose Family History No [...] well-tolerated. * Willie Hall MD, FACC * DAINCA VALENCIA is being seen for a 6 [...] weight. She had blood work yesterday at [facility] which we requested. She is tolerating medication [...] has been well-tolerated. * Willie Hall MD, [facility] Chief Complaint and Reason for Visit Chief Complaint LABS AND EKG Screening Chief Complaint Screening Chief Complaint Admit Date April 24, 2025 8:08am Additional Source Comments INFORMATION SOURCE (unrecogn ized section and content) DATE CREATED AUTHOR 02/06/2018 [facility] DATE CREATED AUTHOR AUTHOR'S ORGANIZ ATION 09/14/2022 [facility] DATE CREATED AUTHOR AUTHOR'S ORGANIZ ATION 10/05/2022 [facility] Specialist DATE CREATED AUTHOR AUTHOR'S ORGANIZ ATION 04/05/2023 [facility] DATE CREATED AUTHOR AUTHOR'S ORGANIZ ATION 04/05/2023 [facility] DATE CREATED AUTHOR AUTHOR'S ORGANIZ ATION 09/13/2023 [facility] DATE CREATED AUTHOR AUTHOR'S ORGANIZ ATION 10/31/2023 [facility] DATE CREATED AUTHOR AUTHOR'S ORGANIZ ATION 11/03/2024 [facility] DATE CREATED AUTHOR AUTHOR'S ORGANIZ ATION 04/30/2025 [facility] DATE CREATED AUTHOR AUTHOR'S ORGANIZ ATION 05/17/2025 [facility] d[facility] Specialists EPIC Care Teams (unrecognized sec tion and content) Team Status: Inactive Member Role Status Dates Ron Hernandez MD Primary Care Provider, Referring Pr raffy Active Referral Self Attending Provider Active Team Status: Inactive Member Role Status Dates Ron Hernandez MD Primary Care Provider Active Flash White DPM Attending Provider Active Team Status: Active Member Role Status Dates Ron Hernandez MD Primary Care Provider Active Team Status: Inactive Member Role Status Dates Ron Hernandez MD Primary Care Provider Active Referral Self Attending Provider Active Car Rental Service Attendant Relationship Specialty Start Date End Date Ron Hernandez MD [address] [place] [address] PCP - General 08/14/99 Team Status: Inactive Member Role Status Dates Ron Hernandez MD Primary Care Provider Active Start: April 22, 2024 End: April 22, 2024 Referral Self Attending Provider Active Start: S lortemartha 2023 End: April 22, 2024 Elias Hu DO Referring Provider Active Start: April 22, 2024 End: April 22, 2024 Car Rental Service Attendant Relationship Specialty Start Date End Date Ron Hernandez MD [address] [place] [address] PCP - General Family Medicine 02/06/23 Car Rental Service Attendant Relationship Specialty Start Date End Date Ron Hernandez MD [address] [place] [address] PCP - General Family Medicine 02/06/23 [employer] Rental Service Attendant Relationship Specialty Start Date End Date Ron Hernandez MD [address] [place] [address] PCP - General Family Medicine 02/06/23 Car Rental Service Attendant Relationship Specialty Start Date End Date Ron Hernandez MD [address] [place] [address] PCP - General Family Medicine 02/06/23 Car Rental Service Attendant Relationship Specialty Start Date End Date Ron Hernandez MD [address] [place] [id number] PCP - General Family Medicine 09/24/19 [employer] Rental Service Attendant Relationship Specialty Start Date End Date Ron Hernandez MD [address] [place] [phone] PCP - General Family Medicine 09/24/19 Car Rental Service Attendant Relationship Specialty Start Date End Date Ron Hernandez MD [address] [place] [phone] PCP - General 08/14/99 [employer] Rental Service Attendant Relationship Specialty Start Date End Date Ron Hernandez MD [address] [place] [address] PCP - General Family Medicine 12/27/24 [employer] Rental Service Attendant Relationship Specialty Start Date End Date Ron Hernandez MD [address] [place] [address] PCP - General Family Medicine 12/27/24 Team Status: Inactive Member Role Status Dates Ron Hernandez MD Primary Care Provider Active Start: April 24, 2025 End: April 24, 2025 Elias Hu DO Attending Provider Active Start: April 24, 2025 End: April 24, 2025 Car Rental Service Attendant Relationship Specialty Start Date End Date Ron Hernandez MD [address] [place] [address] PCP - General Family Medicine 12/27/24 Car Rental Service Attendant Relationship Specialty Start Date End Date Ron Hernandez MD [address] [facility] [place] [phone] PCP - General Family Medicine 12/27/24 Goals (unrecognized section and content) Goals may be documented in a n alternate sectionGoals may be documented in an alternate sectionGoals may be documented in an alternate sectionGoals may be documented in an alternate section No data available for this sectionGoals may be documented in an alternate sectionNot on filedocumented as of this encounterNot on filedocumented as of this encounterNot on filedocumented as of this encounterNot on filedocumented as of this encounterNot on filedocumented as of this encounterNot on filedocumented as of this encounterNot on filedocumented as of this encounterNot on filedocumented as of this encounterGoals may be documented in an alternate section Reason for Visit (unrecogniz ed section and content) Reason Comments Follow-up 6m Reason Comments Sleep Apnea Reason Comments Gynecologic Exam Medicare off year.LM P: 2009HRT: NoneLast pap 02-06-23 neg.Last mammogram 04-22-24 [facility]. Prefers self referral. Denies breast, urinary, or bowel concerns. Reason Comments Follow-up 6m-CAD Specialty Diagnoses / Procedures Referred By Contac t Referred To Contact Cardiology Diagnoses Atherosclerosis of chitina coronary artery of chitina heart without angina pectoris Procedures Follow Up In Cardiology Willie Hall MD [address] [place] [address], [address] [address] Phone: tel: fax: Willie Hall MD [address] [place] [address] 2, [address] [address] Phone: tel: fax: Referral ID Status Reason Start Date Expiration Date V isits Requested Visits Authorized [id number] Authorized 03/07/2024 03/07/2025 1 1 Reason Comments Pain Reason Comments Pain FOR RECORDS PERTAINING TO PATIENTS WHO ARE [...] BE BASED ON THE PRIMARY CLINICAL RECORDS. [facility] [address] [facility]. provides no warranty or guarantee of the accuracy or completeness of information in this document.
[2025-05-29 12:02] LABS: Alanine Aminotransferase 21 U/L (14-59); Anion Gap 12.7; Aspartate Amino Transferase 13 U/L (15-37); Blood Urea Nitrogen 16.0 mg/dL (7.0-18.0); Calcium 9.0 mg/dL (8.5-10.1); Carbon Dioxide 28.2 mmol/L (21.0-32.0); Chloride 104 mmol/L (98-107); Cholesterol 194 mg/dL (<=200); Estimated GFR (African America >60 (>=60 mL/min/1.73m^2); Estimated GFR (Non-African Ame >60 (>=60 mL/min/1.73m^2); Glucose 99 mg/dL (74-106); HDL Cholesterol 58 mg/dL (40-60); Potassium 3.9 mmol/L (3.5-5.1); Sodium 141 mmol/L (136-145); Triglycerides 85 mg/dL (<=150); VLDL CHOLESTEROL 17.0 mg/dL
[2025-05-29 12:09] LABS: Hematocrit 40.2 % (36.0-48.0); Hemoglobin 12.7 g/dL (12.0-16.0); Immature Granulocytes Abs Auto 0.01 10^3/uL (0.00-0.03); Immature Granulocytes Pct Auto 0.2 % (0.0-0.5); Lymphocytes Absolute Auto 1.6 10^3/uL (1.2-3.8); Mean Corpuscular HGB Conc 31.6 g/dL (29.9-35.2); Mean Corpuscular Hemoglobin 28.7 pg (26.7-34.0); Mean Corpuscular Volume 91.0 fL (81.0-99.0); Platelet Count 442 10^3/uL (150-450); Red Blood Count 4.42 10^6/uL (4.20-5.40); White Blood Count 6.4 10^3/uL (4.0-11.0)
== END 2025-05-29 11:16 | disposition home or self-care (01) ==
LOC: LAB 11:17
PROVIDERS: PCP Family Medicine; Visit Provider Internal Medicine Cardiovascular Disease
DX: I25.10 Atherosclerotic heart disease of native coronary artery without angina pectoris (principal); I10 Essential (primary) hypertension; Z98.61 Coronary angioplasty status; E78.2 Mixed hyperlipidemia; I63.9 Cerebral infarction, unspecified
CPT/HCPCS: 36415; 80048; 80061; 84450; 84460; 85025

== ENCOUNTER 2025-08-08 16:48 | Outpatient (RCR) | payer MEDICARE, SELFPAY | END 2025-08-13 23:00 | disposition home or self-care (01) | LOC: PT 16:48 | PROVIDERS: PCP Family Medicine; Visit Provider Personal Emergency Response Attendant | DX: M25.562 Pain in left knee (principal); Z96.652 Presence of left artificial knee joint | CPT/HCPCS: 97110; 97140; 97161 ==